=== PATIENT | female | born 1975 | race Caucasian/White ===

== ENCOUNTER 2019-01-03 09:37 | Emergency (ER) | payer MEDICAID, SELFPAY ==
[2019-01-03 09:42] VITALS: BP 120/69; PULSE 96; RESP 20; TEMP 36.8; O2SAT 97
[2019-01-03 09:45] VITALS: RESP 20
[2019-01-03] MEDS: Ondansetron O.D.T. 4 MG TABEF PO (10:07)
[2019-01-03] MEDS: Meclizine 25 MG TAB PO (10:07)
--- NOTE | 2019-01-03 11:25 | W.ED.GENAD ---
Discharge Plan Disposition Patient Disposition: HOME Condition: Improving Discharge Details Chief Complaint: Dizzy/Sync Clinical Impression: Benign paroxysmal positional vertigo Primary Care Provider: Karri Ceballos ED Provider: Berny Santiago Home Meds and New Rx's Prescriptions: New ondansetron 4 mg tablet,disintegrating 4 mg PO Q6H PRN (Reason: nausea and vomiting) Qty: 20 RF: 0 meclizine 25 mg tablet 25 mg PO TID PRN (Reason: motion sickness) Qty: 30 RF: 0 Discharge Instructions Instructions: Benign Paroxysmal Positional Vertigo (ED) Additional Instructions: Return immediately to the emergency department for any new or worsening symptoms, change in your symptoms but is abnormal, or any further concern. Otherwise follow-up with your primary care provider if not improving over the next 5 days or as needed for reassessment. Stand Alone Forms: Work Release Referrals: Karri Ceballos [Primary Care Provider] - (As needed for reassessment) Discharge Data Discharge Date/Time-TO BE ENTERED AT DEPARTURE: 01/03/19 11:54 Medical Decision Making 1 week of vertigo symptoms, patient states fullness bilateral ears that started out left but now feels more fullness in the right. Similar episodes in the past. Just prior to this episode patient does state some nasal congestion and mild cold symptoms. Due to room availability patient was given meclizine and Zofran prior to full physical exam but history was obtained from patient and she is stable with no acute distress physical exam shows negative hints exam, normal cardiac and respiratory exam, Michael-Hallpike with lateralization to the left and Jeff maneuver performed immediately afterwards. Patient had improvement of symptoms after this was performed. Patient is further instructed that she may perform these maneuvers at home but was also prescribed meclizine and Zofran. Return precautions were discussed. Otherwise patient to follow-up with primary care provider as needed. After discussion of diagnosis and plan of care patient is no further needs, questions, or concerns and states clear understanding to return to the emergency department for any worsening symptoms. HPI General Mode of arrival: ambulatory. Date/Time Provider Initiated Documentation: 01/03/19 09:44. Limitations to Documentation: no limitations. Information obtained by: patient and RN notes reviewed. History of Present Illness 43 year old F presents to the emergency department with the chief complaint of Dizziness, described as similar to prior episodes, Patient started experiencing this week(s) (1) and it has been intermittent. No relieving factors improve symptom(s), Movement worsens symptoms . Patient did receive the following treatments prior to arrival, none Related Data Home Medications Medication Instructions Recorded Confirmed meclizine 25 mg PO TID PRN #30 tab 01/03/19 ondansetron 4 mg PO Q6H PRN #20 tab 01/03/19 Previous Rx's Medication Instructions Recorded meclizine 25 mg PO TID PRN #30 tab 01/03/19 ondansetron 4 mg PO Q6H PRN #20 tab 01/03/19 Allergies Allergy/AdvReac Type Severity Reaction Status Date / Time adhesive tape Allergy Skin Rash Unverified 01/03/19 09:44 General Stated Complaint: Dizzy/Sync CARL: 3 Review of Systems Constitutional Denies fever(s), Denies frequent falls and Denies weakness ENT Reports as per HPI, Reports vertigo, Reports dizziness, Reports otalgia, Reports nasal congestion, Denies nasal discharge and Denies sore throat Cardiovascular Denies chest pain, Denies diaphoresis, Denies syncope, Denies palpitations and Denies dyspnea Respiratory Denies dyspnea Gastrointestinal Denies nausea and Denies vomiting Neurologic Reports vertigo, Reports dizziness, Denies syncope, Denies frequent falls, Denies sensory deficit and Denies weakness Endocrine Denies palpitations PFSH Medical History Achalasia of esophagus Gastroesophageal reflux disease history of reentrant SVT Surgical History section Esophageal Myotomy Fundoplication Ligation of fallopian tube Pacemaker Family History Aunt Personal history of malignant neoplasm Social History Smoking/Tobacco Use Status: Current every day Drug use: Occasionally Substance use type: marijuana Do you feel safe at home: Yes Do you feel safe in your relationship?: Yes Exam Const General: cooperative, healthy appearing, no acute distress and well groomed Orientation: alert, awake and oriented x3 HENMT Head: normal to inspection Ears: hearing grossly normal bilaterally and TM's normal bilaterally Mouth: oral mucosae normal and moist mucous membranes Throat: posterior oropharynx normal Eyes Visual Almaraz: normal visual almaraz by confrontation Alignment and Position: alignment normal Periorbital: periorbital findings normal Eyelids: eyelids normal Sclera: sclerae normal Cornea: corneas normal Pupils: PERRL EOM: EOM intact bilaterally Neck Neck: normal visual inspection, full ROM, no lymphadenopathy and no meningeal signs Resp Effort & Inspection: normal respiratory effort and able to speak in complete sentences Auscultation: clear to auscultation bilaterally Cardio Rate: regular rate Rhythm: regular rhythm Heart Sounds: S1 normal and S2 normal Neuro General: alert, awake, oriented x3, gait normal, tone normal, moves all extremities, CN's II-XI intact bilaterally, not confused, [place] Hallpike (Nystagmus to the left) and other (HINTS exam no central source) Cognition: normal cognition Speech: speech normal Motor: muscle tone normal throughout, strength 5/5 throughout and no movement abnormalities noted Sensory Exam: no sensory deficits noted Coordination: [id number] test normal, Romberg test normal and rapid alternating movement UE normal Course Vital Signs Temperature 36.8 C 01/03/19 09:42 Pulse 96 H 01/03/19 09:42 Respiratory Rate 20 01/03/19 09:42 Blood Pressure 120/69 01/03/19 09:42 Pulse Oximetry 97 01/03/19 09:42 Temperature 36.8 C 01/03/19 09:42 Temperature Source Temporal Artery Scan 01/03/19 09:42 Pulse 96 H 01/03/19 09:42 Respiratory Rate 20 01/03/19 09:45 Respiratory Effort Non-Labored 01/03/19 09:45 Respiratory Depth Normal 01/03/19 09:45 Respiratory Pattern Normal 01/03/19 09:45 Blood Pressure 120/69 01/03/19 09:42 Pulse Oximetry 97 01/03/19 09:42 Oxygen Delivery Method Room Air 01/03/19 09:42 Oxygen Flow Rate 0 01/03/19 09:42 Pain Level 6 01/03/19 09:42
--- NOTE | 2019-01-03 11:28 | ED.GENADUL_ITS ---
Discharge Plan Disposition Patient Disposition: HOME Condition: Improving Discharge Details Chief Complaint: Dizzy/Sync Clinical Impression: Benign paroxysmal positional vertigo Primary Care Provider: Karri Ceballos ED Provider: Berny Santiago Home Meds and New Rx's Prescriptions: New ondansetron 4 mg tablet,disintegrating 4 mg PO Q6H PRN (Reason: nausea and vomiting) Qty: 20 RF: 0 meclizine 25 mg tablet 25 mg PO TID PRN (Reason: motion sickness) Qty: 30 RF: 0 Discharge Instructions Instructions: Benign Paroxysmal Positional Vertigo (ED) Additional Instructions: Return immediately to the emergency department for any new or worsening symptoms, change in your symptoms but is abnormal, or any further concern. Otherwise follow-up with your primary care provider if not improving over the next 5 days or as needed for reassessment. Stand Alone Forms: Work Release Referrals: Karri Ceballos [Primary Care Provider] - (As needed for reassessment) Discharge Data Discharge Date/Time-TO BE ENTERED AT DEPARTURE: 01/03/19 11:54 Medical Decision Making 1 week of vertigo symptoms, patient states fullness bilateral ears that started out left but now feels more fullness in the right. Similar episodes in the past. Just prior to this episode patient does state some nasal congestion and mild cold symptoms. Due to room availability patient was given meclizine and Zofran prior to full physical exam but history was obtained from patient and she is stable with no acute distress physical exam shows negative hints exam, normal cardiac and respiratory exam, Michael-Hallpike with lateralization to the left and Jeff maneuver performed immediately afterwards. Patient had improvement of symptoms after this was performed. Patient is further instructed that she may perform these maneuvers at home but was also prescribed meclizine and Zofran. Return precautions were discussed. Otherwise patient to follow-up with primary care provider as needed. After discussion of diagnosis and plan of care patient is no further needs, questions, or concerns and states clear understanding to return to the emergency department for any worsening symptoms. HPI General Mode of arrival: ambulatory . Date/Time Provider Initiated Documentation: 01/03/19 09:44 . Limitations to Documentation: no limitations . Information obtained by: patient and RN notes reviewed . History of Present Illness 43 year old F presents to the emergency department with the chief complaint of Dizziness, described as similar to prior episodes, Patient started experiencing this week(s) (1) and it has been intermittent. No relieving factors improve symptom(s), Movement worsens symptoms . Patient did receive the following treatments prior to arrival, none Related Data Home Medications Medication Instructions Recorded Confirmed meclizine 25 mg PO TID PRN #30 tab 01/03/19 ondansetron 4 mg PO Q6H PRN #20 tab 01/03/19 Previous Rx's Medication Instructions Recorded meclizine 25 mg PO TID PRN #30 tab 01/03/19 ondansetron 4 mg PO Q6H PRN #20 tab 01/03/19 Allergies Allergy/AdvReac Type Severity Reaction Status Date / Time adhesive tape Allergy Skin Rash Unverified 01/03/19 09:44 General Stated Complaint: Dizzy/Sync CARL: 3 Review of Systems Constitutional Denies fever(s), Denies frequent falls and Denies weakness ENT Reports as per HPI, Reports vertigo, Reports dizziness, Reports otalgia, Reports nasal congestion, Denies nasal discharge and Denies sore throat Cardiovascular Denies chest pain, Denies diaphoresis, Denies syncope, Denies palpitations and Denies dyspnea Respiratory Denies dyspnea Gastrointestinal Denies nausea and Denies vomiting Neurologic Reports vertigo, Reports dizziness, Denies syncope, Denies frequent falls, Denies sensory deficit and Denies weakness Endocrine Denies palpitations PFSH Medical History Achalasia of esophagus Gastroesophageal reflux disease history of reentrant SVT Surgical History section Esophageal Myotomy Fundoplication Ligation of fallopian tube Pacemaker Family History Aunt Personal history of malignant neoplasm Social History Smoking/Tobacco Use Status: Current every day Drug use: Occasionally Substance use type: marijuana Do you feel safe at home: Yes Do you feel safe in your relationship?: Yes Exam Const General: cooperative, healthy appearing, no acute distress and well groomed Orientation: alert, awake and oriented x3 HENMT Head: normal to inspection Ears: hearing grossly normal bilaterally and TM's normal bilaterally Mouth: oral mucosae normal and moist mucous membranes Throat: posterior oropharynx normal Eyes Visual Almaraz: normal visual almaraz by confrontation Alignment and Position: alignment normal Periorbital: periorbital findings normal Eyelids: eyelids normal Sclera: sclerae normal Cornea: corneas normal Pupils: PERRL EOM: EOM intact bilaterally Neck Neck: normal visual inspection, full ROM, no lymphadenopathy and no meningeal signs Resp Effort & Inspection: normal respiratory effort and able to speak in complete sentences Auscultation: clear to auscultation bilaterally Cardio Rate: regular rate Rhythm: regular rhythm Heart Sounds: S1 normal and S2 normal Neuro General: alert, awake, oriented x3, gait normal, tone normal, moves all extremities, CN's II-XI intact bilaterally, not confused, [place] Hallpike (Nystagmus to the left) and other (HINTS exam no central source) Cognition: normal cognition Speech: speech normal Motor: muscle tone normal throughout, strength 5/5 throughout and no movement abnormalities noted Sensory Exam: no sensory deficits noted Coordination: [id number] test normal, Romberg test normal and rapid alternating movement UE normal Course Vital Signs Temperature 36.8 C 01/03/19 09:42 Pulse 96 H 01/03/19 09:42 Respiratory Rate 20 01/03/19 09:42 Blood Pressure 120/69 01/03/19 09:42 Pulse Oximetry 97 01/03/19 09:42 Temperature 36.8 C 01/03/19 09:42 Temperature Source Temporal Artery Scan 01/03/19 09:42 Pulse 96 H 01/03/19 09:42 Respiratory Rate 20 01/03/19 09:45 Respiratory Effort Non-Labored 01/03/19 09:45 Respiratory Depth Normal 01/03/19 09:45 Respiratory Pattern Normal 01/03/19 09:45 Blood Pressure 120/69 01/03/19 09:42 Pulse Oximetry 97 01/03/19 09:42 Oxygen Delivery Method Room Air 01/03/19 09:42 Oxygen Flow Rate 0 01/03/19 09:42 Pain Level 6 01/03/19 09:42
[2019-01-03 16:38] VITALS: BP 120/69; PULSE 96; RESP 20; TEMP 36.8; O2SAT 97
== END 2019-01-03 11:54 | disposition home or self-care (01) ==
PROVIDERS: Emergency Provider Nurse Practitioner Family; PCP Family Medicine
DX: H81.13 Benign paroxysmal vertigo, bilateral (principal)
CPT/HCPCS: 99283

== ENCOUNTER 2019-01-17 14:20 | Inpatient (IN) | payer MEDICAID, SELFPAY ==
[2019-01-17] VITALS (60 sets, daily range): BP systolic 100–129; BP diastolic 59–77; PULSE 62–99; RESP 13–31; TEMP 36.5–37.3; O2SAT 91–100
--- NOTE | 2019-01-17 14:29 | DI.CT_ITS ---
SYMPTOMS/DIAGNOSIS: SEVERE ABDOMINAL PAIN RADIATING TO CHEST CHEST, ABDOMINAL AND PELVIC CT: CT examination of the chest, abdomen and pelvis was performed with a bolus infusion of 100 cc of Omnipaque 350. There is a transvenous cardiac pacemaker in position. No cardiomegaly. Thoracic aorta and major branches appear normal. No evidence of pulmonary embolic disease. No pleural effusion or pleural-based mass. Incidental well-circumscribed 5-6 mm mean diameter left lower lobe intrapulmonary nodule, recommended follow-up chest CT in six months. Otherwise, the lungs are clear. Tracheobronchial tree appears intact. No mediastinal, hilar, axillary or supraclavicular adenopathy. The liver is unremarkable in appearance except for presumed small left hepatic lobe cyst. Spleen, pancreas and bile ducts are unremarkable. Gallbladder appears to have been surgically removed. Lower pole left renal cortical calcifications noted. No evidence of urinary tract obstruction. Left lower pole renal scarring noted. Abdominal aorta is of normal diameter and major branch vessels appear normal. No abdominal or pelvic adenopathy. Appendix is normal. No evidence of diverticulitis or bowel obstruction. OB GYN PHYSICIAN ASSISTANT structures appear intact. There is a question of dilatation of the distal esophagus versus hiatal hernia. Question also raised of gastric antral wall thickening, possible gastritis. Please correlate clinically regarding any epigastric symptoms and, if clinically indicated, additional evaluation with an endoscopy should be considered. CONCLUSION: 1. Question esophageal dilatation versus hiatal hernia. Question also raised of antral gastritis. If the patient has GI symptoms referable to the epigastric region, additional evaluation with endoscopy may be considered. 2. Incidental left lower lobe 5-6 mm mean diameter intrapulmonary nodule; follow-up chest CT recommended in six months. 3. Left renal cortical lower pole scarring and calcification; no evidence of acute urinary tract process.
[2019-01-17] MEDS: Normal Saline 1,000 ML 1000 ML IV ×2 (14:50→17:05)
[2019-01-17] MEDS: Ondansetron 4 MG/2 ML VIAL IVP (14:51)
[2019-01-17] MEDS: MORPHine 10 MG/ML VIAL 4 MG IVP (14:53)
[2019-01-17 15:03] LABS: Bilirubin Negative (Negative); Blood Trace-intact (Negative); Clarity Clear (Clear); Glucose Negative (Negative); Ketones Trace mg/dL (Negative); Leukocyte Esterase Trace (Negative); Nitrite Negative (Negative); Specific Gravity >= 1.030 (1.005-1.025); Urobilinogen 0.2 EU/dL (Up TO 0.2)
[2019-01-17 15:07] LABS: Abs Immature Grans 0.02 k/cumm (0.0-0.09); Absolute Basophil Count 0.04 k/cumm (0.0-0.2); Absolute Eosinophil Count 0.15 k/cumm (0.0-0.7); Absolute Monocyte Count 0.47 k/cumm (0.11-0.7); Absolute Neutrophil Count 5.62 k/cumm (1.2-6.7); Basophils % 0.5; Eosinophils % 1.8; HCT 39.8 % (36.0-46.0); HGB 13.3 g/dL (12.0-15.5); Immature Grans % 0.2; Mean Corp. HGB Concentration 33.4 g/dL (32.0-36.0); Mean Corpuscular Hemoglobin 30.9 pg (27.0-33.0); Mean Corpuscular Volume 92.3 fL (80-95); Mean Platelet Volume 10.1 fL (8.0-11.0); Monocytes % 5.6; Neutrophils % 66.9; Platelet Count 250 x1000/uL (130-400); RBC 4.31 m/cumm (4.00-5.20); RBC Distribution Width 12.4 % (11.7-14.6)
[2019-01-17 15:18] LABS: Bacteria Many HPF (Negative); C & S Indicated? Yes; Casts Negative LPF (Negative); Crystals Negative HPF (Negative); Epithelial Cells Moderate HPF (Negative); Mucus Negative (Negative); WBC >50 HPF (0-5)
[2019-01-17] MEDS: Omnipaque 350 MG/ML 100 ML BTL IJ (15:20)
--- NOTE | 2019-01-17 15:25 | W.ED.GENAD ---
Discharge Plan Disposition Patient Disposition: [facility] INPATIENT Condition: Stable Discharge Details Chief Complaint: Chest Pain Clinical Impression: Esophagitis, Gastritis, Urinary tract infection, Vomiting, Retching Primary Care Provider: Karri Ceballos ED Provider: Anand Thomas Home Meds and New Rx's Prescriptions: No Action ondansetron 4 mg tablet,disintegrating 4 mg PO Q6H PRN (Reason: nausea and vomiting) Qty: 20 RF: 0 meclizine 25 mg tablet 25 mg PO TID PRN (Reason: motion sickness) Qty: 30 RF: 0 Medical Decision Making This is a 43-year-old female with a past medical history of fundoplication, myomectomy, GERD, tubal ligation, 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 The patient states that 45 minutes ago she developed severe burning chest pain, that radiated to the epigastric region. She had associated nausea and vomiting and is been unable to keep anything down. She denies any history of cardiac ischemic disease. She states that aside for taking Tums today she is taking nothing else for reflux. Exam demonstrates notable reproducible tenderness in the epigastric region, the patient is curled up in the position appears to be in notable pain with continued retching and dry heaves. Differential includes acute abdominal pathology, atypical cardiac etiology, reflux, pancreatitis. There is no blood in the patient's vomitus, Renee-Keene tear seems less likely. Symptoms appear inconsistent with Boerhaave's at this time. We will get a CT scan, give GI cocktail, Zofran, IV fluids, and reevaluate. 4:45 PM Patient's laboratory work-up is returned, no significant white count, platelets stable. Electrolytes normal. Renal function stable. Troponin less than 0.05, lipase normal, urinalysis shows trace leuk esterase, but notable WBCs. Moderate bacteria. Concern for significant UTI versus Srinivas. Reassessment the patient denies any urinary symptoms however urinalysis is notably concerning. The Zofran has not been helpful in remediating the patient's nausea and retching or abdominal pain. GI cocktail gave no significant improvement. CT scan has returned and per radiology shows no evidence of rupture, Boerhaave's tear, or severe intra-abdominal pathology, however there is concern for notable hiatal hernia in conjunction with definite stomach and esophageal thickening concerning for significant esophagitis and gastritis. Recommendation from radiology for EGD and further evaluation. We did start the patient on Protonix bolus and infusion, repeat GI cocktail, and Reglan for nausea. She is still unable to tolerate p.o. I did contact the surgeon and discussed the case with Dr. Westbrook, she agrees with the need for EGD, thinks that he can probably wait until tomorrow. She recommends admission to the hospitalist for the UTI, with consult for surgery for EGD. Additionally of note there is evidence of a small pulmonary nodule which is incidental but does require CT follow-up in the next 6 months. 5:19pm Case has been disciussed with Dr Walter.I have extensively reviewed the treatment plan with the patient. I have addressed all patient concerns at this time. I have also discussed the plan with the admitting physician and they agree with the current assessment and plan and have agreed to assume responsibility for the patient. All parties demonstrate verbal understanding and agreement with our assessment and plan at this time. EKG 14: 34 Rate 79, NJ 182, QT 478, QRS 190, sinus rhythm with right bundle branch block secondary to pacing. Negative for SCARBOSSA criterion Exam(s) a CT:CT chest/abd/pel w SYMPTOMS/DIAGNOSIS: SEVERE ABDOMINAL PAIN RADIATING TO CHEST CHEST, ABDOMINAL AND PELVIC CT: CT examination of the chest, abdomen and pelvis was performed with a bolus infusion of 100 cc of Omnipaque 350. There is a transvenous cardiac pacemaker in position. No cardiomegaly. Thoracic aorta and major branches appear normal. No evidence of pulmonary embolic disease. No pleural effusion or pleural-based mass. Incidental well-circumscribed 5-6 mm mean diameter left lower lobe intrapulmonary nodule, recommended follow-up chest CT in six months. Otherwise, the lungs are clear. Tracheobronchial tree appears intact. No mediastinal, hilar, axillary or supraclavicular adenopathy. The liver is unremarkable in appearance except for presumed small left hepatic lobe cyst. Spleen, pancreas and bile ducts are unremarkable. Gallbladder appears to have been surgically removed. Lower pole left renal cortical calcifications noted. No evidence of urinary tract obstruction. Left lower pole renal scarring noted. Abdominal aorta is of normal diameter and major branch vessels appear normal. No abdominal or pelvic adenopathy. Appendix is normal. No evidence of diverticulitis or bowel obstruction. [employer] structures appear intact. There is a question of dilatation of the distal esophagus versus hiatal hernia. Question also raised of gastric antral wall thickening, possible gastritis. Please correlate clinically regarding any epigastric symptoms and, if clinically indicated, additional evaluation with an endoscopy should be considered. CONCLUSION: 1. Question esophageal dilatation versus hiatal hernia. Question also raised of antral gastritis. If the patient has GI symptoms referable to the epigastric region, additional evaluation with endoscopy may be considered. 2. Incidental left lower lobe 5-6 mm mean diameter intrapulmonary nodule; follow-up chest CT recommended in six months. 3. Left renal cortical lower pole scarring and calcification; no evidence of acute urinary tract process. HPI General Date/Time Provider Initiated Documentation: 01/17/19 14:24. HPI Narrative: This is a 43-year-old female with a past medical history of reentrant SVT with subsequent pacemaker, fundoplication, esophageal myotomy, and tubal ligation. As well as GERD. She presents today for evaluation of severe burning pain in her chest and epigastric region. She states that roughly 45 minutes prior to arrival she developed this, she does have some mild associated shortness of breath. The pain is burning and severe, and associated with dry heaves, nausea and multiple episodes of vomiting at home. Patient also admits to generalized abdominal pain in conjunction with the epigastric pain. She denies any numbness, tingling, weakness, arm neck or shoulder pain. She denies any tearing or ripping sensation in her chest. She denies any other complaints at this time. She did take some Tums at home prior to arrival, but does not normally take antacid medication. Patient denies any IV or illicit drug use, pertinent family history. Related Data Home Medications Medication Instructions Recorded Confirmed meclizine 25 mg PO TID PRN #30 tab 01/03/19 ondansetron 4 mg PO Q6H PRN #20 tab 01/03/19 Previous Rx's Medication Instructions Recorded meclizine 25 mg PO TID PRN #30 tab 01/03/19 ondansetron 4 mg PO Q6H PRN #20 tab 01/03/19 Allergies Allergy/AdvReac Type Severity Reaction Status Date / Time adhesive tape Allergy Skin Rash Unverified 01/03/19 09:44 General Stated Complaint: Chest Pain CARL: 2 Review of Systems Review of Systems All systems reviewed & are unremarkable except as noted in HPI and below PFSH Social History Smoking/Tobacco Use Status: Current every day Drug use: Occasionally Substance use type: marijuana Do you feel safe at home: Yes Do you feel safe in your relationship?: Yes Exam Narrative Exam Narrative: 1.Const: Well-nourished, Well-developed, appearing stated age 2.Eyes: PERRL, no conjunctival injection, and symmetrical lids. 3.ENT: Atraumatic external nose and ears. Moist MM. Neck: Symmetric, trachea midline, No thyromegaly. 4.CVS: +S1/S2, No murmurs or gallops. Peripheral pulses 2+ and equal in all extremities. Brisk capillary refill in all extremities. Radial pulses +2 bilaterally. 5.RESP: Unlabored respiratory effort. Clear to auscultation bilaterally. No wheezes rales or rhonchi 6.GI: Soft, diffusely tender, notable epigastric tenderness., No hepatosplenomegaly. Voluntary guarding. 7.MSK: Normocephalic/Atraumatic, Extremities w/o deformity or ttp No cyanosis or clubbing, Normal movement of all extremities 8.Skin: Warm, Dry. No rashes or lesions. 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 Sensation grossly intact, no focal neurologic deficits. 10.Psych: (AAO) x3. Appropriate mood and affect Course Vital Signs Temperature 36.9 C 01/17/19 14:37 Pulse 70 01/17/19 14:37 Respiratory Rate 18 01/17/19 14:37 Blood Pressure 112/71 01/17/19 14:37 Pulse Oximetry 98 01/17/19 14:37 Temperature 36.9 C 01/17/19 14:37 Temperature Source Skin 01/17/19 14:37 Pulse 70 01/17/19 14:37 Respiratory Rate 18 01/17/19 14:37 Blood Pressure 112/71 01/17/19 14:37 Blood Pressure Position Supine 01/17/19 14:37 Pulse Oximetry 98 01/17/19 14:37 Oxygen Delivery Method Room Air 01/17/19 14:37 Oxygen Flow Rate 0 01/17/19 14:37 Pain Level 8 01/17/19 14:53 Comment 01/17/19 14:37 Lab/Test Results Lab/Test Results: 01/17/19 14:56 Urine - Reflex from Ua Urine Culture - Pending Laboratory Tests Range/Units 01/17/19 01/17/19 14:56 15:00 WBC (4.4-10.8) k/cumm 8.40 RBC (4.00-5.20) m/cumm 4.31 Hgb (12.0-15.5) g/dL 13.3 Hct (36.0-46.0) % 39.8 MCV (80-95) fL 92.3 MCH (27.0-33.0) pg 30.9 MCHC (32.0-36.0) g/dL 33.4 RDW (11.7-14.6) % 12.4 Plt Count (130-400) x1000/uL 250 MPV (8.0-11.0) fL 10.1 Immature Gran % 0.2 Neutrophils % 66.9 Lymphocytes % 25.0 Monocytes % 5.6 Eosinophils % 1.8 Basophils % 0.5 Absolute Neutrophils (1.2-6.7) k/cumm 5.62 Absolute Lymphocytes (1.2-3.4) k/cumm 2.10 Absolute Monocytes (0.11-0.7) k/cumm 0.47 Absolute Eosinophils (0.0-0.7) k/cumm 0.15 Absolute Basophils (0.0-0.2) k/cumm 0.04 Urine Color (Yellow) Yellow Urine Clarity (Clear) Clear Urine pH (5-8) 6.0 Ur Specific [place] (1.005-1.025) >= 1.030 H Urine Protein (Negative) mg/dL 30 H Urine Ketones (Negative) mg/dL Trace H Urine Blood (Negative) Trace-intact H Urine Nitrite (Negative) Negative Urine Bilirubin (Negative) Negative Urine Urobilinogen (Up TO 0.2) EU/dL 0.2 Ur Leukocyte Esterase (Negative) Trace H Urine RBC (0-2) 3-5 H Urine WBC (0-5) HPF >50 Ur Epithelial Cells (Negative) HPF Moderate Urine Crystals (Negative) HPF Negative Urine Bacteria (Negative) HPF Many Urine Casts (Negative) LPF Negative Urine Mucus (Negative) Negative Ur Culture Indicated? Yes Urine Glucose (Negative) mg/dL Negative
[2019-01-17 15:28] LABS: PTT Activated 22.5 sec (21.0-31.4)
[2019-01-17 15:34] LABS: ALT 23 U/L (12-78); AST 18 U/L (15-37); Albumin 4.1 g/dL (3.4-5.0); Alkaline Phosphatase 56 U/L (46-116); Anion Gap 12.8 mmol/L (3-11); BUN 16 mg/dL (7-18); Bilirubin, Total 0.4 mg/dL (0.2-1.0); CO2 25.2 mmol/L (21.0-32.0); CREATININE 0.91 mg/dL (0.55-1.02); Calcium 9.6 mg/dL (8.5-10.1); Chloride 104 mmol/L (98-107); Glucose 125 mg/dL (70-100); Lipase 77 U/L (73-393); Potassium 3.9 mmol/L (3.5-5.1); Sodium 142 mmol/L (136-145); Total Protein 7.8 g/dL (6.4-8.2)
[2019-01-17 15:46] LABS: Troponin I < 0.05 ng/mL (0.00-0.06)
[2019-01-17] MEDS: FAMOTIDINE 20 MG/50 ML BAG 100 MG IVPB (16:34)
[2019-01-17] MEDS: Metoclopramide 10 MG/2 ML VIAL IVP (16:53)
[2019-01-17] MEDS: Pantoprazole 40 MG VIAL 80 MG IVP (16:57)
[2019-01-17] MEDS: cefTRIAXone 1 GM/50 ML BAG IVPB (17:06)
--- NOTE | 2019-01-17 17:30 | W.PM.HP.N ---
Date of service: 01/17/19 Time of Service: 17:30 Assessment and Plan (1) Emesis, persistent: Start date: 01/17/19 Current visit: Yes Status: Acute This is a 43-year-old lady with presentation of intractable nausea and vomiting and a history of chronic nausea usually controlled with THC. She also has a history of loose stools intermittently after her cholecystectomy. She presented with epigastric burning and chest pain but CT scan did reveal esophagitis and gastritis for which the patient is on treatment for this presently with iv PPI and oral Carafate. Surgical consultation has been made for probable EGD evaluation in the morning. She does have a history of previous fundoplication and esophageal myotomy and has had chronic GERD. We will continue to modify her symptomatic care attempting to decrease her emesis and retching. (2) Esophagitis with gastritis: Current visit: Yes Status: Acute Continue IV PPI and add Carafate with H2 antagonist given IV in the ED. Surgery can comment on further care and modification of treatment after EGD. (3) Atypical chest pain: Current visit: Yes Status: Acute This is most likely associated with her esophageal symptoms and her troponins have trended negative. Follow-up on last troponin and continue cardiac monitoring. 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 Qualifiers: Urinary tract infection type: site unspecified Hematuria presence: without hematuria Qualified Code(s): N39.0 - Urinary tract infection, site not specified History of Present Illness Chief Complaint: Chest pain with intractable emesis Narrative: This a 43-year-old lady with onset who had an onset of severe abdominal epigastric burning and lower chest pain presented to the ED because of persistent emesis with retching starting the morning of admission. She does have a history of fundoplication with subsequent esophageal myotomy and a history of GERD and chronic nausea which she self medicates with THC. 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 She reported to the ED she continued with intractable nausea and vomiting with retching not responding to IV antiemetics, IV Reglan and a GI cocktail. Surgery was consulted in the ED and will see the patient for an EGD over the weekend. She was admitted for IV hydration and bowel rest with continued treatment of esophagitis and gastritis seen on CT. She did receive IV Protonix high-dose and then infusion Protonix with continued IV PPIs ordered. Her other medical problems to be stable with a history of reentrant SVT and an AICD mostly pacing by quality assurance monitor body. Because of her presentation of chest pain she will have troponins trended which have been negative. In the ED she was also found to have a possible UTI and was started on iv Rocephin which will be continued. Review of Systems Review of Systems 13 point review of systems otherwise unrevealing or stable patient weight being maintained despite her chronic nausea and intermittent loose stools after her cholecystectomy. [facility] Medical History Achalasia of esophagus Gastroesophageal reflux disease history of reentrant SVT Surgical History section Esophageal Myotomy Fundoplication Ligation of fallopian tube Pacemaker Family History Aunt Personal history of malignant neoplasm Social History Smoking/Tobacco Use Status: Current-Occasional Drug use: Occasionally Substance use type: marijuana Do you feel safe at home: Yes Do you feel safe in your relationship?: Yes Meds Home Medications Medication Instructions Recorded Confirmed Type meclizine 25 mg PO TID PRN #30 tab 01/03/19 01/17/19 Rx ondansetron 4 mg PO Q6H PRN #20 tab 01/03/19 01/17/19 Rx Allergies Allergy/AdvReac Type Severity Reaction Status Date / Time adhesive tape Allergy Skin Rash Unverified 01/03/19 09:44 Exam Narrative Exam Narrative: General: Patient is lying in bed with her head elevated at a 45 degree angle and appears uncomfortable lying in position with her abdominal discomfort and nausea. She is alert and oriented x3. She is in moderate distress from her abdominal symptoms. HEENT: Normocephalic, oropharynx moist mucosa and normal dentition, eyes with pupils equal reactive light symmetrically and extraocular movement intact, sclera anicteric. Neck: Supple without JVD. Back: Without CVA tenderness. Lungs: Fair aeration and clear to auscultation percussion. Heart: Regular rate and rhythm no murmurs gallops appreciated. Pacemaker palpated subcutaneously over chest. Breasts: Exam deferred. Abdomen: Contour scaphoid, soft to palpation, tender over epigastrium with slight guarding but no rebound, no palpable hepatosplenomegaly or masses. Bowel sounds are present but decreased in all quadrants. Genitalia/rectal: Exam deferred. Extremities: Without clubbing cyanosis or edema. Skin: Warm and dry with no rashes. Neuro: Cranial nerves II through XII grossly intact, motor intact with normal strength, DTRs symmetrical with no Babinski's. Results Imaging Imaging Studies: Exam(s) a CT:CT chest/abd/pel w SYMPTOMS/DIAGNOSIS: SEVERE ABDOMINAL PAIN RADIATING TO CHEST CHEST, ABDOMINAL AND PELVIC CT: CT examination of the chest, abdomen and pelvis was performed with a bolus infusion of 100 cc of Omnipaque 350. There is a transvenous cardiac pacemaker in position. No cardiomegaly. Thoracic aorta and major branches appear normal. No evidence of pulmonary embolic disease. No pleural effusion or pleural-based mass. Incidental well-circumscribed 5-6 mm mean diameter left lower lobe intrapulmonary nodule, recommended follow-up chest CT in six months. Otherwise, the lungs are clear. Tracheobronchial tree appears intact. No mediastinal, hilar, axillary or supraclavicular adenopathy. The liver is unremarkable in appearance except for presumed small left hepatic lobe cyst. Spleen, pancreas and bile ducts are unremarkable. Gallbladder appears to have been surgically removed. Lower pole left renal cortical calcifications noted. No evidence of urinary tract obstruction. Left lower pole renal scarring noted. Abdominal aorta is of normal diameter and major branch vessels appear normal. No abdominal or pelvic adenopathy. Appendix is normal. No evidence of diverticulitis or bowel obstruction. ROAD MENDER structures appear intact. There is a question of dilatation of the distal esophagus versus hiatal hernia. Question also raised of gastric antral wall thickening, possible gastritis. Please correlate clinically regarding any epigastric symptoms and, if clinically indicated, additional evaluation with an endoscopy should be considered. CONCLUSION: 1. Question esophageal dilatation versus hiatal hernia. Question also raised of antral gastritis. If the patient has GI symptoms referable to the epigastric region, additional evaluation with endoscopy may be considered. 2. Incidental left lower lobe 5-6 mm mean diameter intrapulmonary nodule; follow-up chest CT recommended in six months. 3. Left renal cortical lower pole scarring and calcification; no evidence of acute urinary tract process. [id number]: Total DLP = 0.00 mGy-cm Ordered By: Anand Thomas DO CC: Dictated By: Arnie Goyal M.D. 01/17/19 1535 Labs : 01/17/19 15:00 01/17/19 15:00 Laboratory Results - last 24 hr 01/17/19 01/17/19 01/17/19 14:56 15:00 15:00 WBC 8.40 RBC 4.31 Hgb 13.3 Hct 39.8 MCV 92.3 MCH 30.9 MCHC 33.4 RDW 12.4 Plt Count 250 MPV 10.1 Immature Gran % 0.2 Neutrophils % 66.9 Lymphocytes % 25.0 Monocytes % 5.6 Eosinophils % 1.8 Basophils % 0.5 Absolute Neutrophils 5.62 Absolute Lymphocytes 2.10 Absolute Monocytes 0.47 Absolute Eosinophils 0.15 Absolute Basophils 0.04 PT INR APTT Sodium 142 Potassium 3.9 Chloride 104 Carbon Dioxide 25.2 Anion Gap 12.8 H BUN 16 Creatinine 0.91 Estimated GFR/1.73 m2 >= 60.00 Glucose 125 H Calcium 9.6 Total Bilirubin 0.4 AST 18 ALT 23 Alkaline Phosphatase 56 Troponin I < 0.05 Total Protein 7.8 Albumin 4.1 Lipase 77 Urine Color Yellow Urine Clarity Clear Urine pH 6.0 Ur Specific [place] >= 1.030 H Urine Protein 30 H Urine Ketones Trace H Urine Blood Trace-intact H Urine Nitrite Negative Urine Bilirubin Negative Urine Urobilinogen 0.2 Ur Leukocyte Esterase Trace H Urine RBC 3-5 H Urine WBC >50 Ur Epithelial Cells Moderate Urine Crystals Negative Urine Bacteria Many Urine Casts Negative Urine Mucus Negative Ur Culture Indicated? Yes Urine Glucose Negative 01/17/19 15:00 WBC RBC Hgb Hct MCV MCH MCHC RDW Plt Count MPV Immature Gran % Neutrophils % Lymphocytes % Monocytes % Eosinophils % Basophils % Absolute Neutrophils Absolute Lymphocytes Absolute Monocytes Absolute Eosinophils Absolute Basophils PT 10.0 INR 1.0 APTT 22.5 Sodium Potassium Chloride Carbon Dioxide Anion Gap BUN Creatinine Estimated GFR/1.73 m2 Glucose Calcium Total Bilirubin AST ALT Alkaline Phosphatase Troponin I Total Protein Albumin Lipase Urine Color Urine Clarity Urine pH Ur Specific [place] Urine Protein Urine Ketones Urine Blood Urine Nitrite Urine Bilirubin Urine Urobilinogen Ur Leukocyte Esterase Urine RBC Urine WBC Ur Epithelial Cells Urine Crystals Urine Bacteria Urine Casts Urine Mucus Ur Culture Indicated? Urine Glucose Last Vital Signs Temp 36.9 C 01/17/19 14:37 Pulse 70 01/17/19 14:37 Resp 18 01/17/19 17:21 BP 112/71 01/17/19 14:37 Pulse Ox 100 01/17/19 16:20
--- NOTE | 2019-01-17 17:35 | HPE_ITS ---
Date of service: 01/17/19 Time of Service: 17:30 Assessment and Plan (1) Emesis, persistent: Start date: 01/17/19 Current visit: Yes Status: Acute This is a 43-year-old lady with presentation of intractable nausea and vomiting and a history of chronic nausea usually controlled with THC. She also has a history of loose stools intermittently after her cholecystectomy. She presented with epigastric burning and chest pain but CT scan did reveal esophagitis and gastritis for which the patient is on treatment for this presently with iv PPI and oral Carafate. Surgical consultation has been made for probable EGD evaluation in the morning. She does have a history of previous fundoplication and esophageal myotomy and has had chronic GERD. We will continue to modify her symptomatic care attempting to decrease her emesis and retching. (2) Esophagitis with gastritis: Current visit: Yes Status: Acute Continue IV PPI and add Carafate with H2 antagonist given IV in the ED. Surgery can comment on further care and modification of treatment after EGD. (3) Atypical chest pain: Current visit: Yes Status: Acute This is most likely associated with her esophageal symptoms and her troponins have trended negative. Follow-up on last troponin and continue cardiac monitoring. (4) UTI (urinary tract infection): Start date: 01/17/19 Current visit: Yes Status: Acute Patient was not having symptoms of UTI but this was found during her evaluation in the ED and will be treated with Rocephin as a possible media/instructional designer of her symptoms. Qualifiers: Urinary tract infection type: site unspecified Hematuria presence: without hematuria Qualified Code(s): N39.0 - Urinary tract infection, site not specified History of Present Illness Chief Complaint: Chest pain with intractable emesis Narrative: This a 43-year- old lady with onset who had an onset of severe abdominal epigastric burning and lower chest pain presented to the ED because of persistent emesis with retching starting the morning of admission. She does have a history of fundoplication with subsequent esophageal myotomy and a history of GERD and chronic nausea which she self medicates with THC. 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 She reported to the ED she continued with intractable nausea and vomiting with retching not responding to IV antiemetics, IV Reglan and a GI cocktail. Surgery was consulted in the ED and will see the patient for an EGD over the weekend. She was admitted for IV hydration and bowel rest with continued treatment of esophagitis and gastritis seen on CT. She did receive IV Protonix high-dose and then infusion Protonix with continued IV PPIs ordered. Her other medical problems to be stable with a history of reentrant SVT and an AICD mostly pacing by compliance monitor. Because of her presentation of chest pain she will have troponins trended which have been negative. In the ED she was also found to have a possible UTI and was started on iv Rocephin which will be continued. Review of Systems Review of Systems 13 point review of systems otherwise unrevealing or stable patient weight being maintained despite her chronic nausea and intermittent loose stools after her cholecystectomy. [facility] Medical History Achalasia of esophagus Gastroesophageal reflux disease history of reentrant SVT Surgical History section Esophageal Myotomy Fundoplication Ligation of fallopian tube Pacemaker Family History Aunt Personal history of malignant neoplasm Social History Smoking/Tobacco Use Status: Current-Occasional Drug use: Occasionally Substance use type: marijuana Do you feel safe at home: Yes Do you feel safe in your relationship?: Yes Meds Home Medications Medication Instructions Recorded Confirmed Type meclizine 25 mg PO TID PRN #30 tab 01/03/19 01/17/19 Rx ondansetron 4 mg PO Q6H PRN #20 tab 01/03/19 01/17/19 Rx Allergies Allergy/AdvReac Type Severity Reaction Status Date / Time adhesive tape Allergy Skin Rash Unverified 01/03/19 09:44 Exam Narrative Exam Narrative: General: Patient is lying in bed with her head elevated at a 45 degree angle and appears uncomfortable lying in position with her abdominal discomfort and nausea. She is alert and oriented x3. She is in moderate distress from her abdominal symptoms. HEENT: Normocephalic, oropharynx moist mucosa and normal dentition, eyes with pupils equal reactive light symmetrically and extraocular movement intact, sclera anicteric. Neck: Supple without JVD. Back: Without CVA tenderness. Lungs: Fair aeration and clear to auscultation percussion. Heart: Regular rate and rhythm no murmurs gallops appreciated. Pacemaker palpated subcutaneously over chest. Breasts: Exam deferred. Abdomen: Contour scaphoid, soft to palpation, tender over epigastrium with slig ht guarding but no rebound, no palpable hepatosplenomegaly or masses. Bowel sounds are present but decreased in all quadrants. Genitalia/rectal: Exam deferred. Extremities: Without clubbing cyanosis or edema. Skin: Warm and dry with no rashes. Neuro: Cranial nerves II through XII grossly intact, motor intact with normal strength, DTRs symmetrical with no Babinski's. Results Imaging Imaging Studies: Exam(s) a CT:CT chest/abd/pel w SYMPTOMS/DIAGNOSIS: SEVERE ABDOMINAL PAIN RADIATING TO CHEST CHEST, ABDOMINAL AND PELVIC CT: CT examination of the chest, abdomen and pelvis was performed with a bolus infusion of 100 cc of Omnipaque 350. There is a transvenous cardiac pacemaker in position. No cardiomegaly. Thoracic aorta and major branches appear normal. No evidence of pulmonary embolic disease. No pleural effusion or pleural-based mass. Incidental well-circumscribed 5-6 mm mean diameter left lower lobe intrapulmonary nodule, recommended follow-up chest CT in six months. Otherwise, the lungs are clear. Tracheobronchial tree appears intact. No mediastinal, hilar, axillary or supraclavicular adenopathy. The liver is unremarkable in appearance except for presumed small left hepatic lobe cyst. Spleen, pancreas and bile ducts are unremarkable. Gallbladder appears to have been surgically removed. Lower pole left renal cortical calcifications noted. No evidence of urinary tract obstruction. Left lower pole renal scarring noted. Abdominal aorta is of normal diameter and major branch vessels appear normal. No abdominal or pelvic adenopathy. Appendix is normal. No evidence of diverticulitis or bowel obstruction. TECHNOLOGY SUPPORT ANALYST structures appear intact. There is a question of dilatation of the distal esophagus versus hiatal hernia. Question also raised of gastric antral wall thickening, possible gastritis. Please correlate clinically regarding any epigastric symptoms and, if clinically indicated, additional evaluation with an endoscopy should be considered. CONCLUSION: 1. Question esophageal dilatation versus hiatal hernia. Question also raised of antral gastritis. If the patient has GI symptoms referable to the epigastric region, additional evaluation with endoscopy may be considered. 2. Incidental left lower lobe 5-6 mm mean diameter intrapulmonary nodule; follow-up chest CT recommended in six months. 3. Left renal cortical lower pole scarring and calcification; no evidence of acute urinary tract process. [id number]: Total DLP = 0.00 mGy-cm Ordered By: Anand Thomas DO CC: Dictated By: Arnie Goyal M.D. 01/17/19 1535 Labs : 01/17/19 15:00 01/17/19 15:00 Laboratory Results - last 24 hr 01/17/19 01/17/19 01/17/19 14:56 15:00 15:00 WBC 8.40 RBC 4.31 Hgb 13.3 Hct 39.8 MCV 92.3 MCH 30.9 MCHC 33.4 RDW 12.4 Plt Count 250 MPV 10.1 Immature Gran % 0.2 Neutrophils % 66.9 Lymphocytes % 25.0 Monocytes % 5.6 Eosinophils % 1.8 Basophils % 0.5 Absolute Neutrophils 5.62 Absolute Lymphocytes 2.10 Absolute Monocytes 0.47 Absolute Eosinophils 0.15 Absolute Basophils 0.04 PT INR APTT Sodium 142 Potassium 3.9 Chloride 104 Carbon Dioxide 25.2 Anion Gap 12.8 H BUN 16 Creatinine 0.91 Estimated GFR/1.73 m2 >= 60.00 Glucose 125 H Calcium 9.6 Total Bilirubin 0.4 AST 18 ALT 23 Alkaline Phosphatase 56 Troponin I < 0.05 Total Protein 7.8 Albumin 4.1 Lipase 77 Urine Color Yellow Urine Clarity Clear Urine pH 6.0 Ur Specific Chambers >= 1.030 H Urine Protein 30 H Urine Ketones Trace H Urine Blood Trace-intact H Urine Nitrite Negative Urine Bilirubin Negative Urine Urobilinogen 0.2 Ur Leukocyte Esterase Trace H Urine RBC 3-5 H Urine WBC >50 Ur Epithelial Cells Moderate Urine Crystals Negative Urine Bacteria Many Urine Casts Negative Urine Mucus Negative Ur Culture Indicated? Yes Urine Glucose Negative 01/17/19 15:00 WBC RBC Hgb Hct MCV MCH MCHC RDW Plt Count MPV Immature Gran % Neutrophils % Lymphocytes % Monocytes % Eosinophils % Basophils % Absolute Neutrophils Absolute Lymphocytes Absolute Monocytes Absolute Eosinophils Absolute Basophils PT 10.0 INR 1.0 APTT 22.5 Sodium Potassium Chloride Carbon Dioxide Anion Gap BUN Creatinine Estimated GFR/1.73 m2 Glucose Calcium Total Bilirubin AST ALT Alkaline Phosphatase Troponin I Total Protein Albumin Lipase Urine Color Urine Clarity Urine pH Ur Specific Chambers Urine Protein Urine Ketones Urine Blood Urine Nitrite Urine Bilirubin Urine Urobilinogen Ur Leukocyte Esterase Urine RBC Urine WBC Ur Epithelial Cells Urine Crystals Urine Bacteria Urine Casts Urine Mucus Ur Culture Indicated? Urine Glucose Last Vital Signs Temp 36.9 C 01/17/19 14:37 Pulse 70 01/17/19 14:37 Resp 18 01/17/19 17:21 BP 112/71 01/17/19 14:37 Pulse Ox 100 01/17/19 16:20
[2019-01-17] MEDS: Normal Saline 1,000 ML 125 ML IV (17:59)
[2019-01-17] MEDS: PANTOPRAZOLE 80 MG in Normal Saline 100 ML 10 MG IV (18:00)
[2019-01-17 21:15] LABS: Magnesium 1.5 mg/dL (1.8-2.4); TSH (W/Ref FT4) 1.37 uIU/mL (0.358-3.74)
[2019-01-17 21:27] LABS: Troponin I < 0.05 ng/mL (0.00-0.06)
[2019-01-17] MEDS: Sucralfate 1 GM TAB PO (21:52)
[2019-01-18] VITALS (39 sets, daily range): BP systolic 99–116; BP diastolic 58–70; PULSE 59–90; RESP 11–27; TEMP 37.2–37.7; O2SAT 90–99
[2019-01-18] MEDS: MAGNESIUM SULFATE 2 GM/50 ML BAG IVPB (00:12)
[2019-01-18 00:29] LABS: Troponin I < 0.05 ng/mL (0.00-0.06)
[2019-01-18] MEDS: Sucralfate 1 GM TAB PO ×4 (03:13→20:02)
--- NOTE | 2019-01-18 05:11 | NUR.NOTE ---
The patient was going to have IV phenergan administered and the patient's R antecubital IV site was assessed by JEROD Hernandez prior to administration with the understanding that extravasation of this medication can be very harmful to the patient.Education was provided to the patient on this concern. The IV site was found to be intact with NS 100ml IV maintenance running and no signs of redness (except at insertion site), swelling, or pain. The phenergan 25mg was diluted in 50ml of NS and run in over 15 min at 200ml/hr (approximately 7014-1481). The IV site was assessed again post phenergan infusion(approximately 0325) with still no signs of infiltrate. Oliver Hernandez RN went into the room at approximately 0450 and found that the IV site was now infiltrated evidenced by a swollen, fluid filled area around the IV site. The site was not painful to the patient and no tissue discoloration or breakdown/blisters were present except the redness at the insertion site. NS at 200ml/hr had been running since the completion of the phenergan infusion. JEROD Huffman came into the room and agreed with the assessment of an infiltration and immediately educated the patient on the concern of tissue necrosis or damage that this medication can cause. The patient states I understand, she [RN] told me before she gave me the medication, that is why she was checking it so closely. Oliver Huffman RN (I) went and called the on-call [facility] pharmacy and spoke with Mansoor. I concurrently checked the [facility] policy on extravasation where I found the med not listed. Mansoor did not have any reference showing an antidote and that just warm compresses and monitoring should be done. I called Dr. Oden by 5:02 and explained the situation. He also verified that he was unaware of any antidote and that the site should be monitored closely. I educated the patient on the concern for tissue damage and necrosis again and told her of the phone calls to the pharmacist and the that were made. She states I understand, I'm not worried about it, I'm pretty sure it's just NS, the nurse looked at my arm after [the phenergan infusion] and I glanced at it and did not see any swelling and there is no pain. The patient agreed to report any discomfort, change in sensation, swelling, discoloration, or pain immediately. Nursing Note:
[2019-01-18] MEDS: Acetaminophen 500 MG TAB 1000 MG PO ×3 (05:20→20:37)
[2019-01-18 06:53] LABS: HCT 32.6 % (36.0-46.0); HGB 10.7 g/dL (12.0-15.5); Mean Corp. HGB Concentration 32.8 g/dL (32.0-36.0); Mean Corpuscular Hemoglobin 30.4 pg (27.0-33.0); Mean Corpuscular Volume 92.6 fL (80-95); Mean Platelet Volume 10.3 fL (8.0-11.0); Platelet Count 190 x1000/uL (130-400); RBC 3.52 m/cumm (4.00-5.20); RBC Distribution Width 12.5 % (11.7-14.6); White Blood Cell Count 7.41 k/cumm (4.4-10.8)
[2019-01-18 07:13] LABS: ALT 49 U/L (12-78); AST 39 U/L (15-37); Albumin 3.3 g/dL (3.4-5.0); Alkaline Phosphatase 52 U/L (46-116); BUN 12 mg/dL (7-18); Bilirubin, Total 0.6 mg/dL (0.2-1.0); CREATININE 0.82 mg/dL (0.55-1.02); Calcium 8.1 mg/dL (8.5-10.1); Chloride 108 mmol/L (98-107); Glucose 110 mg/dL (70-100); Potassium 3.4 mmol/L (3.5-5.1); Sodium 141 mmol/L (136-145); Total Protein 6.2 g/dL (6.4-8.2)
--- NOTE | 2019-01-18 08:21 | W.PM.PROGNOT ---
Date of Service Date of service: 01/18/19 Time of Service: 08:22 Assessment and Plan (1) Emesis, persistent: Current visit: Yes Status: Acute Acute on chronic. Likely due to esophagitis/gastritis. I added pepcid to IV protonix. Continue carafate. Trial clears. Will need outpatient GI follow up. (2) Esophagitis with gastritis: Current visit: Yes Status: Acute as above (3) Atypical chest pain: Current visit: Yes Status: Acute Likely due to esophagitis Resolved. Continue tele for QT prolongation (4) UTI (urinary tract infection): Current visit: Yes Status: Ruled-out Repeat UA is negative. D/c abx. Qualifiers: Hematuria presence: without hematuria Urinary tract infection type: site unspecified Qualified Code(s): N39.0 - Urinary tract infection, site not specified (5) S/P placement of cardiac pacemaker: Current visit: Yes Status: Acute With what looks like failure to sense. Will fax strips to [facility] for review. Will need outpatient follow up. (6) Anemia: Current visit: Yes Status: Acute Acute, normocytic, hemoccult negative. H/H stable so far today. Likely dilutional. No further workup, but will recheck in am (7) DVT prophylaxis: Current visit: Yes Status: Acute TEDs + SCD's Hold on chemical DVT ppx in setting of gastritis/esophagitis - higher risk for GI bleeding (8) Discharge planning issues: Current visit: Yes Status: Acute Full code Expect discharge home tomorrow Subjective Interval history since last seen: Atrial paced. Nursing is questioning Atrial pacer spikes in inappropriate places overnight (not sensing?). Had nausea overnight, given phenergan. Still nauseated, but better today. No dry heaves. Heme negative BM yesterday. Denies dizziness, c/o an episode of midsternal chest pain earlier, no palpitations, denies abdominal pain unless I press on the abdomen (then, it hurts in LUQ). Seen by general surgery - not felt to require inpatient EGD. Exam Narrative Exam Narrative: General: very pleaseant female, tired, asleep, easily arousable, A&Ox3, NAD HEENT: EOMI, MMM Heart: RRR, occasional extra beat Lungs: CTAB GI: abdomen is soft, slightly tender in LUQ, nondistended Extremities: no e/c/c BLE's, L foot with a mole, about 4 mm in diameter (there for 2 years, per patient) Objective Objective Clinical Data: Abnormal lab results 01/17/19 01/17/19 01/17/19 Range/Units 14:56 15:00 20:02 RBC (4.00-5.20) m/cumm Hgb (12.0-15.5) g/dL Hct (36.0-46.0) % Potassium (3.5-5.1) mmol/L Chloride (98-107) mmol/L Anion Gap 12.8 H (3-11) mmol/L Glucose 125 H (70-100) mg/dL Calcium (8.5-10.1) mg/dL Magnesium 1.5 L (1.8-2.4) mg/dL AST (15-37) U/L Total Protein (6.4-8.2) g/dL Albumin (3.4-5.0) g/dL Ur Specific Fe [employer] >= 1.030 H (1.005-1.025) Urine Protein 30 H (Negative) mg/dL Urine Ketones Trace H (Negative) mg/dL Urine Blood Trace-intact H (Negative) Ur Leukocyte Esterase Trace H (Negative) Urine RBC 3-5 H (0-2) 01/18/19 01/18/19 Range/Units 06:32 06:32 RBC 3.52 L (4.00-5.20) m/cumm Hgb 10.7 L D (12.0-15.5) g/dL Hct 32.6 L (36.0-46.0) % Potassium 3.4 L (3.5-5.1) mmol/L Chloride 108 H (98-107) mmol/L Anion Gap (3-11) mmol/L Glucose 110 H (70-100) mg/dL Calcium 8.1 L (8.5-10.1) mg/dL Magnesium (1.8-2.4) mg/dL AST 39 H (15-37) U/L Total Protein 6.2 L (6.4-8.2) g/dL Albumin 3.3 L (3.4-5.0) g/dL Ur Specific Fe [employer] (1.005-1.025) Urine Protein (Negative) mg/dL Urine Ketones (Negative) mg/dL Urine Blood (Negative) Ur Leukocyte Esterase (Negative) Urine RBC (0-2) Vital Signs Temperature 37.7 C H 01/18/19 06:29 Temperature Source Temporal Artery Scan 01/18/19 06:29 Pulse 72 01/18/19 00:30 Pulse 76 01/18/19 05:50 Respiratory Rate 26 H 01/18/19 05:50 Respiratory Effort 01/17/19 18:45 Respiratory Depth Normal 01/17/19 18:45 Respiratory Pattern Normal 01/17/19 18:45 Blood Pressure 116/70 01/18/19 03:04 Blood Pressure Mean 81 01/18/19 03:04 Blood Pressure Position Supine 01/17/19 18:45 Pulse Oximetry 94 L 01/18/19 05:50 Oxygen Delivery Method Room Air 01/17/19 18:45 Oxygen Flow Rate 0 01/17/19 18:45 Pain Level 0 01/17/19 18:45 Comment 01/17/19 14:37 Intake & Output 01/17/19 01/17/19 01/18/19 11:59 23:59 11:59 Intake Total 2398.667 / 2398.667 357.333 / 357.333 Output Total 450 / 450 Balance 2398.667 / 2398.667 -92.667 / -92.667 Weight 61.5 kg 60.9 kg Intake: IV 2358.667 / 2358.667 157.333 / 157.333 Oral 40 / 40 200 / 200 Output: Urine 450 / 450 Other: Urine Color Straw Urine Appearance Clear Urine Odor None Comment No menstral products in use,last period just ended Emesis Description Retching None Clear/Water Voiding Methods Bedside Commode Laboratory Results WBC 7.41 k/cumm (4.4-10.8) 01/18/19 06:32 RBC 3.52 m/cumm (4.00-5.20) L 01/18/19 06:32 Hgb 10.7 g/dL (12.0-15.5) L D 01/18/19 06:32 Hct 32.6 % (36.0-46.0) L 01/18/19 06:32 MCV 92.6 fL (80-95) 01/18/19 06:32 MCH 30.4 pg (27.0-33.0) 01/18/19 06:32 MCHC 32.8 g/dL (32.0-36.0) 01/18/19 06:32 RDW 12.5 % (11.7-14.6) 01/18/19 06:32 Plt Count 190 x1000/uL (130-400) 01/18/19 06:32 MPV 10.3 fL (8.0-11.0) 01/18/19 06:32 Immature Gran % 0.2 01/17/19 15:00 Neutrophils % 66.9 01/17/19 15:00 Lymphocytes % 25.0 01/17/19 15:00 Monocytes % 5.6 01/17/19 15:00 Eosinophils % 1.8 01/17/19 15:00 Basophils % 0.5 01/17/19 15:00 Absolute Neutrophils 5.62 k/cumm (1.2-6.7) 01/17/19 15:00 Absolute Lymphocytes 2.10 k/cumm (1.2-3.4) 01/17/19 15:00 Absolute Monocytes 0.47 k/cumm (0.11-0.7) 01/17/19 15:00 Absolute Eosinophils 0.15 k/cumm (0.0-0.7) 01/17/19 15:00 Absolute Basophils 0.04 k/cumm (0.0-0.2) 01/17/19 15:00 PT 10.0 sec (9.3-11.0) 01/17/19 15:00 INR 1.0 (0.9-1.1) 01/17/19 15:00 APTT 22.5 sec (21.0-31.4) 01/17/19 15:00 Sodium 141 mmol/L (136-145) 01/18/19 06:32 Potassium 3.4 mmol/L (3.5-5.1) L 01/18/19 06:32 Chloride 108 mmol/L (98-107) H 01/18/19 06:32 Carbon Dioxide 22.0 mmol/L (21.0-32.0) 01/18/19 06:32 Anion Gap 11.0 mmol/L (3-11) 01/18/19 06:32 BUN 12 mg/dL (7-18) 01/18/19 06:32 Creatinine 0.82 mg/dL (0.55-1.02) 01/18/19 06:32 Estimated GFR/1.73 m2 >= 60.00 (mL/min/1.73m2) 01/18/19 06:32 Glucose 110 mg/dL (70-100) H 01/18/19 06:32 Calcium 8.1 mg/dL (8.5-10.1) L 01/18/19 06:32 Magnesium 1.5 mg/dL (1.8-2.4) L 01/17/19 20:02 Total Bilirubin 0.6 mg/dL (0.2-1.0) 01/18/19 06:32 AST 39 U/L (15-37) H 01/18/19 06:32 ALT 49 U/L (12-78) 01/18/19 06:32 Alkaline Phosphatase 52 U/L (46-116) 01/18/19 06:32 Troponin I < 0.05 ng/mL (0.00-0.06) 01/17/19 20:02 Total Protein 6.2 g/dL (6.4-8.2) L 01/18/19 06:32 Albumin 3.3 g/dL (3.4-5.0) L 01/18/19 06:32 Lipase 77 U/L (73-393) 01/17/19 15:00 TSH 1.37 uIU/mL (0.358-3.74) 01/17/19 20:02 Urine Color Yellow (Yellow) 01/17/19 14:56 Urine Clarity Clear (Clear) 01/17/19 14:56 Urine pH 6.0 (5-8) 01/17/19 14:56 Ur Specific Fe [employer] >= 1.030 (1.005-1.025) H 01/17/19 14:56 Urine Protein 30 mg/dL (Negative) H 01/17/19 14:56 Urine Ketones Trace mg/dL (Negative) H 01/17/19 14:56 Urine Blood Trace-intact (Negative) H 01/17/19 14:56 Urine Nitrite Negative (Negative) 01/17/19 14:56 Urine Bilirubin Negative (Negative) 01/17/19 14:56 Urine Urobilinogen 0.2 EU/dL (Up TO 0.2) 01/17/19 14:56 Ur Leukocyte Esterase Trace (Negative) H 01/17/19 14:56 Urine RBC 3-5 (0-2) H 01/17/19 14:56 Urine WBC >50 HPF (0-5) 01/17/19 14:56 Ur Epithelial Cells Moderate HPF (Negative) 01/17/19 14:56 Urine Crystals Negative HPF (Negative) 01/17/19 14:56 Urine Bacteria Many HPF (Negative) 01/17/19 14:56 Urine Casts Negative LPF (Negative) 01/17/19 14:56 Urine Mucus Negative (Negative) 01/17/19 14:56 Ur Culture Indicated? Yes 01/17/19 14:56 Urine Glucose Negative mg/dL (Negative) 01/17/19 14:56
[2019-01-18 08:24] LABS: Magnesium 2.3 mg/dL (1.8-2.4)
[2019-01-18] MEDS: Normal Saline Flush 10 ML SYR IVP ×4 (09:20→20:37)
[2019-01-18] MEDS: Prochlorperazine 10 MG/2 ML VIAL IVP (09:46)
--- NOTE | 2019-01-18 10:08 | W.SURGCON ---
Date of service: 01/18/19 Time of Service: 10:08 Assessment and Plan (1) Esophagitis with gastritis: Current visit: Yes Status: Acute The patient's symptoms of dysphagia and reflux as well as the findings on CT scan represent a chronic problem. I do not think urgent EGD is indicated and have advised her to follow-up with her paint prepper for continuity of care. I did advise her to resume her Prilosec until further evaluation. Carafate can also be added if beneficial. Once her nausea resolves she can resume her typical diet. History of Present Illness Narrative: This patient presented to the emergency department yesterday afternoon with complaints of chest pain, nausea and vomiting. She was evaluated for a cardiac etiology with negative testing thus far. Her history is significant for a pacemaker for heart block. She had a CT scan of her chest that showed possible esophagitis and gastritis. The patient does have a long-standing history of reflux and dysphagia. It sounds like she was treated for achalasia several years ago with a myotomy and partial fundoplication. She has needed intermittent balloon dilation with the last one being done 2 years ago. She currently notes dysphagia with most meals and will have to drink water to get the good to do down or only consume a soft/liquid diet. She has seen her paint prepper at [facility] within the last few months and was actually scheduled for an EGD with possible dilation. They decided to trial Prilosec for 2 weeks which did result in improvement so she canceled the procedure. She has not been taking her Prilosec for about a month and is instead using Tums. When the patient was evaluated in the emergency department she was found to have a urinary tract infection and was admitted for symptom control as well as antibiotic treatment. [facility] Medical History Achalasia of esophagus Gastroesophageal reflux disease history of reentrant SVT Surgical History section Esophageal Myotomy Fundoplication Ligation of fallopian tube Pacemaker Family History Aunt Personal history of malignant neoplasm Social History Smoking/Tobacco Use Status: Current-Occasional Drug use: Occasionally Substance use type: marijuana Do you feel safe at home: Yes Do you feel safe in your relationship?: Yes Results Last Vital Signs Temp 99.7 F H 01/18/19 08:00 Pulse 68 01/18/19 07:54 Resp 21 01/18/19 07:54 BP 112/58 L 01/18/19 07:54 Pulse Ox 98 01/18/19 07:54 Labs : 01/18/19 06:32 01/18/19 06:32 Laboratory Results - last 24 hr 01/17/19 01/17/19 01/17/19 00:00 14:56 15:00 WBC RBC Hgb Hct MCV MCH MCHC RDW Plt Count MPV Immature Gran % Neutrophils % Lymphocytes % Monocytes % Eosinophils % Basophils % Absolute Neutrophils Absolute Lymphocytes Absolute Monocytes Absolute Eosinophils Absolute Basophils PT INR APTT Sodium 142 Potassium 3.9 Chloride 104 Carbon Dioxide 25.2 Anion Gap 12.8 H BUN 16 Creatinine 0.91 Estimated GFR/1.73 m2 >= 60.00 Glucose 125 H Calcium 9.6 Magnesium Total Bilirubin 0.4 AST 18 ALT 23 Alkaline Phosphatase 56 Troponin I < 0.05 < 0.05 Total Protein 7.8 Albumin 4.1 Lipase 77 TSH Urine Color Yellow Urine Clarity Clear Urine pH 6.0 Ur Specific [place] >= 1.030 H Urine Protein 30 H Urine Ketones Trace H Urine Blood Trace-intact H Urine Nitrite Negative Urine Bilirubin Negative Urine Urobilinogen 0.2 Ur Leukocyte Esterase Trace H Urine RBC 3-5 H Urine WBC >50 Ur Epithelial Cells Moderate Urine Crystals Negative Urine Bacteria Many Urine Casts Negative Urine Mucus Negative Ur Culture Indicated? Yes Urine Glucose Negative 01/17/19 01/17/19 01/17/19 15:00 15:00 20:02 WBC 8.40 RBC 4.31 Hgb 13.3 Hct 39.8 MCV 92.3 MCH 30.9 MCHC 33.4 RDW 12.4 Plt Count 250 MPV 10.1 Immature Gran % 0.2 Neutrophils % 66.9 Lymphocytes % 25.0 Monocytes % 5.6 Eosinophils % 1.8 Basophils % 0.5 Absolute Neutrophils 5.62 Absolute Lymphocytes 2.10 Absolute Monocytes 0.47 Absolute Eosinophils 0.15 Absolute Basophils 0.04 PT 10.0 INR 1.0 APTT 22.5 Sodium Potassium Chloride Carbon Dioxide Anion Gap BUN Creatinine Estimated GFR/1.73 m2 Glucose Calcium Magnesium 1.5 L Total Bilirubin AST ALT Alkaline Phosphatase Troponin I < 0.05 Total Protein Albumin Lipase TSH 1.37 Urine Color Urine Clarity Urine pH Ur Specific [place] Urine Protein Urine Ketones Urine Blood Urine Nitrite Urine Bilirubin Urine Urobilinogen Ur Leukocyte Esterase Urine RBC Urine WBC Ur Epithelial Cells Urine Crystals Urine Bacteria Urine Casts Urine Mucus Ur Culture Indicated? Urine Glucose 01/18/19 01/18/19 06:32 06:32 WBC 7.41 RBC 3.52 L Hgb 10.7 L D Hct 32.6 L MCV 92.6 MCH 30.4 MCHC 32.8 RDW 12.5 Plt Count 190 MPV 10.3 Immature Gran % Neutrophils % Lymphocytes % Monocytes % Eosinophils % Basophils % Absolute Neutrophils Absolute Lymphocytes Absolute Monocytes Absolute Eosinophils Absolute Basophils PT INR APTT Sodium 141 Potassium 3.4 L Chloride 108 H Carbon Dioxide 22.0 Anion Gap 11.0 BUN 12 Creatinine 0.82 Estimated GFR/1.73 m2 >= 60.00 Glucose 110 H Calcium 8.1 L Magnesium 2.3 Total Bilirubin 0.6 AST 39 H ALT 49 Alkaline Phosphatase 52 Troponin I Total Protein 6.2 L Albumin 3.3 L Lipase TSH Urine Color Urine Clarity Urine pH Ur Specific [place] Urine Protein Urine Ketones Urine Blood Urine Nitrite Urine Bilirubin Urine Urobilinogen Ur Leukocyte Esterase Urine RBC Urine WBC Ur Epithelial Cells Urine Crystals Urine Bacteria Urine Casts Urine Mucus Ur Culture Indicated? Urine Glucose
--- NOTE | 2019-01-18 10:15 | SCONE_ITS ---
Date of service: 01/18/19 Time of Service: 10:08 Assessment and Plan (1) Esophagitis with gastritis: Current visit: Yes Status: Acute The patient's symptoms of dysphagia and reflux as well as the findings on CT scan represent a chronic problem. I do not think urgent EGD is indicated and have advised her to follow-up with her montessori preschool teacher for continuity of care. I did advise her to resume her Prilosec until further evaluation. Carafate can also be added if beneficial. Once her nausea resolves she can resume her typical diet. History of Present Illness Narrative: This patient presented to the emergency department yesterday afternoon with complaints of chest pain, nausea and vomiting. She was evaluated for a cardiac etiology with negative testing thus far. Her history is significant for a pacemaker for heart block. She had a CT scan of her chest that showed possible esophagitis and gastritis. The patient does have a long- standing history of reflux and dysphagia. It sounds like she was treated for achalasia several years ago with a myotomy and partial fundoplication. She has needed intermittent balloon dilation with the last one being done 2 years ago. She currently notes dysphagia with most meals and will have to drink water to get the good to do down or only consume a soft/liquid diet. She has seen her montessori preschool teacher at [facility] within the last few months and was actually scheduled for an EGD with possible dilation. They decided to trial Prilosec for 2 weeks which did result in improvement so she canceled the procedure. She has not been taking her Prilosec for about a month and is instead using Tums. When the patient was evaluated in the emergency department she was found to have a urinary tract infection and was admitted for symptom control as well as antibiotic treatment. [facility] Medical History Achalasia of esophagus Gastroesophageal reflux disease history of reentrant SVT Surgical History section Esophageal Myotomy Fundoplication Ligation of fallopian tube Pacemaker Family History Aunt Personal history of malignant neoplasm Social History Smoking/Tobacco Use Status: Current-Occasional Drug use: Occasionally Substance use type: marijuana Do you feel safe at home: Yes Do you feel safe in your relationship?: Yes Results Last Vital Signs Temp 99.7 F H 01/18/19 08:00 Pulse 68 01/18/19 07:54 Resp 21 01/18/19 07:54 BP 112/58 L 01/18/19 07:54 Pulse Ox 98 01/18/19 07:54 Labs : 01/18/19 06:32 01/18/19 06:32 Laboratory Results - last 24 hr 01/17/19 01/17/19 01/17/19 00:00 14:56 15:00 WBC RBC Hgb Hct MCV MCH MCHC RDW Plt Count MPV Immature Gran % Neutrophils % Lymphocytes % Monocytes % Eosinophils % Basophils % Absolute Neutrophils Absolute Lymphocytes Absolute Monocytes Absolute Eosinophils Absolute Basophils PT INR APTT Sodium 142 Potassium 3.9 Chloride 104 Carbon Dioxide 25.2 Anion Gap 12.8 H BUN 16 Creatinine 0.91 Estimated GFR/1.73 m2 >= 60.00 Glucose 125 H Calcium 9.6 Magnesium Total Bilirubin 0.4 AST 18 ALT 23 Alkaline Phosphatase 56 Troponin I < 0.05 < 0.05 Total Protein 7.8 Albumin 4.1 Lipase 77 TSH Urine Color Yellow Urine Clarity Clear Urine pH 6.0 Ur Specific [place] >= 1.030 H Urine Protein 30 H Urine Ketones Trace H Urine Blood Trace-intact H Urine Nitrite Negative Urine Bilirubin Negative Urine Urobilinogen 0.2 Ur Leukocyte Esterase Trace H Urine RBC 3-5 H Urine WBC >50 Ur Epithelial Cells Moderate Urine Crystals Negative Urine Bacteria Many Urine Casts Negative Urine Mucus Negative Ur Culture Indicated? Yes Urine Glucose Negative 01/17/19 01/17/19 01/17/19 15:00 15:00 20:02 WBC 8.40 RBC 4.31 Hgb 13.3 Hct 39.8 MCV 92.3 MCH 30.9 MCHC 33.4 RDW 12.4 Plt Count 250 MPV 10.1 Immature Gran % 0.2 Neutrophils % 66.9 Lymphocytes % 25.0 Monocytes % 5.6 Eosinophils % 1.8 Basophils % 0.5 Absolute Neutrophils 5.62 Absolute Lymphocytes 2.10 Absolute Monocytes 0.47 Absolute Eosinophils 0.15 Absolute Basophils 0.04 PT 10.0 INR 1.0 APTT 22.5 Sodium Potassium Chloride Carbon Dioxide Anion Gap BUN Creatinine Estimated GFR/1.73 m2 Glucose Calcium Magnesium 1.5 L Total Bilirubin AST ALT Alkaline Phosphatase Troponin I < 0.05 Total Protein Albumin Lipase TSH 1.37 Urine Color Urine Clarity Urine pH Ur Specific [place] Urine Protein Urine Ketones Urine Blood Urine Nitrite Urine Bilirubin Urine Urobilinogen Ur Leukocyte Esterase Urine RBC Urine WBC Ur Epithelial Cells Urine Crystals Urine Bacteria Urine Casts Urine Mucus Ur Culture Indicated? Urine Glucose 01/18/19 01/18/19 06:32 06:32 WBC 7.41 RBC 3.52 L Hgb 10.7 L D Hct 32.6 L MCV 92.6 MCH 30.4 MCHC 32.8 RDW 12.5 Plt Count 190 MPV 10.3 Immature Gran % Neutrophils % Lymphocytes % Monocytes % Eosinophils % Basophils % Absolute Neutrophils Absolute Lymphocytes Absolute Monocytes Absolute Eosinophils Absolute Basophils PT INR APTT Sodium 141 Potassium 3.4 L Chloride 108 H Carbon Dioxide 22.0 Anion Gap 11.0 BUN 12 Creatinine 0.82 Estimated GFR/1.73 m2 >= 60.00 Glucose 110 H Calcium 8.1 L Magnesium 2.3 Total Bilirubin 0.6 AST 39 H ALT 49 Alkaline Phosphatase 52 Troponin I Total Protein 6.2 L Albumin 3.3 L Lipase TSH Urine Color Urine Clarity Urine pH Ur Specific [place] Urine Protein Urine Ketones Urine Blood Urine Nitrite Urine Bilirubin Urine Urobilinogen Ur Leukocyte Esterase Urine RBC Urine WBC Ur Epithelial Cells Urine Crystals Urine Bacteria Urine Casts Urine Mucus Ur Culture Indicated? Urine Glucose
[2019-01-18] MEDS: Normal Saline 1,000 ML 125 ML IV ×2 (10:32→18:26)
--- NOTE | 2019-01-18 12:52 | PHARADMIT ---
Addendum entered by Daniel Ely III 01/20/19 15:33: Pharmacy Note Subjective Patient ate 25% of breakfast and became nauseated. Surgical consult unsure if EGD would be beneifical and recommended discussing case with patients surgeon at [facility]. Objective VS-OK K+3.1 (replaced) Mag-1.9 small BM yesterday Assessment Using Zofran , On Carafate, Pepcid and Nexium. Plan Awaiting result of [facility] consult. Original Note: Admission Pharmacy Clinical Review intractable emesis, esophagitis, atypical chest pain Code Status Full Code Current Weight 60.9 kg Renally Cleared and Narrow Therapeutic Index Meds Crcl ~84.5 mL/min current meds okay QTc Value / Action Taken QTc 548 MD aware, promethazine discontinued BP Control, Fever bp 112/58 Tmax 37.7 Electrolytes reviewed K+ 3.4 Cl 108 DVT Prophylaxis none surg consult today about EGD Opiate Usage / Scheduled Bowel Regimen Ordered no/prn Plt/SCr for Heparin / Enoxaparin plt 190 SCr 0.82 INR for Warfarin n/a H/H stable, WBC/Bands h/h 10.7/32.6 (drop from yesterday) wbc 7.41 Antibiotic appropriateness ceftriaxone for UTI Cultures and Sensitivities urine culture grew gram positive and negative mariam (probable contaminant) Surgical ABX d/c within 24 hr n/a DM control / Insulin Dosing BG 110 none Heart Failure (Check EF%) (KOSTAS's, B-Block, Diuretics) none IV to PO Switch n/a Home Meds Reviewed yes Home Meds Not Ordered ondansetron (QTc prolonged/has other antiemetics ordered) Comments
[2019-01-18 13:57] LABS: HCT 32.5 % (36.0-46.0); HGB 10.8 g/dL (12.0-15.5)
[2019-01-18] MEDS: FAMOTIDINE 20 MG/50 ML BAG 200 MG IVPB (14:54)
--- NOTE | 2019-01-18 15:48 | PDOC.CMIN ---
Care Management Initial Assess REASON FOR HOSPITALIZATION:: Intractable Emesis, Esophagitis, Atypical Chest Pain PAST MEDICAL HISTORY/PAST SURGICAL HISTORY:: Medical: Achalasia of esophagus; Gastroesophageal reflux disease; history of reentrant SVT. Surgical: section; Esophageal Myotomy; Fundoplication; Ligation of fallopian tube; Pacemaker PREVIOUS FUNCTIONAL STATUS/SOCIAL/FAMILY SUPPORTS:: Independent at baseline. Chef Teacher, Shola Pleitez, is her main support. CURRENT FUNCTIONAL STATUS:: Lying in bed and experiencing nausea with bouts of vomiting. Not able to engage in conversation at this time. ADVANCE DIRECTIVES:: None on file and does not wish to address at this time. Has patient been provided with information about the portal?: No Did the patient sign up for the portal?: No CODE STATUS:: Full Code INSURANCE COVERAGE / FINANCIAL ISSUES:: Medicaid CURRENT HOME/COMMUNITY SERVICES/EQUIPMENT:: None at this time PRIMARY CARE PHYSICIAN:: Karri Ceballos MD POTENTIAL DISCHARGE NEEDS:: Discharge instructions and followup appointment with PCP PATIENT/FAMILY EDUCATION NEEDS:: Limitations and any new medications that may beordered. ANTICIPATED BARRIERS TO DISCHARGE:: None identified TRANSPORTATION:: Chef Teacher will transport by car. PLAN:: Marcella will returnhome and no services will be needed at this time.
[2019-01-18] MEDS: LORazepam 2 MG/ML VIAL 0.5 MG IVP (20:38)
[2019-01-19] VITALS (28 sets, daily range): BP systolic 104–133; BP diastolic 55–81; PULSE 52–83; RESP 11–31; TEMP 36.7–37.8; O2SAT 9–99
[2019-01-19] MEDS: Sucralfate 1 GM TAB PO ×3 (02:29→21:18)
[2019-01-19] MEDS: FAMOTIDINE 20 MG/50 ML BAG 200 MG IVPB ×2 (02:30→14:22)
[2019-01-19] MEDS: Normal Saline 1,000 ML 125 ML IV (02:30)
[2019-01-19 07:38] LABS: Abs Immature Grans 0.01 k/cumm (0.0-0.09); Absolute Basophil Count 0.03 k/cumm (0.0-0.2); Absolute Eosinophil Count 0.07 k/cumm (0.0-0.7); Absolute Lymphocyte Count 1.94 k/cumm (1.2-3.4); Absolute Neutrophil Count 2.56 k/cumm (1.2-6.7); Basophils % 0.6; Eosinophils % 1.4; HCT 32.7 % (36.0-46.0); HGB 10.8 g/dL (12.0-15.5); Immature Grans % 0.2; Mean Corpuscular Hemoglobin 30.7 pg (27.0-33.0); Mean Corpuscular Volume 92.9 fL (80-95); Mean Platelet Volume 10.6 fL (8.0-11.0); Monocytes % 9.8; Platelet Count 179 x1000/uL (130-400); RBC 3.52 m/cumm (4.00-5.20); RBC Distribution Width 12.2 % (11.7-14.6); White Blood Cell Count 5.11 k/cumm (4.4-10.8)
[2019-01-19 07:46] LABS: Anion Gap 9.9 mmol/L (3-11); BUN 10 mg/dL (7-18); CO2 22.1 mmol/L (21.0-32.0); CREATININE 0.76 mg/dL (0.55-1.02); Calcium 7.7 mg/dL (8.5-10.1); Chloride 109 mmol/L (98-107); Glucose 74 mg/dL (70-100); Magnesium 1.7 mg/dL (1.8-2.4); Sodium 141 mmol/L (136-145)
--- NOTE | 2019-01-19 08:26 | PGE_ITS ---
Date of Service Date of service: 01/19/19 Time of Service: 08:25 Assessment and Plan (1) Emesis, persistent: Current visit: Yes Status: Acute Acute on chronic. Likely due to esophagitis/gastritis. Gastroenteritis is not excluded Continue pepcid, IV protonix, carafate, antiemetics. Downgrade diet to clears. Recheck lipase. Will need outpatient GI follow up. No surgical intervention at this time. Monitor QTc while on antiemetics. (2) Esophagitis with gastritis: Current visit: Yes Status: Acute as above (3) Atypical chest pain: Current visit: Yes Status: Acute Likely due to esophagitis Resolved. Continue tele for QT prolongation Tele strips reviewed - benign, per [facility] cardiology. (4) UTI (urinary tract infection): Current visit: Yes Status: Ruled-out Repeat UA is negative. Off abx. Qualifiers: Urinary tract infection type: site unspecified Hematuria presence: without hematuria Qualified Code(s): N39.0 - Urinary tract infection, site not specified (5) S/P placement of cardiac pacemaker: Current visit: Yes Status: Acute Discussed with [facility] - their interpretation of the strips is that the pacer is working without issues. F/u as outpatient. (6) Anemia: Current visit: Yes Status: Acute Acute, normocytic, hemoccult negative. H/H stable. Likely dilutional. No further workup, but will recheck in am (7) Hypomagnesemia: Current visit: Yes Status: Acute replete (8) Hypokalemia: Current visit: Yes Status: Acute replete (9) Discharge planning issues: Current visit: Yes Status: Acute Full code Continues to require hospitalization (10) DVT prophylaxis: Current visit: Yes Status: Acute TEDs + SCD's Hold on chemical DVT ppx in setting of gastritis/esophagitis - higher risk for GI bleeding Subjective Interval history since last seen: No events overnight. Tolerated clears, but unfortunately did not tolerate regular solids, and nausea/vomiting resumed. Nursing did see the patient with her fingers in her mouth trying to induce vomiting as well. No dizziness, chest pain, shortness of breath. The patient reports RUQ pain. She is s/p cholecystectomy. She just had a BM - diarrhea, brown. General surgery does not feel that there is any surgical intervention that would help the patient at this time. The patient should remain on PPI. No events on front desk monitor. QTc on this am's EKG is 437 msec. Tele strips reviewed by [facility] cardiology (Dr Kay) - it is felt her pacer is working fine and is sensing. Exam Narrative Exam Narrative: General: very pleaseant female, in bed, does not appear to be feeling well HEENT: EOMI, MMM Heart: RRR, no m/r/g Lungs: CTAB GI: abdomen is soft, tender in RUQ, nondistended, + BS Extremities: no e/c/c BLE's, L foot with a mole, about 4 mm in diameter (there for 2 years, per patient) Objective Objective Clinical Data: Abnormal lab results 01/18/19 01/19/19 01/19/19 Range/Units 13:41 06:15 06:35 RBC 3.52 L (4.00-5.20) m/cumm Hgb 10.8 L 10.8 L (12.0-15.5) g/dL Hct 32.5 L 32.7 L (36.0-46.0) % Potassium 3.0 L (3.5-5.1) mmol/L Chloride 109 H (98-107) mmol/L Calcium 7.7 L (8.5-10.1) mg/dL Magnesium 1.7 L (1.8-2.4) mg/dL Vital Signs Temperature 36.8 C 01/19/19 03:58 Temperature Source Temporal Artery Scan 01/19/19 03:58 Pulse 72 01/18/19 23:45 Pulse Rhythm Regular 01/18/19 23:36 Pulse 61 01/18/19 20:36 Respiratory Rate 16 01/18/19 20:36 Respiratory Effort Non-Labored 01/18/19 23:36 Respiratory Depth Normal 01/18/19 23:36 Respiratory Pattern Normal 01/18/19 23:36 Blood Pressure 105/64 01/18/19 20:36 Blood Pressure Mean 73 01/18/19 20:36 Blood Pressure Position Supine 01/17/19 18:45 Pulse Oximetry 99 01/18/19 14:13 Oxygen Delivery Method Room Air 01/18/19 14:26 Oxygen Flow Rate 0 01/18/19 14:26 Pain Level 2 01/18/19 14:26 Comment 01/17/19 14:37 Intake & Output 01/18/19 01/18/19 01/19/19 11:59 23:59 11:59 Intake Total 1142.333 / 2642.333 1500 / 2642.333 1236 / 1236 Output Total 450 / 1200 750 / 1200 800 / 800 Balance 692.333 / 1442.333 750 / 1442.333 436 / 436 Weight 60.9 kg 60.4 kg Intake: IV 942.333 / 3904.414 7488 / 2282.919 9984 / 1000 Oral 200 / 650 450 / 650 236 / 236 Output: Urine 450 / 1200 750 / 1200 800 / 800 Other: Urine Color Straw Dark [place] Yellow Urine Appearance Clear Clear Clear Urine Odor None Strong None Emesis Description None Voiding Methods Bedside Commode Bedside Commode Bedside Commode Laboratory Results WBC 5.11 k/cumm (4.4-10.8) D 01/19/19 06:35 RBC 3.52 m/cumm (4.00-5.20) L 01/19/19 06:35 Hgb 10.8 g/dL (12.0-15.5) L 01/19/19 06:35 Hct 32.7 % (36.0-46.0) L 01/19/19 06:35 MCV 92.9 fL (80-95) 01/19/19 06:35 MCH 30.7 pg (27.0-33.0) 01/19/19 06:35 MCHC 33.0 g/dL (32.0-36.0) 01/19/19 06:35 RDW 12.2 % (11.7-14.6) 01/19/19 06:35 Plt Count 179 x1000/uL (130-400) 01/19/19 06:35 MPV 10.6 fL (8.0-11.0) 01/19/19 06:35 Immature Gran % 0.2 01/19/19 06:35 Neutrophils % 50.0 01/19/19 06:35 Lymphocytes % 38.0 01/19/19 06:35 Monocytes % 9.8 01/19/19 06:35 Eosinophils % 1.4 01/19/19 06:35 Basophils % 0.6 01/19/19 06:35 Absolute Neutrophils 2.56 k/cumm (1.2-6.7) 01/19/19 06:35 Absolute Lymphocytes 1.94 k/cumm (1.2-3.4) 01/19/19 06:35 Absolute Monocytes 0.50 k/cumm (0.11-0.7) 01/19/19 06:35 Absolute Eosinophils 0.07 k/cumm (0.0-0.7) 01/19/19 06:35 Absolute Basophils 0.03 k/cumm (0.0-0.2) 01/19/19 06:35 PT 10.0 sec (9.3-11.0) 01/17/19 15:00 INR 1.0 (0.9-1.1) 01/17/19 15:00 APTT 22.5 sec (21.0-31.4) 01/17/19 15:00 Sodium 141 mmol/L (136-145) 01/19/19 06:15 Potassium 3.0 mmol/L (3.5-5.1) L 01/19/19 06:15 Chloride 109 mmol/L (98-107) H 01/19/19 06:15 Carbon Dioxide 22.1 mmol/L (21.0-32.0) 01/19/19 06:15 Anion Gap 9.9 mmol/L (3-11) 01/19/19 06:15 BUN 10 mg/dL (7-18) 01/19/19 06:15 Creatinine 0.76 mg/dL (0.55-1.02) 01/19/19 06:15 Estimated GFR/1.73 m2 >= 60.00 (mL/min/1.73m2) 01/19/19 06:15 Glucose 74 mg/dL (70-100) 01/19/19 06:15 Calcium 7.7 mg/dL (8.5-10.1) L 01/19/19 06:15 Magnesium 1.7 mg/dL (1.8-2.4) L 01/19/19 06:15 Total Bilirubin 0.6 mg/dL (0.2-1.0) 01/18/19 06:32 AST 39 U/L (15-37) H 01/18/19 06:32 ALT 49 U/L (12-78) 01/18/19 06:32 Alkaline Phosphatase 52 U/L (46-116) 01/18/19 06:32 Troponin I < 0.05 ng/mL (0.00-0.06) 01/17/19 20:02 Total Protein 6.2 g/dL (6.4-8.2) L 01/18/19 06:32 Albumin 3.3 g/dL (3.4-5.0) L 01/18/19 06:32 Lipase 77 U/L (73-393) 01/17/19 15:00 TSH 1.37 uIU/mL (0.358-3.74) 01/17/19 20:02 Urine Color Yellow (Yellow) 01/17/19 14:56 Urine Clarity Clear (Clear) 01/17/19 14:56 Urine pH 6.0 (5-8) 01/17/19 14:56 Ur Specific [place] >= 1.030 (1.005-1.025) H 01/17/19 14:56 Urine Protein 30 mg/dL (Negative) H 01/17/19 14:56 Urine Ketones Trace mg/dL (Negative) H 01/17/19 14:56 Urine Blood Trace-intact (Negative) H 01/17/19 14:56 Urine Nitrite Negative (Negative) 01/17/19 14:56 Urine Bilirubin Negative (Negative) 01/17/19 14:56 Urine Urobilinogen 0.2 EU/dL (Up TO 0.2) 01/17/19 14:56 Ur Leukocyte Esterase Trace (Negative) H 01/17/19 14:56 Urine RBC 3-5 (0-2) H 01/17/19 14:56 Urine WBC >50 HPF (0-5) 01/17/19 14:56 Ur Epithelial Cells Moderate HPF (Negative) 01/17/19 14:56 Urine Crystals Negative HPF (Negative) 01/17/19 14:56 Urine Bacteria Many HPF (Negative) 01/17/19 14:56 Urine Casts Negative LPF (Negative) 01/17/19 14:56 Urine Mucus Negative (Negative) 01/17/19 14:56 Ur Culture Indicated? Yes 01/17/19 14:56 Urine Glucose Negative mg/dL (Negative) 01/17/19 14:56
[2019-01-19] MEDS: POTASSIUM CHLORIDE 20 MEQ/100 ML BAG 50 MEQ IVPB (08:48)
[2019-01-19] MEDS: Prochlorperazine 10 MG/2 ML VIAL IM (08:55)
[2019-01-19] MEDS: LORazepam 2 MG/ML VIAL 0.5 MG IVP (10:07)
--- NOTE | 2019-01-19 10:29 | NUR.NOTE ---
On entering the room this database report writer witnessed patient with her fingers down her throat. She immediately removed fingers from her mouth and stated, I just can't get it up. I'm trying but it just won't come up. Boyfriend at bedside. Nursing Note:
[2019-01-19] MEDS: POTASSIUM CHLORIDE/0.9% NACL 1,000 ML 150 MEQ IV (10:48)
[2019-01-19] MEDS: Ondansetron 4 MG/2 ML VIAL IVP (10:56)
[2019-01-19] MEDS: MAGNESIUM SULFATE 2 GM/50 ML BAG IVPB (11:00)
[2019-01-19] MEDS: Mylanta Suspension 30 ML CUP PO (12:13)
--- NOTE | 2019-01-19 12:55 | NUR.NOTE ---
C/O abdominal pain / with persistant nausea 01/29. Maalox given. Sleeping at present.Nursing Note:
[2019-01-19 14:24] LABS: Lipase 96 U/L (73-393)
[2019-01-19] MEDS: Normal Saline 1,000 ML 100 ML IV (18:10)
--- NOTE | 2019-01-19 18:33 | PDOC.CMPRO ---
Care Management Progress Note S/O: Lying in bed and complaining of nausea and stomach pain. Waste Management Engineer, Shola Dee, is by her side. Stated she did not feel like talking today. A: 43 y.o. female admitted for intractable emesis, esophagitis, atypical chest pain P: Marcella will return home when medically cleared for discharge. No services needed.
--- NOTE | 2019-01-19 18:37 | CMPROGNOTE_ITS ---
Care Management Progress Note S/O: Lying in bed and complaining of nausea and stomach pain. Bone Drier, Shola Dee, is by her side. Stated she did not feel like talking today. A: 43 y.o. female admitted for intractable emesis, esophagitis, atypical chest pain P: Marcella will return home when medically cleared for discharge. No services needed.
[2019-01-20] VITALS (25 sets, daily range): BP systolic 90–143; BP diastolic 50–88; PULSE 60–77; RESP 15–31; TEMP 36.8–37.8; O2SAT 97–100
[2019-01-20] MEDS: LORazepam 2 MG/ML VIAL 0.5 MG IVP ×3 (00:16→20:06)
[2019-01-20] MEDS: Sucralfate 1 GM TAB PO ×3 (02:40→14:42)
[2019-01-20] MEDS: FAMOTIDINE 20 MG/50 ML BAG 50 MG IVPB ×2 (02:41→14:42)
[2019-01-20] MEDS: Normal Saline 1,000 ML 100 ML IV (03:48)
--- NOTE | 2019-01-20 08:22 | PGE_ITS ---
Date of Service Date of service: 01/20/19 Time of Service: 08:20 Assessment and Plan (1) Emesis, persistent: Current visit: Yes Status: Acute Now thought to be due to achalasia with gastritis and esophagitis being secondary. The patient is s/p fundoplication/Heller myotomy in 2003. She is planned for an E[place] with decompression of esophagus and balloon dil[place] [facility] [place] Continue IV PPI/pepcid. Hold carafate. (2) Achalasia: Current visit: Yes Status: Acute As above (3) Esophagitis with gastritis: Current visit: Yes Status: Acute as above (4) Atypical chest pain: Current visit: Yes Status: Acute Likely due to esophagitis Resolved. D/c tele. (5) UTI (urinary tract infection): Current visit: Yes Status: Ruled-out Repeat UA is negative. Off abx. Qualifiers: Urinary tract infection type: site unspecified Hematuria presence: without hematuria Qualified Code(s): N39.0 - Urinary tract infection, site not specified (6) S/P placement of cardiac pacemaker: Current visit: Yes Status: Acute Discussed with [facility] [place] interpretation of the strips is that the pacer is working without issues. F/u as outpatient. (7) Anemia: Current visit: Yes Status: Acute Acute, normocytic, hemoccult negative. H/H stable. Likely dilutional. No further workup (8) Hypomagnesemia: Current visit: Yes Status: Resolved monitor (9) Hypokalemia: Current visit: Yes Status: Acute replete (10) Discharge planning issues: Current visit: Yes Status: Acute Full code Continues to require hospitalization For [id number] [place] [facility] [place] (11) DVT prophylaxis: Current visit: Yes Status: Acute TEDs + SCD's Hold on chemical DVT ppx in setting of gastritis/esophagitis - higher risk for GI bleeding Subjective Interval history since last seen: Nauseated, but no vomiting documented overnight. She is vomiting today. Some of this was self-induced because that's the only thing that makes her feel better, but a lot of her vomiting is not. Yesterday, she states she vomited multiple times, and most of the time it was not self-induced. Reports epigastric pain. Reports dizziness when she tries to get up. Denies chest pain, shortness of breath. She was seen by Dr Thacker today - it is now felt that the patient's symptoms may be related to achalasia. 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 She is followed by Dr Ferguson at [facility] [place] for this currently, and he was already considering doing and EGD with achalasia balloon dilatation on her in November. I spoke with [facility] (Dr Tolliver), who reviewed the case with Dr Ferguson. The patient is now planned to undergo a [id number] EGD with dilatation at [facility] [place]. She is being made NPO after midnight in anticipation of the procedure. Exam Narrative Exam Narrative: General: very pleaseant female, in bed, does look u ncomfortable today/visibly nauseated HEENT: EOMI, MMM Heart: RRR, no m/r/g Lungs: CTAB GI: abdomen is soft, tender in epigastrium, nondistended Extremities: no e/c/c BLE's, L foot with a mole, about 4 mm in diameter (there for 2 years, per patient) Objective Objective Clinical Data: Vital Signs Temperature 37 C 01/20/19 06:05 Temperature Source Temporal Artery Scan 01/20/19 06:05 Pulse 69 01/20/19 06:05 Pulse Rhythm Regular 01/20/19 00:12 Pulse 61 01/18/19 20:36 Respiratory Rate 21 01/20/19 06:05 Respiratory Effort Non-Labored 01/20/19 00:12 Respiratory Depth Normal 01/20/19 00:12 Respiratory Pattern Normal 01/20/19 00:12 Blood Pressure 127/64 01/20/19 06:05 Blood Pressure Mean 73 01/18/19 20:36 Blood Pressure Position Supine 01/17/19 18:45 Pulse Oximetry 99 01/20/19 06:05 Oxygen Delivery Method Room Air 01/20/19 06:05 Oxygen Flow Rate 0 01/20/19 06:05 Pain Level 4 01/19/19 18:10 Comment 01/17/19 14:37 Intake & Output 01/19/19 01/19/19 01/20/19 11:59 23:59 11:59 Intake Total 2486 / 2586.5 100.5 / 2586.5 1380.000 / 1380.000 Output Total 1900 / 3400 1500 / 3400 Balance 586 / -813.5 -1399.5 / -813.5 1380.000 / 1380.000 Weight 60.4 kg 61.5 kg Intake: IV 2150 / 2250.5 100.5 / 2250.5 1380.000 / 1380.000 Oral 336 / 336 Output: Urine 1900 / 3400 1500 / 3400 Emesis 0 / 0 Other: Urine Color Yellow Yellow Urine Appearance Clear Clear Clear Urine Odor None Comment Mixed with liquid stool. Mixed with liquid stool. Stool Size Small Small Stool Characteristics Liquid Liquid Emesis Description Retching None Voiding Methods Bedside Commode Bedside Commode Laboratory Results WBC 5.11 k/cumm (4.4-10.8) D 01/19/19 06:35 RBC 3.52 m/cumm (4.00-5.20) L 01/19/19 06:35 Hgb 10.8 g/dL (12.0-15.5) L 01/19/19 06:35 Hct 32.7 % (36.0-46.0) L 01/19/19 06:35 MCV 92.9 fL (80-95) 01/19/19 06:35 MCH 30.7 pg (27.0-33.0) 01/19/19 06:35 MCHC 33.0 g/dL (32.0-36.0) 01/19/19 06:35 RDW 12.2 % (11.7-14.6) 01/19/19 06:35 Plt Count 179 x1000/uL (130-400) 01/19/19 06:35 MPV 10.6 fL (8.0-11.0) 01/19/19 06:35 Immature Gran % 0.2 01/19/19 06:35 Neutrophils % 50.0 01/19/19 06:35 Lymphocytes % 38.0 01/19/19 06:35 Monocytes % 9.8 01/19/19 06:35 Eosinophils % 1.4 01/19/19 06:35 Basophils % 0.6 01/19/19 06:35 Absolute Neutrophils 2.56 k/cumm (1.2-6.7) 01/19/19 06:35 Absolute Lymphocytes 1.94 k/cumm (1.2-3.4) 01/19/19 06:35 Absolute Monocytes 0.50 k/cumm (0.11-0.7) 01/19/19 06:35 Absolute Eosinophils 0.07 k/cumm (0.0-0.7) 01/19/19 06:35 Absolute Basophils 0.03 k/cumm (0.0-0.2) 01/19/19 06:35 PT 10.0 sec (9.3-11.0) 01/17/19 15:00 INR 1.0 (0.9-1.1) 01/17/19 15:00 APTT 22.5 sec (21.0-31.4) 01/17/19 15:00 Sodium 141 mmol/L (136-145) 01/19/19 06:15 Potassium 3.0 mmol/L (3.5-5.1) L 01/19/19 06:15 Chloride 109 mmol/L (98-107) H 01/19/19 06:15 Carbon Dioxide 22.1 mmol/L (21.0-32.0) 01/19/19 06:15 Anion Gap 9.9 mmol/L (3-11) 01/19/19 06:15 BUN 10 mg/dL (7-18) 01/19/19 06:15 Creatinine 0.76 mg/dL (0.55-1.02) 01/19/19 06:15 Estimated GFR/1.73 m2 >= 60.00 (mL/min/1.73m2) 01/19/19 06:15 Glucose 74 mg/dL (70-100) 01/19/19 06:15 Calcium 7.7 mg/dL (8.5-10.1) L 01/19/19 06:15 Magnesium 1.7 mg/dL (1.8-2.4) L 01/19/19 06:15 Total Bilirubin 0.6 mg/dL (0.2-1.0) 01/18/19 06:32 AST 39 U/L (15-37) H 01/18/19 06:32 ALT 49 U/L (12-78) 01/18/19 06:32 Alkaline Phosphatase 52 U/L (46-116) 01/18/19 06:32 Troponin I < 0.05 ng/mL (0.00-0.06) 01/17/19 20:02 Total Protein 6.2 g/dL (6.4-8.2) L 01/18/19 06:32 Albumin 3.3 g/dL (3.4-5.0) L 01/18/19 06:32 Lipase 96 U/L (73-393) 01/19/19 06:15 TSH 1.37 uIU/mL (0.358-3.74) 01/17/19 20:02 Urine Color Yellow (Yellow) 01/17/19 14:56 Urine Clarity Clear (Clear) 01/17/19 14:56 Urine pH 6.0 (5-8) 01/17/19 14:56 Ur Specific [place] >= 1.030 (1.005-1.025) H 01/17/19 14:56 Urine Protein 30 mg/dL (Negative) H 01/17/19 14:56 Urine Ketones Trace mg/dL (Negative) H 01/17/19 14:56 Urine Blood Trace-intact (Negative) H 01/17/19 14:56 Urine Nitrite Negative (Negative) 01/17/19 14:56 Urine Bilirubin Negative (Negative) 01/17/19 14:56 Urine Urobilinogen 0.2 EU/dL (Up TO 0.2) 01/17/19 14:56 Ur Leukocyte Esterase Trace (Negative) H 01/17/19 14:56 Urine RBC 3-5 (0-2) H 01/17/19 14:56 Urine WBC >50 HPF (0-5) 01/17/19 14:56 Ur Epithelial Cells Moderate HPF (Negative) 01/17/19 14:56 Urine Crystals Negative HPF (Negative) 01/17/19 14:56 Urine Bacteria Many HPF (Negative) 01/17/19 14:56 Urine Casts Negative LPF (Negative) 01/17/19 14:56 Urine Mucus Negative (Negative) 01/17/19 14:56 Ur Culture Indicated? Yes 01/17/19 14:56 Urine Glucose Negative mg/dL (Negative) 01/17/19 14:56
[2019-01-20 08:26] LABS: Abs Immature Grans 0.02 k/cumm (0.0-0.09); Absolute Basophil Count 0.03 k/cumm (0.0-0.2); Absolute Eosinophil Count 0.02 k/cumm (0.0-0.7); Absolute Lymphocyte Count 1.93 k/cumm (1.2-3.4); Absolute Monocyte Count 0.79 k/cumm (0.11-0.7); Absolute Neutrophil Count 4.62 k/cumm (1.2-6.7); Basophils % 0.4; Eosinophils % 0.3; HCT 35.6 % (36.0-46.0); HGB 12.2 g/dL (12.0-15.5); Immature Grans % 0.3; Mean Corp. HGB Concentration 34.3 g/dL (32.0-36.0); Mean Corpuscular Hemoglobin 30.7 pg (27.0-33.0); Mean Corpuscular Volume 89.4 fL (80-95); Mean Platelet Volume 9.9 fL (8.0-11.0); Monocytes % 10.7; Neutrophils % 62.3; Platelet Count 210 x1000/uL (130-400); RBC 3.98 m/cumm (4.00-5.20); RBC Distribution Width 11.7 % (11.7-14.6); White Blood Cell Count 7.41 k/cumm (4.4-10.8)
[2019-01-20] MEDS: Normal Saline Flush 10 ML SYR IVP ×3 (08:56→20:06)
[2019-01-20] MEDS: Ondansetron 4 MG/2 ML VIAL IVP ×2 (09:14→19:04)
[2019-01-20 09:15] LABS: ALT 36 U/L (12-78); AST 24 U/L (15-37); Albumin 3.2 g/dL (3.4-5.0); Alkaline Phosphatase 49 U/L (46-116); Anion Gap 11.5 mmol/L (3-11); BUN 5 mg/dL (7-18); Bilirubin, Direct 0.13 mg/dL (0.00-0.20); Bilirubin, Total 0.7 mg/dL (0.2-1.0); CO2 23.5 mmol/L (21.0-32.0); CREATININE 0.65 mg/dL (0.55-1.02); Calcium 7.9 mg/dL (8.5-10.1); Chloride 105 mmol/L (98-107); Glucose 82 mg/dL (70-100); Magnesium 1.9 mg/dL (1.8-2.4); Potassium 3.1 mmol/L (3.5-5.1); Sodium 140 mmol/L (136-145); Total Protein 6.2 g/dL (6.4-8.2)
[2019-01-20] MEDS: POTASSIUM CHLORIDE 20 MEQ/100 ML BAG 50 MEQ IVPB ×2 (10:23→12:25)
[2019-01-20] MEDS: POTASSIUM CHLORIDE/D5-0.9%NACL 1,000 ML 100 MEQ IV ×2 (10:24→22:19)
--- NOTE | 2019-01-20 14:47 | PGE_ITS ---
Date of Service Date of service: 01/20/19 Time of Service: 14:46 Assessment and Plan (1) Nausea and vomiting: Current visit: Yes Status: Acute A\\ 43 year old with PMHx significant for Achalasia s/p heller myotomy and toupe funduplication in 2003 and history of chronic nausea who has been having Nausea and vomiting for 3 days. She is on appropriate treatment for gastritis and esophagitis. She denies any dysphagia symptoms at this time. Her abdomen is soft and non-tender. With hx of diarrhea, N/V I wonder about gastroenteritis. But patient feels like she is getting worse not better when it comes to the N/V. Her diarrhea seems to have resolved yesterday. Her abdomen is benign on exam. I am not sure what I could gain from an EGD at this time. Discussed with Dr. Mercer. We are trying to discuss the case with Dr. Ferguson who knows the patient as well as GI at [facility] [place]. P\\ Will await and see what GI or Dr. Ferguson say about the patients symptoms. I did speak to the patient and let her know that we are trying to get a hold of Dr. Ferguson and GI. Qualifiers: Vomiting type: bilious vomiting Qualified Code(s): R11.14 - Bilious vomiting Subjective Interval history since last seen: Mrs Yee was seen by Dr. Lezama on 01/18/19 for esophagitis and increased GERD. She has chronic nausea for which she takes Zofran. She was seen by Dr. Ferguson at [facility] recently who started her back on Prilosec. Patient started to have diarrhea, nausea and vomiting and came to the ER complaining of chest pain. Patient was admitted for nausea and vomiting and for work up of her chest pain. Dr. Lezama (general surgery) was consulted and at that time the patient was feeling better and was tolerating a clear liquid diet. Today patient is again having increased nausea and vomiting and is unable to tolerate clear liquids. She denies abdominal pain. She has not had any diarrhea today. Of note nursing has seen patient make herself vomit by putting her fingers down her throat. When I asked her she told me that it helps her nausea when she does that. She also states that she has had episodes of emesis without provocation. She uses Marijuana on a daily basis as well. CT scan done at admission without contrast showed a dilated esophagus and ? of gastritis in the antrum. She was started on IV PPI BID and carafate as well as IV Pepcid by the hospitalist group. I was asked to see the patient again because of her inability to tolerate even clears. Exam Const General: cooperative, comfortable and no acute distress Orientation: alert and oriented x3 HENMT Head: normocephalic and atraumatic Eyes Pupils: PERRL Resp Effort & Inspection: normal respiratory effort Auscultation: clear to auscultation bilaterally Cardio Rate: regular rate Rhythm: regular rhythm Heart Sounds: no gallops, no murmurs and no rubs GI Inspection: normal to inspection Palpation: soft, no hepatosplenomegaly and nontender Auscultation: normal bowel sounds General: deferred Objective Objective Clinical Data: Abnormal lab results 01/20/19 01/20/19 Range/Units 08:10 08:10 RBC 3.98 L (4.00-5.20) m/cumm Hct 35.6 L (36.0-46.0) % Absolute Monocytes 0.79 H (0.11-0.7) k/cumm Potassium 3.1 L (3.5-5.1) mmol/L Anion Gap 11.5 H (3-11) mmol/L BUN 5 L (7-18) mg/dL Calcium 7.9 L (8.5-10.1) mg/dL Total Protein 6.2 L (6.4-8.2) g/dL Albumin 3.2 L (3.4-5.0) g/dL Vital Signs Temperature 99.7 F H 01/20/19 12:30 Temperature Source Temporal Artery Scan 01/20/19 12:30 Pulse 67 01/20/19 12:30 Pulse Rhythm Irregular 01/20/19 08:40 Pulse 70 01/20/19 14:00 Respiratory Rate 18 01/20/19 14:00 Respiratory Effort 01/20/19 08:40 Respiratory Depth Normal 01/20/19 08:40 Respiratory Pattern Normal 01/20/19 08:40 Blood Pressure 119/71 01/20/19 12:30 Blood Pressure Mean 82 01/20/19 12:23 Blood Pressure Position Supine 01/17/19 18:45 Pulse Oximetry 97 01/20/19 12:30 Oxygen Delivery Method Room Air 01/20/19 12:30 Oxygen Flow Rate 0 01/20/19 12:30 Pain Level 0 01/20/19 12:30 Comment 01/17/19 14:37 Intake & Output 01/19/19 01/20/19 01/20/19 23:59 11:59 23:59 Intake Total 100.5 / 2586.5 1723.833 / 1823.833 100 / 1823.833 Output Total 1500 / 3400 1000 / 1400 400 / 1400 Balance -1399.5 / -813.5 723.833 / 423.833 -300 / 423.833 Weight 135 lb 9.349 oz Intake: IV 100.5 / 2250.5 1723.833 / 1823.833 100 / 1823.833 Output: Urine 1500 / 3400 1000 / 1400 400 / 1400 Emesis 0 / 0 Other: Urine Color Yellow Pale Pale Urine Appearance Clear Clear Clear Urine Odor Normal Normal Comment Mixed with liquid stool. Stool Size Small Stool Characteristics Liquid Emesis Description None Voiding Methods Bedside Commode Bedside Commode Laboratory Results WBC 7.41 k/cumm (4.4-10.8) D 01/20/19 08:10 RBC 3.98 m/cumm (4.00-5.20) L 01/20/19 08:10 Hgb 12.2 g/dL (12.0-15.5) 01/20/19 08:10 Hct 35.6 % (36.0-46.0) L 01/20/19 08:10 MCV 89.4 fL (80-95) 01/20/19 08:10 MCH 30.7 pg (27.0-33.0) 01/20/19 08:10 MCHC 34.3 g/dL (32.0-36.0) 01/20/19 08:10 RDW 11.7 % (11.7-14.6) 01/20/19 08:10 Plt Count 210 x1000/uL (130-400) 01/20/19 08:10 MPV 9.9 fL (8.0-11.0) 01/20/19 08:10 Immature Gran % 0.3 01/20/19 08:10 Neutrophils % 62.3 01/20/19 08:10 Lymphocytes % 26.0 01/20/19 08:10 Monocytes % 10.7 01/20/19 08:10 Eosinophils % 0.3 01/20/19 08:10 Basophils % 0.4 01/20/19 08:10 Absolute Neutrophils 4.62 k/cumm (1.2-6.7) 01/20/19 08:10 Absolute Lymphocytes 1.93 k/cumm (1.2-3.4) 01/20/19 08:10 Absolute Monocytes 0.79 k/cumm (0.11-0.7) H 01/20/19 08:10 Absolute Eosinophils 0.02 k/cumm (0.0-0.7) 01/20/19 08:10 Absolute Basophils 0.03 k/cumm (0.0-0.2) 01/20/19 08:10 PT 10.0 sec (9.3-11.0) 01/17/19 15:00 INR 1.0 (0.9-1.1) 01/17/19 15:00 APTT 22.5 sec (21.0-31.4) 01/17/19 15:00 Sodium 140 mmol/L (136-145) 01/20/19 08:10 Potassium 3.1 mmol/L (3.5-5.1) L 01/20/19 08:10 Chloride 105 mmol/L (98-107) 01/20/19 08:10 Carbon Dioxide 23.5 mmol/L (21.0-32.0) 01/20/19 08:10 Anion Gap 11.5 mmol/L (3-11) H 01/20/19 08:10 BUN 5 mg/dL (7-18) L 01/20/19 08:10 Creatinine 0.65 mg/dL (0.55-1.02) 01/20/19 08:10 Estimated GFR/1.73 m2 >= 60.00 (mL/min/1.73m2) 01/20/19 08:10 Glucose 82 mg/dL (70-100) 01/20/19 08:10 Calcium 7.9 mg/dL (8.5-10.1) L 01/20/19 08:10 Magnesium 1.9 mg/dL (1.8-2.4) 01/20/19 08:10 Total Bilirubin 0.7 mg/dL (0.2-1.0) 01/20/19 08:10 Conjugated Bilirubin 0.13 mg/dL (0.00-0.20) 01/20/19 08:10 AST 24 U/L (15-37) 01/20/19 08:10 ALT 36 U/L (12-78) 01/20/19 08:10 Alkaline Phosphatase 49 U/L (46-116) 01/20/19 08:10 Troponin I < 0.05 ng/mL (0.00-0.06) 01/17/19 20:02 Total Protein 6.2 g/dL (6.4-8.2) L 01/20/19 08:10 Albumin 3.2 g/dL (3.4-5.0) L 01/20/19 08:10 Lipase 96 U/L (73-393) 01/19/19 06:15 TSH 1.37 uIU/mL (0.358-3.74) 01/17/19 20:02 Urine Color Yellow (Yellow) 01/17/19 14:56 Urine Clarity Clear (Clear) 01/17/19 14:56 Urine pH 6.0 (5-8) 01/17/19 14:56 Ur Specific [place] >= 1.030 (1.005-1.025) H 01/17/19 14:56 Urine Protein 30 mg/dL (Negative) H 01/17/19 14:56 Urine Ketones Trace mg/dL (Negative) H 01/17/19 14:56 Urine Blood Trace-intact (Negative) H 01/17/19 14:56 Urine Nitrite Negative (Negative) 01/17/19 14:56 Urine Bilirubin Negative (Negative) 01/17/19 14:56 Urine Urobilinogen 0.2 EU/dL (Up TO 0.2) 01/17/19 14:56 Ur Leukocyte Esterase Trace (Negative) H 01/17/19 14:56 Urine RBC 3-5 (0-2) H 01/17/19 14:56 Urine WBC >50 HPF (0-5) 01/17/19 14:56 Ur Epithelial Cells Moderate HPF (Negative) 01/17/19 14:56 Urine Crystals Negative HPF (Negative) 01/17/19 14:56 Urine Bacteria Many HPF (Negative) 01/17/19 14:56 Urine Casts Negative LPF (Negative) 01/17/19 14:56 Urine Mucus Negative (Negative) 01/17/19 14:56 Ur Culture Indicated? Yes 01/17/19 14:56 Urine Glucose Negative mg/dL (Negative) 01/17/19 14:56
--- NOTE | 2019-01-20 15:54 | PDOC.CMPRO ---
- If Service Date Differs Date of service: 01/20/19 Time of Service: 15:55 Care Management Progress Note S/O: Marcella remains in the ICU as a medical surgical patient. She continues to complain of nausea and receiving IV antiemetic. No change in level of care today per provider. Marcella was reviewed at interdisciplinary rounds as well as chart review by this CM. Surgery was re-consulted and the plan is to follow up with [facility]. Anticipate no services at time of discharge and CM will continue to provide support discharge planning and disposition. A: Marcella 43 year old female admitted with intractable emesis, esophagitis, atypical chest pain P: Marcella will be discharged when provider when provider deems medically ready. She will follow up with GI at [facility] as an outpatient and primary care. Transportation to be provided by family at time of discharge.
--- NOTE | 2019-01-20 16:10 | CMPROGNOTE_ITS ---
- If Service Date Differs Date of service: 01/20/19 Time of Service: 15:55 Care Management Progress Note S/O: Marcella remains in the ICU as a medical surgical patient. She continues to complain of nausea and receiving IV antiemetic. No change in level of care today per provider. Marcella was reviewed at interdisciplinary rounds as well as chart review by this CM. Surgery was re-consulted and the plan is to follow up with [facility]. Anticipate no services at time of discharge and CM will continue to provide support discharge planning and disposition. A: Marcella 43 year old female admitted with intractable emesis, esophagitis, atypical chest pain P: Marcella will be discharged when provider when provider deems medically ready. She will follow up with GI at [facility] as an outpatient and primary care. Transportation to be provided by family at time of discharge.
--- NOTE | 2019-01-20 18:57 | NUR.NOTE ---
pt transferred from ICU to [facility]. Pt is alert and oriented times 3, VSS, lungs clear,, nausea at this time. Pt oriented to room and call light. Nursing Note:
[2019-01-20] MEDS: Acetaminophen 325 MG TAB 650 MG PO (20:05)
[2019-01-21] MEDS: Ondansetron 4 MG/2 ML VIAL IVP ×2 (01:54→22:54)
[2019-01-21] MEDS: FAMOTIDINE 20 MG/50 ML BAG 200 MG IVPB ×2 (01:55→17:33)
[2019-01-21] MEDS: Normal Saline Flush 10 ML SYR IVP ×4 (03:28→19:43)
[2019-01-21] MEDS: LORazepam 2 MG/ML VIAL 0.5 MG IVP ×2 (03:29→17:32)
[2019-01-21 04:05] VITALS: BP 118/76; PULSE 64; RESP 16; TEMP 36.5; O2SAT 100
[2019-01-21] MEDS: POTASSIUM CHLORIDE/D5-0.9%NACL 1,000 ML 100 MEQ IV (06:58)
[2019-01-21 07:04] LABS: Abs Immature Grans 0.01 k/cumm (0.0-0.09); Absolute Basophil Count 0.02 k/cumm (0.0-0.2); Absolute Eosinophil Count 0.03 k/cumm (0.0-0.7); Absolute Lymphocyte Count 2.23 k/cumm (1.2-3.4); Absolute Monocyte Count 0.86 k/cumm (0.11-0.7); Absolute Neutrophil Count 3.63 k/cumm (1.2-6.7); Basophils % 0.3; Eosinophils % 0.4; HCT 34.3 % (36.0-46.0); Immature Grans % 0.1; Lymphocytes % 32.9; Mean Corpuscular Hemoglobin 31.1 pg (27.0-33.0); Mean Corpuscular Volume 88.9 fL (80-95); Mean Platelet Volume 10.2 fL (8.0-11.0); Monocytes % 12.7; Neutrophils % 53.6; Platelet Count 219 x1000/uL (130-400); RBC 3.86 m/cumm (4.00-5.20); RBC Distribution Width 11.4 % (11.7-14.6); White Blood Cell Count 6.78 k/cumm (4.4-10.8)
[2019-01-21 07:14] LABS: BUN 4 mg/dL (7-18); CREATININE 0.65 mg/dL (0.55-1.02); Calcium 8.1 mg/dL (8.5-10.1); Chloride 106 mmol/L (98-107); Glucose 103 mg/dL (70-100); Magnesium 1.8 mg/dL (1.8-2.4); Potassium 3.7 mmol/L (3.5-5.1); Sodium 141 mmol/L (136-145)
[2019-01-21 07:33] VITALS: BP 122/77; PULSE 79; RESP 18; TEMP 36.7; O2SAT 99
--- NOTE | 2019-01-21 10:04 | PDOC.CMPRO ---
- If Service Date Differs Date of service: 01/21/19 Time of Service: 10:04 Care Management Progress Note S/O: Marcella was transported to [facility] today for an esophageal dilatation with biopsy. She will return later in the day. A: Marcella 43 year old female admitted with intractable emesis, esophagitis, atypical chest pain P: Marcella will be discharged when provider deems medically ready. She will follow up with GI at [facility] as an outpatient and primary care. Transportation to be provided by family at time of discharge.
--- NOTE | 2019-01-21 11:17 | NUR.NOTE ---
Nursing Note: Report given to Clarita Cameron at [facility] at this time.
[2019-01-21 11:31] VITALS: BP 105/70; PULSE 66; RESP 18; TEMP 36.4; O2SAT 97
[2019-01-21] MEDS: Normal Saline 1,000 ML 100 ML IV (12:10)
--- NOTE | 2019-01-21 14:23 | CHAPLAIN ---
I had a short visit with Marcella this morning while she was waiting to be transferred to [facility] to tests.
[2019-01-21 17:42] VITALS: BP 133/80; PULSE 67; RESP 16; TEMP 37.1; O2SAT 98
[2019-01-21] MEDS: Acetaminophen 325 MG TAB 650 MG PO (18:16)
--- NOTE | 2019-01-21 18:24 | W.PM.PROGNOT ---
Date of Service Date of service: 01/21/19 Time of Service: 18:24 Assessment and Plan (1) Emesis, persistent: Current visit: Yes Status: Acute Thought to be due to achalasia with known lack of peristalsis with gastritis and esophagitis being secondary. Neither esophagitis nor gastritis were seen on EGD today - after 4 days of IV pepcid and IV protonix. S/p fundoplication/Heller myotomy in 2003. Reintroduce clear liquids - hoping to advance to full liquids tomorrow, then discharge home on full liquids and outpatient follow up. (2) Achalasia: Current visit: Yes Status: Acute As above (3) Esophagitis with gastritis: Current visit: Yes Status: Acute as above (4) Atypical chest pain: Current visit: Yes Status: Acute Likely due to esophagitis Resolved. (5) UTI (urinary tract infection): Current visit: Yes Status: Ruled-out Repeat UA is negative. Off abx. Qualifiers: Urinary tract infection type: site unspecified Hematuria presence: without hematuria Qualified Code(s): N39.0 - Urinary tract infection, site not specified (6) S/P placement of cardiac pacemaker: Current visit: Yes Status: Acute Discussed with [facility] - their interpretation of the strips is that the pacer is working without issues. F/u as outpatient. (7) Anemia: Current visit: Yes Status: Chronic Acute, normocytic, hemoccult negative. H/H stable. Likely dilutional. No further workup (8) Hypomagnesemia: Current visit: Yes Status: Resolved monitor (9) Hypokalemia: Current visit: Yes Status: Acute replete (10) Discharge planning issues: Current visit: Yes Status: Acute Full code Hopefully discharge home tomorrow (11) DVT prophylaxis: Current visit: Yes Status: Acute TEDs + SCD's Introduce sq heparin Subjective Interval history since last seen: Patient seen after EGD at [facility] today. EGD was essentially normal; fundoplication was dilated with a balloon. The patient complains of both feeling hungry and nausated. She has irritation in her throat. Denies dizziness, chest pain, shortness of breath. She is interested in trying ice chips and a popsickle tonight. She is interested in going home tomorrow if she tolerates full liquids. Exam Narrative Exam Narrative: General: very pleaseant female, sitting up in bed, looks more animated than I have seen her so far, though again gets visibly nauseated. HEENT: EOMI, MMM Heart: RRR, no m/r/g Lungs: CTAB GI: abdomen is soft, tender in epigastrium, nondistended Extremities: no e/c/c BLE's, L foot with a mole, about 4 mm in diameter (there for 2 years, per patient) Objective Objective Clinical Data: Abnormal lab results 01/21/19 01/21/19 Range/Units 06:30 06:30 RBC 3.86 L (4.00-5.20) m/cumm Hct 34.3 L (36.0-46.0) % RDW 11.4 L (11.7-14.6) % Absolute Monocytes 0.86 H (0.11-0.7) k/cumm BUN 4 L (7-18) mg/dL Glucose 103 H (70-100) mg/dL Calcium 8.1 L (8.5-10.1) mg/dL Vital Signs Temperature 37.1 C 01/21/19 17:42 Temperature Source Tympanic 01/21/19 17:42 Pulse 67 01/21/19 17:42 Pulse Rhythm Regular 01/21/19 07:30 Pulse 70 01/20/19 14:00 Respiratory Rate 16 01/21/19 17:42 Respiratory Effort Non-Labored 01/21/19 07:30 Respiratory Depth Normal 01/21/19 07:30 Respiratory Pattern Normal 01/21/19 07:30 Blood Pressure 133/80 01/21/19 17:42 Blood Pressure Mean 82 01/20/19 12:23 Blood Pressure Position Supine 01/17/19 18:45 Pulse Oximetry 98 01/21/19 17:42 Oxygen Delivery Method Room Air 01/21/19 17:42 Oxygen Flow Rate 0 01/21/19 17:42 Pain Level 7 01/21/19 18:16 Comment 01/21/19 17:42 Intake & Output 01/20/19 01/21/19 01/21/19 23:59 11:59 23:59 Intake Total 1400.500 / 3184.333 935 / 1455 520 / 1455 Output Total 750 / 1750 1800 / 2750 950 / 2750 Balance 650.500 / 1434.333 -865 / -1295 -430 / -1295 Weight 58.4 kg Intake: IV 1300.500 / 3024.333 935 / 1455 520 / 1455 Oral 100 / 160 Output: Urine 750 / 1750 1800 / 2750 950 / 2750 Other: Urine Color Pale Yellow Yellow Urine Appearance Clear Clear Clear Urine Odor Normal Comment two voids Emesis Description None Voiding Methods Toilet Toilet Laboratory Results WBC 6.78 k/cumm (4.4-10.8) 01/21/19 06:30 RBC 3.86 m/cumm (4.00-5.20) L 01/21/19 06:30 Hgb 12.0 g/dL (12.0-15.5) 01/21/19 06:30 Hct 34.3 % (36.0-46.0) L 01/21/19 06:30 MCV 88.9 fL (80-95) 01/21/19 06:30 MCH 31.1 pg (27.0-33.0) 01/21/19 06:30 MCHC 35.0 g/dL (32.0-36.0) 01/21/19 06:30 RDW 11.4 % (11.7-14.6) L 01/21/19 06:30 Plt Count 219 x1000/uL (130-400) 01/21/19 06:30 MPV 10.2 fL (8.0-11.0) 01/21/19 06:30 Immature Gran % 0.1 01/21/19 06:30 Neutrophils % 53.6 01/21/19 06:30 Lymphocytes % 32.9 01/21/19 06:30 Monocytes % 12.7 01/21/19 06:30 Eosinophils % 0.4 01/21/19 06:30 Basophils % 0.3 01/21/19 06:30 Absolute Neutrophils 3.63 k/cumm (1.2-6.7) 01/21/19 06:30 Absolute Lymphocytes 2.23 k/cumm (1.2-3.4) 01/21/19 06:30 Absolute Monocytes 0.86 k/cumm (0.11-0.7) H 01/21/19 06:30 Absolute Eosinophils 0.03 k/cumm (0.0-0.7) 01/21/19 06:30 Absolute Basophils 0.02 k/cumm (0.0-0.2) 01/21/19 06:30 PT 10.0 sec (9.3-11.0) 01/17/19 15:00 INR 1.0 (0.9-1.1) 01/17/19 15:00 APTT 22.5 sec (21.0-31.4) 01/17/19 15:00 Sodium 141 mmol/L (136-145) 01/21/19 06:30 Potassium 3.7 mmol/L (3.5-5.1) 01/21/19 06:30 Chloride 106 mmol/L (98-107) 01/21/19 06:30 Carbon Dioxide 26.0 mmol/L (21.0-32.0) 01/21/19 06:30 Anion Gap 9.0 mmol/L (3-11) 01/21/19 06:30 BUN 4 mg/dL (7-18) L 01/21/19 06:30 Creatinine 0.65 mg/dL (0.55-1.02) 01/21/19 06:30 Estimated GFR/1.73 m2 >= 60.00 (mL/min/1.73m2) 01/21/19 06:30 Glucose 103 mg/dL (70-100) H 01/21/19 06:30 Calcium 8.1 mg/dL (8.5-10.1) L 01/21/19 06:30 Magnesium 1.8 mg/dL (1.8-2.4) 01/21/19 06:30 Total Bilirubin 0.7 mg/dL (0.2-1.0) 01/20/19 08:10 Conjugated Bilirubin 0.13 mg/dL (0.00-0.20) 01/20/19 08:10 AST 24 U/L (15-37) 01/20/19 08:10 ALT 36 U/L (12-78) 01/20/19 08:10 Alkaline Phosphatase 49 U/L (46-116) 01/20/19 08:10 Troponin I < 0.05 ng/mL (0.00-0.06) 01/17/19 20:02 Total Protein 6.2 g/dL (6.4-8.2) L 01/20/19 08:10 Albumin 3.2 g/dL (3.4-5.0) L 01/20/19 08:10 Lipase 96 U/L (73-393) 01/19/19 06:15 TSH 1.37 uIU/mL (0.358-3.74) 01/17/19 20:02 Urine Color Yellow (Yellow) 01/17/19 14:56 Urine Clarity Clear (Clear) 01/17/19 14:56 Urine pH 6.0 (5-8) 01/17/19 14:56 Ur Specific [place] >= 1.030 (1.005-1.025) H 01/17/19 14:56 Urine Protein 30 mg/dL (Negative) H 01/17/19 14:56 Urine Ketones Trace mg/dL (Negative) H 01/17/19 14:56 Urine Blood Trace-intact (Negative) H 01/17/19 14:56 Urine Nitrite Negative (Negative) 01/17/19 14:56 Urine Bilirubin Negative (Negative) 01/17/19 14:56 Urine Urobilinogen 0.2 EU/dL (Up TO 0.2) 01/17/19 14:56 Ur Leukocyte Esterase Trace (Negative) H 01/17/19 14:56 Urine RBC 3-5 (0-2) H 01/17/19 14:56 Urine WBC >50 HPF (0-5) 01/17/19 14:56 Ur Epithelial Cells Moderate HPF (Negative) 01/17/19 14:56 Urine Crystals Negative HPF (Negative) 01/17/19 14:56 Urine Bacteria Many HPF (Negative) 01/17/19 14:56 Urine Casts Negative LPF (Negative) 01/17/19 14:56 Urine Mucus Negative (Negative) 01/17/19 14:56 Ur Culture Indicated? Yes 01/17/19 14:56 Urine Glucose Negative mg/dL (Negative) 01/17/19 14:56
[2019-01-21 20:22] VITALS: BP 109/72; PULSE 70; RESP 18; TEMP 36.9; O2SAT 98
[2019-01-21] MEDS: Heparin 5,000 UNITS/ML VIAL 5000 UNITS SC (21:53)
[2019-01-21 23:13] VITALS: BP 106/65; PULSE 107; RESP 18; TEMP 36.4; O2SAT 98
[2019-01-22] MEDS: Acetaminophen 325 MG TAB 650 MG PO (01:17)
[2019-01-22] MEDS: LORazepam 2 MG/ML VIAL 0.5 MG IVP (01:18)
[2019-01-22] MEDS: Normal Saline 1,000 ML 100 ML IV (03:34)
[2019-01-22 05:25] VITALS: BP 104/71; PULSE 89; RESP 18; TEMP 36.7; O2SAT 98
[2019-01-22] MEDS: Heparin 5,000 UNITS/ML VIAL 5000 UNITS SC ×2 (05:49→13:54)
[2019-01-22] MEDS: FAMOTIDINE 20 MG/50 ML BAG 200 MG IVPB (05:49)
[2019-01-22 07:14] LABS: Abs Immature Grans 0.02 k/cumm (0.0-0.09); Absolute Basophil Count 0.02 k/cumm (0.0-0.2); Absolute Lymphocyte Count 1.88 k/cumm (1.2-3.4); Absolute Monocyte Count 0.68 k/cumm (0.11-0.7); Absolute Neutrophil Count 4.76 k/cumm (1.2-6.7); Basophils % 0.3; HCT 37.9 % (36.0-46.0); Immature Grans % 0.3; Lymphocytes % 25.5; Mean Corp. HGB Concentration 34.3 g/dL (32.0-36.0); Mean Corpuscular Hemoglobin 30.7 pg (27.0-33.0); Mean Corpuscular Volume 89.4 fL (80-95); Mean Platelet Volume 10.4 fL (8.0-11.0); Monocytes % 9.2; Neutrophils % 64.7; Platelet Count 262 x1000/uL (130-400); RBC 4.24 m/cumm (4.00-5.20); RBC Distribution Width 11.9 % (11.7-14.6); White Blood Cell Count 7.36 k/cumm (4.4-10.8)
[2019-01-22 07:22] VITALS: BP 103/69; PULSE 73; RESP 18; TEMP 36.3; O2SAT 98
[2019-01-22 07:29] LABS: Anion Gap 10.4 mmol/L (3-11); BUN 6 mg/dL (7-18); CO2 25.6 mmol/L (21.0-32.0); CREATININE 0.64 mg/dL (0.55-1.02); Calcium 8.9 mg/dL (8.5-10.1); Chloride 103 mmol/L (98-107); Glucose 84 mg/dL (70-100); Magnesium 1.8 mg/dL (1.8-2.4); Potassium 3.4 mmol/L (3.5-5.1); Sodium 139 mmol/L (136-145)
[2019-01-22] MEDS: Normal Saline Flush 10 ML SYR IVP ×2 (08:47→12:09)
[2019-01-22] MEDS: POTASSIUM CHLORIDE 20 MEQ/100 ML BAG 50 MEQ IVPB (11:28)
[2019-01-22 11:33] VITALS: BP 98/59; PULSE 74; RESP 17; TEMP 36.2; O2SAT 99
--- NOTE | 2019-01-22 12:46 | PDOC.CMDIS ---
- If Service Date Differs Date of service: 01/22/19 Time of Service: 12:46 LACE Index Scoring Tool - Questions: Length of Stay (in days): 4 - 6 Acuity (Admit via E.D.?): Yes E.D. Visits: 4 - Answers: Total Score: 11 Risk of Readmission: High Risk Care Management Discharge Reason for Hospitalization: Intractable Emesis, Esophagitis, Atypical Chest Pain Discharge Plan: Marcella is being discharged home today she is tolerating a liquid diet. She was discharged on protonix and promethazine she was also continue on her zofran. She will follow up with provider at [facility] for GI. No other services needed at time of discharge. Patient/Family Education Needs: Discharge education, limitations and follow up plan of care.
[2019-01-22 15:20] VITALS: BP 122/74; PULSE 92; RESP 16; TEMP 36.4; O2SAT 98
--- NOTE | 2019-01-22 15:44 | W.PM.DS.N ---
Date of service: 01/22/19 Time of Service: 15:44 DS: Diagnosis Discharge Diagnosis (1) Emesis, persistent: Status: Acute (2) Achalasia: Status: Acute (3) Esophagitis with gastritis: Status: Acute (4) Atypical chest pain: Status: Acute (5) UTI (urinary tract infection): Status: Ruled-out (6) S/P placement of cardiac pacemaker: Status: Acute (7) Anemia: Status: Chronic (8) Hypomagnesemia: Status: Resolved (9) Hypokalemia: Status: Acute Discharge Plan Disposition Patient Disposition: HOME Condition: Stable Discharge Details Reason For Visit: INTRACTABLE EMESIS,ESOPHAGITIS, ATYPICAL CHEST Admit Date/Time: 01/17/19 17:16 Admit Provider: Patel Oden Attending Provider: Patel Oden Primary Care Provider: Karri Ceballos [facility] Hospital Course: Ms Yee is a 43 year old female with h/o achalasia s/p Iftikhar fundoplication/Heller myotomy in 2003, chronic dysphagia for solids, as well as complete heart block post SVT ablation s/p pacer, who was admitted to [facility] on 01/17/19 with acute on chronic nausea and intractable vomiting, with inabilty to tolerate even thin liquids. Her initial imaging revealed possible esophagitis and gastritis. She was was initiated on PPI, H2 brant IV, carafate, as well as multiple antiemetics, without any improvement or ability to advance diet. Arrangements were made for EGD/dilation of the fundoplication at [facility] on 01/22/19 which the patient tolerated with significant improvement of symptoms. She is now able to tolerate full liquids without any nausea. There was no evidence of either esophagitis or gastritis on the EGD. Biopsies were taken; pathology is not available at this time. She is able to be discharged home today with full liquids/pureed diet and follow up with GI at [facility] for further care. I have spoken with the patient about the fact that, as she does not have peristalsis, she has to be very cognizant of things that can get stuck in her esophagus - chunks of meat, bread, etc. The patient verbalized understanding and stated she will try to stick to pureed diet. Her pacer appears to be functioning well, and I had strips reviewed by [facility] cardiology. She is to follow up with cardiology at the time of previously scheduled appointment. 45 minutes were spent on care of patient as well as completion of discharge summary on day of discharge. Home Meds and New Rx's Prescriptions: New pantoprazole [Protonix] 40 mg tablet,delayed release (DR/EC) 40 mg PO DAILY Qty: 30 RF: 0 promethazine 25 mg tablet 25 mg PO Q6H PRN (Reason: nausea/vomiting) Qty: 20 RF: 0 Continued ondansetron 4 mg tablet,disintegrating 4 mg PO Q6H PRN (Reason: nausea and vomiting) Qty: 20 RF: 0 Discontinued meclizine 25 mg tablet 25 mg PO TID PRN (Reason: motion sickness) Qty: 30 RF: 0 Discharge Instructions Additional Instructions: Return to the hospital with any fever, bleeding, chest pain, shortness of breath, if you cannot control your nausea/vomiting at home. Avoid chunky foods and breads. Aim for full liquids, purees, ground meats, slippery foods. Follow up with your PCP as previously scheduled. Follow up with [facility] cardiology and gastroenterology. Follow up with dermatology for your mole! Stand Alone Forms: Nursing Discharge Form Referrals: DERMATOLOGY,[facility] [OTHER] - (mole L foot) Karri Ceballos [Primary Care Provider] - 01/27/19 2:20 pm Activity:: Activity as Tolerated Equipment/Supplies:: No Equipment Needed Diet:: purred/ground Discharge Orders Discharge Orders: Discharge Order (Routine); Ordered 01/22/19 Ordered By: Suzi Mercer Exam Narrative Exam Narrative: General: very pleaseant female, sitting up in bed, looks better, laughing HEENT: EOMI, MMM Heart: RRR, no m/r/g Lungs: CTAB GI: abdomen is soft, nontender, nondistended Extremities: no e/c/c BLE's DS: Data Vitals/I&O Vitals and I&O: Vital Signs Temperature 36.4 C L 01/22/19 15:20 Temperature Source Tympanic 01/22/19 15:20 Pulse 92 H 01/22/19 15:20 Pulse Rhythm Regular 01/22/19 07:45 Pulse 70 01/20/19 14:00 Respiratory Rate 16 01/22/19 15:20 Respiratory Effort Non-Labored 01/22/19 07:45 Respiratory Depth Normal 01/22/19 07:45 Respiratory Pattern Normal 01/22/19 07:45 Blood Pressure 122/74 01/22/19 15:20 Blood Pressure Mean 82 01/20/19 12:23 Blood Pressure Position Supine 01/17/19 18:45 Pulse Oximetry 98 01/22/19 15:20 Oxygen Delivery Method Room Air 01/22/19 15:20 Oxygen Flow Rate 0 01/22/19 15:20 Pain Level 1 01/22/19 15:20 Comment 01/21/19 17:42 Intake & Output 01/21/19 01/22/19 01/22/19 23:59 11:59 23:59 Intake Total 1570 / 2505 300 / 780 480 / 780 Output Total 1350 / 3150 1500 / 1500 Balance 220 / -645 -1200 / -720 480 / -720 Weight 57.7 kg Intake: IV 1570 / 2505 60 / 60 Oral 240 / 720 480 / 720 Output: Urine 1350 / 3150 1200 / 1200 Stool 300 / 300 Other: Urine Color Yellow Yellow Urine Appearance Clear Clear Urine Odor Normal None Stool Occult Blood Negative Stool Size Large Stool Characteristics Soft Liquid Brown Voiding Methods Toilet Toilet Completed studies during hospitalization [Text1]: CT chest/abdomen/pelvis: 1. Question esophageal dilatation versus hiatal hernia. Question also raised of antral gastritis. If the patient has GI symptoms referable to the epigastric region, additional evaluation with endoscopy may be considered. 2. Incidental left lower lobe 5-6 mm mean diameter intrapulmonary nodule; follow-up chest CT recommended in six months. 3. Left renal cortical lower pole scarring and calcification; no evidence of acute urinary tract process. Labs on day of discharge: Labs from last 24 hours 01/22/19 01/22/19 06:35 06:35 WBC 7.36 RBC 4.24 Hgb 13.0 Hct 37.9 MCV 89.4 MCH 30.7 MCHC 34.3 RDW 11.9 Plt Count 262 MPV 10.4 Immature Gran % 0.3 Neutrophils % 64.7 Lymphocytes % 25.5 Monocytes % 9.2 Eosinophils % 0.0 Basophils % 0.3 Absolute Neutrophils 4.76 Absolute Lymphocytes 1.88 Absolute Monocytes 0.68 Absolute Eosinophils 0.00 Absolute Basophils 0.02 Sodium 139 Potassium 3.4 L Chloride 103 Carbon Dioxide 25.6 Anion Gap 10.4 BUN 6 L Creatinine 0.64 Estimated GFR/1.73 m2 >= 60.00 Glucose 84 Calcium 8.9 Magnesium 1.8 PFSH Medical History Achalasia of esophagus Gastroesophageal reflux disease history of reentrant SVT Surgical History section Esophageal Myotomy Fundoplication Ligation of fallopian tube Pacemaker Family History Aunt Personal history of malignant neoplasm Social History Smoking/Tobacco Use Status: Current-Occasional Drug use: Occasionally Substance use type: marijuana Do you feel safe at home: Yes Do you feel safe in your relationship?: Yes
--- NOTE | 2019-01-22 15:50 | DSE_ITS ---
Date of service: 01/22/19 Time of Service: 15:44 DS: Diagnosis Discharge Diagnosis (1) Emesis, persistent: Status: Acute (2) Achalasia: Status: Acute (3) Esophagitis with gastritis: Status: Acute (4) Atypical chest pain: Status: Acute (5) UTI (urinary tract infection): Status: Ruled-out (6) S/P placement of cardiac pacemaker: Status: Acute (7) Anemia: Status: Chronic (8) Hypomagnesemia: Status: Resolved (9) Hypokalemia: Status: Acute Discharge Plan Disposition Patient Disposition: HOME Condition: Stable Discharge Details Reason For Visit: INTRACTABLE EMESIS,ESOPHAGITIS, ATYPICAL CHEST Admit Date/Time: 01/17/19 17:16 Admit Provider: Patel Oden Attending Provider: Patel Oden Primary Care Provider: Karri Ceballos [facility] Hospital Course: Ms Yee is a 43 year old female with h/o achalasia s/p Iftikhar fundoplication/Heller myotomy in 2003, chronic dysphagia for solids, as well as complete heart block post SVT ablation s/p pacer, who was admitted to [facility] on 01/17/19 with acute on chronic nausea and intractable vomiting, with inabilty to tolerate even thin liquids. Her initial imaging revealed possible esophagitis and gastritis. She was was initiated on PPI, H2 brant IV, carafate, as well as multiple antiemetics, without any improvement or ability to advance diet. Arrangements were made for EGD/dilation of the fundoplication at [facility] on 01/22/19 which the patient tolerated with significant improvement of symptoms. She is now able to tolerate full liquids without any nausea. There was no evidence of either esophagitis or gastritis on the EGD. Biopsies were taken; pathology is not available at this time. She is able to be discharged home today with full liquids/pureed diet and follow up with GI at [facility] for further care. I have spoken with the patient about the fact that, as she does not have peristalsis, she has to be very cognizant of things that can get stuck in her esophagus - chunks of meat, bread, etc. The patient verbalized understanding and stated she will try to stick to pureed diet. Her pacer appears to be functioning well, and I had strips reviewed by [facility] cardiology. She is to follow up with cardiology at the time of previously sched uled appointment. 45 minutes were spent on care of patient as well as completion of discharge summary on day of discharge. Home Meds and New Rx's Prescriptions: New pantoprazole [Protonix] 40 mg tablet,delayed release (DR/EC) 40 mg PO DAILY Qty: 30 RF: 0 promethazine 25 mg tablet 25 mg PO Q6H PRN (Reason: nausea/vomiting) Qty: 20 RF: 0 Continued ondansetron 4 mg tablet,disintegrating 4 mg PO Q6H PRN (Reason: nausea and vomiting) Qty: 20 RF: 0 Discontinued meclizine 25 mg tablet 25 mg PO TID PRN (Reason: motion sickness) Qty: 30 RF: 0 Discharge Instructions Additional Instructions: Return to the hospital with any fever, bleeding, chest pain, shortness of breath, if you cannot control your nausea/vomiting at home. Avoid chunky foods and breads. Aim for full liquids, purees, ground meats, slippery foods. Follow up with your PCP as previously scheduled. Follow up with [facility] cardiology and gastroenterology. Follow up with dermatology for your mole! Stand Alone Forms: Nursing Discharge Form Referrals: DERMATOLOGY,[facility] [OTHER] - (mole L foot) Karri Ceballos [Primary Care Provider] - 01/27/19 2:20 pm Activity:: Activity as Tolerated Equipment/Supplies:: No Equipment Needed Diet:: purred/ground Discharge Orders Discharge Orders: Discharge Order (Routine); Ordered 01/22/19 Ordered By: Suzi Mercer Exam Narrative Exam Narrative: General: very pleaseant female, sitting up in bed, looks better, laughing HEENT: EOMI, MMM Heart: RRR, no m/r/g Lungs: CTAB GI: abdomen is soft, nontender, nondistended Extremities: no e/c/c BLE's DS: Data Vitals/I&O Vitals and I&O: Vital Signs Temperature 36.4 C L 01/22/19 15:20 Temperature Source Tympanic 01/22/19 15:20 Pulse 92 H 01/22/19 15:20 Pulse Rhythm Regular 01/22/19 07:45 Pulse 70 01/20/19 14:00 Respiratory Rate 16 01/22/19 15:20 Respiratory Effort Non-Labored 01/22/19 07:45 Respiratory Depth Normal 01/22/19 07:45 Respiratory Pattern Normal 01/22/19 07:45 Blood Pressure 122/74 01/22/19 15:20 Blood Pressure Mean 82 01/20/19 12:23 Blood Pressure Position Supine 01/17/19 18:45 Pulse Oximetry 98 01/22/19 15:20 Oxygen Delivery Method Room Air 01/22/19 15:20 Oxygen Flow Rate 0 01/22/19 15:20 Pain Level 1 01/22/19 15:20 Comment 01/21/19 17:42 Intake & Output 01/21/19 01/22/19 01/22/19 23:59 11:59 23:59 Intake Total 1570 / 2505 300 / 780 480 / 780 Output Total 1350 / 3150 1500 / 1500 Balance 220 / -645 -1200 / -720 480 / -720 Weight 57.7 kg Intake: IV 1570 / 2505 60 / 60 Oral 240 / 720 480 / 720 Output: Urine 1350 / 3150 1200 / 1200 Stool 300 / 300 Other: Urine Color Yellow Yellow Urine Appearance Clear Clear Urine Odor Normal None Stool Occult Blood Negative Stool Size Large Stool Characteristics Soft Liquid Brown Voiding Methods Toilet Toilet Completed studies during hospitalization [Text1]: CT chest/abdomen/pelvis: 1. Question esophageal dilatation versus hiatal hernia. Question also raised of antral gastritis. If the patient has GI symptoms referable to the epigastric region, additional evaluation with endoscopy may be considered. 2. Incidental left lower lobe 5-6 mm mean diameter intrapulmonary nodule; follow-up chest CT recommended in six months. 3. Left renal cortical lower pole scarring and calcification; no evidence of acute urinary tract process. Labs on day of discharge: Labs from last 24 hours 01/22/19 01/22/19 06:35 06:35 WBC 7.36 RBC 4.24 Hgb 13.0 Hct 37.9 MCV 89.4 MCH 30.7 MCHC 34.3 RDW 11.9 Plt Count 262 MPV 10.4 Immature Gran % 0.3 Neutrophils % 64.7 Lymphocytes % 25.5 Monocytes % 9.2 Eosinophils % 0.0 Basophils % 0.3 Absolute Neutrophils 4.76 Absolute Lymphocytes 1.88 Absolute Monocytes 0.68 Absolute Eosinophils 0.00 Absolute Basophils 0.02 Sodium 139 Potassium 3.4 L Chloride 103 Carbon Dioxide 25.6 Anion Gap 10.4 BUN 6 L Creatinine 0.64 Estimated GFR/1.73 m2 >= 60.00 Glucose 84 Calcium 8.9 Magnesium 1.8 PFSH Medical History Achalasia of esophagus Gastroesophageal reflux disease history of reentrant SVT Surgical History section Esophageal Myotomy Fundoplication Ligation of fallopian tube Pacemaker Family History Aunt Personal history of malignant neoplasm Social History Smoking/Tobacco Use Status: Current-Occasional Drug use: Occasionally Substance use type: marijuana Do you feel safe at home: Yes Do you feel safe in your relationship?: Yes
[2019-01-22] MEDS: POTASSIUM CHLORIDE 20 MEQ/100 ML BAG 25 MEQ IVPB ×2 (16:14→16:15)
== END 2019-01-22 18:57 | disposition home or self-care (01) | DRG 392 ==
LOC: ER 18:07 → ICU 18:45 → MS 01-22 15:50 → ICU 01-23 09:31 → MS 01-23 09:31
PROVIDERS: Admitting Provider Family Medicine; Emergency Provider Student in an Organized Health Care Education/Training Program; PCP Family Medicine; Visit Provider Internal Medicine
DX: R11.10 Vomiting, unspecified (principal); K22.0 Achalasia of cardia; K20.9 Esophagitis, unspecified; K29.70 Gastritis, unspecified, without bleeding; R07.89 Other chest pain; Z95.0 Presence of cardiac pacemaker; D64.9 Anemia, unspecified; E83.42 Hypomagnesemia; E87.6 Hypokalemia; Z98.890 Other specified postprocedural states; F12.90 Cannabis use, unspecified, uncomplicated
CPT/HCPCS: 36415; 43239; 74177; 80048; 80053; 80076; 83690; 85027; 93005; 96361; 96365; 96367; 96375; 99223; 99232; 99233; 99239; 99285; 71260; 81003; 81015; 83735; 84443; 84484; 85014; 85018; 85025; 85610; 85730; 87086; 93010; J0696; J0780; J1644; J2060; J2270; J2405; J2765; J3480; J3490

== ENCOUNTER 2019-07-18 16:29 | Outpatient (REF) | payer MEDICAID, SELFPAY ==
--- NOTE | 2019-07-18 15:00 | PAPFT_PTH ---
PATIENT: Marcella Yee LOC: [facility] U#:[id number] AGE/SX: 43/F ROOM: RE07/18/[address]: Karri Ceballos : 1975 BED: DIS: 07/18/2019 SPEC #: [id number] RECD: 07/21/19 13:05 STATUS: CAROLINE REQ #: [id number] JONNA: 07/18/19 15:[address]: Karri Ceballos DEPT: [facility] Cytology RECD BY: Maggy Mcconnell Tissues: 1 - CX/ENDOCX FOR PAP SMEARS Procedures: PAP THIN PREP/UVM Screening HPV DNA PROBE Comments: [id number]
== END 2019-07-18 16:49 ==
LOC: NCHCN 16:29
PROVIDERS: PCP Family Medicine; Visit Provider Family Medicine
DX: Z12.4 Encounter for screening for malignant neoplasm of cervix (principal)
CPT/HCPCS: 88142; 87624

== ENCOUNTER 2019-09-03 22:17 | Emergency (ER) | payer MEDICAID, SELFPAY ==
[2019-09-03 22:27] VITALS: BP 135/80; PULSE 104; RESP 16; TEMP 37.1; O2SAT 100
--- NOTE | 2019-09-03 22:33 | ED.GENADUL_ITS ---
Discharge Plan Disposition Patient Disposition: HOME Condition: Stable Discharge Details Chief Complaint: Abd Prob Clinical Impression: Emesis, persistent Primary Care Provider: Karri Ceballos ED Provider: Ej Rinaldi Home Meds and New Rx's Prescriptions: New prochlorperazine maleate [Compazine] 10 mg tablet 10 mg PO Q6H PRN (Reason: nausea and vomiting) Qty: 30 RF: 0 Continued pantoprazole [Protonix] 40 mg tablet,delayed release (DR/EC) 40 mg PO DAILY Qty: 30 RF: 0 Discontinued promethazine 25 mg tablet 25 mg PO Q6H PRN (Reason: nausea/vomiting) Qty: 20 RF: 0 promethazine 25 mg Suppository 25 mg [place] PRN PRNRF: 0 ondansetron 4 mg tablet,disintegrating 4 mg PO Q6H PRN (Reason: nausea and vomiting) Qty: 20 RF: 0 Discharge Instructions Additional Instructions: follow up with your gastroentertologist within 1-2 weeks if you have persistent vomit, severe worsening pain or feel more ill return to the emergency department for reevaluation Stand Alone Forms: Work Release Medical Decision Making 44 year old female with h/o achalasia s/p Iftikhar fundoplication/Heller myotomy in 2003, chronic dysphagia for solids, as well as complete heart block post SVT ablation s/p pacer, who comes in with abdominal pain and n/v intermittently since Sunday. Denies fevers or recent travel and feels similar to episode when she was here last December/January. She has no chest pain or pressure. She has a soft abdomen with no distention but does have tenderness to deep palpation throughout the abdomen. Given symptoms will obtain labs and ct to eval for pancreatitis and sbo among other pathologies labs and imaging unremarkable and she feels better after fluids and pain has significantly improved. Offered admission but pt declined as she feels better and prefers to f/u with GI as outpatient. Return precautions given Differential Diagnosis Differential Diagnosis: achalasia, sbo, gastritis Medical Records Medical records reviewed: Yes I reviewed the patient's medical records. Imaging Data Radiologic Study: Attestation: I personally reviewed and interpreted this imaging study as follows: Imaging: CT Scan Radiologist's impression: IMPRESSION: 1. Fatty liver change and hepatomegaly. Small right hepatic cyst. 2. Nonobstructive left lower pole renal calculus measuring 5 mm. 3. Degenerative lumbar spine disease. 4. Gonadal varices. 5. Cardiac pacemaker. Lab Data Lab results reviewed: Yes I reviewed the patient's lab results. HPI General Mode of arrival: ambulatory . Date/Time Provider Initiated Documentation: 09/03/19 22:17 . Limitations to Documentation: no limitations . Information obtained by: patient . History of Present Illness 44 year old F presents to the emergency department with the chief complaint of nasuea and vomit, described as moderate, and is localized to the abdomen. and it has been constant. No relieving factors improve symptom(s), No exacerbating factors reported . Related Data Home Medications Medication Instructions Recorded Confirmed pantoprazole [Protonix] 40 mg PO DAILY #30 tab 01/22/19 09/03/19 prochlorperazine maleate 10 mg PO Q6H PRN #30 tab 09/03/19 [Compazine] Previous Rx's Medication Instructions Recorded pantoprazole [Protonix] 40 mg PO DAILY #30 tab 01/22/19 prochlorperazine maleate 10 mg PO Q6H PRN #30 tab 09/03/19 [Compazine] Allergies Allergy/AdvReac Type Severity Reaction Status Date / Time adhesive tape Allergy Skin Rash Unverified 09/03/19 22:33 General Stated Complaint: Abd Prob CARL: 3 PFSH Social History Smoking/Tobacco Use Status: Current-Occasional Tobacco Type: cigarettes Drug use: Occasionally Substance use type: marijuana Do you feel safe at home: Yes Do you feel safe in your relationship?: Yes Exam Const General: no acute distress Orientation: alert HENWI Head: normal to inspection Ears: external ears normal General nose exam: external nose normal Mouth: moist mucous membranes Eyes General: appearance normal, both eyes and all related structures Neck Neck: normal visual inspection Resp Effort & Inspection: normal respiratory effort and able to speak in complete sentences Cardio Rate: regular rate GI Palpation: soft Skin General skin exam: no rashes or lesions noted Neuro General: alert and oriented x3 Extrem General: normal to inspection Psych Mental Status: mental status grossly normal Course Vital Signs Vital signs: Vital Signs Temperature 37.1 C 09/03/19 22:27 Pulse 104 H 09/03/19 22:27 Respiratory Rate 16 09/03/19 22:27 Blood Pressure 135/80 09/03/19 22:27 Pulse Oximetry 100 09/03/19 22:27 Temperature 37.1 C 09/03/19 22:27 Temperature Source Temporal Artery Scan 09/03/19 22:27 Pulse 104 H 09/03/19 22:27 Respiratory Rate 16 09/03/19 22:27 Respiratory Effort 09/03/19 22:32 Blood Pressure 135/80 09/03/19 22:27 Pulse Oximetry 100 09/03/19 22:27 Oxygen Delivery Method Room Air 09/03/19 22:27 Oxygen Flow Rate 0 09/03/19 22:27 Pain Level 7 09/03/19 22:27
[2019-09-03] MEDS: Normal Saline 1,000 ML 1000 ML IV ×2 (22:43→23:50)
[2019-09-03] MEDS: Prochlorperazine 10 MG/2 ML VIAL IVP (22:45)
[2019-09-03] MEDS: Ketorolac 15 MG/ML VIAL IVP (22:47)
[2019-09-03] MEDS: Omnipaque 350 MG/ML 100 ML BTL IJ (22:59)
[2019-09-03] MEDS: Normal Saline - Diluent 50 ML VIAL IV (22:59)
[2019-09-03] MEDS: Normal Saline Flush 10 ML SYR IVP (23:00)
--- NOTE | 2019-09-03 23:03 | DI.CT_ITS ---
EXAM: CT ABDOMEN PELVIS W CLINICAL HISTORY: abdominal pain, nausea and vomiting. TECHNIQUE: Imaging Protocol: Axial computed tomography images with coronal and sagittal reformatted images were created and reviewed CONTRAST MATERIAL: Intravenous: Omnipaque 350 Contrast volume:100 ML Oral: No COMPARISON: CT CHEST/ABD/PEL W from 01/17/2019 FINDINGS: ABDOMEN: Lung Bases: Normal where visualized. Liver: Mild hepatomegaly. No measurable mass. Stable hepatic cyst. Gallbladder and biliary tract: No radiodense calculus or dilation. Pancreas: Normal density, no abnormal calcifications or inflammatory process. Spleen: Normal. Kidneys: Normal size, contour and axis. Non-obstructing 5 millimeter stone in the lower pole of the l eft kidney. No masses seen. Adrenal glands: No masses seen. Abdominal Aorta: Abdominal portion non-dilated. PELVIS: Bladder: Symmetric distention, no gross wall thickening. Bowel: No obstruction or bowel wall thickening. No evidence of acute appendicitis. Peritoneal cavity: No ascites, collection or mesenteric inflammatory response. Bones: Grade 1 pseudo spondylolisthesis of L5 on S1. Mild degenerative changes. Reproductive organs: Enlarged gonadal vessels which may reflect pelvic congestion syndrome. The kelle ent appears to have a tampon in place. Lymph nodes: Unremarkable. Impression: 1. No acute abdominal or pelvic process. 2. Prominent gonadal vessels. 3. Left nephrolithiasis. 4. Mild hepatomegaly. DATA REPOSITORY: All CT scans at this facility are submitted to the National Radiology Data Registry (NRDR) Dose Index Registry (DIR) with the [employer] (A[employer]). RADIATION OPTIMIZATION: All CT scans at this facility use at least one of these dose optimization te chniques: automated exposure control; mA and/or kV adjustment per patient size (includes targeted exa ms where dose is matched to clinical indication); or iterative reconstruction.
[2019-09-03 23:10] LABS: Abs Immature Grans 0.04 k/cumm (0.0-0.09); Absolute Basophil Count 0.03 k/cumm (0.0-0.2); Absolute Eosinophil Count 0.03 k/cumm (0.0-0.7); Absolute Monocyte Count 1.09 k/cumm (0.11-0.7); Basophils % 0.3; Eosinophils % 0.3; HCT 42.9 % (36.0-46.0); Immature Grans % 0.4 %; Lymphocytes % 32.4; Mean Corpuscular Hemoglobin 30.6 pg (27.0-33.0); Mean Corpuscular Volume 87.6 fL (80-95); Mean Platelet Volume 10.3 fL (8.0-11.0); Monocytes % 9.7; Neutrophils % 56.9; Platelet Count 330 x1000/uL (130-400); RBC Distribution Width 12.9 % (11.7-14.6); White Blood Cell Count 11.28 k/cumm (4.4-10.8)
[2019-09-03 23:11] LABS: Absolute Lymphocyte Count 3.65 k/cumm (1.2-3.4); Absolute Neutrophil Count 6.42 k/cumm (1.2-6.7); Bilirubin, Direct 0.25 mg/dL (0.00-0.20); Bilirubin, Total 1.2 mg/dL (0.2-1.0); Lipase 83 U/L (73-393); Magnesium 1.8 mg/dL (1.8-2.4)
[2019-09-03 23:14] LABS: HCG Qual (Serum) Negative
--- NOTE | 2019-09-03 23:25 | DI.VRAD_ITS ---
PROCEDURE INFORMATION: Exam: CT Abdomen And Pelvis With Contrast Exam date and time: 09/03/2019 10:57 PM Age: 44 years old Clinical indication: Nausea and vomiting; Prior surgery; Surgery date: 6+ months; Surgery type: Gallbladder, cesarian TECHNIQUE: Imaging protocol: Computed tomography of the abdomen and pelvis with intravenous contrast. Radiation optimization: All CT scans at this facility use at least one of these dose optimization techniques: automated exposure control; mA and/or kV adjustment per patient size (includes targeted exams where dose is matched to clinical indication); or iterative reconstruction. Contrast material: [id number]; Contrast volume: 80 ml; Contrast route: IV LAC 18G; COMPARISON: CT CHEST/ABD/PEL W 01/17/2019 3:13 PM FINDINGS: Liver: Fatty liver change. Anteromedial right lobe 10 mm benign cyst. Patent portal and hepatic veins. Moderate nonspecific a Paddock enlargement. Gallbladder and bile ducts: Normal. No calcified stones. No ductal dilation. Pancreas: Normal. No ductal dilation. Spleen: Normal. No splenomegaly. Adrenals: Normal. No mass. Kidneys and ureters: Nonobstructive left lower pole 5 mm renal calculus. Stomach and bowel: No evidence of bowel obstruction or lu edema. Appendix: No evidence of appendicitis. Intraperitoneal space: Unremarkable. No free air. No significant fluid collection. Vasculature: Abdominal aorta and iliac vessels are unremarkable. Mesenteric vessels are unremarkable. Lymph nodes: Unremarkable. No enlarged lymph nodes. Bladder: Unremarkable as visualized. Reproductive: Low-attenuation foreign object within the vagina consistent with a tampon. Bilateral moderately severe gonadal vein varices. Degenerative lumbar spine changes. Grade 1 degenerative anterolisthesis L5 on S1. Bones/joints: See Reproductive Finding. Soft tissues: See Liver Finding. IMPRESSION: 1. Fatty liver change and hepatomegaly. Small right hepatic cyst. 2. Nonobstructive left lower pole renal calculus measuring 5 mm. 3. Degenerative lumbar spine disease. 4. Gonadal varices. 5. Cardiac pacemaker. Dictated and Authenticated by: Asif Pleitez MD. Ordering:VANGIE Pagan MD
[2019-09-03 23:46] LABS: Bilirubin Small (Negative); Blood Trace-lysed (Negative); Clarity Clear (Clear); Glucose Negative (Negative); Ketones Negative (Negative); Leukocyte Esterase Negative (Negative); Nitrite Negative (Negative); Urobilinogen 0.2 EU/dL (Up TO 0.2); pH 6.5 (5-8)
[2019-09-03 23:47] VITALS: BP 100/58; PULSE 96; RESP 16; TEMP 36.7; O2SAT 100
[2019-09-03 23:55] LABS: Epithelial Cells Few HPF (Negative); RBC 0-2 HPF (0-2); WBC 0-2 HPF (0-5)
[2019-09-03 23:56] LABS: C & S Indicated? No; Crystals Few Calcium Oxalate HPF (Negative)
[2019-09-04 00:11] VITALS: BP 100/58; PULSE 96; RESP 16; O2SAT 100
--- NOTE | 2019-09-08 10:45 | NUR.NOTE ---
Nursing Note: I accessed this pt chart under Kaycee Martin previously. Patient called stating she did not have her work note. I printed and faxed the work note to [facility]. Marilu Tripathi.
== END 2019-09-04 00:10 | disposition home or self-care (01) ==
PROVIDERS: Emergency Provider Emergency Medicine; PCP Family Medicine
DX: K22.0 Achalasia of cardia (principal); R11.2 Nausea with vomiting, unspecified; R13.19 Other dysphagia
CPT/HCPCS: 36415; 83690; 96361; 96374; 96375; 99285; 74177; 81003; 81015; 82247; 82248; 83735; 84703; 85025; 99284; J0780; J1885; J3490

== ENCOUNTER 2019-10-08 10:01 | Inpatient (IN) | payer MEDICAID, SELFPAY ==
[2019-10-08] VITALS (26 sets, daily range): BP systolic 95–136; BP diastolic 53–85; PULSE 70–110; RESP 11–22; TEMP 36.6–37.2; O2SAT 99–100
[2019-10-08 10:29] LABS: Abs Immature Grans 0.04 k/cumm (0.0-0.09); Absolute Basophil Count 0.02 k/cumm (0.0-0.2); Absolute Eosinophil Count 0.01 k/cumm (0.0-0.7); Absolute Monocyte Count 1.22 k/cumm (0.11-0.7); Absolute Neutrophil Count 7.75 k/cumm (1.2-6.7); Basophils % 0.2; Eosinophils % 0.1; HCT 42.6 % (36.0-46.0); HGB 14.8 g/dL (12.0-15.5); Immature Grans % 0.3 %; Lymphocytes % 21.3; Mean Corp. HGB Concentration 34.7 g/dL (32.0-36.0); Mean Corpuscular Hemoglobin 30.8 pg (27.0-33.0); Mean Corpuscular Volume 88.6 fL (80-95); Mean Platelet Volume 9.9 fL (8.0-11.0); Monocytes % 10.6; Neutrophils % 67.5; Platelet Count 335 x1000/uL (130-400); RBC 4.81 m/cumm (4.00-5.20); RBC Distribution Width 13.2 % (11.7-14.6); White Blood Cell Count 11.48 k/cumm (4.4-10.8)
[2019-10-08 10:30] LABS: Absolute Lymphocyte Count 2.45 k/cumm (1.2-3.4)
[2019-10-08] MEDS: Normal Saline 1,000 ML 1000 ML IV (10:36)
[2019-10-08 10:37] LABS: Bilirubin Negative (Negative); Blood Trace-intact (Negative); Clarity Clear (Clear); Glucose Negative (Negative); Ketones Negative (Negative); Leukocyte Esterase Negative (Negative); Nitrite Negative (Negative); Specific Gravity >= 1.030 (1.005-1.025); Urobilinogen 0.2 EU/dL (Up TO 0.2); pH 6.5 (5-8)
[2019-10-08] MEDS: Ondansetron 4 MG/2 ML VIAL IVP (10:37)
[2019-10-08] MEDS: Normal Saline Flush 10 ML SYR IVP ×2 (10:37→14:20)
[2019-10-08 10:48] LABS: ALT 32 U/L (14-59); AST 16 U/L (15-37); Albumin 4.3 g/dL (3.4-5.0); Alkaline Phosphatase 67 U/L (46-116); Anion Gap 14.2 mmol/L (3-11); BUN 12 mg/dL (7-18); Bilirubin, Total 0.8 mg/dL (0.2-1.0); CO2 25.8 mmol/L (21.0-32.0); CREATININE 1.03 mg/dL (0.55-1.02); Chloride 95 mmol/L (98-107); Estimated GFR 58.76 (mL/min/1.73m2); Glucose 116 mg/dL (74-106); Lipase 98 U/L (73-393); Sodium 135 mmol/L (136-145); Total Protein 8.2 g/dL (6.4-8.2)
[2019-10-08 10:49] LABS: Potassium 2.6 mmol/L (3.5-5.1)
[2019-10-08 10:52] LABS: Bacteria Negative HPF (Negative); C & S Indicated? Yes; Casts Negative LPF (Negative); Crystals Negative HPF (Negative); Epithelial Cells Few HPF (Negative); Mucus Trace (Negative); RBC 0-2 HPF (0-2)
[2019-10-08] MEDS: Potassium Chloride 20 MEQ TABCR 40 MEQ PO (11:08)
[2019-10-08] MEDS: POTASSIUM CHLORIDE 10 MEQ/100 ML BAG 100 MEQ IVPB ×2 (11:09→13:16)
--- NOTE | 2019-10-08 11:41 | W.ED.GENAD ---
Discharge Plan Disposition Patient Disposition: [facility] INPATIENT Condition: Serious Discharge Details Chief Complaint: Nausea/Vomit/Diar Clinical Impression: Achalasia, Hypokalemia, Nausea and vomiting Admit Date/Time: 10/08/19 13:03 Admit Provider: Suzi Mercer Attending Provider: Suzi Mercer Primary Care Provider: Karri Ceballos ED Provider: Doron Blanton Discharge Data Discharge Date/Time-TO BE ENTERED AT DEPARTURE: 10/08/19 13:51 Medical Decision Making 44-year-old female with an extensive GI past medical history presents for nausea, vomiting abdominal pain, diarrhea for the past 5 days. She is dry heaving but appears nontoxic, abdominal examination is certainly nonsurgical at the moment. Will obtain IV access, give IV fluids, Zofran, routine laboratory values and reassess. Initial laboratory values reveal white count of 11.48 sodium 135, potassium 2.6, chloride 96, anion gap 14.2, creatinine 1.03, glucose 116, magnesium 1.6. EKG ordered, patient given 10 IV potassium, I will trial 40 p.o. potassium as well. Will also receive 1 g magnesium. Patient immediately vomited 40 p.o. potassium. Reports increased pain. Given 2 mg IV morphine and will write for another 10 IV potassium. Will also give 25 IV Phenergan. Patient observed in the ER for nearly 3 hours. She reports her pain is now a 6 or 7 out of 10 and although her nausea is improved when compared to initial presentation she is still unable to tolerate any p.o. intake. Given her hypokalemia, persistent pain and vomiting, I do not believe that she can be safely discharged home. I will discuss the case with our hospitalist team for admission. Discussed the case with Dr. Mercer, she is agreeable to admission but would like a chest x-ray obtained in order to further evaluate her achalasia. Medical Records Medical records reviewed: Yes I reviewed the patient's medical records. Lab Data Lab results reviewed: Yes I reviewed the patient's lab results. Lab results narrative: 10/08/19 10:30 Urine - Reflex from Ua Urine Culture - Pending Laboratory Tests Range/Units 10/08/19 10/08/19 10/08/19 10:20 10:20 10:20 WBC (4.4-10.8) k/cumm 11.48 H RBC (4.00-5.20) m/cumm 4.81 Hgb (12.0-15.5) g/dL 14.8 Hct (36.0-46.0) % 42.6 MCV (80-95) fL 88.6 MCH (27.0-33.0) pg 30.8 MCHC (32.0-36.0) g/dL 34.7 RDW (11.7-14.6) % 13.2 Plt Count (130-400) x1000/uL 335 MPV (8.0-11.0) fL 9.9 Immature Gran % % 0.3 Neutrophils % 67.5 Lymphocytes % 21.3 Monocytes % 10.6 Eosinophils % 0.1 Basophils % 0.2 Absolute Neutrophils (1.2-6.7) k/cumm 7.75 H Absolute Lymphocytes (1.2-3.4) k/cumm 2.45 Absolute Monocytes (0.11-0.7) k/cumm 1.22 H Absolute Eosinophils (0.0-0.7) k/cumm 0.01 Absolute Basophils (0.0-0.2) k/cumm 0.02 Sodium (136-145) mmol/L 135 L Potassium (3.5-5.1) mmol/L 2.6 L* Chloride (98-107) mmol/L 95 L Carbon Dioxide (21.0-32.0) mmol/L 25.8 Anion Gap (3-11) mmol/L 14.2 H BUN (7-18) mg/dL 12 Creatinine (0.55-1.02) mg/dL 1.03 H Estimated GFR/1.73 m2 (mL/min/1.73m2) 58.76 Glucose (74-106) mg/dL 116 H Calcium (8.5-10.1) mg/dL 10.0 Magnesium (1.8-2.4) mg/dL 1.6 L Total Bilirubin (0.2-1.0) mg/dL 0.8 AST (15-37) U/L 16 ALT (14-59) U/L 32 Alkaline Phosphatase (46-116) U/L 67 Total Protein (6.4-8.2) g/dL 8.2 Albumin (3.4-5.0) g/dL 4.3 Lipase (73-393) U/L 98 Urine Color (Yellow) Urine Clarity (Clear) Urine pH (5-8) Ur Specific Fithian (1.005-1.025) Urine Protein (Negative) mg/dL Urine Ketones (Negative) mg/dL Urine Blood (Negative) Urine Nitrite (Negative) Urine Bilirubin (Negative) Urine Urobilinogen (Up TO 0.2) EU/dL Ur Leukocyte Esterase (Negative) Urine RBC (0-2) HPF Urine WBC (0-5) HPF Ur Epithelial Cells (Negative) HPF Urine Crystals (Negative) HPF Urine Bacteria (Negative) HPF Urine Casts (Negative) LPF Urine Mucus (Negative) Ur Culture Indicated? Urine Glucose (Negative) mg/dL Range/Units 10/08/19 10:30 WBC (4.4-10.8) k/cumm RBC (4.00-5.20) m/cumm Hgb (12.0-15.5) g/dL Hct (36.0-46.0) % MCV (80-95) fL MCH (27.0-33.0) pg MCHC (32.0-36.0) g/dL RDW (11.7-14.6) % Plt Count (130-400) x1000/uL MPV (8.0-11.0) fL Immature Gran % % Neutrophils % Lymphocytes % Monocytes % Eosinophils % Basophils % Absolute Neutrophils (1.2-6.7) k/cumm Absolute Lymphocytes (1.2-3.4) k/cumm Absolute Monocytes (0.11-0.7) k/cumm Absolute Eosinophils (0.0-0.7) k/cumm Absolute Basophils (0.0-0.2) k/cumm Sodium (136-145) mmol/L Potassium (3.5-5.1) mmol/L Chloride (98-107) mmol/L Carbon Dioxide (21.0-32.0) mmol/L Anion Gap (3-11) mmol/L BUN (7-18) mg/dL Creatinine (0.55-1.02) mg/dL Estimated GFR/1.73 m2 (mL/min/1.73m2) Glucose (74-106) mg/dL Calcium (8.5-10.1) mg/dL Magnesium (1.8-2.4) mg/dL Total Bilirubin (0.2-1.0) mg/dL AST (15-37) U/L ALT (14-59) U/L Alkaline Phosphatase (46-116) U/L Total Protein (6.4-8.2) g/dL Albumin (3.4-5.0) g/dL Lipase (73-393) U/L Urine Color (Yellow) Yellow Urine Clarity (Clear) Clear Urine pH (5-8) 6.5 Ur Specific Fithian (1.005-1.025) >= 1.030 H Urine Protein (Negative) mg/dL 30 H Urine Ketones (Negative) mg/dL Negative Urine Blood (Negative) Trace-intact H Urine Nitrite (Negative) Negative Urine Bilirubin (Negative) Negative Urine Urobilinogen (Up TO 0.2) EU/dL 0.2 Ur Leukocyte Esterase (Negative) Negative Urine RBC (0-2) HPF 0-2 Urine WBC (0-5) HPF 3-5 Ur Epithelial Cells (Negative) HPF Few Urine Crystals (Negative) HPF Negative Urine Bacteria (Negative) HPF Negative Urine Casts (Negative) LPF Negative Urine Mucus (Negative) Trace Ur Culture Indicated? Yes Urine Glucose (Negative) mg/dL Negative ECG Data Attestation: I personally reviewed and interpreted this ECG (s) as follows: Interpretation: EKG performed at 1102. Reviewed and interpreted by Dr. Thomas. Electronic ventricular pacemaker. Rate of 92. Obviously given this is the pacemaker EKG, limited data although no signs of obvious hypokalemia. HPI General Mode of arrival: ambulatory. Date/Time Provider Initiated Documentation: 10/08/19 10:03. Limitations to Documentation: no limitations. Information obtained by: patient. HPI Narrative: This is a 44-year-old female with a history of achalasia, status post Iftikhar fundoplication-Heller myotomy in 2003. She has chronic dysphagia for solid foods, complete heart block status post SVT ablation, now has a pacemaker. She is presenting to the ER today with nausea, vomiting, diarrhea, abdominal pain that began on Sunday. She denies bad food exposure, recent sick contacts, or travel. Reports that she does not like sublingual Zofran and that in the past the suppositories have worked. She has an allergy to Compazine. She reports that her pain is moderate, most concentrated in the epigastric region but does have what she describes as cramping occasionally in her lower abdomen as well. There is no pain that radiates to her back. She denies any dysuria or hematuria. Denies recent illness or sick contact. She reports she has had GI issues chronically for the last 17 years however since January she has had more severe and frequent episodes at least 1 every month or so. She is being followed by GI at [facility] however there is been no clear etiology of her ongoing symptoms. She is concerned of dehydration, requesting IV fluids and antiemetics. Related Data Home Medications Medication Instructions Recorded Confirmed pantoprazole [Protonix] 40 mg PO DAILY #30 tab 01/22/19 10/08/19 Previous Rx's Medication Instructions Recorded pantoprazole [Protonix] 40 mg PO DAILY #30 tab 01/22/19 Allergies Allergy/AdvReac Type Severity Reaction Status Date / Time adhesive tape Allergy Skin Rash Unverified 10/08/19 10:11 prochlorperazine Allergy Unverified 10/08/19 10:12 [From Compazine] General Stated Complaint: Nausea/Vomit/Diar CARL: 3 Review of Systems Constitutional Constitutional: Denies fatigue, Denies fever(s) and Denies headache(s) ENT Ears, Nose, Mouth, and Throat: Denies headache(s) and Denies sore throat Cardiovascular Cardiovascular: Denies chest pain Respiratory Respiratory: Denies cough Gastrointestinal Gastrointestinal: Reports abdominal pain, Denies constipation, Reports diarrhea, Reports loose stools and Reports vomiting Genitourinary Genitourinary: Denies dysuria Musculoskeletal Musculoskeletal: Denies back pain Integumentary/Breasts Skin/Breast: Denies rash Neurologic Neurologic: Denies headache(s) Endocrine Endocrine: Denies fatigue [facility] Medical History Achalasia of esophagus Gastroesophageal reflux disease history of reentrant SVT Surgical History section x2 Esophageal Myotomy Fundoplication Ligation of fallopian tube Pacemaker Biventricular pacemaker Family History Aunt Personal history of malignant neoplasm Breast cancer Social History Smoking/Tobacco Use Status: Current-Occasional Tobacco Type: cigarettes Alcohol Intake: current Alcohol Intake frequency: a few times a month Drug use: Occasionally Substance use type: marijuana Do you feel safe at home: Yes Do you feel safe in your relationship?: Yes Exam Const General: cooperative, healthy appearing and other (Dry heaving) Orientation: alert and awake HENKY Head: normal to inspection, normocephalic and atraumatic Mouth: moist mucous membranes abnormal (Slightly dry) Throat: posterior oropharynx normal Eyes Conjunctivae: conjunctivae normal Neck Neck: normal visual inspection, full ROM, no lymphadenopathy, trachea midline and supple Resp Effort & Inspection: normal respiratory effort and able to speak in complete sentences Auscultation: clear to auscultation bilaterally Cardio Rate: regular rate Rhythm: regular rhythm GI Inspection: normal to inspection Palpation: soft, not firm, no guarding, not rigid and tender (Diffuse with moderate palpation.) with no rebound tenderness Auscultation: normal bowel sounds Back/Spine/Pelvis Back: No back tenderness Skin General skin exam: no rashes or lesions noted Neuro General: patient alert, patient awake, moves all extremities and no focal motor deficits Motor: muscle tone normal throughout Sensory Exam: no sensory deficits noted Extrem General: normal to inspection, full ROM and capillary refill normal Psych Appearance: grossly normal Mental Status: mental status grossly normal Course Vital Signs Vital signs: Vital Signs Pulse 110 H 10/08/19 10:05 Blood Pressure 124/82 10/08/19 10:05 Pulse Oximetry 99 10/08/19 10:05 Temperature Source Temporal Artery Scan 10/08/19 10:05 Pulse 96 H 10/08/19 11:30 Pulse 97 H 10/08/19 11:30 Respiratory Rate 14 10/08/19 11:30 Respiratory Effort Non-Labored 10/08/19 10:08 Blood Pressure 124/82 10/08/19 10:05 Blood Pressure Position Sitting 10/08/19 10:05 Pulse Oximetry 99 10/08/19 10:05 Oxygen Delivery Method Room Air 10/08/19 11:30 Oxygen Flow Rate 0 10/08/19 11:30 Pain Level 9 10/08/19 11:27 Lab/Test Results Lab/Test Results: 10/08/19 10:30 Urine - Reflex from Ua Urine Culture - Pending Laboratory Tests Range/Units 10/08/19 10/08/19 10/08/19 10:20 10:20 10:30 WBC (4.4-10.8) k/cumm 11.48 H RBC (4.00-5.20) m/cumm 4.81 Hgb (12.0-15.5) g/dL 14.8 Hct (36.0-46.0) % 42.6 MCV (80-95) fL 88.6 MCH (27.0-33.0) pg 30.8 MCHC (32.0-36.0) g/dL 34.7 RDW (11.7-14.6) % 13.2 Plt Count (130-400) x1000/uL 335 MPV (8.0-11.0) fL 9.9 Immature Gran % % 0.3 Neutrophils % 67.5 Lymphocytes % 21.3 Monocytes % 10.6 Eosinophils % 0.1 Basophils % 0.2 Absolute Neutrophils (1.2-6.7) k/cumm 7.75 H Absolute Lymphocytes (1.2-3.4) k/cumm 2.45 Absolute Monocytes (0.11-0.7) k/cumm 1.22 H Absolute Eosinophils (0.0-0.7) k/cumm 0.01 Absolute Basophils (0.0-0.2) k/cumm 0.02 Sodium (136-145) mmol/L 135 L Potassium (3.5-5.1) mmol/L 2.6 L* Chloride (98-107) mmol/L 95 L Carbon Dioxide (21.0-32.0) mmol/L 25.8 Anion Gap (3-11) mmol/L 14.2 H BUN (7-18) mg/dL 12 Creatinine (0.55-1.02) mg/dL 1.03 H Estimated GFR/1.73 m2 (mL/min/1.73m2) 58.76 Glucose (74-106) mg/dL 116 H Calcium (8.5-10.1) mg/dL 10.0 Total Bilirubin (0.2-1.0) mg/dL 0.8 AST (15-37) U/L 16 ALT (14-59) U/L 32 Alkaline Phosphatase (46-116) U/L 67 Total Protein (6.4-8.2) g/dL 8.2 Albumin (3.4-5.0) g/dL 4.3 Lipase (73-393) U/L 98 Urine Color (Yellow) Yellow Urine Clarity (Clear) Clear Urine pH (5-8) 6.5 Ur Specific Fithian (1.005-1.025) >= 1.030 H Urine Protein (Negative) mg/dL 30 H Urine Ketones (Negative) mg/dL Negative Urine Blood (Negative) Trace-intact H Urine Nitrite (Negative) Negative Urine Bilirubin (Negative) Negative Urine Urobilinogen (Up TO 0.2) EU/dL 0.2 Ur Leukocyte Esterase (Negative) Negative Urine RBC (0-2) HPF 0-2 Urine WBC (0-5) HPF 3-5 Ur Epithelial Cells (Negative) HPF Few Urine Crystals (Negative) HPF Negative Urine Bacteria (Negative) HPF Negative Urine Casts (Negative) LPF Negative Urine Mucus (Negative) Trace Ur Culture Indicated? Yes Urine Glucose (Negative) mg/dL Negative
[2019-10-08 11:51] LABS: Magnesium 1.6 mg/dL (1.8-2.4)
[2019-10-08] MEDS: MAGNESIUM SULFATE 1 GM/100 ML BAG IVPB ×2 (12:32→14:21)
--- NOTE | 2019-10-08 13:36 | DI.RAD_ITS ---
EXAM: XR CHEST 2V PA LATERAL CLINICAL HISTORY: Achalasia TECHNIQUE: COMPARISON: BARIUM SWALLOW W PA LAT CXR from 08/16/2015 FINDINGS: Heart is not enlarged. There is a transvenous cardiac pacemaker. Lungs are predominantly clear, but there is question of a faint area of nodularity projected in the left mid lung. Possibility of an intrapulmonary nodule is raised. Chest CT suggested for correlation.. No pleural effusion seen. IMPRESSION: No evidence of acute process. Question left pulmonary nodule, chest CT suggested for further evalua tion.
[2019-10-08] MEDS: Heparin 5,000 UNITS/ML VIAL 5000 UNITS SC ×2 (14:20→21:15)
[2019-10-08] MEDS: Pantoprazole 40 MG VIAL IVP (14:20)
--- NOTE | 2019-10-08 15:22 | W.PM.HP.N ---
Date of service: 10/08/19 Time of Service: 15:23 Assessment and Plan Assessment and plan (1) Nausea and vomiting: Status: Acute Assessment and plan: Thought to be due to achalasia with known lack of peristalsis, previous esophageal dilation, due to repeat EGD with dilation this week but appointment cancelled d/t covid-19 pandemic. EGD in january 2019 at [facility] with no evidence of esophagitis or gastritis. Reports she was dilated then, States she had a surveillance EGD by her PCP following with no intervention needed S/p fundoplication/Heller myotomy in 2003. continue IV fluids, electrolyte replacement, antiemetics. Will place general surgery consult patient is agreeable to EGD here if recommended Qualifiers: Vomiting type: bilious vomiting Qualified Code(s): R11.14 - Bilious vomiting (2) Hypokalemia: Status: Acute Assessment and plan: d/t GI losses, replete and follow (3) Hypomagnesemia: Status: Resolved Assessment and plan: d/t GI losses, replete and follow. (4) Achalasia: Status: Acute Assessment and plan: general surgery consult. (5) Discharge planning issues: Status: Acute Assessment and plan: discharge to home with no services. History of Present Illness History of Present Illness Chief Complaint: nausea and vomiting Narrative: This is a 44-year-old female with an extensive GI past medical history who presents to the ED with nausea, vomiting abdominal pain, diarrhea for the past 5 days. work up shows white count 11.48, potassium 2.6, mag 1.6, rest of labs unremarkable. she was given potassium and magnesium replacement in the ED, along with IV fluids and antiemetics and her symptoms did not improve despite these measures. She was referred to hospitalist services for intractable nausea/vomiting. Review of Systems Constitutional Constitutional: Denies fever(s) and Reports poor appetite Cardiovascular Cardiovascular: Denies chest pain and Denies dyspnea Respiratory Respiratory: Denies chest congestion, Denies cough and Denies dyspnea Gastrointestinal Gastrointestinal: Reports abdominal pain, Denies constipation, Reports nausea, Reports vomiting and Denies hematemesis Musculoskeletal Musculoskeletal: Reports system reviewed and no additional complaints, except as documented Integumentary/Breasts Skin/Breast: Denies new lesions and Denies rash Neurologic Neurologic: Reports system reviewed and no additional complaints, except as documented Endocrine Endocrine: Reports system reviewed and no additional complaints, except as documented Hematologic/Lymphatic Hematologic/Lymphatic: Reports system reviewed and no additional complaints, except as documented PFSH Medical History Achalasia of esophagus Gastroesophageal reflux disease history of reentrant SVT Surgical History section x2 Esophageal Myotomy Fundoplication Ligation of fallopian tube Pacemaker Biventricular pacemaker Family History Aunt Personal history of malignant neoplasm Breast cancer Social History Smoking/Tobacco Use Status: Current-Occasional Tobacco Type: cigarettes Alcohol Intake: current Alcohol Intake frequency: a few times a month Drug use: Occasionally Substance use type: marijuana Do you feel safe at home: Yes Do you feel safe in your relationship?: Yes Meds Home Medications and Allergies Home Medications Medication Instructions Recorded Confirmed Type pantoprazole [Protonix] 40 mg PO DAILY #30 tab 01/22/19 10/08/19 Rx Allergies Allergy/AdvReac Type Severity Reaction Status Date / Time adhesive tape Allergy Skin Rash Unverified 10/08/19 10:11 prochlorperazine Allergy Unverified 10/08/19 10:12 [From Compazine] Exam Narrative Exam Narrative: General skin is pink warm dry well-perfused she is in no acute distress head is atraumatic oral mucosa is moist neck is supple cardiovascular regular rate and rhythm her respirations are even and unlabored breath sounds are clear bilaterally abdomen is soft she is slightly tender over the epigastrium she has positive bowel sounds her extremities are without edema moves all extremities x4 skin with no rashes or lesions Results Labs Result diagrams: 10/08/19 10:20 10/08/19 10:20 Labs: Laboratory Results - last 24 hr 10/08/19 10/08/19 10/08/19 10:20 10:20 10:20 WBC 11.48 H RBC 4.81 Hgb 14.8 Hct 42.6 MCV 88.6 MCH 30.8 MCHC 34.7 RDW 13.2 Plt Count 335 MPV 9.9 Immature Gran % 0.3 Neutrophils % 67.5 Lymphocytes % 21.3 Monocytes % 10.6 Eosinophils % 0.1 Basophils % 0.2 Absolute Neutrophils 7.75 H Absolute Lymphocytes 2.45 Absolute Monocytes 1.22 H Absolute Eosinophils 0.01 Absolute Basophils 0.02 Sodium 135 L Potassium 2.6 L* Chloride 95 L Carbon Dioxide 25.8 Anion Gap 14.2 H BUN 12 Creatinine 1.03 H Estimated GFR/1.73 m2 58.76 Glucose 116 H Calcium 10.0 Magnesium 1.6 L Total Bilirubin 0.8 AST 16 ALT 32 Alkaline Phosphatase 67 Total Protein 8.2 Albumin 4.3 Lipase 98 Urine Color Urine Clarity Urine pH Ur Specific [place] Urine Protein Urine Ketones Urine Blood Urine Nitrite Urine Bilirubin Urine Urobilinogen Ur Leukocyte Esterase Urine RBC Urine WBC Ur Epithelial Cells Urine Crystals Urine Bacteria Urine Casts Urine Mucus Ur Culture Indicated? Urine Glucose 10/08/19 10:30 WBC RBC Hgb Hct MCV MCH MCHC RDW Plt Count MPV Immature Gran % Neutrophils % Lymphocytes % Monocytes % Eosinophils % Basophils % Absolute Neutrophils Absolute Lymphocytes Absolute Monocytes Absolute Eosinophils Absolute Basophils Sodium Potassium Chloride Carbon Dioxide Anion Gap BUN Creatinine Estimated GFR/1.73 m2 Glucose Calcium Magnesium Total Bilirubin AST ALT Alkaline Phosphatase Total Protein Albumin Lipase Urine Color Yellow Urine Clarity Clear Urine pH 6.5 Ur Specific [place] >= 1.030 H Urine Protein 30 H Urine Ketones Negative Urine Blood Trace-intact H Urine Nitrite Negative Urine Bilirubin Negative Urine Urobilinogen 0.2 Ur Leukocyte Esterase Negative Urine RBC 0-2 Urine WBC 3-5 Ur Epithelial Cells Few Urine Crystals Negative Urine Bacteria Negative Urine Casts Negative Urine Mucus Trace Ur Culture Indicated? Yes Urine Glucose Negative Last Vital Signs Pulse 83 10/08/19 14:06 Resp 20 10/08/19 14:06 BP 100/53 L 10/08/19 14:06 Pulse Ox 99 10/08/19 14:06
[2019-10-08] MEDS: POTASSIUM CHLORIDE 20 MEQ/100 ML BAG 50 MEQ IVPB ×2 (15:48→18:51)
[2019-10-08] MEDS: POTASSIUM CHLORIDE/0.9% NACL 1,000 ML 100 MEQ IV (15:48)
--- NOTE | 2019-10-08 17:12 | PGE_ITS ---
Date of Service Date of service: 10/08/19 Time of Service: 17:15 Assessment and Plan Assessment and plan (1) Achalasia: Status: Acute Assessment and plan: EGD adn dilation in am Will be done as GETA to follow- timing will probably be 2pm or later. cont PPI full liquids only until than. NPO after midnight risks: bleeding/infection/perforation = emergency surgery. This is a temporizing measure adn not a cure. complications of anesthesia- will need to be general. She always has retained food in her esoph on previous dilations. Agree w/ takedown of her Jesus for long-term relief. Pt will need to be on full liquids or pureed diet She also needs to stop smoking/ETOH/caffeine and NSAID's. (2) S/P placement of cardiac pacemaker: Status: Acute (3) GERD without esophagitis: Status: Acute Assessment and plan: protonic bid (4) Smoker unmotivated to quit: Status: Acute (5) Pacemaker: Status: Acute Subjective Subjective Interval history since last seen: thought to be due to achalasia with known lack of peristalsis, previous esophageal dilation, due to repeat EGD with dilation this week but appointment cancelled d/t covid-19 pandemic. EGD in january 2019 at [facility] with no evidence of esophagitis or gastritis. Reports she was dilated then, States she had a surveillance EGD by her PCP following with no intervention needed S/p Toupe fundoplication/Heller myotomy in 2003. I did review her [facility] records. -Her note from T surgery notes she has # degree heartblock adn biventricular pacer. -She s/p heller myotomy adn fundoplicaton in 2003. She has had refractory dysphagia since 2011. -Her last EGD and dilation was 04/2019. 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 Her s/s respond to dilation, but only last about x1 wk. -She teakes Protonix 40mg po BID -She has had a lap lap martha and uses questran for diarrhea -Manometry done in 04/2019. 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 THat she starts pocketing food in the esoph, which leads to inflammation adn makes the conidition worse. She has cyclical food impaction. She has week cintractility which is leading to lower esoph dilation and pocketing. _smoker/ETOH, and mostly eats mashed potatoes and gravy. She has problems w/ both gerd adn dysphagia. She needs to avoid thick meats, bread, rice. The d/w doing esophagectomy, But T sx wasn't 100% convinced that that was the right thing to do. Thy recomended going on a pureed diet and taking down her Jesus prior to doing esophagectomy. -achlasia,dysphagia,GERD w/ esophagitis. -her last BE was 08/11. it ws signif for: Narrowed esophageal junction, dilated distal esophagus adn delayed gastric emptying. -Her last EGD was done 05/10 It was signif for a large amount of retained food. No resistance at LES. Exam Const General: cooperative, healthy appearing, comfortable, no acute distress, well developed and well groomed Nutritional Appearance: average body habitus and well nourished Orientation: alert, awake and oriented x3 HENMT Head: normal to inspection, normocephalic and atraumatic Ears: hearing grossly normal bilaterally and external ears normal General nose exam: external nose normal Face and sinus: normal facial exam and sinuses nontender Mouth: oral mucosae normal, lip normal, tongue normal and moist mucous membranes Teeth and gingiva: dentition normal Eyes General: appearance normal, both eyes and all related structures Conjunctivae: conjunctivae normal Sclera: sclerae normal Pupils: PERRL Neck Neck: normal visual inspection and full ROM Chest Chest: normal inspection of the chest Resp Effort & Inspection: normal respiratory effort, able to speak in complete sentences, no cough, no nasal flaring, not tachypneic and no use of accessory muscles Auscultation: clear to auscultation bilaterally, no rales, no rhonchi and no wheezes Cardio Jugular venous pressure: no JVD Rate: regular rate Rhythm: regular rhythm GI Inspection: normal to inspection, no edema and non-distended Palpation: soft, no masses, nontender and No ascites Auscultation: normal bowel sounds Other: no distention Skin General skin exam: no rashes or lesions noted Trauma: no lacerations or abrasions Neuro General: patient alert, patient oriented x3, oriented, gait normal, moves all extremities, no focal motor deficits and CN's II-XI intact bilaterally Cognition: normal cognition Speech: speech normal Gait: normal gait Motor: muscle tone normal throughout Extrem General: normal to inspection, full ROM and no clubbing, cyanosis or edema Psych Appearance: grossly normal and well kempt Mental Status: mental status grossly normal Speech and Movement: speech and movement normal Affect: normal affect Objective Objective Clinical Data: Abnormal lab results 10/08/19 10/08/19 10/08/19 Range/Units 10:20 10:20 10:20 WBC 11.48 H (4.4-10.8) k/cumm Absolute Neutrophils 7.75 H (1.2-6.7) k/cumm Absolute Monocytes 1.22 H (0.11-0.7) k/cumm Sodium 135 L (136-145) mmol/L Potassium 2.6 L* (3.5-5.1) mmol/L Chloride 95 L (98-107) mmol/L Anion Gap 14.2 H (3-11) mmol/L Creatinine 1.03 H (0.55-1.02) mg/dL Glucose 116 H (74-106) mg/dL Magnesium 1.6 L (1.8-2.4) mg/dL Ur Specific [place] (1.005-1.025) Urine Protein (Negative) mg/dL Urine Blood (Negative) 10/08/19 Range/Units 10:30 WBC (4.4-10.8) k/cumm Absolute Neutrophils (1.2-6.7) k/cumm Absolute Monocytes (0.11-0.7) k/cumm Sodium (136-145) mmol/L Potassium (3.5-5.1) mmol/L Chloride (98-107) mmol/L Anion Gap (3-11) mmol/L Creatinine (0.55-1.02) mg/dL Glucose (74-106) mg/dL Magnesium (1.8-2.4) mg/dL Ur Specific [place] >= 1.030 H (1.005-1.025) Urine Protein 30 H (Negative) mg/dL Urine Blood Trace-intact H (Negative) Vital Signs Temperature 36.6 C 10/08/19 15:42 Temperature Source Tympanic 10/08/19 15:42 Pulse 79 10/08/19 15:42 Pulse Rhythm Regular 10/08/19 14:46 Pulse 103 H 10/08/19 14:00 Respiratory Rate 17 10/08/19 15:42 Respiratory Effort Non-Labored 10/08/19 14:46 Respiratory Depth Normal 10/08/19 14:46 Respiratory Pattern Normal 10/08/19 14:46 Blood Pressure 112/73 10/08/19 15:42 Blood Pressure Mean 64 10/08/19 13:00 Blood Pressure Position Sitting 10/08/19 10:05 Pulse Oximetry 100 10/08/19 15:42 Oxygen Delivery Method Room Air 10/08/19 15:42 Oxygen Flow Rate 0 10/08/19 15:42 Pain Level 3 10/08/19 15:42 Comment 10/08/19 14:46 Intake & Output 10/07/19 10/08/19 10/08/19 23:59 11:59 23:59 Intake Total 61 / 1161 1100 / 1161 Balance 61 / 1161 1100 / 1161 Weight 56.699 kg 56.699 kg Intake: IV 61 / 1161 1100 / 1161 Other: Urine Appearance Clear Stool Size Moderate Stool Characteristics Brown Black Emesis Description Undigested Food Bile Laboratory Results WBC 11.48 k/cumm (4.4-10.8) H 10/08/19 10:20 RBC 4.81 m/cumm (4.00-5.20) 10/08/19 10:20 Hgb 14.8 g/dL (12.0-15.5) 10/08/19 10:20 Hct 42.6 % (36.0-46.0) 10/08/19 10:20 MCV 88.6 fL (80-95) 10/08/19 10:20 MCH 30.8 pg (27.0-33.0) 10/08/19 10:20 MCHC 34.7 g/dL (32.0-36.0) 10/08/19 10:20 RDW 13.2 % (11.7-14.6) 10/08/19 10:20 Plt Count 335 x1000/uL (130-400) 10/08/19 10:20 MPV 9.9 fL (8.0-11.0) 10/08/19 10:20 Immature Gran % 0.3 % 10/08/19 10:20 Neutrophils % 67.5 10/08/19 10:20 Lymphocytes % 21.3 10/08/19 10:20 Monocytes % 10.6 10/08/19 10:20 Eosinophils % 0.1 10/08/19 10:20 Basophils % 0.2 10/08/19 10:20 Absolute Neutrophils 7.75 k/cumm (1.2-6.7) H 10/08/19 10:20 Absolute Lymphocytes 2.45 k/cumm (1.2-3.4) 10/08/19 10:20 Absolute Monocytes 1.22 k/cumm (0.11-0.7) H 10/08/19 10:20 Absolute Eosinophils 0.01 k/cumm (0.0-0.7) 10/08/19 10: Absolute Basophils 0.02 k/cumm (0.0-0.2) 10/08/19 10:20 Sodium 135 mmol/L (136-145) L 10/08/19 10:20 Potassium 2.6 mmol/L (3.5-5.1) L* 10/08/19 10:20 Chloride 95 mmol/L (98-107) L 10/08/19 10:20 Carbon Dioxide 25.8 mmol/L (21.0-32.0) 10/08/19 10:20 Anion Gap 14.2 mmol/L (3-11) H 10/08/19 10:20 BUN 12 mg/dL (7-18) 10/08/19 10:20 Creatinine 1.03 mg/dL (0.55-1.02) H 10/08/19 10:20 Estimated GFR/1.73 m2 58.76 (mL/min/1.73m2) 10/08/19 10:20 Glucose 116 mg/dL (74-106) H 10/08/19 10:20 Calcium 10.0 mg/dL (8.5-10.1) 10/08/19 10:20 Magnesium 1.6 mg/dL (1.8-2.4) L 10/08/19 10:20 Total Bilirubin 0.8 mg/dL (0.2-1.0) 10/08/19 10:20 AST 16 U/L (15-37) 10/08/19 10:20 ALT 32 U/L (14-59) 10/08/19 10:20 Alkaline Phosphatase 67 U/L (46-116) 10/08/19 10:20 Total Protein 8.2 g/dL (6.4-8.2) 10/08/19 10:20 Albumin 4.3 g/dL (3.4-5.0) 10/08/19 10:20 Lipase 98 U/L (73-393) 10/08/19 10:20 Urine Color Yellow (Yellow) 10/08/19 10:30 Urine Clarity Clear (Clear) 10/08/19 10:30 Urine pH 6.5 (5-8) 10/08/19 10:30 Ur Specific [place] >= 1.030 (1.005-1.025) H 10/08/19 10:30 Urine Protein 30 mg/dL (Negative) H 10/08/19 10:30 Urine Ketones Negative mg/dL (Negative) 10/08/19 10:30 Urine Blood Trace-intact (Negative) H 10/08/19 10:30 Urine Nitrite Negative (Negative) 10/08/19 10:30 Urine Bilirubin Negative (Negative) 10/08/19 10:30 Urine Urobilinogen 0.2 EU/dL (Up TO 0.2) 10/08/19 10:30 Ur Leukocyte Esterase Negative (Negative) 10/08/19 10:30 Urine RBC 0-2 HPF (0-2) 10/08/19 10:30 Urine WBC 3-5 HPF (0-5) 10/08/19 10:30 Ur Epithelial Cells Few HPF (Negative) 10/08/19 10:30 Urine Crystals Negative HPF (Negative) 10/08/19 10:30 Urine Bacteria Negative HPF (Negative) 10/08/19 10:30 Urine Casts Negative LPF (Negative) 10/08/19 10:30 Urine Mucus Trace (Negative) 10/08/19 10:30 Ur Culture Indicated? Yes 10/08/19 10:30 Urine Glucose Negative mg/dL (Negative) 10/08/19 10:30
[2019-10-08] MEDS: Trimethobenzamide 200 MG/2 ML VIAL IM (21:14)
[2019-10-09] VITALS (12 sets, daily range): BP systolic 94–138; BP diastolic 57–101; PULSE 66–89; RESP 11–24; TEMP 36.1–37.1; O2SAT 98–100
[2019-10-09] MEDS: Ondansetron 4 MG/2 ML VIAL IVP (03:36)
[2019-10-09] MEDS: Normal Saline Flush 10 ML SYR IVP ×3 (03:36→14:09)
[2019-10-09] MEDS: Heparin 5,000 UNITS/ML VIAL 5000 UNITS SC (05:48)
[2019-10-09] MEDS: Trimethobenzamide 200 MG/2 ML VIAL IM (05:48)
[2019-10-09] MEDS: Acetaminophen 650 MG SUPP PR (05:49)
[2019-10-09] MEDS: POTASSIUM CHLORIDE/0.9% NACL 1,000 ML 100 MEQ IV (05:54)
[2019-10-09 06:43] LABS: Abs Immature Grans 0.02 k/cumm (0.0-0.09); Absolute Basophil Count 0.03 k/cumm (0.0-0.2); Absolute Lymphocyte Count 2.77 k/cumm (1.2-3.4); Absolute Neutrophil Count 3.32 k/cumm (1.2-6.7); Basophils % 0.4; Eosinophils % 1.5; HCT 37.7 % (36.0-46.0); HGB 12.5 g/dL (12.0-15.5); Immature Grans % 0.3 %; Lymphocytes % 40.5; Mean Corp. HGB Concentration 33.2 g/dL (32.0-36.0); Mean Corpuscular Hemoglobin 30.5 pg (27.0-33.0); Mean Platelet Volume 9.9 fL (8.0-11.0); Monocytes % 8.8; Neutrophils % 48.5; Platelet Count 258 x1000/uL (130-400); RBC Distribution Width 13.5 % (11.7-14.6); White Blood Cell Count 6.84 k/cumm (4.4-10.8)
[2019-10-09 06:56] LABS: BUN 8 mg/dL (7-18); CREATININE 0.78 mg/dL (0.55-1.02); Calcium 7.9 mg/dL (8.5-10.1); Chloride 107 mmol/L (98-107); Glucose 83 mg/dL (74-106); Magnesium 1.9 mg/dL (1.8-2.4); Potassium 4.3 mmol/L (3.5-5.1); Sodium 139 mmol/L (136-145)
--- NOTE | 2019-10-09 09:47 | W.PM.PROGNOT ---
Date of Service Date of service: 10/09/19 Time of Service: 09:47 Assessment and Plan Assessment and plan (1) Nausea and vomiting: Start date: 10/09/19 Start time: 09:51 Status: Acute Assessment and plan: Evaluated to Dr. Howe, plan for EGD today with possible dilitation, this afternoon Qualifiers: Vomiting type: bilious vomiting Qualified Code(s): R11.14 - Bilious vomiting (2) Achalasia: Start date: 10/09/19 Start time: 09:52 Status: Acute Assessment and plan: general surgery consult. see above (3) Hypokalemia: Start date: 10/09/19 Start time: 09:51 Status: Resolved Assessment and plan: Resolved, d/c fluids with K, monitor. (4) Hypomagnesemia: Start date: 10/09/19 Start time: 09:52 Status: Resolved Assessment and plan: Resolved. Repleted and monitor. (5) Discharge planning issues: Start date: 10/09/19 Start time: 09:52 Status: Acute Assessment and plan: discharge to home with no services. Above case discussed with Dr. Mercer who is in agreement. Subjective Subjective Patient reports: no new complaints Interval history since last seen: Denies NV, procedure for this afternoon Exam Narrative Exam Narrative: General skin is pink warm dry well-perfused she is in no acute distress head is atraumatic oral mucosa is moist neck is supple cardiovascular regular rate and rhythm her respirations are even and unlabored breath sounds are clear bilaterally abdomen is soft she is slightly tender over the epigastrium she has positive hypoactive bowel sounds her extremities are without edema moves all extremities x4 skin with no rashes or lesions Objective Objective Clinical Data: Abnormal lab results 10/08/19 10/08/19 10/08/19 Range/Units 10:20 10:20 10:20 WBC 11.48 H (4.4-10.8) k/cumm Absolute Neutrophils 7.75 H (1.2-6.7) k/cumm Absolute Monocytes 1.22 H (0.11-0.7) k/cumm Sodium 135 L (136-145) mmol/L Potassium 2.6 L* (3.5-5.1) mmol/L Chloride 95 L (98-107) mmol/L Anion Gap 14.2 H (3-11) mmol/L Creatinine 1.03 H (0.55-1.02) mg/dL Glucose 116 H (74-106) mg/dL Calcium (8.5-10.1) mg/dL Magnesium 1.6 L (1.8-2.4) mg/dL Ur Specific [place] (1.005-1.025) Urine Protein (Negative) mg/dL Urine Blood (Negative) 10/08/19 10/09/19 Range/Units 10:30 06:25 WBC (4.4-10.8) k/cumm Absolute Neutrophils (1.2-6.7) k/cumm Absolute Monocytes (0.11-0.7) k/cumm Sodium (136-145) mmol/L Potassium (3.5-5.1) mmol/L Chloride (98-107) mmol/L Anion Gap (3-11) mmol/L Creatinine (0.55-1.02) mg/dL Glucose (74-106) mg/dL Calcium 7.9 L (8.5-10.1) mg/dL Magnesium (1.8-2.4) mg/dL Ur Specific [place] >= 1.030 H (1.005-1.025) Urine Protein 30 H (Negative) mg/dL Urine Blood Trace-intact H (Negative) Vital Signs Temperature 36.7 C 10/09/19 07:33 Temperature Source Tympanic 10/09/19 07:33 Pulse 75 10/09/19 08:00 Pulse Rhythm Regular 10/09/19 08:00 Pulse 103 H 10/08/19 14:00 Respiratory Rate 16 10/09/19 08:00 Respiratory Effort Non-Labored 10/09/19 08:00 Respiratory Depth Normal 10/09/19 08:00 Respiratory Pattern Normal 10/09/19 08:00 Blood Pressure 101/70 10/09/19 07:33 Blood Pressure Mean 64 10/08/19 13:00 Blood Pressure Position Sitting 10/08/19 10:05 Pulse Oximetry 100 10/09/19 07:33 Oxygen Delivery Method Room Air 10/09/19 08:00 Oxygen Flow Rate 0 10/09/19 08:00 Pain Level 3 10/09/19 08:00 Comment 10/08/19 14:46 Intake & Output 03/18/20 03/18/20 03/19/20 11:59 23:59 11:59 Intake Total 2111 1010 / 1010 Output Total 300 / 300 400 / 400 Balance 1811 610 / 610 Weight 56.699 kg 56.699 kg 59.3 kg Intake: IV 1511 1010 / 1010 Oral 600 / 600 Output: Urine 300 / 300 400 / 400 Other: Urine Color Light [place] Yellow Urine Appearance Clear Clear Urine Odor Normal Stool Size Moderate Stool Characteristics Brown Black Emesis Description Undigested Food Bile Voiding Methods Toilet Toilet Laboratory Results WBC 6.84 k/cumm (4.4-10.8) D 10/09/19 06:25 RBC 4.10 m/cumm (4.00-5.20) 10/09/19 06:25 Hgb 12.5 g/dL (12.0-15.5) D 10/09/19 06:25 Hct 37.7 % (36.0-46.0) 10/09/19 06:25 MCV 92.0 fL (80-95) D 10/09/19 06:25 MCH 30.5 pg (27.0-33.0) 10/09/19 06:25 MCHC 33.2 g/dL (32.0-36.0) 10/09/19 06:25 RDW 13.5 % (11.7-14.6) 10/09/19 06:25 Plt Count 258 x1000/uL (130-400) 10/09/19 06:25 MPV 9.9 fL (8.0-11.0) 10/09/19 06:25 Immature Gran % 0.3 % 10/09/19 06:25 Neutrophils % 48.5 10/09/19 06:25 Lymphocytes % 40.5 10/09/19 06:25 Monocytes % 8.8 10/09/19 06:25 Eosinophils % 1.5 10/09/19 06:25 Basophils % 0.4 10/09/19 06:25 Absolute Neutrophils 3.32 k/cumm (1.2-6.7) 10/09/19 06:25 Absolute Lymphocytes 2.77 k/cumm (1.2-3.4) 10/09/19 06:25 Absolute Monocytes 0.60 k/cumm (0.11-0.7) 10/09/19 06:25 Absolute Eosinophils 0.10 k/cumm (0.0-0.7) 10/09/19 06:25 Absolute Basophils 0.03 k/cumm (0.0-0.2) 10/09/19 06:25 Sodium 139 mmol/L (136-145) 10/09/19 06:25 Potassium 4.3 mmol/L (3.5-5.1) D 10/09/19 06:25 Chloride 107 mmol/L (98-107) 10/09/19 06:25 Carbon Dioxide 28.0 mmol/L (21.0-32.0) 10/09/19 06:25 Anion Gap 4.0 mmol/L (3-11) 10/09/19 06:25 BUN 8 mg/dL (7-18) 10/09/19 06:25 Creatinine 0.78 mg/dL (0.55-1.02) 10/09/19 06:25 Estimated GFR/1.73 m2 >= 60.00 (mL/min/1.73m2) 10/09/19 06:25 Glucose 83 mg/dL (74-106) 10/09/19 06:25 Calcium 7.9 mg/dL (8.5-10.1) L 10/09/19 06:25 Magnesium 1.9 mg/dL (1.8-2.4) 10/09/19 06:25 Total Bilirubin 0.8 mg/dL (0.2-1.0) 10/08/19 10:20 AST 16 U/L (15-37) 10/08/19 10:20 ALT 32 U/L (14-59) 10/08/19 10:20 Alkaline Phosphatase 67 U/L (46-116) 10/08/19 10:20 Total Protein 8.2 g/dL (6.4-8.2) 10/08/19 10:20 Albumin 4.3 g/dL (3.4-5.0) 10/08/19 10:20 Lipase 98 U/L (73-393) 10/08/19 10:20 Urine Color Yellow (Yellow) 10/08/19 10:30 Urine Clarity Clear (Clear) 10/08/19 10:30 Urine pH 6.5 (5-8) 10/08/19 10:30 Ur Specific [place] >= 1.030 (1.005-1.025) H 10/08/19 10:30 Urine Protein 30 mg/dL (Negative) H 10/08/19 10:30 Urine Ketones Negative mg/dL (Negative) 10/08/19 10:30 Urine Blood Trace-intact (Negative) H 10/08/19 10:30 Urine Nitrite Negative (Negative) 10/08/19 10:30 Urine Bilirubin Negative (Negative) 10/08/19 10:30 Urine Urobilinogen 0.2 EU/dL (Up TO 0.2) 10/08/19 10:30 Ur Leukocyte Esterase Negative (Negative) 10/08/19 10:30 Urine RBC 0-2 HPF (0-2) 10/08/19 10:30 Urine WBC 3-5 HPF (0-5) 10/08/19 10:30 Ur Epithelial Cells Few HPF (Negative) 10/08/19 10:30 Urine Crystals Negative HPF (Negative) 10/08/19 10:30 Urine Bacteria Negative HPF (Negative) 10/08/19 10:30 Urine Casts Negative LPF (Negative) 10/08/19 10:30 Urine Mucus Trace (Negative) 10/08/19 10:30 Ur Culture Indicated? Yes 10/08/19 10:30 Urine Glucose Negative mg/dL (Negative) 10/08/19 10:30
[2019-10-09] MEDS: Normal Saline 1,000 ML 60 ML IV ×2 (10:05→17:07)
--- NOTE | 2019-10-09 10:19 | INITIAL_ITS ---
- If Service Date Differs Date of service: 10/09/19 Time of Service: 10:19 Care Management Initial Assess REASON FOR HOSPITALIZATION:: Nausea and vomiting PAST MEDICAL HISTORY/PAST SURGICAL HISTORY:: Medical History . Achalasia of esophagus. Gastroesophageal reflux disease. history of reentrant SVT. Surgical History . section. x2. Esophageal Myotomy. Fundoplication. Ligation of fallopian tube. Pacemaker. Biventricular pacemaker PREVIOUS FUNCTIONAL STATUS/SOCIAL/FAMILY SUPPORTS:: Marcella lives in [facility] with her male automotive mechanical engineer Shola Pleitez. Marcella works at [employer] and is independent with care and activities. CURRENT FUNCTIONAL STATUS:: CM unable to meet with Marcella as she was out of the room much of the day for testing and procedures. Cm to follow up tomorrow. ADVANCE DIRECTIVES:: None on file Has patient been provided with information about the portal?: No Did the patient sign up for the portal?: No CODE STATUS:: Full Code INSURANCE COVERAGE / FINANCIAL ISSUES:: Medicaid PRIMARY CARE PHYSICIAN:: Karri Ceballos POTENTIAL DISCHARGE NEEDS:: followup with PCP, Gastroenterology and discharge plan of care PATIENT/FAMILY EDUCATION NEEDS:: Discharge plan, limitations, follow up plan, Ask Me Three TRANSPORTATION:: via private vehicle with family PLAN:: Marcella will likely return home with no new services. She will folloow up with her PCP and discharge plan of care. CM to continue to support patient, family an discharge planning needs.
[2019-10-09] MEDS: Pantoprazole 40 MG VIAL IVP (14:09)
[2019-10-09] MEDS: Lactated Ringers 1,000 ML 30 ML IV (14:45)
--- NOTE | 2019-10-09 15:02 | ESO_PTH ---
PATIENT: Marcella Yee LOC: [id number] AGE/SX: 44/F ROOM: RE10/08/[address]: Suzi Mercer : 1975 BED: A DIS: 10/10/2019 SPEC #: [id number] RECD: 10/09/19 17:36 STATUS: CAROLINE REQ #: [id number] JONNA: 10/09/19 15:[address]: Suzi Mercer DEPT: Surgical Specimen RECD BY: Maggy Mcconnell ENTERED: 10/09/19 17:36 SP TYPE: Eso DAGO DR: Karri Ceballos Laura M Tissues: 1 - ESOPHAGUS BIOPSY Procedures: GROSS AND MICRO LEVEL 4 Comments: [id number]
--- NOTE | 2019-10-09 15:38 | PHACLINREV_ITS ---
Pharmacy Clinical Review - Admission Clinical Review (Last Reviewed 10/08/19 @ 12:21 by DAVID Stevens) Pacemaker (Acute) Smoker unmotivated to quit (Acute) GERD without esophagitis (Acute) Achalasia (Acute) Nausea and vomiting (Acute) Discharge planning issues (Acute) S/P placement of cardiac pacemaker (Acute) adhesive tape Allergy (Unverified 10/08/19 10:11) Skin Rash prochlorperazine [From Compazine] Allergy (Unverified 10/08/19 10:12) Weight 59.3 kg INTRACTABLE NAUSEA/VOMITING,ACHALASIA - Renal Dosing Renal Dosing: BUN 8 mg/dL (7-18) 10/09/19 06:25 Creatinine 0.78 mg/dL (0.55-1.02) 10/09/19 06:25 Medications needing adjustments: Reviewed (CrCl~85ml/min-no med adjustments) - Anticoagulation Anticoagulation: Hgb 12.5 g/dL (12.0-15.5) D 10/09/19 06:25 Hct 37.7 % (36.0-46.0) 10/09/19 06:25 Plt Count 258 x1000/uL (130-400) 10/09/19 06:25 Creatinine 0.78 mg/dL (0.55-1.02) 10/09/19 06:25 DVT Prohphylaxis: Reviewed Medications: Heparin (on hold for today's EGD w/possible dilitation) - Opiate Usage Evaluate Pain Scale/Pains Meds: N/A - Relevant Labs Sodium 139 mmol/L (136-145) 10/09/19 06:25 Potassium 4.3 mmol/L (3.5-5.1) D 10/09/19 06:25 Chloride 107 mmol/L (98-107) 10/09/19 06:25 Magnesium 1.9 mg/dL (1.8-2.4) 10/09/19 06:25 Electrolytes, C-Reactive P, ESR: Reviewed (Electrolytes replaced since admission) - Antimicrobial Stewardship Antibiotic appropriateness: N/A Surgical Abx d/c within 24 hr: N/A Culture review/Resistance: Reviewed (Esophageal tissue obtained during EGD is pending, also urine pending) - DM Control DM Control: Glucose 83 mg/dL (74-106) 10/09/19 06:25 Insulin Dosing: N/A - Heart Failure/[place] EF%, KOSTAS's, B-Blockers, Diuretics: N/A - BP Control BP Control: Blood Pressure 104/66 Blood Pressure 101/70 If elevated: N/A - QTc Review If Elevated: Reviewed (QTC 500 (patient has a biventricular pacemaker)-no QT prolonging meds at home, currently on Zofran) - IV to PO Switch IV Medications: Reviewed (IV Protonix, IV Zofran, IV Promethazine) - Home Meds Home Med List reviewed: Reviewed (milton) - Current meds Current Medication Order Review: Reviewed - Comments Comments/Follow Ups: Watch for restart of Heparin for DVT prophylaxis, was schedued to have procedure done at [facility] [place] but it was cancelled. No Emesis x24h
--- NOTE | 2019-10-09 15:52 | CHAPLAIN ---
Marcella was sitting up in her chair when I visited. She said she has had multiple surgeries and so is very familiar with being in the hospital. She lives in [place] with her four kids and a fiance, who may visit after work today. Marcella talked about her kids, a 22 year old daughter, 16 year old twin daughters and a six year old boy. She her children are what motivate her to get through her medical issues. Along with surgeries, Marcella has has a pace maker implanted.
[2019-10-09] MEDS: Acetaminophen 325 MG TAB PO ×2 (17:07→21:34)
[2019-10-09] MEDS: Albuterol 2.5 MG/3 ML INH SOLN VIAL UPD ×2 (19:30→21:34)
[2019-10-10 00:10] VITALS: BP 105/67; PULSE 80; RESP 18; TEMP 37.2; O2SAT 100
[2019-10-10 04:34] VITALS: BP 116/63; PULSE 71; RESP 16; TEMP 36.8; O2SAT 99
[2019-10-10] MEDS: Normal Saline 1,000 ML 60 ML IV (07:31)
[2019-10-10 07:32] VITALS: BP 116/81; PULSE 96; RESP 18; TEMP 36.8; O2SAT 99
[2019-10-10 08:30] LABS: HCT 36.5 % (36.0-46.0); HGB 12.1 g/dL (12.0-15.5); Mean Corp. HGB Concentration 33.2 g/dL (32.0-36.0); Mean Corpuscular Hemoglobin 30.3 pg (27.0-33.0); Mean Corpuscular Volume 91.5 fL (80-95); Mean Platelet Volume 9.6 fL (8.0-11.0); Platelet Count 261 x1000/uL (130-400); RBC 3.99 m/cumm (4.00-5.20); RBC Distribution Width 13.2 % (11.7-14.6); White Blood Cell Count 6.84 k/cumm (4.4-10.8)
[2019-10-10 08:39] LABS: Anion Gap 7.6 mmol/L (3-11); BUN 7 mg/dL (7-18); CO2 28.4 mmol/L (21.0-32.0); CREATININE 0.75 mg/dL (0.55-1.02); Calcium 8.8 mg/dL (8.5-10.1); Chloride 101 mmol/L (98-107); Glucose 90 mg/dL (74-106); Magnesium 1.9 mg/dL (1.8-2.4); Potassium 3.8 mmol/L (3.5-5.1); Sodium 137 mmol/L (136-145)
--- NOTE | 2019-10-10 08:53 | PDOC.CMPRO ---
Care Management Progress Note S/O: Marcella continues to be closely monitored at this time, her diet will be advanced and if tolerated she may discharge as soon as tomorrow, per MD. CM continues to follow. A: 44 year old female admitted to [facility] 10/08/19 for Intractable nausea/vomiting, achalasia P: Marcella will return home with no new services. She will follow up with her PCP and discharge plan of care. CM to continue to support patient, family an discharge planning needs.
[2019-10-10] MEDS: Normal Saline Flush 10 ML SYR IVP ×2 (09:41→12:05)
--- NOTE | 2019-10-10 10:57 | PGE_ITS ---
Date of Service Date of service: 10/10/19 Time of Service: 10:57 Assessment and Plan Assessment and plan (1) Nausea and vomiting: Start date: 10/10/19 Start time: 10:59 Status: Acute Assessment and plan: EGD yesterday with dialation. Tolerating clears. Advance to puree at dinner per surgery recommendations. Continue antiemetics, does c/o some nausea. No vomiting. No dysphagia. Possible dc home tomorrow. Increase PPI to BID for GERD Qualifiers: Vomiting type: bilious vomiting Qualified Code(s): R11.14 - Bilious vomiting (2) Achalasia: Start date: 10/10/19 Start time: 11:01 Status: Resolved Assessment and plan: . see above (3) Hypokalemia: Start date: 10/10/19 Start time: 11:01 Status: Resolved Assessment and plan: Resolved, d/c fluids with K, monitor. (4) Discharge planning issues: Start date: 10/10/19 Start time: 11:02 Status: Acute Assessment and plan: discharge to home with no services. Possible discharge tomorrow. Above case discussed with Dr. Mercer who is in agreement. Subjective Subjective Patient reports: nausea Interval history since last seen: Feeling better, tolerating clears. Does c/o nausea intermittently. Will advance diet this afternoon. Exam Narrative Exam Narrative: General skin is pink warm dry well-perfused she is in no acute distress head is atraumatic oral mucosa is moist neck is supple cardiovascular regular rate and rhythm her respirations are even and unlabored breath sounds are clear bilaterally abdomen is soft nontender over the epigastrium she has positive hypoactive bowel sounds her extremities are without edema moves all extremities x4 skin with no rashes or lesions Objective Objective Clinical Data: Abnormal lab results 10/10/19 Range/Units 08:26 RBC 3.99 L (4.00-5.20) m/cumm Vital Signs Temperature 36.8 C 10/10/19 07:32 Temperature Source Temporal Artery Scan 10/10/19 07:32 Pulse 96 H 10/10/19 07:32 Pulse Rhythm Regular 10/10/19 07:25 Pulse 103 H 10/08/19 14:00 Respiratory Rate 18 10/10/19 07:32 Respiratory Effort Non-Labored 10/10/19 07:25 Respiratory Depth Normal 10/10/19 07:25 Respiratory Pattern Normal 10/10/19 07:25 Blood Pressure 116/81 10/10/19 07:32 Blood Pressure Mean 64 10/08/19 13:00 Blood Pressure Position Sitting 10/08/19 10:05 Pulse Oximetry 99 10/10/19 07:32 Oxygen Delivery Method Room Air 10/10/19 07:32 Oxygen Flow Rate 0 10/10/19 07:32 Pain Level 0 10/10/19 07:32 Comment 10/08/19 14:46 Intake & Output 10/09/19 10/09/19 10/10/19 11:59 23:59 11:59 Intake Total 1330.667 / 2899.667 1569 / 2899.667 1786 / 1786 Output Total 700 / 1450 750 / 1450 Balance 630.667 / 1449.667 819 / 3618.272 8915 / 1786 Weight 59.3 kg 59.3 kg 57.7 kg Intake: IV 1330.667 / 2219.667 889 / 2219.667 1006 / 1006 Oral 680 / 680 780 / 780 Output: Urine 700 / 1450 750 / 1450 Other: Urine Color Yellow Pale Yellow Urine Appearance Clear Clear Clear Urine Odor None Normal Comment per patient per patient Stool Size Small Stool Characteristics Liquid Emesis Description None Voiding Methods Toilet Toilet Laboratory Results WBC 6.84 k/cumm (4.4-10.8) 10/10/19 08:26 RBC 3.99 m/cumm (4.00-5.20) L 10/10/19 08:26 Hgb 12.1 g/dL (12.0-15.5) 10/10/19 08:26 Hct 36.5 % (36.0-46.0) 10/10/19 08:26 MCV 91.5 fL (80-95) 10/10/19 08:26 MCH 30.3 pg (27.0-33.0) 10/10/19 08:26 MCHC 33.2 g/dL (32.0-36.0) 10/10/19 08:26 RDW 13.2 % (11.7-14.6) 10/10/19 08:26 Plt Count 261 x1000/uL (130-400) 10/10/19 08:26 MPV 9.6 fL (8.0-11.0) 10/10/19 08:26 Immature Gran % 0.3 % 10/09/19 06:25 Neutrophils % 48.5 10/09/19 06:25 Lymphocytes % 40.5 10/09/19 06:25 Monocytes % 8.8 10/09/19 06:25 Eosinophils % 1.5 10/09/19 06:25 Basophils % 0.4 10/09/19 06:25 Absolute Neutrophils 3.32 k/cumm (1.2-6.7) 10/09/19 06:25 Absolute Lymphocytes 2.77 k/cumm (1.2-3.4) 10/09/19 06:25 Absolute Monocytes 0.60 k/cumm (0.11-0.7) 10/09/19 06:25 Absolute Eosinophils 0.10 k/cumm (0.0-0.7) 10/09/19 06:25 Absolute Basophils 0.03 k/cumm (0.0-0.2) 10/09/19 06:25 Sodium 137 mmol/L (136-145) 10/10/19 08:26 Potassium 3.8 mmol/L (3.5-5.1) 10/10/19 08:26 Chloride 101 mmol/L (98-107) 10/10/19 08:26 Carbon Dioxide 28.4 mmol/L (21.0-32.0) 10/10/19 08:26 Anion Gap 7.6 mmol/L (3-11) 10/10/19 08:26 BUN 7 mg/dL (7-18) 10/10/19 08:26 Creatinine 0.75 mg/dL (0.55-1.02) 10/10/19 08:26 Estimated GFR/1.73 m2 >= 60.00 (mL/min/1.73m2) 10/10/19 08:26 Glucose 90 mg/dL (74-106) 10/10/19 08:26 Calcium 8.8 mg/dL (8.5-10.1) 10/10/19 08:26 Magnesium 1.9 mg/dL (1.8-2.4) 10/10/19 08:26 Total Bilirubin 0.8 mg/dL (0.2-1.0) 10/08/19 10:20 AST 16 U/L (15-37) 10/08/19 10:20 ALT 32 U/L (14-59) 10/08/19 10:20 Alkaline Phosphatase 67 U/L (46-116) 10/08/19 10:20 Total Protein 8.2 g/dL (6.4-8.2) 10/08/19 10:20 Albumin 4.3 g/dL (3.4-5.0) 10/08/19 10:20 Lipase 98 U/L (73-393) 10/08/19 10:20 Urine Color Yellow (Yellow) 10/08/19 10:30 Urine Clarity Clear (Clear) 10/08/19 10:30 Urine pH 6.5 (5-8) 10/08/19 10:30 Ur Specific [place] >= 1.030 (1.005-1.025) H 10/08/19 10:30 Urine Protein 30 mg/dL (Negative) H 10/08/19 10:30 Urine Ketones Negative mg/dL (Negative) 10/08/19 10:30 Urine Blood Trace-intact (Negative) H 10/08/19 10:30 Urine Nitrite Negative (Negative) 10/08/19 10:30 Urine Bilirubin Negative (Negative) 10/08/19 10:30 Urine Urobilinogen 0.2 EU/dL (Up TO 0.2) 10/08/19 10:30 Ur Leukocyte Esterase Negative (Negative) 10/08/19 10:30 Urine RBC 0-2 HPF (0-2) 10/08/19 10:30 Urine WBC 3-5 HPF (0-5) 10/08/19 10:30 Ur Epithelial Cells Few HPF (Negative) 10/08/19 10:30 Urine Crystals Negative HPF (Negative) 10/08/19 10:30 Urine Bacteria Negative HPF (Negative) 10/08/19 10:30 Urine Casts Negative LPF (Negative) 10/08/19 10:30 Urine Mucus Trace (Negative) 10/08/19 10:30 Ur Culture Indicated? Yes 10/08/19 10:30 Urine Glucose Negative mg/dL (Negative) 10/08/19 10:30
[2019-10-10] MEDS: Pantoprazole 40 MG VIAL IVP (12:05)
--- NOTE | 2019-10-10 14:18 | W.NUTCONSULT ---
Date of service: 10/10/19 Time of Service: 14:19 Nutritional Consult ASSESSMENT: 44 year old female admitted with n/v/d x 5 days with achalasia. s/p dilation. Reports 20 lbs weight loss in last month due to ongoing n/v from scare tissue at end of esophagus. Able to tolerate clear liquids and to be discharged today on puree diet. reviewed nutrient and fluid needs and provided contact information if needs outpatient nutrition counseling. Expect adequate po now that dilation completed, [place] [facility] [place] MONITORING AND EVALUATION: weight, po intake, labs Time Spent in Nutritional Counseling and Treatment: 15 min spent face to face
--- NOTE | 2019-10-10 15:14 | DSE_ITS ---
Date of service: 10/10/19 Time of Service: 15:14 DS: Diagnosis Discharge Diagnosis (1) Achalasia: Start date: 10/10/19 Start time: 15:15 Status: Resolved Asessment and Plan: Patient has history of heller myotomy and fundoplicaton in 2003. She has had refractory dysphagia since 2011. smoker/ETOH, and mostly eats mashed potatoes and gravy. She has problems w/ both gerd adn dysphagia. She needs to avoid thick meats, bread, rice. she was seen for n/v, she was suppose to have dilation with [facility] [place] however due to COVID it was suspended EGD done yesterday with dilation. Patient started on clear diet. Advanced to full this afternoon. Tolerating diet without nausea and vomiting, will follow up with [facility] [place]. Advance to soft diet as tolerated. Will give promethazine suppositories. Boost. May return to work on Sunday without restrictions (2) Nausea and vomiting: Start date: 10/10/19 Start time: 15:35 Status: Resolved Asessment and Plan: Has resolved with eating since dilation, (3) Hypokalemia: Start date: 10/10/19 Start time: 15:38 Status: Resolved Asessment and Plan: Repleted and resolved. Discharge Plan Disposition Patient Disposition: HOME Condition: Good Discharge Details Chief Complaint: Nausea/Vomit/Diar Clinical Impression: Achalasia, Hypokalemia, Nausea and vomiting Reason For Visit: INTRACTABLE NAUSEA/VOMITING,ACHALASIA Admit Date/Time: 10/08/19 13:03 Admit Provider: Suzi Mercer Attending Provider: Suzi Mercer Primary Care Provider: Karri Ceballos ED Provider: Doron Blanton Hospital Course Hospital Course: 44 y.o female with PMH of achalasia with lack of peristalsis, previous esophageal dilation, s/p fundoplication/Heller myotomy in 2003. Presented to [facility] ED after 5 days of nausea, vomiting, abdominal pain and diarrhea. She was found to have elevated WBC, potassium 2.6, mag 1.6. She was admitted to [facility] m/s for further management. During hospitalization electrolytes were repleted, she was given IVF, antiemetics and evaluated by surgery. She had an EGD with dilation yesterday by Dr Ely. Started on clears for dinner and diet advanced to full this afternoon. She denies n/v/d, she denies abdominal pain. She is tolerating a full liquid diet and feels well enough to go home. Dr. Ely recommends full diet advance to soft as tolerated. She can also have boost drinks. Follow up with [facility] [place] when able to. She will be given promethazine suppositories as needed. Increase PPI to BID. She is being discharged home. She denies CP/SOB. Home Meds and New Rx's Prescriptions: New promethazine 25 mg suppository 25 mg MA Q6H PRNQty: 10 RF: 0 pantoprazole [Protonix] 40 mg tablet,delayed release (DR/EC) 40 mg PO BID Qty: 20 RF: 0 Discontinued pantoprazole [Protonix] 40 mg tablet,delayed release (DR/EC) 40 mg PO DAILY Qty: 30 RF: 0 Discharge Instructions Instructions: Gastroesophageal Reflux Disease (DC), Acute Nausea and Vomiting (DC) Additional Instructions: Follow up with [facility] [place] Increase protonix to twice a day, morning and night Take boost as a supplement if you are unable to eat Continue soft diet when able to tolerate. Activity:: Activity as Tolerated Equipment/Supplies:: No Equipment Needed Diet:: Soft normal diet Discharge Orders Discharge Orders: Discharge Order (Routine); Ordered 10/10/19 Ordered By: Charito Arriaga DS: Summary Status at Discharge Functional status at discharge: independent ambulation Overall status at discharge: patient is back to baseline Mental Status: mental status grossly normal Speech and Movement: speech and movement normal Mood: congruent mood Affect: normal affect Exam Narrative Exam Narrative: General skin is pink warm dry well-perfused she is in no acute distress head is atraumatic oral mucosa is moist neck is supple cardiovascular regular rate and rhythm her respirations are even and unlabored breath sounds are clear bilaterally abdomen is soft nontender over the epigastrium she has positive hypoactive bowel sounds her extremities are without edema moves all extremities x4 skin with no rashes or lesions Psych Mental Status: mental status grossly normal Speech and Movement: speech and movement normal Mood: congruent mood Affect: normal affect DS: Data Vitals/I&O Vitals and I&O: Vital Signs Temperature 36.8 C 10/10/19 07:32 Temperature Source Temporal Artery Scan 10/10/19 07:32 Pulse 96 H 10/10/19 07:32 Pulse Rhythm Regular 10/10/19 07:25 Pulse 103 H 10/08/19 14:00 Respiratory Rate 18 10/10/19 07:32 Respiratory Effort Non-Labored 10/10/19 07:25 Respiratory Depth Normal 10/10/19 07:25 Respiratory Pattern Normal 10/10/19 07:25 Blood Pressure 116/81 10/10/19 07:32 Blood Pressure Mean 64 10/08/19 13:00 Blood Pressure Position Sitting 10/08/19 10:05 Pulse Oximetry 99 10/10/19 07:32 Oxygen Delivery Method Room Air 10/10/19 07:32 Oxygen Flow Rate 0 10/10/19 07:32 Pain Level 0 10/10/19 07:32 Comment 10/08/19 14:46 Intake & Output 10/09/19 10/10/19 10/10/19 23:59 11:59 23:59 Intake Total 1569 / 2899.667 1786 / 2366 580 / 2366 Output Total 750 / 1450 Balance 819 / 2731.367 9949 / 2366 580 / 2366 Weight 59.3 kg 57.7 kg Intake: IV 889 / 2219.667 1006 / 1006 Oral 680 / 680 780 / 1360 580 / 1360 Output: Urine 750 / 1450 Other: Urine Color Pale Yellow Yellow Yellow Urine Appearance Clear Clear Clear Urine Odor Normal None Comment per patient voids independently in toilet Stool Size Small Stool Characteristics Liquid Emesis Description None Voiding Methods Toilet Toilet Toilet Data Completed and Pending Labs on day of discharge: Labs from last 24 hours 10/10/19 10/10/19 08:26 08:26 WBC 6.84 RBC 3.99 L Hgb 12.1 Hct 36.5 MCV 91.5 MCH 30.3 MCHC 33.2 RDW 13.2 Plt Count 261 MPV 9.6 Sodium 137 Potassium 3.8 Chloride 101 Carbon Dioxide 28.4 Anion Gap 7.6 BUN 7 Creatinine 0.75 Estimated GFR/1.73 m2 >= 60.00 Glucose 90 Calcium 8.8 Magnesium 1.9 Preliminary micro results at discharge 10/09/19 15:05 Surgical Culture - Preliminary Tissue - Internal Gram Positive Mercedes,Mixed PFSH Medical History Achalasia of esophagus Gastroesophageal reflux disease GERD without esophagitis (Acute) history of reentrant SVT Pacemaker (Acute) Smoker unmotivated to quit (Acute) Surgical History section x2 Esophageal Myotomy Fundoplication Ligation of fallopian tube Pacemaker Biventricular pacemaker Family History Aunt Personal history of malignant neoplasm Breast cancer Social History Smoking/Tobacco Use Status: Current-Occasional Tobacco Type: cigarettes Alcohol Intake: current Alcohol Intake frequency: a few times a month Drug use: Occasionally Substance use type: marijuana Do you feel safe at home: Yes Do you feel safe in your relationship?: Yes
--- NOTE | 2019-10-10 15:35 | W.PM.PROGNOT ---
Date of Service Date of service: 10/10/19 Time of Service: 15:35 Assessment and Plan Assessment and plan (1) Fundoplication : Status: None Assessment and plan: pt is s/p Toupe fundaplication for severe reflux. She still has problems w/ reflux. She is protonix 40mg BID. She has scarring and her wrap is too tight. She undergoes serial dilations about every 6m. I did dilate her yest and liquids are going through without a problem today and no S/A from the dilation. She is going to have an instrument dilation by thoracic in the OR once the Covid epidemic is resolved. We d/w lifestyle modifications and diet in the interum- she should stay on full liquids/pureed diet. She is going to prob require every 3-4 months dilation. Most likely she is going to either have the wrap reversed or the lower GE junction resected w/ gastric re approximation. cont same meds supportive car for know. call our office if requires re-dilation in the interum. If she tolerates full liquids, she can be d/c'ed home this afternoon. (2) history of reentrant SVT: Status: None (3) Smoker unmotivated to quit: Status: Acute (4) GERD without esophagitis: Status: Acute (5) Nausea and vomiting: Status: Resolved Qualifiers: Vomiting type: bilious vomiting Qualified Code(s): R11.14 - Bilious vomiting (6) Anemia: Status: Chronic (7) Complication of surgery: Status: Acute Subjective Subjective Interval history since last seen: Pt is doing well. no headaches. No CP or SOB. no productive cough. no dysuria. no leg pain or swelling. no chest pain. no fevers. no N/V. no blood in stools at this time. She has been tolerating liquids and no N/V or vomiting. She feels good. Exam Const General: cooperative, healthy appearing, comfortable, no acute distress, well developed and well groomed Nutritional Appearance: average body habitus and well nourished Orientation: alert, awake and oriented x3 HENMT Head: normal to inspection, normocephalic and atraumatic Ears: hearing grossly normal bilaterally and external ears normal General nose exam: external nose normal Face and sinus: normal facial exam and sinuses nontender Mouth: oral mucosae normal, lip normal, tongue normal and moist mucous membranes Teeth and gingiva: dentition normal Eyes General: appearance normal, both eyes and all related structures Conjunctivae: conjunctivae normal Sclera: sclerae normal Pupils: PERRL Neck Neck: normal visual inspection and full ROM Chest Chest: normal inspection of the chest Resp Effort & Inspection: normal respiratory effort, able to speak in complete sentences, no cough, no nasal flaring, not tachypneic and no use of accessory muscles Auscultation: clear to auscultation bilaterally, no rales, no rhonchi and no wheezes Cardio Jugular venous pressure: no JVD Rate: regular rate Rhythm: regular rhythm GI Inspection: normal to inspection Palpation: soft Auscultation: normal bowel sounds Other: no distention. No pain. no pain or difficulty swallowing. Skin General skin exam: no rashes or lesions noted Trauma: no lacerations or abrasions Neuro General: patient alert, patient oriented x3, oriented, gait normal, moves all extremities, no focal motor deficits and CN's II-XI intact bilaterally Cognition: normal cognition Speech: speech normal Gait: normal gait Motor: muscle tone normal throughout Extrem General: normal to inspection, full ROM and no clubbing, cyanosis or edema Psych Appearance: grossly normal and well kempt Mental Status: mental status grossly normal Speech and Movement: speech and movement normal Affect: normal affect Objective Objective Clinical Data: Abnormal lab results 10/10/19 Range/Units 08:26 RBC 3.99 L (4.00-5.20) m/cumm Vital Signs Temperature 36.8 C 10/10/19 07:32 Temperature Source Temporal Artery Scan 10/10/19 07:32 Pulse 96 H 10/10/19 07:32 Pulse Rhythm Regular 10/10/19 13:00 Pulse 103 H 10/08/19 14:00 Respiratory Rate 18 10/10/19 07:32 Respiratory Effort Non-Labored 10/10/19 13:00 Respiratory Depth Normal 10/10/19 13:00 Respiratory Pattern Normal 10/10/19 13:00 Blood Pressure 116/81 10/10/19 07:32 Blood Pressure Mean 64 10/08/19 13:00 Blood Pressure Position Sitting 10/08/19 10:05 Pulse Oximetry 99 10/10/19 07:32 Oxygen Delivery Method Room Air 10/10/19 07:32 Oxygen Flow Rate 0 10/10/19 07:32 Pain Level 0 10/10/19 07:32 Comment 10/08/19 14:46 Intake & Output 10/09/19 10/10/19 10/10/19 23:59 11:59 23:59 Intake Total 1569 / 2899.667 1786 / 2366 580 / 2366 Output Total 750 / 1450 Balance 819 / 6580.833 5040 / 2366 580 / 2366 Weight 59.3 kg 57.7 kg Intake: IV 889 / 2219.667 1006 / 1006 Oral 680 / 680 780 / 1360 580 / 1360 Output: Urine 750 / 1450 Other: Urine Color Pale Yellow Yellow Yellow Urine Appearance Clear Clear Clear Urine Odor Normal None Comment per patient voids independently in toilet Stool Size Small Stool Characteristics Liquid Emesis Description None Voiding Methods Toilet Toilet Toilet Laboratory Results WBC 6.84 k/cumm (4.4-10.8) 10/10/19 08:26 RBC 3.99 m/cumm (4.00-5.20) L 10/10/19 08:26 Hgb 12.1 g/dL (12.0-15.5) 10/10/19 08:26 Hct 36.5 % (36.0-46.0) 10/10/19 08:26 MCV 91.5 fL (80-95) 10/10/19 08:26 MCH 30.3 pg (27.0-33.0) 10/10/19 08:26 MCHC 33.2 g/dL (32.0-36.0) 10/10/19 08:26 RDW 13.2 % (11.7-14.6) 10/10/19 08:26 Plt Count 261 x1000/uL (130-400) 10/10/19 08:26 MPV 9.6 fL (8.0-11.0) 10/10/19 08:26 Immature Gran % 0.3 % 10/09/19 06:25 Neutrophils % 48.5 10/09/19 06:25 Lymphocytes % 40.5 10/09/19 06:25 Monocytes % 8.8 10/09/19 06:25 Eosinophils % 1.5 10/09/19 06:25 Basophils % 0.4 10/09/19 06:25 Absolute Neutrophils 3.32 k/cumm (1.2-6.7) 10/09/19 06:25 Absolute Lymphocytes 2.77 k/cumm (1.2-3.4) 10/09/19 06:25 Absolute Monocytes 0.60 k/cumm (0.11-0.7) 10/09/19 06:25 Absolute Eosinophils 0.10 k/cumm (0.0-0.7) 10/09/19 06:25 Absolute Basophils 0.03 k/cumm (0.0-0.2) 10/09/19 06:25 Sodium 137 mmol/L (136-145) 10/10/19 08:26 Potassium 3.8 mmol/L (3.5-5.1) 10/10/19 08:26 Chloride 101 mmol/L (98-107) 10/10/19 08:26 Carbon Dioxide 28.4 mmol/L (21.0-32.0) 10/10/19 08:26 Anion Gap 7.6 mmol/L (3-11) 10/10/19 08:26 BUN 7 mg/dL (7-18) 10/10/19 08:26 Creatinine 0.75 mg/dL (0.55-1.02) 10/10/19 08:26 Estimated GFR/1.73 m2 >= 60.00 (mL/min/1.73m2) 10/10/19 08:26 Glucose 90 mg/dL (74-106) 10/10/19 08:26 Calcium 8.8 mg/dL (8.5-10.1) 10/10/19 08:26 Magnesium 1.9 mg/dL (1.8-2.4) 10/10/19 08:26 Total Bilirubin 0.8 mg/dL (0.2-1.0) 10/08/19 10:20 AST 16 U/L (15-37) 10/08/19 10:20 ALT 32 U/L (14-59) 10/08/19 10:20 Alkaline Phosphatase 67 U/L (46-116) 10/08/19 10:20 Total Protein 8.2 g/dL (6.4-8.2) 10/08/19 10:20 Albumin 4.3 g/dL (3.4-5.0) 10/08/19 10:20 Lipase 98 U/L (73-393) 10/08/19 10:20 Urine Color Yellow (Yellow) 10/08/19 10:30 Urine Clarity Clear (Clear) 10/08/19 10:30 Urine pH 6.5 (5-8) 10/08/19 10:30 Ur Specific [place] >= 1.030 (1.005-1.025) H 10/08/19 10:30 Urine Protein 30 mg/dL (Negative) H 10/08/19 10:30 Urine Ketones Negative mg/dL (Negative) 10/08/19 10:30 Urine Blood Trace-intact (Negative) H 10/08/19 10:30 Urine Nitrite Negative (Negative) 10/08/19 10:30 Urine Bilirubin Negative (Negative) 10/08/19 10:30 Urine Urobilinogen 0.2 EU/dL (Up TO 0.2) 10/08/19 10:30 Ur Leukocyte Esterase Negative (Negative) 10/08/19 10:30 Urine RBC 0-2 HPF (0-2) 10/08/19 10:30 Urine WBC 3-5 HPF (0-5) 10/08/19 10:30 Ur Epithelial Cells Few HPF (Negative) 10/08/19 10:30 Urine Crystals Negative HPF (Negative) 10/08/19 10:30 Urine Bacteria Negative HPF (Negative) 10/08/19 10:30 Urine Casts Negative LPF (Negative) 10/08/19 10:30 Urine Mucus Trace (Negative) 10/08/19 10:30 Ur Culture Indicated? Yes 10/08/19 10:30 Urine Glucose Negative mg/dL (Negative) 10/08/19 10:30
[2019-10-10 15:37] VITALS: BP 121/75; PULSE 107; RESP 22; TEMP 37.1; O2SAT 98
--- NOTE | 2019-10-13 15:04 | W.PM.ENDDOP ---
Date of service: 10/10/19 Time of Service: 15:04 Endoscopy Report DATE OF PROCEDURE: 10/10/19 PRE-OP DIAGNOSIS: esophageal stricture POST-OP DIAGNOSIS: same (eophsgitis/esophageal candidiasis ) PROCEDURE: EGD and bx and dilation. 22F balloon. SURGEON: Angela Howe ANESTHESIA: GETA ESTIMATED BLOOD LOSS: 1 PATHOLOGY: other COMPLICATIONS: None DISPOSITION: PACU PROCEDURE DESCRIPTION: After informed consent was obtained the patient was take to the procedure room and placed in a supine position. Monitors were applied and a time out was done. The patients name, date of , procedure type, allergies to medications and metal in their body. EGTA was administered per the department of anesthesia. The gastroscope was advanced through the oropharynx which was grossly normal into the esophagus. The proximal and mid-esophagus were . In the distal esophagus there was extremely dilated w/ redness and edema. There is a small amount of old materila. this is suction and removed. THere is a whitish coating, but judt in the distal esophagus-consitent w/ yeast. A bx is taken. the tissue is quite friable. The rest of the ucosa is pink and health. Anatomic changes are noted to be consistent with the previous wrap. This is extremely tight and is barely able to get to maneuver the hospital into the stomach, but I am able to do this.. The scope was advanced into the stomach and through the pylorus into the 3rd portion of the duodenum. The duodenum was noted to be nl. Biopsies were done of antrum. The scope was retracted back into the stomach and biopsies were done to rule out H. pylori. There were no ulcers. The scope was retroflexed. The cardia and fundus were noted to be normal. The scope was then brought back into the distal esophagus. A guidewire is inserted through the wrap/GE junction into the stomach. The balloon was then fed through the region we did 1 dilation with the at 20 Portuguese for 2 minutes. There is no signs of mucosal tearing or bleeding. We did a second dilation with the balloon up to 22 Portuguese. For 2 minutes. The balloon was deflated again there is no signs of mucosal tearing or bleeding. The balloon & guidewire removed. There is improvement noted after the dilation. But the GE junction is still quite tight. And again there is chronic changes associated with significant dilation of the distal esophagus and loss tone to the esophagus in this area. She definitely needs to have the wrap taken down. Again there are no signs of bleeding or mucosal tearing from the dilation. The does have yeast in the lower 1/4 or the esophagus. this is likely due to chronically retained food. the rest of the esophagus is pink and healthy. The pt is asymptomatic and am not going to treat at this time. The scope was then withdrawn. Patient had no complications adn taken to recovery room y in stable condition.
== END 2019-10-10 16:25 | disposition home or self-care (01) | DRG 392 ==
LOC: ER 13:18 → MS 13:47
PROVIDERS: Nurse Practitioner Family; Surgery; Admitting Provider Internal Medicine; Emergency Provider Physician Assistant; PCP Family Medicine; Visit Provider Internal Medicine
PROC: 0DJ68ZZ Inspection of Stomach, Via Natural or Artificial Opening Endoscopic (ICD-10-PCS; CPT 43235; principal; 2019-10-09 08:45)
DX: K22.0 Achalasia of cardia (principal); R11.2 Nausea with vomiting, unspecified; Z98.890 Other specified postprocedural states; K21.0 Gastro-esophageal reflux disease with esophagitis; R13.19 Other dysphagia; E87.6 Hypokalemia; E83.42 Hypomagnesemia; F17.210 Nicotine dependence, cigarettes, uncomplicated; F10.10 Alcohol abuse, uncomplicated; Z95.0 Presence of cardiac pacemaker; D64.9 Anemia, unspecified
CPT/HCPCS: 43239; 36415; 80048; 80053; 83690; 85027; 87077; 88305; 93005; 96361; 96365; 96366; 96375; 99219; 99232; 99233; 99239; 99285; 71046; 81003; 81015; 83735; 85025; 87070; 87086; 87205; 93010; J1100; J1644; J2001; J2405; J2704; J3010; J3475; J3480; J7613

== ENCOUNTER 2019-12-25 12:21 | Outpatient (REF) | payer MEDICAID, SELFPAY ==
[2019-12-25 15:16] LABS: Anion Gap 6.7 mmol/L (3-11); BUN 7 mg/dL (7-18); CO2 27.3 mmol/L (21.0-32.0); CREATININE 0.76 mg/dL (0.55-1.02); Calcium 9.4 mg/dL (8.5-10.1); Chloride 105 mmol/L (98-107); Glucose 78 mg/dL (74-106); Potassium 4.7 mmol/L (3.5-5.1); Sodium 139 mmol/L (136-145)
== END 2019-12-25 12:41 ==
LOC: NCHCN 12:21
PROVIDERS: PCP Family Medicine; Visit Provider Family Medicine
DX: E87.6 Hypokalemia (principal)
CPT/HCPCS: 80048

== ENCOUNTER 2020-08-03 08:22 | Inpatient (IN) | payer MEDICAID, SELFPAY ==
[2020-08-03 08:26] VITALS: BP 132/83; PULSE 117; RESP 16; TEMP 36.4; O2SAT 100
--- NOTE | 2020-08-03 08:27 | ED.GENADUL_ITS ---
Discharge Plan Disposition Patient Disposition: [facility] DAY SURGERY UNIT Condition: Stable Discharge Details Chief Complaint: Nausea/Vomit/Diar Clinical Impression: Achalasia Primary Care Provider: Karri Ceballos ED Provider: Doron Blanton Home Meds and New Rx's Prescriptions: No Action omeprazole 20 mg Capsule,Delayed Release(Dr/Ec) 20 mg PO DAILY RF: 0 sertraline 50 mg tablet 50 mg PO DAILY RF: 0 ondansetron HCl 4 mg tablet 4 mg PO .Q4-6 HRS PRNRF: 0 potassium chloride [Klor-Con M10] 10 mEq tablet,ER particles/crystals 10 meq PO DAILY RF: 0 cranberry 400 mg Capsule 1 mg PO DAILY RF: 0 promethazine 25 mg suppository 25 mg SC Q6H PRNQty: 10 RF: 0 Medical Decision Making 44-year-old female with a past medical history of achalasia, pacemaker status post SVT, presents to the ER for 5-day history of nausea, vomiting abdominal pain. Unable to take her medications for the past 5 days, only able to swallow warm liquids. She reports that her anxiety is worsening and she has some chest pressure. Clinically I believe this to be secondary to her known achalasia however given her subjective complaints will obtain a screening EKG and troponin. We will also obtain x-ray of abdomen to evaluate bowel patterns. Will obtain IV access, CBC, CMP, lipase, urinalysis, give IV fluids and Zofran. We will also give 1 mg IV Ativan given she has not had her anxiolytics over the past 5 days. Laboratory values have resulted and revealed no obvious emergent process. Urinalysis with 10-20 white cells, trace leukoesterase, positive nitrate. Patient denies any dysuria, hematuria, or suprapubic discomfort. Culture pending. X-ray of the chest and abdomen unremarkable Patient will likely require dilatation in the very near future, she is only able to tolerate warm liquids, unable to take any of her medications. I will reach out to our surgical team to discuss a plan moving forward for the patient. I was able to talk with Dr. Howe who has personally cared for the patient in the past. Plan is to take the patient to day surgery today for dilatation. Care will be transitioned from me and the ER into the care of Dr. Howe and the surgery team. Medical Records Medical records reviewed: Yes I reviewed the patient's medical records. Lab Data Lab results reviewed: Yes I reviewed the patient's lab results. Lab results narrative: 08/03/20 08:40 Urine - Reflex from Ua Urine Culture - Pending Laboratory Tests Range/Units 08/03/20 08/03/20 08/03/20 08:40 08:50 08:50 WBC (4.4-10.8) 10^3/uL 8.90 RBC (3.93-5.22) 10^6/uL 4.54 Hgb (11.2-15.7) g/dL 14.3 Hct (36.0-46.0) % 42.1 MCV (80-95) fL 92.7 MCH (27.0-33.0) pg 31.5 MCHC (32.0-36.0) % 34.0 RDW (11.7-14.6) % 12.4 Plt Count (130-400) 10^3/uL 283 MPV (8.0-11.0) fL 9.4 Immature Gran % 0.3 Neutrophils % 64.7 Lymphocytes % 26.4 Monocytes % 7.9 Eosinophils % 0.3 Basophils % 0.4 Nucleated RBC % % 0 Absolute Neutrophils (1.2-6.7) 10^3/uL 5.75 Absolute Lymphocytes (1.2-3.4) 10^3/uL 2.35 Absolute Monocytes (0.1-0.8) 10^3/uL 0.70 Absolute Eosinophils (0.0-0.7) 10^3/uL 0.03 Absolute Basophils (0.0-0.2) 10^3/uL 0.04 Sodium (136-145) mmol/L 134 L Potassium (3.5-5.1) mmol/L 3.7 Chloride (98-107) mmol/L 95 L Carbon Dioxide (21.0-32.0) mmol/L 29.7 Anion Gap (3-11) mmol/L 9.3 BUN (7-18) mg/dL 11 Creatinine (0.55-1.02) mg/dL 0.79 Estimated GFR/1.73 m2 (mL/min/1.73m2) >= 60.00 Glucose (74-106) mg/dL 100 Calcium (8.5-10.1) mg/dL 9.5 Magnesium (1.8-2.4) mg/dL 2.0 Total Bilirubin (0.2-1.0) mg/dL 0.7 AST (15-37) U/L 17 ALT (14-59) U/L 37 Alkaline Phosphatase (46-116) U/L 66 Troponin I (<0.06) ng/mL Total Protein (6.4-8.2) g/dL 8.1 Albumin (3.4-5.0) g/dL 4.1 Lipase (73-393) U/L 61 Urine Color (Yellow) Yellow Urine Clarity (Clear) Clear Urine pH (5-8) 5.5 Ur Specific [place] (1.005-1.025) >= 1.030 H Urine Protein (Negative) mg/dL Trace H Urine Ketones (Negative) mg/dL Negative Urine Blood (Negative) Trace-intact H Urine Nitrite (Negative) Positive H Urine Bilirubin (Negative) Negative Urine Urobilinogen (Up TO 0.2) EU/dL 0.2 Ur Leukocyte Esterase (Negative) Trace H Urine RBC (0-2) HPF 0-2 Urine WBC (0-5) HPF 10-20 H Ur Epithelial Cells (Negative) HPF Few Urine Crystals (Negative) HPF Few amorphous Urine Bacteria (Negative) HPF Moderate Urine Casts (Negative) LPF Negative Urine Mucus (Negative) Trace Ur Culture Indicated? Yes Urine Glucose (Negative) mg/dL Negative Range/Units 08/03/20 08:50 WBC (4.4-10.8) 10^3/uL RBC (3.93-5.22) 10^6/uL Hgb (11.2-15.7) g/dL Hct (36.0-46.0) % MCV (80-95) fL MCH (27.0-33.0) pg MCHC (32.0-36.0) % RDW (11.7-14.6) % Plt Count (130-400) 10^3/uL MPV (8.0-11.0) fL Immature Gran % Neutrophils % Lymphocytes % Monocytes % Eosinophils % Basophils % Nucleated RBC % % Absolute Neutrophils (1.2-6.7) 10^3/uL Absolute Lymphocytes (1.2-3.4) 10^3/uL Absolute Monocytes (0.1-0.8) 10^3/uL Absolute Eosinophils (0.0-0.7) 10^3/uL Absolute Basophils (0.0-0.2) 10^3/uL Sodium (136-145) mmol/L Potassium (3.5-5.1) mmol/L Chloride (98-107) mmol/L Carbon Dioxide (21.0-32.0) mmol/L Anion Gap (3-11) mmol/L BUN (7-18) mg/dL Creatinine (0.55-1.02) mg/dL Estimated GFR/1.73 m2 (mL/min/1.73m2) Glucose (74-106) mg/dL Calcium (8.5-10.1) mg/dL Magnesium (1.8-2.4) mg/dL Total Bilirubin (0.2-1.0) mg/dL AST (15-37) U/L ALT (14-59) U/L Alkaline Phosphatase (46-116) U/L Troponin I (<0.06) ng/mL < 0.05 Total Protein (6.4-8.2) g/dL Albumin (3.4-5.0) g/dL Lipase (73-393) U/L Urine Color (Yellow) Urine Clarity (Clear) Urine pH (5-8) Ur Specific [place] (1.005-1.025) Urine Protein (Negative) mg/dL Urine Ketones (Negative) mg/dL Urine Blood (Negative) Urine Nitrite (Negative) Urine Bilirubin (Negative) Urine Urobilinogen (Up TO 0.2) EU/dL Ur Leukocyte Esterase (Negative) Urine RBC (0-2) HPF Urine WBC (0-5) HPF Ur Epithelial Cells (Negative) HPF Urine Crystals (Negative) HPF Urine Bacteria (Negative) HPF Urine Casts (Negative) LPF Urine Mucus (Negative) Ur Culture Indicated? Urine Glucose (Negative) mg/dL ECG Data Attestation: I personally reviewed and interpreted this ECG (s) as follows: Interpretation: Please see official report by Dr. Baldwin. Atrial-sensed ventricular paced rhythm. Rate of 82. No STEMI. HPI General Mode of arrival: ambulatory . Date/Time Provider Initiated Documentation: 08/03/20 08:23 . Limitations to Documentation: no limitations . Information obtained by: patient . HPI Narrative: This is a 44-year-old female with a past medical history of achalasia, GERD, fundoplication, history of SVT, has a pacemaker. Patient had a rather similar presentation nearly 1 year ago for abdominal pain primarily in the epigastric region, moderate, crampy, nausea and vomiting. She states that she is unable to hold anything down and her symptoms have been present for approximately 5 days. During her last presentation she did require admission for electrolyte abnormalities and the inability to tolerate p.o. She has been evaluated by surgery and the plan was for serial dilatation. Patient denies recent illness or trauma. Denies bad food exposure or sick contacts. She denies any headache, fever, shortness of breath, back pain, dysuria, hematuria, vaginal bleeding or discharge, diarrhea or constipation. She reports that she is moving her bowels with a have decreased in nature, a small mouth movement of the past 24 hours. She also reports that she is unable to hold down any of her medications which in turn has made her anxiety increase. She feels a chest sensation-pressure, feels as though this is likely anxiety related. She states that when the pain was present at its worse in her abdomen it does cause her to become sweaty. Related Data Home Medications Medication Instructions Recorded Confirmed promethazine 25 mg SC Q6H PRN #10 each 10/10/19 08/03/20 cranberry 1 mg PO DAILY 08/03/20 08/03/20 omeprazole 20 mg PO DAILY 08/03/20 08/03/20 ondansetron HCl 4 mg PO .Q4-6 HRS PRN 08/03/20 08/03/20 potassium chloride [Klor-Con M10] 10 meq PO DAILY 08/03/20 08/03/20 sertraline 50 mg PO DAILY 08/03/20 08/03/20 Previous Rx's Medication Instructions Recorded promethazine 25 mg SC Q6H PRN #10 each 10/10/19 Allergies Allergy/AdvReac Type Severity Reaction Status Date / Time adhesive tape Allergy Skin Rash Unverified 08/03/20 08:31 prochlorperazine Allergy Unverified 08/03/20 08:31 [From Compazine] General CARL: 3 Review of Systems Constitutional Constitutional: Denies fatigue, Denies fever(s) and Denies headache(s) ENT Ears, Nose, Mouth, and Throat: Denies headache(s) Cardiovascular Cardiovascular: Reports chest pain (Pressure-tightness) and Denies dyspnea Respiratory Respiratory: Denies cough and Denies dyspnea Gastrointestinal Gastrointestinal: Reports abdominal pain, Denies constipation, Denies diarrhea, Reports nausea and Reports vomiting Genitourinary Genitourinary: Denies dysuria Musculoskeletal Musculoskeletal: Denies back pain Integumentary/Breasts Skin/Breast: Denies rash Neurologic Neurologic: Denies headache(s) Psychiatric Psychiatric: Reports anxiety Endocrine Endocrine: Denies fatigue PFSH Medical History Achalasia of esophagus Complication of surgery Gastroesophageal reflux disease GERD without esophagitis history of reentrant SVT Pacemaker Smoker unmotivated to quit Surgical History section x2 Esophageal Myotomy Fundoplication Ligation of fallopian tube Pacemaker Biventricular pacemaker Family History Aunt Personal history of malignant neoplasm Breast cancer Social History Smoking/Tobacco Use Status: Current-Occasional Tobacco Type: cigarettes Smoking risk assessment performed?: Yes Alcohol Intake: current Alcohol Intake frequency: a few times a month Drug use: Daily Substance use type: marijuana Do you feel safe at home: Yes Do you feel safe in your relationship?: Yes Exam Const General: cooperative, healthy appearing, comfortable and no acute distress Orientation: alert, awake and oriented x3 HENMT Head: normal to inspection, normocephalic and atraumatic Mouth: moist mucous membranes Eyes General: appearance normal, both eyes and all related structures Conjunctivae: conjunctivae normal Sclera: sclerae normal Neck Neck: normal visual inspection, full ROM, no meningeal signs, trachea midline and supple Resp Effort & Inspection: normal respiratory effort and able to speak in complete sentences Auscultation: clear to auscultation bilaterally Cardio Rate: regular rate Rhythm: regular rhythm GI Inspection: normal to inspection Palpation: soft, not firm, no guarding, no pulsatile masses and tender (Diffuse mild throughout, moderate diffuse upper) with no rebound tenderness Auscultation: normal bowel sounds Back/Spine/Pelvis Back: No back tenderness Skin General skin exam: no rashes or lesions noted Neuro General: patient alert, patient awake, moves all extremities and no focal motor deficits Cognition: normal cognition Speech: speech normal Gait: normal gait Sensory Exam: no sensory deficits noted Psych Appearance: grossly normal Mental Status: mental status grossly normal
[2020-08-03 08:46] LABS: Bilirubin Negative (Negative); Blood Trace-intact (Negative); Clarity Clear (Clear); Glucose Negative (Negative); Ketones Negative (Negative); Leukocyte Esterase Trace (Negative); Nitrite Positive (Negative); Specific Gravity >= 1.030 (1.005-1.025); Urobilinogen 0.2 EU/dL (Up TO 0.2); pH 5.5 (5-8)
[2020-08-03 08:54] LABS: Bacteria Moderate HPF (Negative); Crystals Few Amorphous HPF (Negative); Epithelial Cells Few HPF (Negative); RBC 0-2 HPF (0-2)
[2020-08-03 08:55] LABS: C & S Indicated? Yes; Casts Negative LPF (Negative); Mucus Trace (Negative)
[2020-08-03] MEDS: Normal Saline 1,000 ML 1000 ML IV (08:55)
[2020-08-03] MEDS: Normal Saline Flush 10 ML SYR IVP ×4 (08:55→15:58)
[2020-08-03] MEDS: Ondansetron 4 MG/2 ML VIAL IVP ×2 (08:55→11:05)
--- NOTE | 2020-08-03 09:00 | RT.EKG_ITS ---
APPROVED REPORT Exam: Resting ECG Patient Location: E HR:82 bpm ECG Measurements Heart Rate 82 AXIS MT 194 P 24 QRSd 133 QRS 268 QT 403 T 88 QTc 472 Conclusion Atrial-sensed ventricular-paced rhythm...ventricular pacing tracks p-waves no stemi
--- NOTE | 2020-08-03 09:00 | DI.RAD_ITS ---
EXAM: XR CHEST 1V IN DI DEPT CLINICAL HISTORY: pain TECHNIQUE: 2D digital imaging was performed. COMPARISON: CR XR ABD FLAT UPRIGHT PA CHEST from 08/03/2020 FINDINGS: A lateral view was performed. LUNGS: Clear. No pleural abnormality seen. HEART: Normal. Pacemaker. MEDIASTINUM: Normal. BONES: Pectus excavatum deformity. Mild degenerative changes in the thoracic spine. IMPRESSION: No acute pulmonary findings. DATA REPOSITORY: RADIATION DOSE DELIVERED:
--- NOTE | 2020-08-03 09:00 | DI.RAD_ITS ---
EXAM: 2D digital imaging was performed. CLINICAL HISTORY: pain, decrease bm. COMPARISON: CR XR CHEST 2V PA LATERAL from 10/08/2019 TECHNIQUE: Supine views of the abdomen performed. FINDINGS: Heart: Normal size. Pacemaker. Lungs: Well inflated and clear. BOWEL GAS PATTERN: Nondistended. No significant stool is visible. CALCIFICATIONS: Small calcification projects at the lower pole of the left kidney. This is seen on p revious CT. OSSEOUS STRUCTURES: Degenerative changes in the lower lumbar spine. OTHER FINDINGS: No free air. IMPRESSION: 1. Nonobstructive bowel gas pattern. No acute abnormality in the chest. 2. Small stone lower pole left kidney. DATA REPOSITORY: RADIATION DOSE DELIVERED:
[2020-08-03 09:01] LABS: Abs Immature Grans 0.03 10^3/uL (0.0-0.06); Absolute Basophil Count 0.04 10^3/uL (0.0-0.2); Absolute Eosinophil Count 0.03 10^3/uL (0.0-0.7); Absolute Lymphocyte Count 2.35 10^3/uL (1.2-3.4); Absolute Neutrophil Count 5.75 10^3/uL (1.2-6.7); Basophils % 0.4; Eosinophils % 0.3; HCT 42.1 % (36.0-46.0); HGB 14.3 g/dL (11.2-15.7); Immature Grans % 0.3; Lymphocytes % 26.4; MCH 31.5 pg (27.0-33.0); MCV 92.7 fL (80-95); MPV 9.4 fL (8.0-11.0); Monocytes % 7.9; Neutrophils % 64.7; Nucleated RBC 0 %; Platelet Count 283 10^3/uL (130-400); RBC 4.54 10^6/uL (3.93-5.22); RDW 12.4 % (11.7-14.6); RDW-SD 42.7 fL
[2020-08-03 09:14] LABS: ALT 37 U/L (14-59); AST 17 U/L (15-37); Albumin 4.1 g/dL (3.4-5.0); Alkaline Phosphatase 66 U/L (46-116); Anion Gap 9.3 mmol/L (3-11); BUN 11 mg/dL (7-18); Bilirubin, Total 0.7 mg/dL (0.2-1.0); CO2 29.7 mmol/L (21.0-32.0); CREATININE 0.79 mg/dL (0.55-1.02); Calcium 9.5 mg/dL (8.5-10.1); Chloride 95 mmol/L (98-107); Glucose 100 mg/dL (74-106); Lipase 61 U/L (73-393); Potassium 3.7 mmol/L (3.5-5.1); Sodium 134 mmol/L (136-145); Total Protein 8.1 g/dL (6.4-8.2)
[2020-08-03] MEDS: LORazepam 2 MG/ML VIAL 1 MG IVP ×3 (09:27→15:58)
[2020-08-03 09:33] LABS: Troponin I < 0.05 ng/mL (<0.06)
--- NOTE | 2020-08-03 10:40 | W.PREOPHP ---
Documented by User: DAVID Madera 08/03/20 10:51 Date of service: 08/03/20 Time of Service: 10:40 Assessment and Plan Assessment and plan (1) Nausea and vomiting: Start date: 10/10/19 Start time: 10:59 Status: Deleted Assessment and plan: Patient is NPO. Qualifiers: Vomiting type: bilious vomiting Qualified Code(s): R11.14 - Bilious vomiting (2) Achalasia: Start date: 10/10/19 Start time: 11:01 Status: Deleted Assessment and plan: Patient has undergone numerous EGDs with pneumatic and mechanical dilations. Over the past 5 days she has had progressively worsening dysphagia, nausea and vomiting. -Discussed Upper endoscopy procedure and the need to be NPO after midnight the night prior. Discussed possible complications of the procedure to include bleeding, pain, perforation, missed small lesion/polyp/ulcers, sore throat, aspiration and adverse reaction to the medications or sedation. Questions were answered to patient?s satisfaction. No guarantees were implied or given. P// EGD under sedation with possible dilation. History of Present Illness History of Present Illness Chief Complaint: Dysphagia, Nausea and Vomitiing Narrative: 44 y/o female with a history of SVT with pacemaker in place, GERD and Achalasia presented to the ER with a 5 day history of nausea and vomiting. She reports that she has only been able to consume hot liquids. Cold liquids make her feel as if her throat is tightening. She last ate food, grapes 2-3 days ago. Her history is significant for numerous dilations following a Toupe fundaplication. She was recently seen here at [facility] and underwent an EGD on 10/09/19, with minimal improvement in her symptoms. She was then see at [facility] [place] and under went EGD with dialation which was complicated by a deep slit following pneumatic balloon dilation. Barium swallow confirmed that there was not a perforation. Since this procedure, she reports her symptoms had signficantly improved. She reports smoking ~half pack of cigarettes a day and uses marijuana daily. She denies any use of illegal or recreational drugs. She denies any history of stroke, MT, seizures, bleeding or clotting disorders. She denies any history of adverse reactions to anesthesia. She describes sensation of atypical chest pain, which she contributes to her anxiety and her throat feeling tight. [facility] Medical History Achalasia of esophagus Complication of surgery Gastroesophageal reflux disease GERD without esophagitis history of reentrant SVT Pacemaker Smoker unmotivated to quit Surgical History section x3 Esophageal Myotomy Fundoplication Hx of esophagogastroduodenoscopy Ligation of fallopian tube Pacemaker Biventricular pacemaker Family History Aunt Personal history of malignant neoplasm Breast cancer Social History Smoking/Tobacco Use Status: Current-Occasional Tobacco Type: cigarettes Smoking risk assessment performed?: Yes Alcohol Intake: current Alcohol Intake frequency: a few times a month Drug use: Daily Substance use type: marijuana Details: 2 hits 08/02/20 reported by patient Do you feel safe at home: Yes Do you feel safe in your relationship?: Yes Meds Home Medications and Allergies Home Medications Medication Instructions Recorded Confirmed Type promethazine 25 mg SC Q6H PRN #10 each 10/10/19 08/03/20 Rx cranberry 1 mg PO DAILY 08/03/20 08/03/20 History omeprazole 20 mg PO DAILY 08/03/20 08/03/20 History ondansetron HCl 4 mg PO .Q4-6 HRS PRN 08/03/20 08/03/20 History potassium chloride [Klor-Con M10] 10 meq PO DAILY 08/03/20 08/03/20 History sertraline 50 mg PO DAILY 08/03/20 08/03/20 History Allergies Allergy/AdvReac Type Severity Reaction Status Date / Time adhesive tape Allergy Skin Rash Unverified 08/03/20 12:21 prochlorperazine Allergy Unverified 08/03/20 12:21 [From Compazine] Exam Const General: cooperative, healthy appearing and comfortable Orientation: alert and oriented x3 Resp Effort & Inspection: normal respiratory effort, no audible wheezes and no cough Auscultation: clear to auscultation bilaterally GI Inspection: normal to inspection Palpation: soft, no guarding and nontender Auscultation: normal bowel sounds Results Labs Result diagrams: 08/03/20 08:50 08/03/20 08:50 Labs: Laboratory Results - last 24 hr 08/03/20 08/03/20 08/03/20 08:40 08:50 08:50 WBC 8.90 RBC 4.54 Hgb 14.3 Hct 42.1 MCV 92.7 MCH 31.5 MCHC 34.0 RDW 12.4 Plt Count 283 MPV 9.4 Immature Gran % 0.3 Neutrophils % 64.7 Lymphocytes % 26.4 Monocytes % 7.9 Eosinophils % 0.3 Basophils % 0.4 Nucleated RBC % 0 Absolute Neutrophils 5.75 Absolute Lymphocytes 2.35 Absolute Monocytes 0.70 Absolute Eosinophils 0.03 Absolute Basophils 0.04 Sodium 134 L Potassium 3.7 Chloride 95 L Carbon Dioxide 29.7 Anion Gap 9.3 BUN 11 Creatinine 0.79 Estimated GFR/1.73 m2 >= 60.00 Glucose 100 Calcium 9.5 Magnesium 2.0 Total Bilirubin 0.7 AST 17 ALT 37 Alkaline Phosphatase 66 Troponin I Total Protein 8.1 Albumin 4.1 Lipase 61 Urine Color Yellow Urine Clarity Clear Urine pH 5.5 Ur Specific [place] >= 1.030 H Urine Protein Trace H Urine Ketones Negative Urine Blood Trace-intact H Urine Nitrite Positive H Urine Bilirubin Negative Urine Urobilinogen 0.2 Ur Leukocyte Esterase Trace H Urine RBC 0-2 Urine WBC 10-20 H Ur Epithelial Cells Few Urine Crystals Few amorphous Urine Bacteria Moderate Urine Casts Negative Urine Mucus Trace Ur Culture Indicated? Yes Urine Glucose Negative 08/03/20 08:50 WBC RBC Hgb Hct MCV MCH MCHC RDW Plt Count MPV Immature Gran % Neutrophils % Lymphocytes % Monocytes % Eosinophils % Basophils % Nucleated RBC % Absolute Neutrophils Absolute Lymphocytes Absolute Monocytes Absolute Eosinophils Absolute Basophils Sodium Potassium Chloride Carbon Dioxide Anion Gap BUN Creatinine Estimated GFR/1.73 m2 Glucose Calcium Magnesium Total Bilirubin AST ALT Alkaline Phosphatase Troponin I < 0.05 Total Protein Albumin Lipase Urine Color Urine Clarity Urine pH Ur Specific [place] Urine Protein Urine Ketones Urine Blood Urine Nitrite Urine Bilirubin Urine Urobilinogen Ur Leukocyte Esterase Urine RBC Urine WBC Ur Epithelial Cells Urine Crystals Urine Bacteria Urine Casts Urine Mucus Ur Culture Indicated? Urine Glucose Last Vital Signs Temp 36.4 C L 08/03/20 08:26 Pulse 117 H 08/03/20 08:26 Resp 16 08/03/20 08:26 BP 132/83 08/03/20 08:26 Pulse Ox 100 08/03/20 08:26 Documented by User: Angela Howe DO 08/03/20 13:17 Assessment and Plan Assessment and plan (1) Status post Iftikhar fundoplication: Status: Acute (2) Stricture esophagus: Status: Acute (3) GERD without esophagitis: Status: Acute (4) Fundoplication : Status: None (5) S/P placement of cardiac pacemaker: Status: Acute History of Present Illness Consults Consult date: 08/03/20 Narrative: Patient is a 44-year-old female who is well-known to me. She had a Iftikhar in the past. Unfortunately she has developed significant scarring at the GE junction. She had dilation done by myself in September 2020. Then she went to [facility] and had a 30 [place] dilation . It did result in some mucosal tearing requiring clip placement and 24 hours of observation and a barium esophagram. There was no overt perforation. She has done well with that dilation until this time. For the last 5 days she has been unable to tolerate solids. She gets pain and burning in the chest and she notes this is alleviated with hot beverages. She did state that they do feel at [facility] this is due to esophageal spasm rather than true reflux. Her esophagus is so tight there is no way possibly she could be having any further reflux. Problems. She is a smoker. But otherwise does not use alcohol, caffeine, or NSAIDs. She is on Prilosec. She is not on any blood pressure medications. Did not have any problems with anesthesia last time we did her procedure. Last time I dilated her we dilated her up to a 22 [place]. I will attempt a dilation again today if it is feasable/safe. Risks of course anesthesia, bleeding, infection, pneumonia, aspiration, and perforation which reportedly required transfer on laparotomy. This is a chronic condition for her and she is getting need subsequent dilations that can only be done down at [facility]. She needs to be in contact with the GI department and is going need to have regularly scheduled for dilation. Review of Systems All systems reviewed & are unremarkable except as noted in HPI and below PFSH Medical History Achalasia of esophagus Complication of surgery Gastroesophageal reflux disease GERD without esophagitis history of reentrant SVT Pacemaker Smoker unmotivated to quit Surgical History section x3 Esophageal Myotomy Fundoplication Hx of esophagogastroduodenoscopy Ligation of fallopian tube Pacemaker Biventricular pacemaker Family History Aunt Personal history of malignant neoplasm Breast cancer Social History Smoking/Tobacco Use Status: Current-Occasional Tobacco Type: cigarettes Smoking risk assessment performed?: Yes Alcohol Intake: current Alcohol Intake frequency: a few times a month Drug use: Daily Substance use type: marijuana Details: 2 hits 08/02/20 reported by patient Do you feel safe at home: Yes Do you feel safe in your relationship?: Yes Meds Home Medications and Allergies Home Medications Medication Instructions Recorded Confirmed Type promethazine 25 mg SC Q6H PRN #10 each 10/10/19 08/03/20 Rx cranberry 1 mg PO DAILY 08/03/20 08/03/20 History omeprazole 20 mg PO DAILY 08/03/20 08/03/20 History ondansetron HCl 4 mg PO .Q4-6 HRS PRN 08/03/20 08/03/20 History potassium chloride [Klor-Con M10] 10 meq PO DAILY 08/03/20 08/03/20 History sertraline 50 mg PO DAILY 08/03/20 08/03/20 History Allergies Allergy/AdvReac Type Severity Reaction Status Date / Time adhesive tape Allergy Skin Rash Unverified 08/03/20 12:21 prochlorperazine Allergy Unverified 08/03/20 12:21 [From Compazine] Exam HENMT Teeth and gingiva: fair dentition Other: She does look like she is acutely ill and having pain and discomfort. She looks like she has lost a lot of weight since last I saw her. Cardio Jugular venous pressure: no JVD Rate: regular rate Rhythm: regular rhythm Extrem General: normal to inspection, full ROM and no clubbing, cyanosis or edema Results Labs Result diagrams: 08/03/20 08:50 08/03/20 08:50
[2020-08-03 11:08] VITALS: BP 104/61; PULSE 100; RESP 99; TEMP 36.4
[2020-08-03] MEDS: Pantoprazole 40 MG VIAL IVP (11:19)
[2020-08-03 11:47] VITALS: BP 104/61; PULSE 100; RESP 99; TEMP 36.4; O2SAT 100
[2020-08-03] MEDS: Lactated Ringers 1,000 ML 100 ML IV (12:01)
[2020-08-03 12:04] VITALS: BP 132/86; PULSE 78; RESP 18; TEMP 37; O2SAT 95
[2020-08-03 12:46] VITALS: BP 132/86; PULSE 78; RESP 18; TEMP 37; O2SAT 95
--- NOTE | 2020-08-03 12:59 | NUR.NOTE ---
Nursing Note: 1141 Patient arrived direct from ER via wheelchair; report received from JEROD Leroy. Reported nausea and vomiting x 5 days; covid swab and urine collection completed. IV 18 guage RAC IID. Patient had received ativan, morphine, 1 L NS and zofran in ER. Patient awake, afebrile, maintaining O2 room air; VSS; pt able to stand and ambulate to bathroom to void prior to laying on DSU stretcher. RN in room to evaluate.
--- NOTE | 2020-08-03 14:30 | W.PM.ENDDOP ---
Date of service: 08/03/20 Time of Service: 14:30 Endoscopy Report DATE OF PROCEDURE: 08/03/20 PRE-OP DIAGNOSIS: cesophageal stricture following surgery POST-OP DIAGNOSIS: same PROCEDURE: aborted procedure SURGEON: Angela Howe ANESTHESIA: MAC ESTIMATED BLOOD LOSS: 0 PATHOLOGY: none sent COMPLICATIONS: Other (bronchial spasm ) DISPOSITION: same day PROCEDURE DESCRIPTION: Marcella Yee date of 1975. The patient is here today for esophageal Dilation. She had a Heller myotomy and Iftikhar fundoplication is 2003. She has developed a stricture of the esophagus. This is her third dilation. She has been n.p.o. for 6 hours. Informed consent is obtained explaining risks and benefits of procedure including but not limited to: Bleeding, infection, aspiration, and complications of anesthesia. She did have a minor perforation with her last dilation in November 2019-I did review her operative notes from [facility] Perforation is always a complication of attempted EGD and dilation. Patient is brought to the endoscopy suite. Constant monitoring of all vital signs is done per anesthesia protocol. Patient did receive propofol for induction. Bite-block was placed. As we attempted to pass the scope down into the oropharynx, patient did develop bronchial spasm. The spasm was pretty significant and resulted in desaturation into the 60s. The EGD scope was removed and supplemental oxygen was initiated. The spasm did break. Anesthesia does not feel that she aspirated. She did have a portable chest x-ray done after the procedure was negative. She did receive albuterol. Patient is a known half pack a day smoker her for many years. The procedure was aborted at this point. And patient was returned to recovery room in stable condition. Vital signs were stable at this point?please see the ER notes. Her lungs are clear to auscultation.
--- NOTE | 2020-08-03 14:33 | DI.RAD_ITS ---
EXAM: XR PORTABLE CHEST AP CLINICAL HISTORY: spasm during anethesia/poss aspiraton TECHNIQUE: 2D digital imaging was performed. COMPARISON: CR XR CHEST 1V IN DI DEPT from 08/03/2020 FINDINGS: LUNGS: Clear. No pleural abnormality seen. HEART: Normal size. Pacemaker. MEDIASTINUM: Normal. BONES: Unremarkable. IMPRESSION: No acute pulmonary findings. DATA REPOSITORY: RADIATION DOSE DELIVERED:
[2020-08-03 14:35] VITALS: BP 104/71; PULSE 75; RESP 24; TEMP 36.4; O2SAT 95
--- NOTE | 2020-08-03 15:44 | W.PM.DS.N ---
Date of service: 08/03/20 Time of Service: 15:44 DS: Diagnosis Discharge Diagnosis (1) Status post Iftikhar fundoplication: Status: Acute (2) Stricture esophagus: Status: Acute (3) GERD without esophagitis: Status: Acute (4) Fundoplication : Status: None (5) S/P placement of cardiac pacemaker: Status: Acute Discharge Plan Disposition Patient Disposition: [facility] Condition: Stable Discharge Details Reason For Visit: ESOPHAGEAL STRICTURE FROM PRIOR MARCELLO Admit Date/Time: 08/03/20 14:22 Admit Provider: Angela Howe Attending Provider: Angela Howe Primary Care [facility]: [facility] Course: Patient came to the ER at [facility] August 03, 2019 with complaints of persistent vomiting and unable to swallow. This has been ongoing for the past 5 days. She had a Iftikhar fundoplication and Heller myotomy in 2003 at [facility] Surgery was done for chronic reflux. Unfortunately this resulted in significant scarring; she has been unable to tolerate even clear liquids at this point. She has had esophageal dilation in September 2019 at [facility], w/ 20F balloon. And in November 2019 at [facility] GI did dilation in November with 30 [place]. This did result in a minor linear tears that required clipping. There was no gross perforation. Today we did attempt to do the dilation again. She received propofol for induction. This resulted in bronchial spasm and O2 desaturation. This did resolve with albuterol and respiratory support. Procedure was abandoned for patient safety. She did have a chest x-ray post procedure that was clear. I did talk to the GI department at [facility]. Patient will be transferred to the ED of the service of . Patient is currently n.p.o. She will be transferred by basic EMT transfer. At this point she is awake and alert. Her vital signs are stable please see RN notes. Her lungs are clear to auscultation. Her heart is regular rate and rhythm. She does have a pacemaker in place. Her abdomen is soft and she has no peritoneal signs and good bowel sounds. She is moving all extremities dependently. And no focal neurologic deficits. Home Meds and New Rx's Prescriptions: No Action omeprazole 20 mg Capsule,Delayed Release(Dr/Ec) 20 mg PO DAILY RF: 0 sertraline 50 mg tablet 50 mg PO DAILY RF: 0 ondansetron HCl 4 mg tablet 4 mg PO .Q4-6 HRS PRNRF: 0 potassium chloride [Klor-Con M10] 10 mEq tablet,ER particles/crystals 10 meq PO DAILY RF: 0 cranberry 400 mg Capsule 1 mg PO DAILY RF: 0 promethazine 25 mg suppository 25 mg IN Q6H PRNQty: 10 RF: 0 Discharge Instructions Activity:: transfer BLS Diet:: npo DS: Summary Status at Discharge Functional status at discharge: independent ambulation Overall status at discharge: patient is back to baseline Mental Status: mental status grossly normal Speech and Movement: speech and movement normal Mood: congruent mood Affect: normal affect Exam Psych Mental Status: mental status grossly normal Speech and Movement: speech and movement normal Mood: congruent mood Affect: normal affect DS: Data Vitals/I&O Vitals and I&O: Vital Signs Temperature 36.4 C L 08/03/20 14:35 Temperature Source Skin 08/03/20 11:08 Pulse 75 08/03/20 14:35 Pulse Rhythm Regular 08/03/20 12:46 Respiratory Rate 24 08/03/20 14:35 Respiratory Effort 08/03/20 12:46 Respiratory Depth Normal 08/03/20 12:46 Respiratory Pattern Normal 08/03/20 12:46 Blood Pressure 104/71 08/03/20 14:35 Blood Pressure Position Sitting 08/03/20 08:26 Pulse Oximetry 95 08/03/20 14:35 Oxygen Delivery Method Room Air 08/03/20 12:46 Oxygen Flow Rate 0 08/03/20 12:46 Pain Level 0 08/03/20 14:35 Comment 08/03/20 12:46 Intake & Output 08/02/20 08/03/20 08/03/20 23:59 11:59 23:59 Intake Total 1000 / 1400 400 / 1400 Balance 1000 / 1400 400 / 1400 Weight 58.967 kg 58.9 kg Intake: IV 1000 / 1400 400 / 1400 Other: Urine Appearance Clear Stool Size Moderate Stool Characteristics Soft Formed Emesis Description Bile None Data Completed and Pending Labs on day of discharge: Labs from last 24 hours 08/03/20 08/03/20 08/03/20 11:35 08:50 08:50 WBC 8.90 RBC 4.54 Hgb 14.3 Hct 42.1 MCV 92.7 MCH 31.5 MCHC 34.0 RDW 12.4 Plt Count 283 MPV 9.4 Immature Gran % 0.3 Neutrophils % 64.7 Lymphocytes % 26.4 Monocytes % 7.9 Eosinophils % 0.3 Basophils % 0.4 Nucleated RBC % 0 Absolute Neutrophils 5.75 Absolute Lymphocytes 2.35 Absolute Monocytes 0.70 Absolute Eosinophils 0.03 Absolute Basophils 0.04 Sodium Potassium Chloride Carbon Dioxide Anion Gap BUN Creatinine Estimated GFR/1.73 m2 Glucose Calcium Magnesium Total Bilirubin AST ALT Alkaline Phosphatase Troponin I < 0.05 Total Protein Albumin Lipase Urine Color Urine Clarity Urine pH Ur Specific [place] Urine Protein Urine Ketones Urine Blood Urine Nitrite Urine Bilirubin Urine Urobilinogen Ur Leukocyte Esterase Urine RBC Urine WBC Ur Epithelial Cells Urine Crystals Urine Bacteria Urine Casts Urine Mucus Ur Culture Indicated? Urine Glucose SARS-CoV-2 (PCR) Pending Nasopharyn COVID-19 PCR Pending Ref Test Perform Site Pending 08/03/20 08/03/20 08:50 08:40 WBC RBC Hgb Hct MCV MCH MCHC RDW Plt Count MPV Immature Gran % Neutrophils % Lymphocytes % Monocytes % Eosinophils % Basophils % Nucleated RBC % Absolute Neutrophils Absolute Lymphocytes Absolute Monocytes Absolute Eosinophils Absolute Basophils Sodium 134 L Potassium 3.7 Chloride 95 L Carbon Dioxide 29.7 Anion Gap 9.3 BUN 11 Creatinine 0.79 Estimated GFR/1.73 m2 >= 60.00 Glucose 100 Calcium 9.5 Magnesium 2.0 Total Bilirubin 0.7 AST 17 ALT 37 Alkaline Phosphatase 66 Troponin I Total Protein 8.1 Albumin 4.1 Lipase 61 Urine Color Yellow Urine Clarity Clear Urine pH 5.5 Ur Specific [place] >= 1.030 H Urine Protein Trace H Urine Ketones Negative Urine Blood Trace-intact H Urine Nitrite Positive H Urine Bilirubin Negative Urine Urobilinogen 0.2 Ur Leukocyte Esterase Trace H Urine RBC 0-2 Urine WBC 10-20 H Ur Epithelial Cells Few Urine Crystals Few amorphous Urine Bacteria Moderate Urine Casts Negative Urine Mucus Trace Ur Culture Indicated? Yes Urine Glucose Negative SARS-CoV-2 (PCR) Nasopharyn COVID-19 PCR Ref Test Perform Site 08/03/20 08:40 Urine - Reflex from Ua Urine Culture - Pending Preliminary micro results at discharge 08/03/20 08:40 Urine Culture - Pending Urine - Reflex from Ua [facility] Medical History Achalasia of esophagus Complication of surgery Gastroesophageal reflux disease GERD without esophagitis history of reentrant SVT Pacemaker Smoker unmotivated to quit Surgical History (Updated 08/03/20 @ 13:14 by Angela Howe DO) section x3 Esophageal Myotomy Fundoplication Hx of esophagogastroduodenoscopy Ligation of fallopian tube Pacemaker Biventricular pacemaker Family History Aunt Personal history of malignant neoplasm Breast cancer Social History Smoking/Tobacco Use Status: Current-Occasional Tobacco Type: cigarettes Smoking risk assessment performed?: Yes Alcohol Intake: current Alcohol Intake frequency: a few times a month Drug use: Daily Substance use type: marijuana Details: 2 hits 08/02/20 reported by patient Do you feel safe at home: Yes Do you feel safe in your relationship?: Yes
--- NOTE | 2020-08-03 15:54 | PGE_ITS ---
Date of Service Date of service: 08/03/20 Time of Service: 14:40 Assessment and Plan Assessment and plan (1) Stricture esophagus: Status: Acute (2) Status post Iftikhar fundoplication: Status: Acute (3) Emesis, persistent: Status: Acute (4) Atypical chest pain: Status: Acute (5) Smoker unmotivated to quit: Status: Acute (6) S/P placement of cardiac pacemaker: Status: Acute (7) Bronchial spasms: Status: Acute Assessment and plan: Immediately after induction with propofol patient developed a bronchial spasm and desaturated. We were able to bring her around from the spasm. Postop she did fine. Her sats are normal. She has no sore throat. She is now having no chest pain. Her postprocedural chest x-ray was normal. She has no sore throat she feels fine. We did abandon the procedure in light of the spasm. We do not have the appropriate size catheters to do her dilation. I was able to contact [facility] and they did accept her for transfer for dilation today currently the patient is medically stable for transfer and this is being arranged. H:paced. NSR L:CTA b/l. no chest crepitus. A: soft and none tender Objective Last Vital Signs Temp 36.4 C L 08/03/20 14:35 Pulse 75 08/03/20 14:35 Resp 24 08/03/20 14:35 BP 104/71 08/03/20 14:35 Pulse Ox 95 08/03/20 14:35 Laboratory Results - last 24 hr 08/03/20 08/03/20 08/03/20 08:40 08:50 08:50 WBC 8.90 RBC 4.54 Hgb 14.3 Hct 42.1 MCV 92.7 MCH 31.5 MCHC 34.0 RDW 12.4 Plt Count 283 MPV 9.4 Immature Gran % 0.3 Neutrophils % 64.7 Lymphocytes % 26.4 Monocytes % 7.9 Eosinophils % 0.3 Basophils % 0.4 Nucleated RBC % 0 Absolute Neutrophils 5.75 Absolute Lymphocytes 2.35 Absolute Monocytes 0.70 Absolute Eosinophils 0.03 Absolute Basophils 0.04 Sodium 134 L Potassium 3.7 Chloride 95 L Carbon Dioxide 29.7 Anion Gap 9.3 BUN 11 Creatinine 0.79 Estimated GFR/1.73 m2 >= 60.00 Glucose 100 Calcium 9.5 Magnesium 2.0 Total Bilirubin 0.7 AST 17 ALT 37 Alkaline Phosphatase 66 Troponin I Total Protein 8.1 Albumin 4.1 Lipase 61 Urine Color Yellow Urine Clarity Clear Urine pH 5.5 Ur Specific [place] >= 1.030 H Urine Protein Trace H Urine Ketones Negative Urine Blood Trace-intact H Urine Nitrite Positive H Urine Bilirubin Negative Urine Urobilinogen 0.2 Ur Leukocyte Esterase Trace H Urine RBC 0-2 Urine WBC 10-20 H Ur Epithelial Cells Few Urine Crystals Few amorphous Urine Bacteria Moderate Urine Casts Negative Urine Mucus Trace Ur Culture Indicated? Yes Urine Glucose Negative 08/03/20 08:50 WBC RBC Hgb Hct MCV MCH MCHC RDW Plt Count MPV Immature Gran % Neutrophils % Lymphocytes % Monocytes % Eosinophils % Basophils % Nucleated RBC % Absolute Neutrophils Absolute Lymphocytes Absolute Monocytes Absolute Eosinophils Absolute Basophils Sodium Potassium Chloride Carbon Dioxide Anion Gap BUN Creatinine Estimated GFR/1.73 m2 Glucose Calcium Magnesium Total Bilirubin AST ALT Alkaline Phosphatase Troponin I < 0.05 Total Protein Albumin Lipase Urine Color Urine Clarity Urine pH Ur Specific [place] Urine Protein Urine Ketones Urine Blood Urine Nitrite Urine Bilirubin Urine Urobilinogen Ur Leukocyte Esterase Urine RBC Urine WBC Ur Epithelial Cells Urine Crystals Urine Bacteria Urine Casts Urine Mucus Ur Culture Indicated? Urine Glucose
[2020-08-03] MEDS: Nicotine 7 MG/24 HR PATCH TD (15:57)
[2020-08-04 16:34] LABS: COVID-19 RT-PCR UVMMC Result Negative (Negative)
== END 2020-08-03 16:18 | disposition short-term general hospital (02) | DRG 395 ==
LOC: ER 11:06 → SUR 11:35 → MS 15:13
PROVIDERS: Admitting Provider Surgery; Emergency Provider Physician Assistant; PCP Family Medicine; Visit Provider Surgery
PROC: 0DJ68ZZ Inspection of Stomach, Via Natural or Artificial Opening Endoscopic (ICD-10-PCS; CPT 43235; principal; 2020-08-03 13:30)
DX: K91.89 Other postprocedural complications and disorders of digestive system (principal); K22.0 Achalasia of cardia; Z53.09 Procedure and treatment not carried out because of other contraindication; R09.02 Hypoxemia; Z95.1 Presence of aortocoronary bypass graft; F17.210 Nicotine dependence, cigarettes, uncomplicated; K21.9 Gastro-esophageal reflux disease without esophagitis; Y83.8 Other surgical procedures as the cause of abnormal reaction of the patient, or of later complication, without mention of misadventure at the time of the procedure
CPT/HCPCS: 43249; 36415; 80053; 83690; 87077; 93005; 96361; 96374; 96375; 96376; 99231; 99285; U0003; 71045; 74022; 81003; 81015; 83735; 84484; 85025; 87086; 87186; 93010; J2001; J2060; J2405

== ENCOUNTER 2020-08-09 02:52 | Emergency (ER) | payer MEDICAID, SELFPAY ==
[2020-08-09 02:58] VITALS: BP 148/86; PULSE 100; RESP 16; TEMP 36.5; O2SAT 99
--- NOTE | 2020-08-09 03:00 | RT.EKG_ITS ---
APPROVED REPORT Exam: Resting ECG Patient Location: E HR:81 bpm ECG Measurements Heart Rate 81 AXIS IN 202 P -4 QRSd 135 QRS -86 QT 426 T 80 QTc 495 Conclusion Atrial-sensed ventricular-paced rhythm...ventricular pacing tracks p-waves
--- NOTE | 2020-08-09 03:00 | DI.CT_ITS ---
EXAM: CT THORAX ABD/PEL CTA CLINICAL HISTORY: ? esophageal rupture vs mesenteric ischemia. TECHNIQUE: Imaging Protocol: Axial CT angiography was performed with multi-slice acquisition and m ulti-planar and/or 3D reconstructions. CONTRAST MATERIAL: Intravenous: Omnipaque 350 Contrast volume:60 mL Oral: Yes COMPARISON: CT CT ABDOMEN PELVIS W from 09/03/2019 FINDINGS: CHEST: Pulmonary Arteries: Not ideally opacified. No significant central pulmonary emboli are identified. Tracheobronchial tree: Patent where visualized. Mediastinum and Emily: No dominant adenopathy or fluid collection. Pulmonary parenchyma: No consolidation or dominant measurable mass. No architectural distortion. Pleura: No effusion or pneumothorax. Heart: The heart is not dilated. No coronary artery calcifications are seen. Aorta: Thoracic aorta non-dilated. No evidence of dissection. Bones: Mild degenerative changes. Tubes, Catheters, and Lines: Cardiac pacemaker is in place. Esophagus: There is mild dilatation of the esophagus with a question of mild thickening of the wall. No evidence of esophageal perforation/pneumomediastinum. ABDOMEN AND PELVIS: Abdomen: Celiac axis/mesenteric arteries: No evidence of occlusion or significant stenosis. Renal Arteries: No evidence of occlusion or significant stenosis. There is a single renal artery per fusing each kidney. Aorta: No evidence of occlusion or significant stenosis. No aneurysm or dissection. Pelvis: Iliac Arteries: No evidence of occlusion or significant stenosis. Common Femoral Arteries: No evidence of occlusion or significant stenosis. ABDOMEN: Liver: Normal density. There is a stable hepatic cyst in the left lobe. Portal, Superior Mesenteric, and Splenic Veins: Unremarkable. Gallbladder and Biliary Tract: The gallbladder appears to been removed. No biliary ductal dilatation . Pancreas: Normal density, no abnormal calcifications or inflammatory process. Spleen: Normal. Adrenals: No masses seen. Kidneys: Normal size, contour and axis. Left nephrolithiasis. No hydronephrosis. No masses seen. Bowel: No obstruction or bowel wall thickening. No evidence of appendicitis. Peritoneal Cavity: No ascites, collection or mesenteric inflammatory response. Lymph Nodes: Within normal limits. Bones: Degenerative changes. Stable grade 1 spondylo listhesis of L5 on S1. Soft Tissues: Unremarkable. PELVIS: Bladder: Symmetric distention, no gross wall thickening. Reproductive Organs: Unremarkable as visualized. Lymph Nodes: Within normal limits. Bones: Please see above. IMPRESSION: 1. Mild dilatation of the thoracic esophagus and question of mild thickening of the wall. This may r epresent a soft diet is. No evidence of pneumomediastinum. 2. No acute abdominal pelvic process. 3. No evidence of significant arterial stenosis or occlusion in the abdomen or pelvis. RADIATION DOSE DELIVERED: 1,017.71mGy.cm Total DLP DATA REPOSITORY: All CT scans at this facility are submitted to the National Radiology Data Registry (NRDR) Dose Index Registry (DIR) with the [employer] (ACR). RADIATION OPTIMIZATION: All CT scans at this facility use at least one of these dose optimization te chniques: automated exposure control; mA and/or kV adjustment per patient size (includes targeted exa ms where dose is matched to clinical indication); or iterative reconstruction.
--- NOTE | 2020-08-09 03:10 | ED.GENADUL_ITS ---
Discharge Plan Disposition Patient Disposition: HOME Condition: Stable Discharge Details Clinical Impression: Esophagitis with gastritis, Abdominal pain Primary Care Provider: Karri Ceballos ED Provider: Ej Rinaldi Home Meds and New Rx's Prescriptions: New lorazepam 1 mg tablet 1 mg PO TID PRNQty: 10 RF: 0 Continued sertraline 50 mg tablet 50 mg PO DAILY RF: 0 ondansetron HCl 4 mg tablet 4 mg PO .Q4-6 HRS PRNRF: 0 potassium chloride [Klor-Con M10] 10 mEq tablet,ER particles/crystals 10 meq PO DAILY RF: 0 cranberry 400 mg Capsule 1 mg PO DAILY RF: 0 promethazine 25 mg suppository 25 mg OR Q6H PRNQty: 10 RF: 0 pantoprazole 40 mg tablet,delayed release (DR/EC) PO RF: 0 Discharge Instructions Instructions: Gastritis (ED) Additional Instructions: Your blood work and cat scan did not show any concerning findings at this time other than your known esophagitis follow up as scheduled with your primary care provider if you have severe worsening pain, feel more ill or persistent uncontrolled vomit return to the emergency department Medical Decision Making 44 yo female with hx of svt s/p pacemaker, smoker, achalasia s/p prior dilations last being earlier this month after attempt was made here and she had desautrations was [place] [facility] [place] and this was successful and she was d/c's. She states the pain in her epigastric never really went away but increased the last several days as well as nausea, last had vomit on Sunday described as nonbloody and nonbilious. Still has nausea that has been present for weeks. She noted dark stools earlier as well. She denies fevers or dyspnea. Localizes the pain to the epigastric area and is tender here. I performed a rectal exam with nurse fire supervisor Erika Dobson at bedside and showed no external rectum abnormalities and normal rectal tone, no blood on glove and had brown guiac negative stool. Given recent procedure and symptoms feel imaging needs to be done to evaluate for possible perforationso will obtain ct and obtain labs to evaluate for pancreatitis and hepatitis. Her symptoms do not seem consitent with acs, heart score is 3, will obtain troponin and ecg pt's labs show no significant abnormalities and her ct shows no evidence of rupture, has esophagitis which is already known from prior studies. She has only mild abdominal epigastric tenderness with out guarding or rebound. She still has nausea but no vomit, she does note that she feels ativan helps her nausea a lot and would like this. She feels comfortable with d/c and has f/u with her pcp Sunday. I did advise to follow up as scheduld with her pcp and return precautions given Differential Diagnosis Differential Diagnosis: pancreatitis, achalasia, gerd, gastritis , Medical Records Medical records reviewed: Yes I reviewed the patient's medical records. Imaging Data Radiologic Study: Attestation: I personally reviewed and interpreted this imaging study as follows: Imaging: CT Scan Radiologist's impression: IMPRESSION: No hemodynamically significant stenosis Nonobstructing left renal calculus Minimal cul-de-sac fluid IMPRESSION: No evidence for esophageal rupture. Mild dilatation of the proximal thoracic esophagus. Question mild esophagitis Lab Data Lab results reviewed: Yes I reviewed the patient's lab results. ECG Data Attestation: I personally reviewed and interpreted this ECG (s) as follows: Prior ECG tracings: available for review Interpretation: paced rhythm, rate of 80, qtc 495 HPI General Mode of arrival: ambulatory . Date/Time Provider Initiated Documentation: 08/09/20 02:54 . Limitations to Documentation: no limitations . Information obtained by: patient . History of Present Illness 44 year old F presents to the emergency department with the chief complaint of epigastric pain, described as moderate, Patient started experiencing this day(s) (2) and it has been constant. No relieving factors improve symptom(s), No exacerbating factors reported . Patient notes nausea/vomiting. Related Data Home Medications Medication Instructions Recorded Confirmed promethazine 25 mg OR Q6H PRN #10 each 10/10/19 08/09/20 cranberry 1 mg PO DAILY 08/03/20 08/09/20 ondansetron HCl 4 mg PO .Q4-6 HRS PRN 08/03/20 08/09/20 potassium chloride [Klor-Con M10] 10 meq PO DAILY 08/03/20 08/09/20 sertraline 50 mg PO DAILY 08/03/20 08/09/20 lorazepam 1 mg PO TID PRN #10 tab 08/09/20 pantoprazole PO 08/09/20 08/09/20 Previous Rx's Medication Instructions Recorded promethazine 25 mg OR Q6H PRN #10 each 10/10/19 lorazepam 1 mg PO TID PRN #10 tab 08/09/20 Allergies Allergy/AdvReac Type Severity Reaction Status Date / Time adhesive tape Allergy Skin Rash Unverified 08/03/20 12:21 prochlorperazine Allergy Unverified 08/03/20 12:21 [From Compazine] General Stated Complaint: Abd Prob CARL: 3 Review of Systems All systems reviewed & are unremarkable except as noted in HPI and below Constitutional Constitutional: Denies chills and Denies fever(s) Cardiovascular Cardiovascular: Denies chest pain and Denies dyspnea Respiratory Respiratory: Denies cough and Denies dyspnea Genitourinary Genitourinary: Denies dysuria Musculoskeletal Musculoskeletal: Denies joint swelling Integumentary/Breasts Skin/Breast: Denies rash PFSH Medical History Achalasia of esophagus Complication of surgery Gastroesophageal reflux disease GERD without esophagitis history of reentrant SVT Pacemaker Smoker unmotivated to quit Surgical History (Updated 08/03/20 @ 13:14 by Angela Howe DO) section x3 Esophageal Myotomy Fundoplication Hx of esophagogastroduodenoscopy Ligation of fallopian tube Pacemaker Biventricular pacemaker Family History Aunt Personal history of malignant neoplasm Breast cancer Social History Smoking/Tobacco Use Status: Current-Occasional Tobacco Type: cigarettes Smoking risk assessment performed?: Yes Alcohol Intake: current Alcohol Intake frequency: a few times a month Drug use: Daily Substance use type: marijuana Details: 2 hits 08/02/20 reported by patient Do you feel safe at home: Yes Do you feel safe in your relationship?: Yes Exam Const General: no acute distress Orientation: alert HENMT Head: normal to inspection Ears: external ears normal General nose exam: external nose normal Mouth: moist mucous membranes Eyes General: appearance normal, both eyes and all related structures Neck Neck: normal visual inspection Resp Effort & Inspection: normal respiratory effort and able to speak in complete sentences Cardio Rate: regular rate GI Palpation: soft, no guarding and nontender Skin General skin exam: no rashes or lesions noted Neuro General: patient alert and patient oriented x3 Extrem General: normal to inspection Psych Mental Status: mental status grossly normal Course Vital Signs Vital signs: Vital Signs Temperature 36.5 C 08/09/20 02:58 Pulse 100 H 08/09/20 02:58 Respiratory Rate 16 08/09/20 02:58 Blood Pressure 148/86 H 08/09/20 02:58 Pulse Oximetry 99 08/09/20 02:58 Temperature 36.5 C 08/09/20 02:58 Temperature Source Skin 08/09/20 02:58 Pulse 100 H 08/09/20 02:58 Respiratory Rate 16 08/09/20 02:58 Blood Pressure 148/86 H 08/09/20 02:58 Blood Pressure Position Sitting 08/09/20 02:58 Pulse Oximetry 99 08/09/20 02:58 Oxygen Delivery Method Room Air 08/09/20 02:58 Oxygen Flow Rate 0 08/09/20 02:58 Pain Level 6 08/09/20 02:58
[2020-08-09 03:24] LABS: Lactate 1.3 mmol/L (0.6-1.4)
[2020-08-09] MEDS: Ketorolac 15 MG/ML VIAL IVP (03:24)
[2020-08-09] MEDS: Ondansetron 4 MG/2 ML VIAL IVP (03:24)
[2020-08-09] MEDS: Normal Saline 1,000 ML 1000 ML IV (03:25)
[2020-08-09 03:31] LABS: Abs Immature Grans 0.11 10^3/uL (0.0-0.06); Absolute Basophil Count 0.05 10^3/uL (0.0-0.2); Absolute Eosinophil Count 0.14 10^3/uL (0.0-0.7); Absolute Lymphocyte Count 3.04 10^3/uL (1.2-3.4); Absolute Monocyte Count 0.61 10^3/uL (0.1-0.8); Absolute Neutrophil Count 3.88 10^3/uL (1.2-6.7); Basophils % 0.6; Eosinophils % 1.8; HCT 39.4 % (36.0-46.0); HGB 13.5 g/dL (11.2-15.7); Immature Grans % 1.4; Lymphocytes % 38.8; MCH 31.7 pg (27.0-33.0); MCHC 34.3 % (32.0-36.0); MCV 92.5 fL (80-95); MPV 9.4 fL (8.0-11.0); Monocytes % 7.8; Neutrophils % 49.6; Nucleated RBC 0 %; Platelet Count 320 10^3/uL (130-400); RBC 4.26 10^6/uL (3.93-5.22); RDW 12.6 % (11.7-14.6); RDW-SD 42.5 fL; WBC 7.83 10^3/uL (4.4-10.8)
[2020-08-09 03:45] LABS: Prothrombin Time 9.8 sec (9.3-11.0)
[2020-08-09 03:49] LABS: Troponin I < 0.05 ng/mL (<0.06)
[2020-08-09 03:52] LABS: ALT 24 U/L (14-59); AST 12 U/L (15-37); Albumin 3.9 g/dL (3.4-5.0); Alkaline Phosphatase 60 U/L (46-116); Anion Gap 5.9 mmol/L (3-11); BUN 9 mg/dL (7-18); Bilirubin, Direct 0.07 mg/dL (0.00-0.20); Bilirubin, Total 0.4 mg/dL (0.2-1.0); CO2 31.1 mmol/L (21.0-32.0); CREATININE 0.78 mg/dL (0.55-1.02); Calcium 8.9 mg/dL (8.5-10.1); Chloride 97 mmol/L (98-107); Glucose 103 mg/dL (74-106); Lipase 90 U/L (73-393); Potassium 3.8 mmol/L (3.5-5.1); Sodium 134 mmol/L (136-145); Total Protein 7.5 g/dL (6.4-8.2)
[2020-08-09 03:56] LABS: Bilirubin Negative (Negative); Blood Negative (Negative); Clarity Sl Cloudy (Clear); Glucose Negative (Negative); Ketones Negative (Negative); Leukocyte Esterase Negative (Negative); Nitrite Negative (Negative); Urobilinogen 0.2 EU/dL (Up TO 0.2); pH 8.5 (5-8)
[2020-08-09] MEDS: Omnipaque 350 MG/ML 100 ML BTL IJ (04:00)
[2020-08-09] MEDS: Normal Saline - Diluent 50 ML VIAL IV (04:01)
[2020-08-09] MEDS: Normal Saline Flush 10 ML SYR IVP (04:01)
[2020-08-09 04:06] LABS: ETHANOL BLOOD < 3.0 mg/dL (<3)
--- NOTE | 2020-08-09 04:11 | DI.VRAD_ITS ---
PROCEDURE INFORMATION: Exam: CT Angiography Chest With Contrast Exam date and time: 08/09/2020 3:39 AM Age: 44 years old Clinical indication: Chest pain; Type not specified; Abdominal pain; Generalized; Prior surgery; Surgery date: 6+ months; Surgery type: Tubal ligation, esophageal myotomy, pace maker, gall bladder removal, esophopagastroduodenoscopy, fundoplication; Patient HX: 5 days ago dialation of esophagus, feeling pain and discomfort since but comes and goes , severe abd pain, ? esophageal rupture vs mesenteric ischemia TECHNIQUE: Imaging protocol: Computed tomographic angiography of the chest with intravenous contrast. 3D rendering (Not supervised by radiologist): MIP and/or 3D reconstructed images were created by the technologist. Radiation optimization: All CT scans at this facility use at least one of these dose optimization techniques: automated exposure control; mA and/or kV adjustment per patient size (includes targeted exams where dose is matched to clinical indication); or iterative reconstruction. Contrast material: OMNIPAQUE 350; Contrast volume: 60 ml; Contrast route: INTRAVENOUS (IV); COMPARISON: CT CHEST/ABD/PEL W 01/17/2019 3:13 PM FINDINGS: Pulmonary arteries: Normal. No pulmonary emboli. Aorta: No aortic aneurysm. No aortic dissection. Lungs: No consolidation. No masses. Pleural space: No pneumothorax. No pleural effusion. Heart: Cardiac pacemaker leads noted. No cardiomegaly. No pericardial effusion. Lymph nodes: No enlarged lymph nodes. Bones/joints: Unremarkable. No acute fracture. Soft tissues: Unremarkable. Question mild esophageal thickening. Mild dilatation of the proximal esophagus with air and semi-solid contents IMPRESSION: No evidence for esophageal rupture. Mild dilatation of the proximal thoracic esophagus. Question mild esophagitis PROCEDURE INFORMATION: Exam: CT Angiography Abdomen and Pelvis With Contrast Exam date and time: 08/09/2020 3:39 AM Age: 44 years old Clinical indication: Chest pain; Type not specified; Abdominal pain; Generalized; Prior surgery; Surgery date: 6+ months; Surgery type: Tubal ligation, esophageal myotomy, pace maker, gall bladder removal, esophopagastroduodenoscopy, fundoplication; Patient HX: 5 days ago dialation of esophagus, feeling pain and discomfort since but comes and goes , severe abd pain, ? esophageal rupture vs mesenteric ischemia TECHNIQUE: Imaging protocol: Computed tomographic angiography of the abdomen and pelvis with intravenous contrast material. 3D rendering (Not supervised by radiologist): MIP and/or 3D reconstructed images were created by the technologist. Radiation optimization: All CT scans at this facility use at least one of these dose optimization techniques: automated exposure control; mA and/or kV adjustment per patient size (includes targeted exams where dose is matched to clinical indication); or iterative reconstruction. Contrast material: OMNIPAQUE 350; Contrast volume: 60 ml; Contrast route: INTRAVENOUS (IV); COMPARISON: CT CHEST/ABD/PEL W 01/17/2019 3:13 PM FINDINGS: Aorta: No aortic aneurysm. No aortic dissection. Celiac trunk and mesenteric arteries: No occlusion or significant stenosis. Renal arteries: No occlusion or significant stenosis. Right iliac arteries: No occlusion or significant stenosis. Left iliac arteries: No occlusion or significant stenosis. Liver: No mass. Simple cyst Gallbladder and bile ducts: Unremarkable. No calcified stones. No ductal dilation. Pancreas: Unremarkable. No mass. No ductal dilation. Spleen: Unremarkable. No splenomegaly. Adrenals: Unremarkable. No mass. Kidneys and ureters: 5 mm left renal calculus. No solid mass. No hydronephrosis. Stomach and bowel: No obstruction. No mucosal thickening. Appendix: No evidence of appendicitis. Intraperitoneal space: Minimal cul-de-sac fluid. No free air. No significant fluid collection. Lymph nodes: No enlarged lymph nodes. Urinary bladder: Unremarkable. No mass. Reproductive: Mildly heterogeneous appearance to the uterus Bones/joints: No acute fracture. No dislocation. Chronic spondylolysis with mild spondylolisthesis at L5-S1 Soft tissues: Unremarkable. IMPRESSION: No hemodynamically significant stenosis Nonobstructing left renal calculus Minimal cul-de-sac fluid Dictated and Authenticated by: Irvin Landin MD. Ordering:VANGIE Pagan MD
[2020-08-09 04:25] VITALS: BP 139/78; PULSE 77; RESP 16; TEMP 36.6; O2SAT 100
[2020-08-09] MEDS: LORazepam 1 MG TAB PO (04:29)
== END 2020-08-09 04:35 | disposition home or self-care (01) ==
PROVIDERS: Emergency Provider Emergency Medicine; PCP Family Medicine
DX: K20.80 Other esophagitis without bleeding (principal); K29.00 Acute gastritis without bleeding; K22.0 Achalasia of cardia; F17.210 Nicotine dependence, cigarettes, uncomplicated
CPT/HCPCS: 36415; 71275; 74177; 80053; 83690; 93005; 96361; 96374; 96375; 99285; 80320; 81003; 82248; 83605; 83735; 84484; 85025; 85610; 85730; 93010; 99284; J1885; J2405; J3490

== ENCOUNTER 2020-08-10 09:48 | Outpatient (CLI) | payer MEDICAID, SELFPAY ==
--- NOTE | 2020-08-10 08:45 | DI.RAD_ITS ---
EXAM: XR SHOULDER RT COMPLETE 2+V CLINICAL HISTORY: Right shoulder pain. TECHNIQUE: 2D digital imaging was performed. COMPARISON: No exams were available for comparison FINDINGS: BONES: No acute fracture is present. No bony destructive lesion is seen. JOINTS: No dislocation present. SOFT TISSUE: Normal. IMPRESSION: Unremarkable radiographs of the right shoulder. DATA REPOSITORY: RADIATION DOSE DELIVERED:
== END 2020-08-10 10:08 ==
PROVIDERS: PCP Family Medicine; Referring Provider Family Medicine; Visit Provider Student in an Organized Health Care Education/Training Program
DX: M25.511 Pain in right shoulder (principal)
CPT/HCPCS: 73030

== ENCOUNTER 2020-08-22 18:27 | Inpatient (IN) | payer MEDICAID, SELFPAY ==
[2020-08-22 18:34] VITALS: BP 119/70; PULSE 93; RESP 20; TEMP 36.6; O2SAT 100
--- NOTE | 2020-08-22 19:03 | ED.GENADUL_ITS ---
Discharge Plan Disposition Patient Disposition: [facility] INPATIENT Condition: Stable Discharge Details Clinical Impression: Esophagitis with gastritis Primary Care Provider: Karri Ceballos ED Provider: Arnie Gleason Home Meds and New Rx's Prescriptions: No Action sertraline 50 mg tablet 50 mg PO DAILY RF: 0 ondansetron HCl 4 mg tablet 4 mg PO .Q4-6 HRS PRNRF: 0 potassium chloride [Klor-Con M10] 10 mEq tablet,ER particles/crystals 10 meq PO DAILY RF: 0 promethazine 25 mg suppository 25 mg MN Q6H PRNQty: 10 RF: 0 pantoprazole 40 mg tablet,delayed release (DR/EC) 40 mg PO DAILY RF: 0 lorazepam 1 mg tablet 1 mg PO TID PRNQty: 10 RF: 0 Medical Decision Making 44-year-old female presents from home. She has a history of esophagitis with achalasia, s/p Iftikhar fundoplication/Heller myotomy in 2003, chronic dysphagia and typically eats soft diet. Hx of dysmotility in the past. Most recently she was transferred from the inpatient setting to [facility] for repeat esophageal dilatation of that was performed successfully to 30 mm on August 04. She states she has a history of ileus and felt same reoccurring 2 days ago. Now with decreased p.o. intake due to reflux of ingested liquids and solids, only had a half a yogurt yesterday. She will note some decreased urine output. Differential diagnosis includes ileus, obstruction, dehydration, electrolyte abnormality. Patient IV access established, given fluid bolus, antiemetic, PPI, anxiolytic. Referred for laboratory testing and x-ray. Mild hypokalemia with a potassium of 3.2. Sodium 133. BUN 11, creatinine 0.7. Magnesium 1.7. Unremarkable LFTs and normal lipase. Electrolytes supplemented in the emergency department. Radiographs with no bowel obstruction or dilatation. See formal report. Patient with minimal improvement following fluids, medication, electrolyte supplement. She is unable to take p.o.'s time. She will benefit from overnight hydration. Given that she had recent esophageal dilatation do not feel urgent scope is indicated and she does not have evidence of bowel obstruction as above. Evidence of UTI, Willl treat with ceftriaxone. Discussed with Dr. Pettit and patient to be admitted. HPI General Mode of arrival: ambulatory . Date/Time Provider Initiated Documentation: 08/22/20 18:27 . Limitations to Documentation: no limitations . Information obtained by: patient . History of Present Illness 44 year old F presents to the emergency department with the chief complaint of Menorrhagia, described as moderate and similar to prior episodes, Quality is described as dull and constant, and is localized to the abdomen. Patient reports no radiation. Patient started experiencing this day(s) and it has been intermittent. No relieving factors improve symptom(s), Eating worsens symptoms . Patient notes loss of appetite and nausea/vomiting; denies fever/chills. Patient did receive the following treatments prior to arrival, none Related Data Home Medications Medication Instructions Recorded Confirmed promethazine 25 mg MN Q6H PRN #10 each 10/10/19 08/22/20 ondansetron HCl 4 mg PO .Q4-6 HRS PRN 08/03/20 08/22/20 potassium chloride [Klor-Con M10] 10 meq PO DAILY 08/03/20 08/22/20 sertraline 50 mg PO DAILY 08/03/20 08/22/20 lorazepam 1 mg PO TID PRN #10 tab 08/09/20 08/22/20 pantoprazole 40 mg PO DAILY 08/09/20 08/22/20 Previous Rx's Medication Instructions Recorded promethazine 25 mg MN Q6H PRN #10 each 10/10/19 lorazepam 1 mg PO TID PRN #10 tab 08/09/20 Allergies Allergy/AdvReac Type Severity Reaction Status Date / Time adhesive tape Allergy Skin Rash Unverified 08/22/20 18:42 prochlorperazine Allergy Unverified 08/22/20 18:42 [From Compazine] General Stated Complaint: Abd Prob CRAL: 3 Review of Systems Narrative: Poor p.o. intake over the past 2 days. Similar to episodes in the past. Underwent successful esophageal dilatation on August 04. No significant abdominal pain or bloating. Small amount of stool yesterday. 8 systems reviewed and otherwise negative PFSH Medical History Achalasia of esophagus Complication of surgery Gastroesophageal reflux disease GERD without esophagitis history of reentrant SVT Pacemaker Smoker unmotivated to quit Surgical History section x3 Esophageal Myotomy Fundoplication Hx of esophagogastroduodenoscopy Ligation of fallopian tube Pacemaker Biventricular pacemaker Family History Aunt Personal history of malignant neoplasm Breast cancer Social History Smoking/Tobacco Use Status: Current every day Tobacco Type: cigarettes Smoking risk assessment performed?: Yes Alcohol Intake: current Alcohol Intake frequency: holidays/special occasions only Drug use: Daily Substance use type: marijuana Current gender identity: female Do you feel safe at home: Yes Do you feel safe in your relationship?: Yes Exam Narrative Exam Narrative: GEN: awake, alert, oriented 3. Pleasant, well groomed, interactive. HEAD: Normocephalic, atraumatic ENT: Mucous membranes moist, oropharynx unremarkable, External ear exam unremarkable EYES: PERRL, EOMI NECK: Full ROM, no JIM, no menigismus CHEST/RESP: Nontender, clear to auscultation bilateral, no wheeze/rhonchi/rales CARDIOVASCULAR: RRR, no murmur, rub chana. 2+ Rad pulse bilateral ABDOMEN: Soft, minimal epigastric tenderness, no mass. +Bowel sounds EXT: Full ROM, no edema, no rash Neuro: Grossly normal neurologic exam, conversant, interactive. Psych: Speech fluent, thoughts congruent, affect normal Course Vital Signs Vital signs: Vital Signs Temperature 36.6 C 08/22/20 18:34 Pulse 93 H 08/22/20 18:34 Respiratory Rate 20 08/22/20 18:34 Blood Pressure 119/70 08/22/20 18:34 Pulse Oximetry 100 08/22/20 18:34 Temperature 36.6 C 08/22/20 18:34 Temperature Source Skin 08/22/20 18:34 Pulse 93 H 08/22/20 18:34 Respiratory Rate 20 08/22/20 18:34 Respiratory Effort Non-Labored 08/22/20 18:39 Blood Pressure 119/70 08/22/20 18:34 Blood Pressure Position Sitting 08/22/20 18:34 Pulse Oximetry 100 08/22/20 18:34 Oxygen Delivery Method Room Air 08/22/20 18:34 Oxygen Flow Rate 0 08/22/20 18:34 Pain Level 6 08/22/20 18:34
[2020-08-22] MEDS: Lactated Ringers 1,000 ML 1000 ML IV (19:09)
[2020-08-22] MEDS: Pantoprazole 40 MG VIAL IVP (19:10)
[2020-08-22] MEDS: Ondansetron 4 MG/2 ML VIAL IVP ×2 (19:12→23:02)
[2020-08-22] MEDS: LORazepam 2 MG/ML VIAL 0.5 MG IVP (19:13)
[2020-08-22 19:27] LABS: Abs Immature Grans 0.03 10^3/uL (0.0-0.06); Absolute Basophil Count 0.02 10^3/uL (0.0-0.2); Absolute Eosinophil Count 0.01 10^3/uL (0.0-0.7); Absolute Lymphocyte Count 1.77 10^3/uL (1.2-3.4); Absolute Monocyte Count 0.72 10^3/uL (0.1-0.8); Absolute Neutrophil Count 5.55 10^3/uL (1.2-6.7); Basophils % 0.2; Eosinophils % 0.1; HCT 36.8 % (36.0-46.0); HGB 12.7 g/dL (11.2-15.7); Immature Grans % 0.4; Lymphocytes % 21.9; MCH 31.7 pg (27.0-33.0); MCHC 34.5 % (32.0-36.0); MCV 91.8 fL (80-95); MPV 9.2 fL (8.0-11.0); Monocytes % 8.9; Neutrophils % 68.5; Nucleated RBC 0 %; Platelet Count 308 10^3/uL (130-400); RBC 4.01 10^6/uL (3.93-5.22); RDW 12.4 % (11.7-14.6); RDW-SD 41.4 fL
[2020-08-22 19:40] LABS: ALT 29 U/L (14-59); AST 14 U/L (15-37); Albumin 3.6 g/dL (3.4-5.0); Alkaline Phosphatase 52 U/L (46-116); Anion Gap 8.3 mmol/L (3-11); BUN 11 mg/dL (7-18); Bilirubin, Total 0.7 mg/dL (0.2-1.0); CO2 26.7 mmol/L (21.0-32.0); CREATININE 0.7 mg/dL (0.55-1.02); Calcium 9.2 mg/dL (8.5-10.1); Chloride 98 mmol/L (98-107); Glucose 101 mg/dL (74-106); Lipase 63 U/L (73-393); Magnesium 1.7 mg/dL (1.8-2.4); Potassium 3.2 mmol/L (3.5-5.1); Sodium 133 mmol/L (136-145); Total Protein 7.1 g/dL (6.4-8.2)
--- NOTE | 2020-08-22 19:40 | DI.RAD_ITS ---
EXAM: 2D digital imaging was performed. CLINICAL HISTORY: Nausea, recent esophag dilation. COMPARISON: CR XR PORTABLE CHEST AP from 08/03/2020 TECHNIQUE: Supine and upright abdomen and PA chest views were performed. FINDINGS: BOWEL GAS PATTERN: Nondistended. No free air. Hyperdense material is seen within bowel loops in the left abdomen and pelvis. This may represent ingested material. CALCIFICATIONS: No radiopaque calcifications. OSSEOUS STRUCTURES: Normal for age. OTHER FINDINGS: None. LUNGS Clear. No pleural abnormality seen. The lungs are hyperinflated. HEART: Normal. MEDIASTINUM: Normal. OTHER FINDINGS: The cardiac pacing leads are in good position. IMPRESSION: 1. Nonobstructive bowel gas pattern. 2. Hyperdense material seen within the bowel loops in the abdomen and pelvis. This may represent ing ested material such as Pepto-Bismol. 3. No free air. 4. Hyperinflation of the lungs bilaterally. This is non-specific, but may reflect COPD, reactive air way disease or an upper respiratory infection. DATA REPOSITORY: RADIATION DOSE DELIVERED:
--- NOTE | 2020-08-22 20:06 | DI.VRAD_ITS ---
PROCEDURE INFORMATION: Exam: XR Complete Acute Abdomen Series Exam date and time: 08/22/2020 7:03 PM Age: 44 years old Clinical indication: Abdominal pain; Tenderness; Upper; Patient HX: Nausea, recent esophagus dilatation TECHNIQUE: Imaging protocol: XR complete acute abdomen series, including 2 or more views of the abdomen and a single view chest. COMPARISON: CR XR PORTABLE CHEST AP 08/03/2020 2:21 PM FINDINGS: Lungs: Bilateral lungs with hyperinflation suggesting air trapping from COPD, reactive airway disease, or upper respiratory infection. No peripheral infiltrates. No consolidation. Pleural spaces: No gross pleural effusions. Heart/Mediastinum: No cardiac enlargement. No pneumomediastinum. Gastrointestinal tract: Abdominal bowel gas pattern is unremarkable. No obstructive features. No evidence of edema. Minor flocculated appearing hyperdense material within the bowel loops in the left abdomen and pelvis may represent ingested substance such as Pepto-Bismol. Intraperitoneal space: Normal. No free air. Bones/joints: Degenerative thoracic and lumbar spine disease. Soft tissues: Left chest cardiac pacemaker. IMPRESSION: 1. Hyperinflation of the lungs bilaterally which is nonspecific and could represent a process such as reactive airway disease, COPD, or an upper respiratory infection. 2. Left chest pacemaker. 3. No gross pleural effusions. 4. Degenerative thoracic and lumbar spine disease. 5. No bowel obstruction or dilatation. Scattered hyperdense material in the left abdomen and pelvis appears to be within bowel loops and may represent an ingested product such as Pepto-Bismol. 6. No pneumomediastinum evident. No free air within the upper abdomen. Dictated and Authenticated by: Asif Pleitez MD. Ordering:CINDI Gaitan MD
[2020-08-22 20:15] VITALS: BP 121/72; PULSE 71; RESP 16; O2SAT 100
--- NOTE | 2020-08-22 20:15 | RT.EKG_ITS ---
APPROVED REPORT Exam: Resting ECG Patient Location: E HR:74 bpm ECG Measurements Heart Rate 74 AXIS SC 205 P -57 QRSd 138 QRS 264 QT 468 T 113 QTc 521 Conclusion Atrial-sensed ventricular-paced rhythm...ventricular pacing tracks p-waves
[2020-08-22] MEDS: MAGNESIUM SULFATE 1 GM/100 ML BAG IVPB (20:27)
[2020-08-22] MEDS: POTASSIUM CHLORIDE/0.9% NACL 1,000 ML 150 MEQ IV (20:52)
--- NOTE | 2020-08-22 21:15 | HPE_ITS ---
Date of service: 08/22/20 Time of Service: 21:15 Assessment and Plan Assessment and plan (1) Emesis, persistent: Start date: 08/22/20 Status: Acute Assessment and plan: This is a 44-year-old lady who has had problems with dysmotility of her esophagus since she was a child with multiple procedures and recently a esophageal dilatation with difficulty swallowing after the procedure and melena which is not usual. She had not been able to keep food or liquids down and became hypokalemic and hypomagnesemic with slight dehydration prompting evaluation at the ED and treatment. She will be observed overnight with IV fluid replacement and symptoms control with reevaluation in the morning and possible discussion with [facility] about her symptoms. She does have a history of other hypermobility issues and is going to be evaluated for EDS. (2) Stricture esophagus: Status: Chronic Assessment and plan: Patient just recently had esophageal dilatation to 30 mm and this is not usual for her to have problems after the procedure with vomiting and not been able to keep food down. [facility] will need to be consulted in the morning for follow-up. Patient will receive IV hydration overnight. (3) UTI (urinary tract infection): Start date: 08/22/20 Status: Acute Assessment and plan: Patient was found to have a UTI and will be given Rocephin converting to oral therapy once pathogen is identified with sen sitivities. Qualifiers: Urinary tract infection type: site unspecified Hematuria presence: without hematuria Qualified Code(s): N39.0 - Urinary tract infection, site not specified History of Present Illness History of Present Illness Chief Complaint: Inability to swallow Narrative: This is a 44-year-old lady who has had a history of problems swallowing since she was a teenager and child who presented to the ED after esophageal dilatation for stricture August 21, 2020. 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 She did have a myotomy of paraesophageal sphincter when she was in her 20s and since then has had multiple procedures for her GI motility. These include Niesen fundoplication/Heller myotomy in 2003 and multiple esophageal dilatations. After this most recent dilatation the patient did have black tarry stools which were evaluated in the ED and found not to have blood. She has not had ability to swallow food with only minimal amount of food over the last couple of days. She presented to the ED with the symptoms and also was found to have a UTI. She states that she often has flashes of chills and then sweats but no fever which she is presently having. She was found to have a UTI was given a dose of Rocephin. She also was put on bowel rest with clear fluids as tolerated and will be observed overnight with [facility] to be called in the morning if she is not improving. Since this was a recent procedure they may want to reevaluate her. There is no evidence of esophageal perforation and she was dilated up to 30 mm without difficulty. She does have a history of also joint hypermobility and rolling her joints with sprains frequently as she was growing up. This has prompted the thought process for EDS evaluation in the near future. There is no specific treatment for this problem but management may be more focused. Patient denies hematemesis though she did have melena. She denies any diarrhea or dysuria. She has had decreased intake and decreased output. She denies fever. She was found to have hypomagnesemia and hypokalemia in the ED with these being replaced with IV fluids. Review of Systems Narrative: 13 point review of systems otherwise unrevealing or stable. PFSH Medical History Achalasia of esophagus Complication of surgery Gastroesophageal reflux disease GERD without esophagitis history of reentrant SVT Pacemaker Smoker unmotivated to quit Surgical History section x3 Esophageal Myotomy Fundoplication Hx of esophagogastroduodenoscopy Ligation of fallopian tube Pacemaker Biventricular pacemaker Family History Aunt Personal history of malignant neoplasm Breast cancer Social History (Updated 08/23/20 @ 02:29 by Patel Oden) Smoking/Tobacco Use Status: Current every day Tobacco Type: cigarettes Smoking risk assessment performed?: Yes Alcohol Intake: current Alcohol Intake frequency: holidays/special occasions only Drug use: Daily Substance use type: marijuana 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 Current gender identity: female Do you feel safe at home: Yes Do you feel safe in your relationship?: Yes Meds Home Medications and Allergies Home Medications Medication Instructions Recorded Confirmed Type promethazine 25 mg ID Q6H PRN #10 each 10/10/19 08/22/20 Rx ondansetron HCl 4 mg PO .Q4-6 HRS PRN 08/03/20 08/22/20 History potassium chloride [Klor-Con M10] 10 meq PO DAILY 08/03/20 08/22/20 History sertraline 50 mg PO DAILY 08/03/20 08/22/20 History lorazepam 1 mg PO TID PRN #10 tab 08/09/20 08/22/20 Rx pantoprazole 40 mg PO DAILY 08/09/20 08/22/20 History Allergies Allergy/AdvReac Type Severity Reaction Status Date / Time adhesive tape Allergy Skin Rash Unverified 08/22/20 18:42 prochlorperazine Allergy Unverified 08/22/20 18:42 [From Compazine] Exam Narrative Exam Narrative: General: Patient appears appropriate for age, in no acute distress but diaphoretic having just had chills with sweats. She is alert and oriented x 3. HEENT: Normocephalic, eyes with pupils equal and reactive to light symmetrically, extraocular movement intact the sclera anicteric. Oropharynx with dry mucosa and normal dentition. External ears and nose normal. Neck: Supple without JVD. Lungs: Clear to all sites and percussion. Breast: Exam deferred. Heart: Regular in rhythm with no murmurs gallops appreciated. Abdomen: Scaphoid contour, soft and nontender to palpation with no palpable hepatosplenomegaly. Genitalia/rectal: Exam deferred. Extremities: Without clubbing, cyanosis or pitting edema. Peripheral pulses intact. Skin: Moist and warm with no rashes noted. Normal color. Neuro: Cranial nerves II through XII grossly intact, no focal motor deficits. Psych: Normal affect and mood. No abnormal thought processes. Remote and recent memory intact. Results Imaging Imaging Studies: XR abd flat upright & PA chest EXAM: 2D digital imaging was performed. CLINICAL HISTORY: Nausea, recent esophag dilation. COMPARISON: CR XR PORTABLE CHEST AP from 08/03/2020 TECHNIQUE: Supine and upright abdomen and PA chest views were performed. FINDINGS: BOWEL GAS PATTERN: Nondistended. No free air. Hyperdense material is seen within bowel loops in the left abdomen and pelvis. This may represent ingested material. CALCIFICATIONS: No radiopaque calcifications. OSSEOUS STRUCTURES: Normal for age. OTHER FINDINGS: None. LUNGS Clear. No pleural abnormality seen. The lungs are hyperinflated. HEART: Normal. MEDIASTINUM: Normal. OTHER FINDINGS: The cardiac pacing leads are in good position. IMPRESSION: 1. Nonobstructive bowel gas pattern. 2. Hyperdense material seen within the bowel loops in the abdomen and pelvis. This may represent ingested material such as Pepto-Bismol. 3. No free air. 4. Hyperinflation of the lungs bilaterally. This is non-specific, but may reflect COPD, reactive airway disease or an upper respiratory infection. Dictated By: Pablito Howard M.D. 08/22/20 2049 Exam: XR Complete Acute Abdomen Series Exam date and time: 08/22/2020 7:03 PM Age: 44 years old Clinical indication: Abdominal pain; Tenderness; Upper; Patient HX: Nausea, recent esophagus dilatation TECHNIQUE: Imaging protocol: XR complete acute abdomen series, including 2 or more views of the abdomen and a single view chest. COMPARISON: CR XR PORTABLE CHEST AP 08/03/2020 2:21 PM FINDINGS: Lungs: Bilateral lungs with hyperinflation suggesting air trapping from COPD, reactive airway disease, or upper respiratory infection. No peripheral infiltrates. No consolidation. Pleural spaces: No gross pleural effusions. Heart/Mediastinum: No cardiac enlargement. No pneumomediastinum. Gastrointestinal tract: Abdominal bowel gas pattern is unremarkable. No obstructive features. No evidence of edema. Minor flocculated appearing hyperdense material within the bowel loops in the left abdomen and pelvis may represent ingested substance such as Pepto-Bismol. Intraperitoneal space: Normal. No free air. Bones/joints: Degenerative thoracic and lumbar spine disease. Soft tissues: Left chest cardiac pacemaker. IMPRESSION: 1. Hyperinflation of the lungs bilaterally which is nonspecific and could represent a process such as reactive airway disease, COPD, or an upper respiratory infection. 2. Left chest pacemaker. 3. No gross pleural effusions. 4. Degenerative thoracic and lumbar spine disease. 5. No bowel obstruction or dilatation. Scattered hyperdense material in the left abdomen and pelvis appears to be within bowel loops and may represent an ingested product such as Pepto-Bismol. 6. No pneumomediastinum evident. No free air within the upper abdomen. Dictated and Authenticated by: Asif Pleitez MD 08/22/20 1906 Labs Result diagrams: 08/22/20 19:00 08/22/20 19:00 Labs: Laboratory Results - last 24 hr 08/22/20 08/22/20 19:00 19:00 WBC 8.10 RBC 4.01 Hgb 12.7 Hct 36.8 MCV 91.8 MCH 31.7 MCHC 34.5 RDW 12.4 Plt Count 308 MPV 9.2 Immature Gran % 0.4 Neutrophils % 68.5 Lymphocytes % 21.9 Monocytes % 8.9 Eosinophils % 0.1 Basophils % 0.2 Nucleated RBC % 0 Absolute Neutrophils 5.55 Absolute Lymphocytes 1.77 Absolute Monocytes 0.72 Absolute Eosinophils 0.01 Absolute Basophils 0.02 Sodium 133 L Potassium 3.2 L Chloride 98 Carbon Dioxide 26.7 Anion Gap 8.3 BUN 11 Creatinine 0.7 Estimated GFR/1.73 m2 >= 60.00 Glucose 101 Calcium 9.2 Magnesium 1.7 L Total Bilirubin 0.7 AST 14 L ALT 29 Alkaline Phosphatase 52 Total Protein 7.1 Albumin 3.6 Lipase 63 Last Vital Signs Temp 36.6 C 08/22/20 18:34 Pulse 71 08/22/20 20:15 Resp 16 08/22/20 20:15 BP 121/72 08/22/20 20:15 Pulse Ox 100 08/22/20 20:15 COVID-19 Screening Have you, or household traveled for leisure in last 14 days?: No Had IN PERSON contact w/suspected or confirmed C-19 person: No
[2020-08-22 21:27] LABS: Bilirubin Negative (Negative); Blood Trace-intact (Negative); Clarity Clear (Clear); Glucose Negative (Negative); Ketones 40 mg/dL (Negative); Leukocyte Esterase Negative (Negative); Nitrite Positive (Negative); Specific Gravity >= 1.030 (1.005-1.025); Urobilinogen 0.2 EU/dL (Up TO 0.2)
[2020-08-22 21:39] LABS: Bacteria Many HPF (Negative); C & S Indicated? Yes; Casts Negative LPF (Negative); Crystals Negative HPF (Negative); Epithelial Cells Negative HPF (Negative); Mucus Negative (Negative); Other Cells Negative (Negative); RBC Negative HPF (0-2)
[2020-08-22] MEDS: cefTRIAXone 1 GM VIAL IV (22:03)
[2020-08-22] MEDS: Heparin 5,000 UNITS/ML VIAL 5000 UNITS SC (22:25)
[2020-08-22 22:28] VITALS: BP 120/85; PULSE 85; RESP 17; TEMP 37.1; O2SAT 100
[2020-08-22] MEDS: Normal Saline Flush 10 ML SYR (23:01)
[2020-08-22 23:35] VITALS: BP 113/75; PULSE 78; RESP 16; TEMP 37.3; O2SAT 98
[2020-08-22] MEDS: LORazepam 1 MG TAB PO (23:59)
[2020-08-23] MEDS: Normal Saline Flush 10 ML SYR IVP ×3 (00:41→08:34)
[2020-08-23] MEDS: POTASSIUM CHLORIDE/0.9% NACL 1,000 ML 150 MEQ IV ×3 (04:12→17:39)
[2020-08-23 04:15] VITALS: BP 116/72; PULSE 64; RESP 16; TEMP 36.9; O2SAT 95
[2020-08-23] MEDS: Ondansetron 4 MG/2 ML VIAL IVP ×2 (06:24→10:44)
[2020-08-23] MEDS: Heparin 5,000 UNITS/ML VIAL 5000 UNITS SC ×3 (06:25→22:24)
[2020-08-23 07:04] LABS: Abs Immature Grans 0.01 10^3/uL (0.0-0.06); Absolute Basophil Count 0.03 10^3/uL (0.0-0.2); Absolute Eosinophil Count 0.05 10^3/uL (0.0-0.7); Absolute Lymphocyte Count 2.33 10^3/uL (1.2-3.4); Absolute Monocyte Count 0.58 10^3/uL (0.1-0.8); Absolute Neutrophil Count 3.28 10^3/uL (1.2-6.7); Basophils % 0.5; Eosinophils % 0.8; HCT 32.1 % (36.0-46.0); Immature Grans % 0.2; Lymphocytes % 37.1; MCH 31.3 pg (27.0-33.0); MCHC 34.3 % (32.0-36.0); MCV 91.5 fL (80-95); MPV 9.5 fL (8.0-11.0); Monocytes % 9.2; Neutrophils % 52.2; Nucleated RBC 0 %; Platelet Count 264 10^3/uL (130-400); RBC 3.51 10^6/uL (3.93-5.22); RDW 12.7 % (11.7-14.6); RDW-SD 41.8 fL; WBC 6.28 10^3/uL (4.4-10.8)
[2020-08-23 07:18] LABS: ALT 24 U/L (14-59); AST 12 U/L (15-37); Albumin 3.2 g/dL (3.4-5.0); Alkaline Phosphatase 45 U/L (46-116); Anion Gap 7.4 mmol/L (3-11); BUN 8 mg/dL (7-18); Bilirubin, Total 0.6 mg/dL (0.2-1.0); CO2 26.6 mmol/L (21.0-32.0); CREATININE 0.7 mg/dL (0.55-1.02); Calcium 8.3 mg/dL (8.5-10.1); Chloride 103 mmol/L (98-107); Glucose 103 mg/dL (74-106); Magnesium 1.9 mg/dL (1.8-2.4); Potassium 3.4 mmol/L (3.5-5.1); Sodium 137 mmol/L (136-145); Total Protein 6.2 g/dL (6.4-8.2)
[2020-08-23] MEDS: Pantoprazole 40 MG VIAL IVP (08:33)
[2020-08-23] MEDS: Sertraline 50 MG TAB PO (08:34)
[2020-08-23] MEDS: LORazepam 1 MG TAB PO (08:47)
[2020-08-23 10:04] VITALS: BP 131/74; PULSE 74; RESP 18; TEMP 37.3; O2SAT 98
[2020-08-23 11:03] VITALS: BP 124/80; BP 132/80; PULSE 75; PULSE 93; RESP 19; TEMP 37.7; O2SAT 98
--- NOTE | 2020-08-23 11:04 | PGE_ITS ---
Date of Service Date of service: 08/23/20 Time of Service: 11:04 Assessment and Plan Assessment and plan (1) Emesis, persistent: Status: Acute Assessment and plan: This is a manifestation of her chronic esophageal stricture related to her Iftikhar procedure. She gets regular dilations, but unfortunately her most recent one was just over 2 weeks ago and her symptoms have recurred. This point we will continue to manage supportively with IV fluids and antiemetics. If she is not improving by tomorrow plan to contact her CT surgeon at [facility]. (2) Stricture esophagus: Status: Chronic Assessment and plan: Patient just recently had esophageal dilatation in July to 30 mm and this is not usual for her to have problems after the procedure. Treat as above, refer for surgical intervention if not improving. Continue high dose PPI. (3) UTI (urinary tract infection): Status: Acute Assessment and plan: Patient was found to have a UTI, UCx growing GNR. Continue ceftriaxone, converting to oral therapy once pathogen is identified with sensitivities. Qualifiers: Hematuria presence: without hematuria Urinary tract infection type: site unspecified Qualified Code(s): N39.0 - Urinary tract infection, site not specified (4) Hypokalemia: Status: Resolved Assessment and plan: replace IV today, follow (5) DVT prophylaxis: Status: Acute Assessment and plan: lovenox (6) Discharge planning issues: Status: Acute Assessment and plan: Home if improves, otherwise transfer to [facility] [place]. Subjective Subjective Patient reports: voiding w/o difficulty; denies diarrhea Interval history since last seen: no events overnight. Marcella still quite nauseous this morning despite ondansetron. States lorazepam IV was helpful in emergency room. States Phenergan has helped in the past as well. Has allergy to Compazine but tolerates Phenergan. She has the same epigastric pain. She does have some chest pain that comes and goes, but has not been consistent since she been here and no pain now. She denies cough or shortness of breath. Denies fevers or chills. Her current pain and nausea are very typical of her esophageal disease in the past.. Exam Narrative Exam Narrative: General: She is alert and oriented, appears uncomfortable but not in acute distress. HEENT: Activa clear, no icterus, moist mucous membranes. Lungs: Clear to patient bilaterally, normal effort Heart: Regular in rhythm with no murmurs gallops appreciated. Abdomen: Scaphoid contour, soft and mildly tender to palpation in mid abdomen to epigastrium. With no palpable masses or hepatosplenomegaly. Extremities: Without clubbing, cyanosis or pitting edema. Peripheral pulses intact. Skin: Moist and warm with no rashes noted. Normal color. Objective Last Vital Signs Temp 37.3 C 08/23/20 10:04 Pulse 74 08/23/20 10:04 Resp 18 08/23/20 10:04 BP 131/74 08/23/20 10:04 Pulse Ox 98 08/23/20 10:04 Laboratory Results - last 24 hr 08/22/20 08/22/20 08/22/20 19:00 19:00 21:18 WBC 8.10 RBC 4.01 Hgb 12.7 Hct 36.8 MCV 91.8 MCH 31.7 MCHC 34.5 RDW 12.4 Plt Count 308 MPV 9.2 Immature Gran % 0.4 Neutrophils % 68.5 Lymphocytes % 21.9 Monocytes % 8.9 Eosinophils % 0.1 Basophils % 0.2 Nucleated RBC % 0 Absolute Neutrophils 5.55 Absolute Lymphocytes 1.77 Absolute Monocytes 0.72 Absolute Eosinophils 0.01 Absolute Basophils 0.02 Sodium 133 L Potassium 3.2 L Chloride 98 Carbon Dioxide 26.7 Anion Gap 8.3 BUN 11 Creatinine 0.7 Estimated GFR/1.73 m2 >= 60.00 Glucose 101 Calcium 9.2 Magnesium 1.7 L Total Bilirubin 0.7 AST 14 L ALT 29 Alkaline Phosphatase 52 Total Protein 7.1 Albumin 3.6 Lipase 63 Urine Color Yellow Urine Clarity Clear Urine pH 6.0 Ur Specific [place] >= 1.030 H Urine Protein Negative Urine Ketones 40 H Urine Blood Trace-intact H Urine Nitrite Positive H Urine Bilirubin Negative Urine Urobilinogen 0.2 Ur Leukocyte Esterase Negative Urine RBC Negative Urine WBC 5-10 Ur Epithelial Cells Negative Urine Crystals Negative Urine Bacteria Many Urine Casts Negative Urine Mucus Negative Urine Other Negative Ur Culture Indicated? Yes Urine Glucose Negative 08/23/20 08/23/20 06:36 06:36 WBC 6.28 RBC 3.51 L Hgb 11.0 L Hct 32.1 L MCV 91.5 MCH 31.3 MCHC 34.3 RDW 12.7 Plt Count 264 MPV 9.5 Immature Gran % 0.2 Neutrophils % 52.2 Lymphocytes % 37.1 Monocytes % 9.2 Eosinophils % 0.8 Basophils % 0.5 Nucleated RBC % 0 Absolute Neutrophils 3.28 Absolute Lymphocytes 2.33 Absolute Monocytes 0.58 Absolute Eosinophils 0.05 Absolute Basophils 0.03 Sodium 137 Potassium 3.4 L Chloride 103 Carbon Dioxide 26.6 Anion Gap 7.4 BUN 8 Creatinine 0.7 Estimated GFR/1.73 m2 >= 60.00 Glucose 103 Calcium 8.3 L Magnesium 1.9 Total Bilirubin 0.6 AST 12 L ALT 24 Alkaline Phosphatase 45 L Total Protein 6.2 L Albumin 3.2 L Lipase Urine Color Urine Clarity Urine pH Ur Specific [place] Urine Protein Urine Ketones Urine Blood Urine Nitrite Urine Bilirubin Urine Urobilinogen Ur Leukocyte Esterase Urine RBC Urine WBC Ur Epithelial Cells Urine Crystals Urine Bacteria Urine Casts Urine Mucus Urine Other Ur Culture Indicated? Urine Glucose
--- NOTE | 2020-08-23 14:06 | PDOC.CMIN ---
- If Service Date Differs Date of service: 08/23/20 Time of Service: 14:06 Care Management Initial Assess REASON FOR HOSPITALIZATION:: Dysphagia, Hypokalemia PAST MEDICAL HISTORY/PAST SURGICAL HISTORY:: Medical History. Achalasia of esophagus. Complication of surgery. Gastroesophageal reflux disease. GERD without esophagitis. history of reentrant SVT. Pacemaker. Smoker unmotivated to quit. Surgical History. section. x3. Esophageal Myotomy. Fundoplication. Hx of esophagogastroduodenoscopy. Ligation of fallopian tube. Pacemaker. Biventricular pacemaker PREVIOUS FUNCTIONAL STATUS/SOCIAL/FAMILY SUPPORTS:: Marcella lives in [place] with her fiance and her twin sixteen year old girls. She has many friends who are also supportive. She is independent at baseline. CURRENT FUNCTIONAL STATUS:: Marcella was lying in bed when CM met with her. She stated that she didn't want to talk because she was feeling so bad. Her RN was in the room, and had just given her some medication. CM will continue to follow. ADVANCE DIRECTIVES:: None on file. CM will offer forms. Has patient been provided with info about the portal/API?: Yes Did the patient sign up for the portal?: No CODE STATUS:: Full Code INSURANCE COVERAGE / FINANCIAL ISSUES:: [employer] CURRENT HOME/COMMUNITY SERVICES/EQUIPMENT:: No current services or equipment. PRIMARY CARE PHYSICIAN:: Karri Ceballos POTENTIAL DISCHARGE NEEDS:: Evaluations for further needs, follow up appointments PATIENT/FAMILY EDUCATION NEEDS:: Review discharge instructions regarding activity levels and medications, discussion of self care needs including ask me three. ANTICIPATED BARRIERS TO DISCHARGE:: None identified at this time. TRANSPORTATION:: Via private vehicle PLAN:: Marcella continues to be monitored. If she is not improving later today, MD will contact her surgeon at [facility] [place]. She may transfer, if indicated. Transportation to be determined by disposition. Once ready for discharge, she will return home. She will follow up with her PCP and her discharge plan of care. CM will continue to follow.
[2020-08-23] MEDS: LORazepam 2 MG/ML VIAL 0.5 MG IVP ×2 (15:43→22:49)
[2020-08-23 16:03] VITALS: BP 123/79; PULSE 84; RESP 20; TEMP 37.7; O2SAT 100
--- NOTE | 2020-08-23 18:00 | NUR.NOTE ---
Nursing Note: Patient is tired, but expressed her nausea is under control at this moment. She refused to take any po for dinner as she felt it would exacerbate the nausea. Her bed is changed and she lays down to rest no other needs identified, and call etienne is in reach
[2020-08-23 19:44] VITALS: BP 126/74; PULSE 74; RESP 20; TEMP 36.9; O2SAT 97
[2020-08-23 22:07] LABS: COVID-19 RT-PCR UVMMC Result Negative (Negative)
[2020-08-23] MEDS: cefTRIAXone 1 GM/50 ML BAG IVPB (22:24)
[2020-08-23 23:27] VITALS: BP 115/74; PULSE 66; RESP 17; TEMP 37.1; O2SAT 99
[2020-08-24] MEDS: POTASSIUM CHLORIDE/0.9% NACL 1,000 ML 150 MEQ IV ×2 (00:08→06:08)
[2020-08-24 03:44] VITALS: BP 123/76; PULSE 63; RESP 17; TEMP 36.5; O2SAT 100
[2020-08-24] MEDS: Ondansetron 4 MG/2 ML VIAL IVP ×2 (04:04→11:41)
[2020-08-24] MEDS: Mylanta Suspension 30 ML CUP PO ×2 (04:06→11:41)
[2020-08-24] MEDS: LORazepam 2 MG/ML VIAL 0.5 MG IVP (05:25)
[2020-08-24] MEDS: Heparin 5,000 UNITS/ML VIAL 5000 UNITS SC ×3 (06:10→22:08)
[2020-08-24 07:33] VITALS: BP 126/82; PULSE 79; RESP 12; TEMP 36.7; O2SAT 96
[2020-08-24 07:45] LABS: Anion Gap 9.8 mmol/L (3-11); BUN 3 mg/dL (7-18); CO2 25.2 mmol/L (21.0-32.0); CREATININE 0.7 mg/dL (0.55-1.02); Calcium 8.9 mg/dL (8.5-10.1); Chloride 99 mmol/L (98-107); Glucose 93 mg/dL (74-106); Potassium 3.6 mmol/L (3.5-5.1); Sodium 134 mmol/L (136-145)
[2020-08-24] MEDS: Sertraline 50 MG TAB PO (09:14)
[2020-08-24] MEDS: Pantoprazole 40 MG VIAL IVP (09:14)
[2020-08-24] MEDS: Normal Saline 50 ML 200 ML ×2 (10:49→11:44)
[2020-08-24 11:18] VITALS: BP 117/72; PULSE 84; RESP 18; TEMP 36.9; O2SAT 96
[2020-08-24] MEDS: POTASSIUM CHLORIDE/D5-0.45NACL 1,000 ML 100 MEQ IV (13:53)
--- NOTE | 2020-08-24 15:45 | PDOC.CMPRO ---
- If Service Date Differs Date of service: 08/24/20 (N) Time of Service: 15:45 Care Management Progress Note S/O: Marcella was sitting up in a chair with her head in her hands when CM met with her. She admitted that she was not feeling well at all. She stated that she had been very nauseated during the night and now had a terrible burning feeling in her stomach. Information relayed to nurse for possible PRN. Marcella was polite but disinclined to converse at this time. A: Marcella is a 44 year old woman admitted on 08/22/20 with Dysphagia and hypokalemia P: Marcella continues to be monitored. If she is not improving MD may contact her surgeon at [facility], which may result in a transfer, if indicated. Transportation to be determined by disposition. Once ready for discharge, she will return home. She will follow up with her PCP and her discharge plan of care. CM will continue to follow.
[2020-08-24 15:47] VITALS: BP 124/79; PULSE 63; RESP 18; TEMP 37; O2SAT 97
--- NOTE | 2020-08-24 15:51 | W.PM.PROGNOT ---
Date of Service Date of service: 08/24/20 Time of Service: 13:10 Assessment and Plan Assessment and plan (1) Stricture esophagus: Status: Chronic Assessment and plan: S/P esophageal dilatation on 08/04/2020. Spoke with GI fellow Dr Mccain at [facility]. If adequate po intake of fluids isn't acheived then will discuss patients situation again. They would be hesitant to re-dilate since this was just recently performed. Cont PPI for c/o reflux that could be an exacerbating factor. IV hydration with encouragement to drink and then advance diet as tolerated. (2) UTI (urinary tract infection): Status: Acute Assessment and plan: Preliminary culture results show E. Coli, a gram negative vincent #2 yet to be identified and gram positive mariam growing. Cont Rocephin until final cx results dictate otherwise. Qualifiers: Urinary tract infection type: site unspecified Hematuria presence: without hematuria Qualified Code(s): N39.0 - Urinary tract infection, site not specified (3) Hypokalemia: Status: Resolved Assessment and plan: K now 3.4. Cont D51/2NS with K. Subjective Subjective Patient reports: voiding w/o difficulty, nausea, vomiting (dry heaves overnight; none today) and afebrile; denies shortness of breath Interval history since last seen: Continues to have difficulty swallowing; drinking liquids only. + reflux. Exam Const General: cooperative and uncomfortable Nutritional Appearance: thin Orientation: alert and oriented x3 Resp Effort & Inspection: normal respiratory effort Auscultation: clear to auscultation bilaterally Cardio Rate: regular rate Rhythm: regular rhythm Heart Sounds: S1 normal and S2 normal GI Inspection: normal to inspection Palpation: soft and tender in the epigastrum; with no rebound tenderness Extrem General: no pedal edema and no calf tenderness Objective Last Vital Signs Temp 37.0 C 08/24/20 15:47 Pulse 63 08/24/20 15:47 Resp 18 08/24/20 15:47 BP 124/79 08/24/20 15:47 Pulse Ox 97 08/24/20 15:47 Laboratory Results - last 24 hr 08/22/20 08/24/20 21:10 06:50 Sodium 134 L Potassium 3.6 Chloride 99 Carbon Dioxide 25.2 Anion Gap 9.8 BUN 3 L Creatinine 0.7 Estimated GFR/1.73 m2 >= 60.00 Glucose 93 Calcium 8.9 SARS-CoV-2 (PCR) Negative Nasopharyn COVID-19 PCR Not Applicable Ref Test Perform Site [facility]
--- NOTE | 2020-08-24 16:10 | PHA.REVIEW ---
Pharmacy Admission Review - Admission Clinical Review (Last Reviewed 08/22/20 @ 21:15 by Patel Oden) Emesis, persistent (Acute) UTI (urinary tract infection) (Acute) Esophagitis with gastritis (Acute) Discharge planning issues (Acute) DVT prophylaxis (Acute) adhesive tape Allergy (Unverified 08/22/20 18:42) Skin Rash prochlorperazine [From Compazine] Allergy (Unverified 08/22/20 18:42) Height 5 ft 6.14 in Weight 58.1 kg - Renal Dosing Renal Dosing: BUN 3 mg/dL (7-18) L 08/24/20 06:50 Creatinine 0.7 mg/dL (0.55-1.02) 08/24/20 06:50 Medications needing adjustments: Reviewed (Crcl ~84 mL/min current meds okay) - Anticoagulation Anticoagulation: Hgb 11.0 g/dL (11.2-15.7) L 08/23/20 06:36 Hct 32.1 % (36.0-46.0) L 08/23/20 06:36 Plt Count 264 10^3/uL (130-400) 08/23/20 06:36 Creatinine 0.7 mg/dL (0.55-1.02) 08/24/20 06:50 DVT Prohphylaxis: Reviewed Medications: Heparin Therapeutic Anticoagulation: N/A - Opiate Usage Evaluate Pain Scale/Pains Meds: N/A - Relevant Labs Sodium 134 mmol/L (136-145) L 08/24/20 06:50 Potassium 3.6 mmol/L (3.5-5.1) 08/24/20 06:50 Chloride 99 mmol/L (98-107) 08/24/20 06:50 Magnesium 1.9 mg/dL (1.8-2.4) 08/23/20 06:36 Electrolytes, C-Reactive P, ESR: Reviewed - DM Control DM Control: Glucose 93 mg/dL (74-106) 08/24/20 06:50 Insulin Dosing: N/A - Heart Failure/WV EF%, KOSTAS's, B-Blockers, Diuretics: N/A - BP Control BP Control: Blood Pressure 124/79 Blood Pressure 117/72 Blood Pressure 126/82 If elevated: N/A - Qtc Review If Elevated: Reviewed (QTc on admission was 521 promethazine and ondansetron were discontinued) - IV to PO Switch IV Medications: Reviewed - Home Meds Home Med List reviewed: Reviewed Relevent Home Meds Not ordered & why?: ondansetron (PRN/QT/has other antiemetic ordererd) - Current meds Current Medication Order Review: Intervened (changed ceftriaxone from premix to admix as premixes are on back order.) - Comments Comments/Follow Ups: Watch VS, labs, for culture results and for med changes. Antibiotic Activity - Pharmacy Antibiotic Review Pharmacy Antibiotic Activity: C/S review (Urine culture growing E.coli, gram negative rods and gram positive mariam. Ceftriaxone continues (day 2 starts tonight) for UTI.)
[2020-08-24] MEDS: Normal Saline Flush 10 ML SYR IVP (17:18)
[2020-08-24] MEDS: Metoclopramide 10 MG/2 ML VIAL IVP (17:18)
[2020-08-24 20:21] VITALS: BP 94/69; PULSE 88; RESP 18; TEMP 37.2; O2SAT 97
[2020-08-25 00:17] VITALS: BP 96/68; PULSE 86; RESP 18; TEMP 36.6; O2SAT 97
[2020-08-25] MEDS: POTASSIUM CHLORIDE/D5-0.45NACL 1,000 ML 100 MEQ IV ×2 (00:28→10:27)
[2020-08-25] MEDS: Heparin 5,000 UNITS/ML VIAL 5000 UNITS SC (06:38)
[2020-08-25 06:55] LABS: HCT 42.6 % (36.0-46.0); HGB 14.4 g/dL (11.2-15.7); MCH 30.7 pg (27.0-33.0); MCHC 33.8 % (32.0-36.0); MCV 90.8 fL (80-95); MPV 9.4 fL (8.0-11.0); Platelet Count 298 10^3/uL (130-400); RBC 4.69 10^6/uL (3.93-5.22); RDW-SD 39.8 fL; WBC 6.54 10^3/uL (4.4-10.8)
[2020-08-25 07:06] LABS: Anion Gap 11.9 mmol/L (3-11); BUN 3 mg/dL (7-18); CO2 25.1 mmol/L (21.0-32.0); CREATININE 0.7 mg/dL (0.55-1.02); Calcium 9.6 mg/dL (8.5-10.1); Chloride 98 mmol/L (98-107); Glucose 107 mg/dL (74-106); Potassium 3.2 mmol/L (3.5-5.1); Sodium 135 mmol/L (136-145)
[2020-08-25 07:23] VITALS: BP 111/72; PULSE 76; RESP 16; TEMP 36.6; O2SAT 98
[2020-08-25] MEDS: Pantoprazole 40 MG VIAL IVP (09:52)
[2020-08-25] MEDS: Sertraline 50 MG TAB PO (09:54)
[2020-08-25] MEDS: Normal Saline 50 ML 200 ML (09:55)
[2020-08-25 11:11] VITALS: BP 117/75; PULSE 92; RESP 20; TEMP 36.9; O2SAT 100
--- NOTE | 2020-08-25 13:58 | DSE_ITS ---
Date of service: 08/25/20 Time of Service: 13:58 DS: Diagnosis Discharge Diagnosis (1) Stricture esophagus: Status: Chronic (2) UTI (urinary tract infection): Status: Acute (3) Hypokalemia: Status: Resolved Discharge Plan Disposition Patient Disposition: HOME Condition: Good Discharge Details Reason For Visit: DYSPHAGIA, HYPOKALEMIA Admit Date/Time: 08/25/20 08:04 Admit Provider: Patel Oden Attending Provider: Patel Oden Primary Care Provider: Karri Ceballos [facility] Course: This is a 44-year-old female who has had a history of problems swallowing since she was a teenager and child who presented to the ED after esophageal dilatation for stricture August 04, 2020. 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 She did have a myotomy of paraesophageal sphincter when she was in her 20s and since then has had multiple procedures for her GI motility. These include Niesen fundoplication/Heller myotomy in 2003 and multiple esophageal dilatations. After this most recent dilatation the patient did have black tarry stools which were evaluated in the ED and found not to have blood. She has not had ability to swallow food with only minimal amount of food over the last couple of days. She presented to the ED with the symptoms and also was found to have a UTI. She states that she often has flashes of chills and then sweats but no fever which she is presently having. She was found to have a UTI was given a dose of Rocephin. She also was put on bowel rest with clear fluids as tolerated and will be observed overnight with [facility] to be called in the morning if she is not improving. Since this was a recent procedure they may want to reevaluate her. There is no evidence of esophageal perforation and she was dilated up to 30 mm without difficulty. She does have a history of also joint hypermobility and rolling her joints with sprains frequently as she was growing up. This has prompted the thought process for EDS evaluation in the near future. There is no specific treatment for this problem but management may be more focused. Patient denies hematemesis though she did have melena. She denies any diarrhea or dysuria. She has had decreased intake and decreased output. She denies fever. She was found to have hypomagnesemia and hypokalemia in the ED with these being replaced with IV fluids. With GI rest and then the addition of Reglan prn, she was then able to tolerate intake of clear liquids, then full liquids. She felt she had returned to her baseline. She will resume her usual diet; she avoids most meats, bread and other items that tend to be difficult to swallow. She also drinks significant amounts of fluids with meals. Her urine grew leyva-sensitive E.Coli. She will d/c with a 3 day course of Bactrim DS. F/U with PCP in 1-2 weeks. Home Meds and New Rx's Prescriptions: New metoclopramide HCl [Reglan] 5 mg tablet 5 mg PO Q6H PRN PRNQty: 30 RF: 0 sulfamethoxazole-trimethoprim [Bactrim DS] 800-160 mg tablet 1 tab PO BID Qty: 6 RF: 0 Continued sertraline 50 mg tablet 50 mg PO DAILY RF: 0 ondansetron HCl 4 mg tablet 4 mg PO .Q4-6 HRS PRNRF: 0 potassium chloride [Klor-Con M10] 10 mEq tablet,ER particles/crystals 10 meq PO DAILY RF: 0 pantoprazole 40 mg tablet,delayed release (DR/EC) 40 mg PO DAILY RF: 0 lorazepam 1 mg tablet 1 mg PO TID PRNQty: 10 RF: 0 Discharge Instructions Instructions: Connective Tissue Disorders (GEN) Activity:: Activity as Tolerated Equipment/Supplies:: No Equipment Needed Diet:: As Tolerated Discharge Orders Discharge Orders: Discharge Order (Routine); Ordered 08/25/20 Ordered By: Julio Jean DS: Summary Time Spent with Patient providing and/or coordinating discharge services: Greater than 30 minutes Status at Discharge Functional status at discharge: independent ambulation Overall status at discharge: patient is back to baseline Mental Status: mental status grossly normal Speech and Movement: speech and movement normal Mood: congruent mood Affect: normal affect Exam Const General: cooperative and no acute distress Nutritional Appearance: thin Orientation: alert and oriented x3 Resp Effort & Inspection: normal respiratory effort Auscultation: clear to auscultation bilaterally Cardio Rate: regular rate Rhythm: regular rhythm Heart Sounds: S1 normal and S2 normal GI Palpation: soft and nontender Skin General skin exam: no rashes or lesions noted Extrem General: no pedal edema Psych Mental Status: mental status grossly normal Speech and Movement: speech and movement normal Mood: congruent mood Affect: normal affect DS: Data Vitals/I&O Vitals and I&O: Vital Signs Temperature 36.9 C 08/25/20 11:11 Temperature Source Tympanic 08/25/20 11:11 Pulse 92 H 08/25/20 11:11 Pulse Rhythm Regular 08/25/20 10:23 Respiratory Rate 20 08/25/20 11:11 Respiratory Effort Non-Labored 08/25/20 10:23 Respiratory Depth Normal 08/25/20 10:23 Respiratory Pattern Normal 08/25/20 10:23 Blood Pressure 117/75 08/25/20 11:11 Blood Pressure Position Sitting 08/22/20 18:34 Pulse Oximetry 100 08/25/20 11:11 Oxygen Delivery Method Room Air 08/25/20 11:11 Oxygen Flow Rate 0 08/25/20 11:11 Pain Level 0 08/25/20 11:11 Intake & Output 08/24/20 08/25/20 08/25/20 23:59 11:59 23:59 Intake Total 2896.667 / 5129.167 1885.000 / 2005.000 120 / 2005.000 Output Total 950 / 2500 700 / 700 Balance 1946.667 / 2629.167 1185.000 / 1305.000 120 / 1305.000 Weight 58.8 kg Intake: IV 2036.667 / 3909.167 1245.000 / 1245.000 Oral 860 / 1220 640 / 760 120 / 760 Output: Urine 950 / 2500 700 / 700 Other: Urine Color Yellow Light Leatha Light Leatha Urine Appearance Clear Clear Urine Odor Normal Comment mixed with stool, color unknown Stool Size Small Moderate Stool Characteristics Liquid Liquid Voiding Methods Bedside Commode Toilet Data Completed and Pending Labs on day of discharge: Labs from last 24 hours 08/25/20 08/25/20 06:31 06:31 WBC 6.54 RBC 4.69 Hgb 14.4 D Hct 42.6 D MCV 90.8 MCH 30.7 MCHC 33.8 RDW 12.0 Plt Count 298 MPV 9.4 Sodium 135 L Potassium 3.2 L Chloride 98 Carbon Dioxide 25.1 Anion Gap 11.9 H BUN 3 L Creatinine 0.7 Estimated GFR/1.73 m2 >= 60.00 Glucose 107 H Calcium 9.6 PFSH Medical History Achalasia of esophagus Complication of surgery Gastroesophageal reflux disease GERD without esophagitis history of reentrant SVT Pacemaker Smoker unmotivated to quit Surgical History section x3 Esophageal Myotomy Fundoplication Hx of esophagogastroduodenoscopy Ligation of fallopian tube Pacemaker Biventricular pacemaker Family History Aunt Personal history of malignant neoplasm Breast cancer Social History Smoking/Tobacco Use Status: Current every day Tobacco Type: cigarettes Smoking risk assessment performed?: Yes Alcohol Intake: current Alcohol Intake frequency: holidays/special occasions only Drug use: Daily Substance use type: marijuana 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
--- NOTE | 2020-08-25 15:46 | PDOC.CMDIS ---
- If Service Date Differs Date of service: 08/25/20 Time of Service: 15:46 LACE Index Scoring Tool - Questions: Length of Stay (in days): 4 - 6 Acuity (Admit via E.D.?): Yes E.D. Visits: 5 - Answers: Total Score: 11 Risk of Readmission: High Risk Care Management Discharge Reason for Hospitalization: Dysphagia, Hypokalemia Discharge Plan: Marcella will return home with no additional services at this time. She will be driven home via private vehicle by family. She will follow up with her PCP and discharge plan of care. She is happy to be going home. Patient/Family Education Needs: Review discharge instructions regarding activity and medications, discussion of self care needs including ask me three.
== END 2020-08-25 15:40 | disposition home or self-care (01) | DRG 392 ==
LOC: ER 21:18 → MS 22:09
PROVIDERS: Family Medicine; Admitting Provider Family Medicine; Emergency Provider Emergency Medicine; PCP Family Medicine; Visit Provider Family Medicine
DX: K22.0 Achalasia of cardia (principal); N39.0 Urinary tract infection, site not specified; E87.6 Hypokalemia; K21.9 Gastro-esophageal reflux disease without esophagitis; F17.210 Nicotine dependence, cigarettes, uncomplicated; Z95.0 Presence of cardiac pacemaker; R11.15 Cyclical vomiting syndrome unrelated to migraine; B96.20 Unspecified Escherichia coli [E. coli] as the cause of diseases classified elsewhere
CPT/HCPCS: 36415; 80048; 80053; 83690; 85027; 87077; 90686; 93005; 96361; 96365; 96375; 99220; 99232; 99239; 99285; U0003; 74022; 81003; 81015; 83735; 85025; 87086; 87186; 93010; J0696; J1644; J2060; J2405; J2765; J3475

== ENCOUNTER 2020-10-18 09:06 | Observation (INO) | payer MEDICAID, SELFPAY ==
[2020-10-18] VITALS (43 sets, daily range): BP systolic 98–136; BP diastolic 56–90; PULSE 73–109; RESP 8–23; TEMP 36.3–37.1; O2SAT 95–100
[2020-10-18] MEDS: Normal Saline Flush 10 ML SYR IVP ×5 (09:20→21:23)
--- NOTE | 2020-10-18 09:45 | DI.RAD_ITS ---
EXAM: XR CHEST 2V PA LATERAL CLINICAL HISTORY: epigastric pain. TECHNIQUE: 2D digital imaging was performed. COMPARISON: CR,XR XR ABD FLAT UPRIGHT PA CHEST from 08/22/2020 FINDINGS: There is a bipolar left subclavian pacemaker lead tips in are in RV, unchanged. Heart size is unchan ged. The mediastinum is not widened. Pectus excavatum is again noted. Lungs are clear. No infiltrates nor pleural effusions. No evidence of pulmonary edema. IMPRESSION: No acute pulmonary findings.Cardiac pacemaker again noted. No pulmonary edema. No pleural effusions . Sign rib DATA REPOSITORY: RADIATION DOSE DELIVERED:
[2020-10-18 10:00] LABS: Abs Immature Grans 0.05 10^3/uL (0.0-0.06); Absolute Basophil Count 0.02 10^3/uL (0.0-0.2); Absolute Eosinophil Count 0.01 10^3/uL (0.0-0.7); Absolute Lymphocyte Count 2.31 10^3/uL (1.2-3.4); Absolute Monocyte Count 0.92 10^3/uL (0.1-0.8); Absolute Neutrophil Count 7.06 10^3/uL (1.2-6.7); Basophils % 0.2; Eosinophils % 0.1; HCT 40.2 % (36.0-46.0); HGB 13.4 g/dL (11.2-15.7); Immature Grans % 0.5; Lymphocytes % 22.3; MCH 30.5 pg (27.0-33.0); MCHC 33.3 % (32.0-36.0); MCV 91.6 fL (80-95); MPV 9.9 fL (8.0-11.0); Monocytes % 8.9; Nucleated RBC 0 %; Platelet Count 341 10^3/uL (130-400); RBC 4.39 10^6/uL (3.93-5.22); RDW 13.2 % (11.7-14.6); RDW-SD 45.1 fL; WBC 10.37 10^3/uL (4.4-10.8)
[2020-10-18] MEDS: Normal Saline 1,000 ML 1000 ML IV ×2 (10:00→13:02)
--- NOTE | 2020-10-18 10:02 | W.ED.GENAD ---
Discharge Plan Discharge Details Chief Complaint: Nausea/Vomit/Diar Primary Care Provider: Karri Ceballos ED Provider: Maggy Benoit Home Meds and New Rx's Prescriptions: No Action sertraline 50 mg tablet 50 mg PO DAILY RF: 0 ondansetron HCl 4 mg tablet 4 mg PO .Q4-6 HRS PRNRF: 0 potassium chloride [Klor-Con M10] 10 mEq tablet,ER particles/crystals 10 meq PO DAILY RF: 0 fluoxetine 10 mg capsule 10 mg PO DAILY RF: 0 mirtazapine 7.5 mg tablet 7.5 mg PO HS RF: 0 pantoprazole 40 mg tablet,delayed release (DR/EC) 40 mg PO DAILY RF: 0 metoclopramide HCl [Reglan] 5 mg tablet 5 mg PO Q6H PRN PRNQty: 30 RF: 0 Medical Decision Making Patient is alert, oriented, of decisional capacity She is hypokalemic, 2.6 and persistently nauseous She is unable to tolerate p.o. and I feel uncomfortable sending her home with some concern regarding potassium supplementation EKG does not show acute pathology -Telemetry monitoring Mild anion gap elevation Magnesium stable Chest x-ray does not show evidence of free air Abdomen mildly tender in the epigastrium, no indication for additional CT imaging at this time Unable to tolerate p.o. potassium, given 10 mEq in the emergency room and 20 additional ordered pending admission, given Pepcid 1 L of normal saline Magnesium stable Case discussed with Dr. Dutta, agreeable to admitting patient Differential Diagnosis Differential Diagnosis: Electrolyte abnormality, esophagitis, perforated ulcer, dehydration Medical Records Medical records reviewed: Yes I reviewed the patient's medical records. HPI 45-year-old female with history of esophageal stricture with history of Iftikhar fundoplication, atypical chest pain, hyperkalemia, pacemaker, history of reentrant SVT, GERD who presents for reevaluation of epigastric discomfort with nausea and vomiting. Patient states she had a beer on and on Sunday developed heartburn which precipitated nausea and vomiting. She denies any diarrhea. She denies any current chest pain or shortness of breath. She denies any fever or chills. Denies any chance of . Denies any blood in vomitus. Denies any known sick contacts. States this presentation is similar to her prior. General Date/Time Provider Initiated Documentation: 10/18/20 09:20. Related Data Home Medications Medication Instructions Recorded Confirmed ondansetron HCl 4 mg PO .Q4-6 HRS PRN 08/03/20 10/18/20 potassium chloride [Klor-Con M10] 10 meq PO DAILY 08/03/20 10/18/20 sertraline 50 mg PO DAILY 08/03/20 10/18/20 pantoprazole 40 mg PO DAILY 08/09/20 10/18/20 metoclopramide HCl [Reglan] 5 mg PO Q6H PRN PRN #30 tab 08/25/20 10/18/20 fluoxetine 10 mg PO DAILY 10/18/20 10/18/20 mirtazapine 7.5 mg PO HS 10/18/20 10/18/20 Previous Rx's Medication Instructions Recorded metoclopramide HCl [Reglan] 5 mg PO Q6H PRN PRN #30 tab 08/25/20 Allergies Allergy/AdvReac Type Severity Reaction Status Date / Time adhesive tape Allergy Skin Rash Unverified 10/18/20 09:13 prochlorperazine Allergy Unverified 10/18/20 09:13 [From Compazine] General Stated Complaint: Nausea/Vomit/Diar CARL: 3 Review of Systems Narrative: Review of systems obtained x7 aside from where indicated in HPI PFSH Medical History Achalasia of esophagus Complication of surgery Gastroesophageal reflux disease GERD without esophagitis history of reentrant SVT Pacemaker Smoker unmotivated to quit Surgical History section x3 Esophageal Myotomy Fundoplication Hx of esophagogastroduodenoscopy Ligation of fallopian tube Pacemaker Biventricular pacemaker Family History Aunt Personal history of malignant neoplasm Breast cancer Social History Smoking/Tobacco Use Status: Current every day Tobacco Type: cigarettes Smoking risk assessment performed?: Yes Alcohol Intake: current Alcohol Intake frequency: holidays/special occasions only Drug use: Daily Substance use type: marijuana 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 Current gender identity: female Do you feel safe at home: Yes Do you feel safe in your relationship?: Yes Exam Const General: cooperative, well developed and not in acute distress [facility] Face and sinus: No dry mucous membranes Chest Chest: normal inspection of the chest Resp Effort & Inspection: normal respiratory effort Auscultation: clear to auscultation bilaterally Cardio Rate: regular rate Rhythm: regular rhythm GI Inspection: normal to inspection Other: No palpable abdominal tenderness Skin General skin exam: no rashes or lesions noted Neuro General: patient alert and patient oriented x3 Course Vital Signs Vital signs: Vital Signs Temperature 36.6 C 10/18/20 09:10 Pulse 109 H 10/18/20 09:10 Respiratory Rate 16 10/18/20 09:10 Blood Pressure 108/82 10/18/20 09:10 Pulse Oximetry 100 10/18/20 09:10 Temperature 36.6 C 10/18/20 09:10 Temperature Source Skin 10/18/20 09:10 Pulse 109 H 10/18/20 09:10 Respiratory Rate 16 10/18/20 09:10 Respiratory Effort 10/18/20 09:15 Blood Pressure 108/82 10/18/20 09:10 Blood Pressure Position Sitting 10/18/20 09:10 Pulse Oximetry 100 10/18/20 09:10 Oxygen Delivery Method Room Air 10/18/20 09:10 Oxygen Flow Rate 0 10/18/20 09:10 Pain Level 3 10/18/20 09:10 Lab/Test Results Lab/Test Results: Laboratory Tests Range/Units 10/18/20 09:20 WBC (4.4-10.8) 10^3/uL 10.37 RBC (3.93-5.22) 10^6/uL 4.39 Hgb (11.2-15.7) g/dL 13.4 Hct (36.0-46.0) % 40.2 MCV (80-95) fL 91.6 MCH (27.0-33.0) pg 30.5 MCHC (32.0-36.0) % 33.3 RDW (11.7-14.6) % 13.2 Plt Count (130-400) 10^3/uL 341 MPV (8.0-11.0) fL 9.9 Immature Gran % 0.5 Neutrophils % 68.0 Lymphocytes % 22.3 Monocytes % 8.9 Eosinophils % 0.1 Basophils % 0.2 Nucleated RBC % % 0 Absolute Neutrophils (1.2-6.7) 10^3/uL 7.06 H Absolute Lymphocytes (1.2-3.4) 10^3/uL 2.31 Absolute Monocytes (0.1-0.8) 10^3/uL 0.92 H Absolute Eosinophils (0.0-0.7) 10^3/uL 0.01 Absolute Basophils (0.0-0.2) 10^3/uL 0.02 Critical Care Time Critical Care Time Critical Care Time: Yes Total Critical Care Time: 35 Attestation: -Telemetry monitoring, IV potassium, 10 mEq supplementation, admission, and hospitalist consultation
[2020-10-18] MEDS: Ondansetron 4 MG/2 ML VIAL IVP ×3 (10:04→21:22)
[2020-10-18] MEDS: FAMOTIDINE 20 MG/50 ML BAG 200 MG IVPB (10:04)
[2020-10-18 10:09] LABS: Lipase 104 U/L (73-393)
--- NOTE | 2020-10-18 10:15 | RT.EKG_ITS ---
APPROVED REPORT Exam: Resting ECG Patient Location: E HR:79 bpm ECG Measurements Heart Rate 79 AXIS TN 163 P 0 QRSd 142 QRS 263 QT 421 T 131 QTc 484 Conclusion Atrial-sensed ventricular-paced rhythm...ventricular pacing tracks p-waves does not meet sgarbossa criteria, non-diagnostic EKG I have reviewed and interpreted ECG and agree with software generated interpretation.
[2020-10-18 10:16] LABS: ALT 33 U/L (14-59); AST 19 U/L (15-37); Albumin 4.3 g/dL (3.4-5.0); Alkaline Phosphatase 77 U/L (46-116); Anion Gap 14.1 mmol/L (3-11); BUN 11 mg/dL (7-18); Bilirubin, Total 0.6 mg/dL (0.2-1.0); CO2 26.9 mmol/L (21.0-32.0); CREATININE 0.9 mg/dL (0.55-1.02); Calcium 9.7 mg/dL (8.5-10.1); Chloride 96 mmol/L (98-107); Glucose 111 mg/dL (74-106); Magnesium 1.8 mg/dL (1.8-2.4); Sodium 137 mmol/L (136-145); Total Protein 8.6 g/dL (6.4-8.2)
[2020-10-18 10:17] LABS: Potassium 2.6 mmol/L (3.5-5.1); Troponin I < 0.05 ng/mL (<0.06)
[2020-10-18] MEDS: POTASSIUM CHLORIDE 10 MEQ/100 ML BAG 100 MEQ IVPB (10:25)
[2020-10-18] MEDS: diphenhydrAMINE 50 MG/ML VIAL 25 MG IVP ×2 (11:57→16:11)
[2020-10-18] MEDS: Metoclopramide 10 MG/2 ML VIAL IVP (12:02)
--- NOTE | 2020-10-18 12:44 | W.PM.HP.N ---
Date of service: 10/18/20 Time of Service: 12:44 Assessment and Plan Assessment and plan (1) Emesis, persistent: Status: Acute Assessment and plan: I suspect this is hyperemesis secondary to cannabis use. However she has known history of GERD with esophagitis and esophageal strictures requiring periodic dilatation. I will increase her Protonix to 40 mg twice a day and add Carafate. We will keep her n.p.o. until her nausea and vomiting resolved. Reglan was ordered but given her history of esophageal strictures think this would be a contraindication. We will use Zofran and Phenergan as needed for nausea along with Benadryl. She may benefit from Haldol as well. As her hypokalemia is been corrected I will take her off telemetry and she can have hot baths which may help with her nausea as well. (2) GERD without esophagitis: Status: Acute Assessment and plan: Increase Protonix to 40 mg IV every 12 hours and add Carafate. We will keep n.p.o. except for meds with sips of water and ice chips. For nausea and vomiting resolved overnight we can try her on clear liquids and advance as tolerated. (3) Hypokalemia: Status: Resolved Assessment and plan: resolved w/ replacement. History of Present Illness History of Present Illness Chief Complaint: nausea and vomiting Narrative: 5-year-old female chronic marijuana smoker has a history of Dina-Danlos syndrome and GERD who has had previous Iftikhar's fundoplication as well as prior Heller myotomy. She presented emergency department with complaints of protracted nausea vomiting and diarrhea. Symptoms began on Sunday which was 2 days ago. There is been no hematochezia no melena and no hematemesis. Vomiting has been bilious. She tried treating this with Protonix in the antiacids Zofran. She feels that she had excess acid in her stomach and she was belching up waterbrash beginning on Sunday and then went into protracted episodes of vomiting. She estimates she has vomited about 4-5 times each day. She was evaluated emergency department with routine labs including a CBC that was normal as well as a CMP and lipase. Lipase was normal troponin was normal LFTs were normal BUN and creatinine were normal but her potassium was low at 2.6. Nasopharyngeal swab is been obtained for SARS-CoV-2 and is pending. Patient does not feel that her hyperemesis is secondary to her marijuana use although she admits to regular use of marijuana on a daily basis. Last episode of protracted nausea and vomiting was in July. Back in July she saw her clinical nursing assistant Dr. Toribio who performed the EGD and esophageal dilatation for esophageal stenosis. She was treated the emergency department with IV Reglan, Benadryl, Zofran and Pepcid and given a bolus of saline. Patient is now admitted for observation for treatment of protracted nausea and vomiting. Review of Systems All systems reviewed & are unremarkable except as noted in HPI and below Constitutional Constitutional: Denies chills and Denies fever(s) Cardiovascular Cardiovascular: Reports system reviewed and no additional complaints, except as documented Respiratory Respiratory: Reports system reviewed and no additional complaints, except as documented Gastrointestinal Gastrointestinal: Reports as per HPI PFSH Medical History Achalasia of esophagus Complication of surgery Gastroesophageal reflux disease GERD without esophagitis history of reentrant SVT Pacemaker Smoker unmotivated to quit Surgical History section x3 Esophageal Myotomy Fundoplication Hx of esophagogastroduodenoscopy Ligation of fallopian tube Pacemaker Biventricular pacemaker Family History Aunt Personal history of malignant neoplasm Breast cancer Social History Smoking/Tobacco Use Status: Current every day Tobacco Type: cigarettes Smoking risk assessment performed?: Yes Alcohol Intake: current Alcohol Intake frequency: holidays/special occasions only Drug use: Daily Substance use type: marijuana 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 Current gender identity: female Do you feel safe at home: Yes Do you feel safe in your relationship?: Yes Meds Home Medications and Allergies Allergies Allergy/AdvReac Type Severity Reaction Status Date / Time adhesive tape Allergy Skin Rash Unverified 10/18/20 09:13 prochlorperazine Allergy Unverified 10/18/20 09:13 [From Compazine] Home Medications Medication Instructions Recorded Confirmed Type ondansetron HCl 4 mg PO .Q4-6 HRS PRN 08/03/20 10/18/20 History potassium chloride [Klor-Con M10] 10 meq PO DAILY 08/03/20 10/18/20 History sertraline 50 mg PO DAILY 08/03/20 10/18/20 History pantoprazole 40 mg PO DAILY 08/09/20 10/18/20 History metoclopramide HCl [Reglan] 5 mg PO Q6H PRN PRN #30 tab 08/25/20 10/18/20 Rx fluoxetine 10 mg PO DAILY 10/18/20 10/18/20 History mirtazapine 7.5 mg PO HS 10/18/20 10/18/20 History Exam Narrative Exam Narrative: Middle-age right-handed female who appears ill and dehydrated. She has dry mucous membranes. Neck is supple nontender lungs are clear to auscultation heart regular rate and rhythm abdomen soft with some mild epigastric tenderness but no guarding or rebound tenderness and no organomegaly no bruits. Extremities without peripheral edema. Neuro exam grossly intact no focal deficits. Results Labs Result diagrams: 10/18/20 09:20 10/18/20 16:10 Labs: Laboratory Results - last 24 hr 10/18/20 10/18/20 10/18/20 09:20 09:20 09:20 WBC 10.37 RBC 4.39 Hgb 13.4 Hct 40.2 MCV 91.6 MCH 30.5 MCHC 33.3 RDW 13.2 Plt Count 341 MPV 9.9 Immature Gran % 0.5 Neutrophils % 68.0 Lymphocytes % 22.3 Monocytes % 8.9 Eosinophils % 0.1 Basophils % 0.2 Nucleated RBC % 0 Absolute Neutrophils 7.06 H Absolute Lymphocytes 2.31 Absolute Monocytes 0.92 H Absolute Eosinophils 0.01 Absolute Basophils 0.02 Sodium 137 Potassium 2.6 L* Chloride 96 L Carbon Dioxide 26.9 Anion Gap 14.1 H BUN 11 Creatinine 0.9 Estimated GFR/1.73 m2 >= 60.00 Glucose 111 H Calcium 9.7 Magnesium 1.8 Total Bilirubin 0.6 AST 19 ALT 33 Alkaline Phosphatase 77 Troponin I < 0.05 Total Protein 8.6 H Albumin 4.3 Lipase 104 10/18/20 09:20 WBC RBC Hgb Hct MCV MCH MCHC RDW Plt Count MPV Immature Gran % Neutrophils % Lymphocytes % Monocytes % Eosinophils % Basophils % Nucleated RBC % Absolute Neutrophils Absolute Lymphocytes Absolute Monocytes Absolute Eosinophils Absolute Basophils Sodium Potassium Chloride Carbon Dioxide Anion Gap BUN Creatinine Estimated GFR/1.73 m2 Glucose Calcium Magnesium Total Bilirubin AST ALT Alkaline Phosphatase Troponin I Cancelled Total Protein Albumin Lipase Last Vital Signs Temp 36.6 C 10/18/20 09:10 Pulse 84 10/18/20 11:30 Resp 18 10/18/20 11:31 BP 102/73 10/18/20 11:30 Pulse Ox 100 10/18/20 11:31 COVID-19 Screening Have you, or household traveled for leisure in last 14 days?: No Had IN PERSON contact w/suspected or confirmed C-19 person: No
[2020-10-18] MEDS: POTASSIUM CHLORIDE 20 MEQ/100 ML BAG 50 MEQ IVPB ×2 (13:06→14:54)
[2020-10-18] MEDS: Dexamethasone 4 MG/ML VIAL IVP (13:48)
[2020-10-18] MEDS: Pantoprazole 40 MG VIAL IVP (16:11)
[2020-10-18] MEDS: Enoxaparin 40 MG/0.4 ML SYR SC (16:11)
[2020-10-18 16:36] LABS: Potassium 3.7 mmol/L (3.5-5.1)
[2020-10-18] MEDS: POTASSIUM CHLORIDE/0.9% NACL 1,000 ML 150 MEQ IV (17:59)
[2020-10-18] MEDS: Sucralfate 1 GM TAB PO (20:14)
[2020-10-18 21:57] LABS: COVID-19 PCR Negative (Negative)
[2020-10-19] MEDS: diphenhydrAMINE 50 MG/ML VIAL 25 MG IVP ×3 (00:06→12:40)
[2020-10-19] MEDS: POTASSIUM CHLORIDE/0.9% NACL 1,000 ML 150 MEQ IV ×3 (00:06→17:49)
[2020-10-19] MEDS: Ondansetron 4 MG/2 ML VIAL IVP ×2 (01:41→06:39)
[2020-10-19] MEDS: Normal Saline Flush 10 ML SYR IVP ×4 (01:42→12:41)
[2020-10-19 03:20] VITALS: BP 149/94; PULSE 92; RESP 20; TEMP 37.1; O2SAT 99
[2020-10-19 06:53] LABS: Anion Gap 11.7 mmol/L (3-11); BUN 7 mg/dL (7-18); CO2 23.3 mmol/L (21.0-32.0); CREATININE 0.8 mg/dL (0.55-1.02); Calcium 8.5 mg/dL (8.5-10.1); Chloride 104 mmol/L (98-107); Glucose 116 mg/dL (74-106); Magnesium 1.6 mg/dL (1.8-2.4); Potassium 3.3 mmol/L (3.5-5.1); Sodium 139 mmol/L (136-145)
[2020-10-19 07:15] VITALS: BP 133/86; PULSE 90; RESP 13; TEMP 37; O2SAT 98
[2020-10-19] MEDS: Pantoprazole 40 MG VIAL IVP ×2 (08:42→20:29)
--- NOTE | 2020-10-19 09:13 | PDOC.CMIN ---
- If Service Date Differs Date of service: 10/19/20 Time of Service: 09:13 Care Management Initial Assess REASON FOR HOSPITALIZATION:: persistent emesis PAST MEDICAL HISTORY/PAST SURGICAL HISTORY:: Medical History. Achalasia of esophagus. Complication of surgery. Gastroesophageal reflux disease. GERD without esophagitis. history of reentrant SVT. Pacemaker. Smoker unmotivated to quit. Surgical History . section. x3. Esophageal Myotomy. Fundoplication. Hx of esophagogastroduodenoscopy. Ligation of fallopian tube. Pacemaker. Biventricular pacemaker PREVIOUS FUNCTIONAL STATUS/SOCIAL/FAMILY SUPPORTS:: Marcella lives in [place] with her fiance and her twin sixteen year old girls. 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 Marcella has many friends who are also supportive. She is independent at baseline. CURRENT FUNCTIONAL STATUS:: Marcella was sitting up in bed when CM met with her. Initially she seemed reluctant to engage in conversation but after a couple of minutes began discussing her medical issues and history at length and explored the possibility of getting on disability with CM. Appropriate referrals will be made to assist with this process. ADVANCE DIRECTIVES:: None on file Has patient been provided with info about the portal/API?: Yes Did the patient sign up for the portal?: No CODE STATUS:: Full Code INSURANCE COVERAGE / FINANCIAL ISSUES:: Medicaid CURRENT HOME/COMMUNITY SERVICES/EQUIPMENT:: none PRIMARY CARE PHYSICIAN:: Karri Ceballos POTENTIAL DISCHARGE NEEDS:: Follow up with PCP and discharge plan of care PATIENT/FAMILY EDUCATION NEEDS:: Review of discharge instructions and follow up plan, limitations, Ask Me Three TRANSPORTATION:: via private vehicle with tyrone PLAN:: Marcella will likely be discharged home with no new services. She will follow up with her PCP and discharge plan of care and transport with family. Appropriate referrals will be made to help her explore the possibility of disability. CM will continue to support Marcella and her discharge planning needs.
[2020-10-19] MEDS: Mylanta Suspension 30 ML CUP PO ×3 (10:03→22:16)
[2020-10-19] MEDS: Sucralfate 1 GM TAB PO ×3 (10:03→20:30)
[2020-10-19] MEDS: POTASSIUM CHLORIDE 10 MEQ/100 ML BAG 100 MEQ IVPB ×3 (11:08→14:11)
[2020-10-19 11:44] VITALS: BP 109/69; PULSE 81; RESP 15; TEMP 37.2; O2SAT 98
[2020-10-19] MEDS: MAGNESIUM SULFATE 2 GM/50 ML BAG IVPB (14:11)
[2020-10-19] MEDS: Haloperidol 1 MG TAB PO ×2 (14:12→20:29)
[2020-10-19 15:38] VITALS: BP 116/77; PULSE 80; RESP 18; TEMP 36.5; O2SAT 99
--- NOTE | 2020-10-19 16:51 | W.PM.PROGNOT ---
Date of Service Date of service: 10/19/20 Time of Service: 16:51 Assessment and Plan Assessment and plan (1) Emesis, persistent: Status: Acute Assessment and plan: hyperemesis secondary to cannabis use. continue increase Protonix to 40 mg twice a day and added Carafate. advance diet as tolerated. continue Zofran and Phenergan as needed for nausea along with Benadryl. (2) GERD without esophagitis: Status: Acute Assessment and plan: Increase Protonix to 40 mg IV every 12 hours and add Carafate. (3) Hypokalemia: Status: Resolved Assessment and plan: replete and follow. mag replaced also repeat labs in am discussed with Dr Humphrye Subjective Subjective Patient reports: no new complaints, feels better, tolerating liquids well, voiding w/o difficulty and afebrile Exam Const General: cooperative, comfortable, no acute distress and ill appearing chronically Nutritional Appearance: thin Orientation: alert, awake and oriented x3 HENMT Head: normal to inspection and normocephalic Mouth: mucous membranes dry (slightly dry mucosa, no exudate, fair denition) Resp Effort & Inspection: normal respiratory effort Cardio Rate: regular rate Rhythm: regular rhythm GI Inspection: normal to inspection Palpation: soft, no guarding, no masses and tender in the epigastrum Auscultation: normal bowel sounds Skin General skin exam: no rashes or lesions noted Neuro General: patient alert, patient awake and patient oriented x3 Extrem General: normal to inspection and full ROM Objective Last Vital Signs Temp 36.5 C 10/19/20 15:38 Pulse 80 10/19/20 15:38 Resp 18 10/19/20 15:38 BP 116/77 10/19/20 15:38 Pulse Ox 99 10/19/20 15:38 Laboratory Results - last 24 hr 10/18/20 10/19/20 13:15 06:30 Sodium 139 Potassium 3.3 L Chloride 104 Carbon Dioxide 23.3 Anion Gap 11.7 H BUN 7 Creatinine 0.8 Estimated GFR/1.73 m2 >= 60.00 Glucose 116 H Calcium 8.5 Magnesium 1.6 L SARS-CoV-2 (PCR) Negative
[2020-10-19] MEDS: Enoxaparin 40 MG/0.4 ML SYR SC (17:09)
[2020-10-19 19:42] VITALS: BP 115/75; PULSE 80; RESP 18; TEMP 36.2; O2SAT 99
[2020-10-19 23:29] VITALS: BP 125/81; PULSE 89; RESP 18; TEMP 36.7; O2SAT 99
[2020-10-20] MEDS: POTASSIUM CHLORIDE/0.9% NACL 1,000 ML 150 MEQ IV ×2 (00:02→05:58)
[2020-10-20] MEDS: Acetaminophen 325 MG TAB PO (01:24)
[2020-10-20 03:13] VITALS: BP 105/67; PULSE 77; RESP 18; TEMP 37.2; O2SAT 100
[2020-10-20] MEDS: Ondansetron 4 MG/2 ML VIAL IVP (06:43)
[2020-10-20 06:56] LABS: Anion Gap 6.4 mmol/L (3-11); BUN 5 mg/dL (7-18); CO2 27.6 mmol/L (21.0-32.0); CREATININE 0.8 mg/dL (0.55-1.02); Calcium 8.3 mg/dL (8.5-10.1); Chloride 105 mmol/L (98-107); Glucose 81 mg/dL (74-106); Sodium 139 mmol/L (136-145)
[2020-10-20 06:57] LABS: Magnesium 2.2 mg/dL (1.8-2.4)
[2020-10-20 07:25] VITALS: BP 116/79; PULSE 73; RESP 16; TEMP 36.7; O2SAT 96
[2020-10-20] MEDS: Pantoprazole 40 MG VIAL IVP (08:45)
[2020-10-20] MEDS: Normal Saline Flush 10 ML SYR IVP (08:45)
[2020-10-20] MEDS: Sucralfate 1 GM TAB PO (08:47)
[2020-10-20] MEDS: Haloperidol 1 MG TAB PO (08:47)
--- NOTE | 2020-10-20 10:09 | DSE_ITS ---
Date of service: 10/20/20 Time of Service: 10:09 DS: Diagnosis Discharge Diagnosis (1) Emesis, persistent: Status: Acute (2) GERD without esophagitis: Status: Acute (3) Hypokalemia: Status: Resolved Discharge Plan Disposition Patient Disposition: HOME Condition: Stable Discharge Details Reason For Visit: NAUSEA AND VOMITING, HYPOKALEMIA Admit Date/Time: 10/18/20 12:33 Admit Provider: Doron Humphrey Attending Provider: Doron Humphrey [facility]: This is a 45-year-old female chronic marijuana smoker has a history of Dina-Danlos syndrome and GERD who has had previous Iftikhar's fundoplication as well as prior Heller myotomy who presented emergency department with complaints of protracted nausea vomiting and diarrhea. Symptoms began 2 days prior. There is been no hematochezia no melena and no hematemesis. Work up in the emergency department with routine labs including a CBC that was normal as well as a CMP and lipase. Lipase was normal troponin was normal LFTs were normal BUN and creatinine were normal but her potassium was low at 2.6. Nasopharyngeal swab is been obtained for SARS-CoV-2 was negative. Patient does not feel that her hyperemesis is secondary to her marijuana use although she admits to regular use of marijuana on a daily basis. Last episode of protracted nausea and vomiting was in July. Back in July she saw her project management instructor Dr. Toribio who performed the EGD and esophageal dilatation for esophageal stenosis. She was treated the emergency department with IV Reglan, Benadryl, Zofran and Pepcid and given a bolus of saline. Patient was admitted for observation for treatment of protracted nausea and vomiting. Her reglan was discontinued d/t her history of esophageal stricture requiring dilation. Her symptoms resolved with treatment. electrolytes normalized and she began tolerating clear liquids. she is now stable and ready for discharge to home. no services. she will f/u with pcp outpatient. discussed with DR Humphrey. Home Meds and New Rx's Prescriptions: Continued sertraline 50 mg tablet 50 mg PO DAILY RF: 0 ondansetron HCl 4 mg tablet 4 mg PO .Q4-6 HRS PRNRF: 0 potassium chloride [Klor-Con M10] 10 mEq tablet,ER particles/crystals 10 meq PO DAILY RF: 0 fluoxetine 10 mg capsule 10 mg PO DAILY RF: 0 mirtazapine 7.5 mg tablet 7.5 mg PO HS RF: 0 pantoprazole 40 mg tablet,delayed release (DR/EC) 40 mg PO DAILY RF: 0 metoclopramide HCl [Reglan] 5 mg tablet 5 mg PO Q6H PRN PRNQty: 30 RF: 0 Discharge Instructions Instructions: Acute Nausea and Vomiting (DC) Additional Instructions: push fluids to stay well hydrated. take medication as prescribed Stand Alone Forms: Nursing Discharge Form Referrals: Karri Ceballos [Primary Care Provider] - 10/25/20 11:00 am Activity:: Activity as Tolerated Equipment/Supplies:: No Equipment Needed Diet:: As Tolerated Discharge Orders Discharge Orders: Discharge Order (Routine); Ordered 10/20/20 Ordered By: Mariana Pendleton Discharge Data Discharge Date/Time-TO BE ENTERED AT DEPARTURE: 10/20/20 11:07 DS: Summary Time Spent with Patient providing and/or coordinating discharge services: Less than 30 minutes Status at Discharge Functional status at discharge: independent ambulation Overall status at discharge: patient is back to baseline Mental Status: mental status grossly normal Speech and Movement: speech and movement normal Mood: congruent mood Affect: normal affect Exam Const General: cooperative, comfortable, no acute distress and ill appearing chronically Nutritional Appearance: thin Orientation: alert, awake and oriented x3 HENMT Head: normal to inspection and normocephalic Mouth: mucous membranes dry (slightly dry mucosa, no exudate, fair denition) Resp Effort & Inspection: normal respiratory effort Cardio Rate: regular rate Rhythm: regular rhythm GI Inspection: normal to inspection Palpation: soft, no guarding, no masses and tender in the epigastrum Auscultation: normal bowel sounds Skin General skin exam: no rashes or lesions noted Neuro General: patient alert, patient awake and patient oriented x3 Extrem General: normal to inspection and full ROM Psych Mental Status: mental status grossly normal Speech and Movement: speech and movement normal Mood: congruent mood Affect: normal affect DS: Data Vitals/I&O Vitals and I&O: Vital Signs Temperature 36.7 C 10/20/20 07:25 Temperature Source Tympanic 10/20/20 07:25 Pulse 73 10/20/20 07:25 Pulse Rhythm Regular 10/20/20 07:46 Pulse 73 10/18/20 13:01 Respiratory Rate 16 10/20/20 07:25 Respiratory Effort 10/20/20 07:46 Respiratory Depth Normal 10/20/20 07:46 Respiratory Pattern Normal 10/20/20 07:46 Blood Pressure 116/79 10/20/20 07:25 Blood Pressure Mean 73 10/18/20 13:00 Blood Pressure Position Sitting 10/18/20 09:10 Pulse Oximetry 96 10/20/20 07:25 Oxygen Delivery Method Room Air 10/20/20 07:25 Oxygen Flow Rate 0 10/20/20 07:25 Pain Level 0 10/20/20 07:25 Intake & Output 10/19/20 10/19/20 10/20/20 11:59 23:59 11:59 Intake Total 2436.0 / 3636.0 1200 / 3636.0 2272.5 / 2272.5 Output Total 250 / 250 300 / 300 Balance 2186.0 / 3386.0 1200 / 3386.0 1972.5 / 1972.5 Weight 65.487 kg 64 kg Intake: IV 1968.0 / 3168.0 1200 / 3168.0 1822.5 / 1822.5 Oral 468 / 468 450 / 450 Output: Urine 200 / 200 300 / 300 Emesis 50 / 50 Other: Urine Color Straw Urine Appearance Cloudy Clear Urine Odor Strong Comment voiding in toielt w/o difficulty bloody urine output d/t menstruation Voiding Methods Toilet Toilet Data Completed and Pending Labs on day of discharge: Labs from last 24 hours 10/20/20 10/20/20 06:00 06:00 Sodium 139 Potassium 4.0 D Chloride 105 Carbon Dioxide 27.6 Anion Gap 6.4 BUN 5 L Creatinine 0.8 Estimated GFR/1.73 m2 >= 60.00 Glucose 81 Calcium 8.3 L Magnesium 2.2 PFSH Medical History Achalasia of esophagus Complication of surgery Gastroesophageal reflux disease GERD without esophagitis history of reentrant SVT Pacemaker Smoker unmotivated to quit Surgical History section x3 Esophageal Myotomy Fundoplication Hx of esophagogastroduodenoscopy Ligation of fallopian tube Pacemaker Biventricular pacemaker Family History Aunt Personal history of malignant neoplasm Breast cancer Social History Smoking/Tobacco Use Status: Current every day Tobacco Type: cigarettes Smoking risk assessment performed?: Yes Alcohol Intake: current Alcohol Intake frequency: holidays/special occasions only Drug use: Daily Substance use type: marijuana 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
--- NOTE | 2020-10-20 13:46 | PDOC.CMDIS ---
- If Service Date Differs Date of service: 10/20/20 Time of Service: 13:46 LACE Index Scoring Tool - Questions: Length of Stay (in days): 2 Acuity (Admit via E.D.?): Yes E.D. Visits: 4 - Answers: Total Score: 9 Risk of Readmission: Low Risk Care Management Discharge Reason for Hospitalization: persistent emesis Discharge Plan: Marcella will be discharged home with no new services. She will follow up with her PCP and discharge plan of care and transport with family. Patient/Family Education Needs: Review of discharge instructions and follow up plan, limitations, Ask Me Three
== END 2020-10-20 11:07 | disposition home or self-care (01) ==
LOC: ER 13:32 → MS 18:43
PROVIDERS: Admitting Provider Internal Medicine; Emergency Provider Physician Assistant; PCP Family Medicine; Visit Provider Internal Medicine
DX: E87.6 Hypokalemia (principal); R11.2 Nausea with vomiting, unspecified; Z95.0 Presence of cardiac pacemaker; I47.1 Supraventricular tachycardia; K21.9 Gastro-esophageal reflux disease without esophagitis; K22.2 Esophageal obstruction; Q79.60 Ehlers-Danlos syndrome, unspecified; F12.90 Cannabis use, unspecified, uncomplicated; Z20.822 Contact with and (suspected) exposure to COVID-19; F17.210 Nicotine dependence, cigarettes, uncomplicated
CPT/HCPCS: 36415; 80048; 80053; 81025; 83690; 87635; 93005; 96361; 96365; 96367; 96375; 99217; 99219; 99232; 99291; J1650; 71046; 83735; 84132; 84484; 85025; 93010; G0378; J1100; J1200; J2405; J2765; J3480

== ENCOUNTER 2021-01-31 12:18 | Observation (INO) | payer MEDICAID, SELFPAY ==
[2021-01-31 12:25] VITALS: BP 141/85; PULSE 85; RESP 20; TEMP 36.7; O2SAT 99
--- NOTE | 2021-01-31 12:45 | RT.EKG_ITS ---
APPROVED REPORT Exam: Resting ECG Reason for Exam: vomiting Patient Location: E HR:83 bpm ECG Measurements Heart Rate 83 AXIS LA 197 P 40 QRSd 139 QRS 261 QT 444 T 88 QTc 523 Conclusion Atrial-sensed ventricular-paced rhythm...ventricular pacing tracks p-waves
[2021-01-31 12:51] LABS: Bilirubin Negative (Negative); Blood Large (Negative); Clarity Cloudy (Clear); Glucose Negative (Negative); Ketones Trace mg/dL (Negative); Leukocyte Esterase Negative (Negative); Nitrite Negative (Negative); Specific Gravity >= 1.030 (1.005-1.025); Urobilinogen 0.2 EU/dL (Up TO 0.2); pH 5.5 (5-8)
[2021-01-31 13:02] LABS: Bacteria Few HPF (Negative); C & S Indicated? Yes; Casts Negative LPF (Negative); Crystals Negative HPF (Negative); Epithelial Cells Few HPF (Negative); Mucus Negative (Negative); RBC 20-50 HPF (0-2); WBC 0-2 HPF (0-5)
[2021-01-31 13:11] LABS: Absolute Eosinophil Count 0.06 10^3/uL (0.0-0.7); Absolute Lymphocyte Count 1.81 10^3/uL (1.2-3.4); Absolute Monocyte Count 0.87 10^3/uL (0.1-0.8); Absolute Neutrophil Count 12.06 10^3/uL (1.2-6.7); Basophils % 0.5; Eosinophils % 0.4; HCT 42.7 % (36.0-46.0); HGB 14.3 g/dL (11.2-15.7); Immature Grans % 0.7; Lymphocytes % 12.1; MCH 30.2 pg (27.0-33.0); MCHC 33.5 % (32.0-36.0); MCV 90.1 fL (80-95); MPV 9.7 fL (8.0-11.0); Monocytes % 5.8; Neutrophils % 80.5; Nucleated RBC 0 %; Platelet Count 382 10^3/uL (130-400); RBC 4.74 10^6/uL (3.93-5.22); RDW 13.4 % (11.7-14.6); RDW-SD 44.7 fL; WBC 14.98 10^3/uL (4.4-10.8)
[2021-01-31] MEDS: Ondansetron 4 MG/2 ML VIAL IVP (13:14)
[2021-01-31 13:15] LABS: Absolute Basophil Count 0.07 10^3/uL (0.0-0.2)
[2021-01-31 13:26] LABS: ALT 30 U/L (14-59); AST 26 U/L (15-37); Albumin 4.5 g/dL (3.4-5.0); Alkaline Phosphatase 85 U/L (46-116); Anion Gap 13.7 mmol/L (3-11); BUN 16 mg/dL (7-18); Bilirubin, Total 0.3 mg/dL (0.2-1.0); CO2 24.3 mmol/L (21.0-32.0); CREATININE 1.2 mg/dL (0.55-1.02); Calcium 10.4 mg/dL (8.5-10.1); Chloride 108 mmol/L (98-107); Estimated GFR 49.03 (mL/min/1.73m2); Glucose 150 mg/dL (74-106); Potassium 3.8 mmol/L (3.5-5.1); Sodium 146 mmol/L (136-145); Total Protein 8.7 g/dL (6.4-8.2)
[2021-01-31 13:27] LABS: Troponin I < 0.05 ng/mL (<0.06)
[2021-01-31] MEDS: Normal Saline 50 ML (13:49)
[2021-01-31] MEDS: Metoclopramide 10 MG/2 ML VIAL IVP ×2 (13:49→17:29)
--- NOTE | 2021-01-31 14:00 | DI.CT_ITS ---
Exam(s) CT ABDOMEN PELVIS W EXAM: CT ABDOMEN PELVIS W CLINICAL HISTORY: vomiting, diarrhea, abd pain. TECHNIQUE: Imaging Protocol: Axial computed tomography images with coronal and sagittal reformatted images were created and reviewed CONTRAST MATERIAL: Intravenous: Omnipaque 100cc Oral: None COMPARISON: CT CT THORAX ABD/PEL CTA from 08/09/2020 FINDINGS: VISUALIZED LUNG BASES: No nodules nor pleural effusions evident. ABDOMEN: There is no ascites. LIVER: There is a 12 x 12 millimeter benign cyst in the right hepatic lobe again noted, unchanged. T here is also a 2 millimeter tiny cyst more superiorly in the right hepatic lobe, unchanged. There ar e no new significant focal hepatic lesions. No dilatation of intrahepatic ducts. GALLBLADDER/BILIARY: Not seen and presumed to be surgically absent. No surgical clips evident. CBD is not dilated. PANCREAS: No evidence of pancreatic mass. Pancreatic duct diameter is upper normal. SPLEEN: Spleen is not enlarged. No obvious intrasplenic lesions. Splenic and portal veins are paten t. ADRENALS: There are no significant adrenal masses. KIDNEYS:No cysts evident. No solid renal masses. However, there is a calculus again noted in the low er pole region of the left kidney which measures 8 x 6 millimeters, unchanged. No hydronephrosis nor hydroureter.. No calculi in the nondistended urinary bladder.. ABDOMINAL AORTA: Abdominal aorta is not enlarged. LYMPH NODES:There is no retroperitineal nor paraaortic adenopathy. ABDOMINAL WALL: No evidence of significant anterior abdominal wall hernia. GI: There is no evidence of bowel obstruction, free air, nor abscess. PELVIS: GI: No evidence of appendicitis.No evidence of sigmoid diverticulitis. LYMPH NODES: There is no intrapelvic nor inguinal adenopathy. REPRODUCTIVE: There are prominent veins in the left adnexa which drain into prominent left gonadal ve in which itself drains into the left renal vein. These veins are more evident on the prior study. U terus size is normal. No abnormal adnexal masses evident. No free fluid in the pelvis. URINARY BLADDER: No calculi nor obvious masses evident OSSEOUS: No significant osseous lesions. Bilateral pars defects again noted L5. Anterolisthesis L5 upon S1 noted, similar to previous. Also advanced disc space narrowing L5-S1 level IMPRESSION: 1. Stable small benign cyst in the liver. No new significant focal hepatic findings. 2. Stable size the position of a nonobstructive 8 x 6 millimeter calculus in left kidney. No hydrone phrosis. 3. Prominent left adnexal veins which drain into prominent left gonadal vein which itself drains into the left renal vein. 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 4. Pars defects L5 level with anterolisthesis L5 upon S1 noted. RADIATION DOSE DELIVERED: 838.13mGy.cm Total DLP DATA REPOSITORY: All CT scans at this facility are submitted to the National Radiology Data Registry (NRDR) Dose Index Registry (DIR) with the [employer] (ACR). RADIATION OPTIMIZATION: All CT scans at this facility use at least one of these dose optimization te chniques: automated exposure control; mA and/or kV adjustment per patient size (includes targeted exa ms where dose is matched to clinical indication); or iterative reconstruction.
[2021-01-31] MEDS: Omnipaque 350 MG/ML 100 ML BTL IV (14:13)
[2021-01-31] MEDS: Normal Saline - Diluent 50 ML VIAL IV (14:14)
[2021-01-31 14:31] LABS: C Diff PCR Negative (Negative)
[2021-01-31 15:11] VITALS: BP 114/78; PULSE 83; RESP 18; TEMP 36.7; O2SAT 95
[2021-01-31] MEDS: FAMOTIDINE 20 MG/50 ML BAG 200 MG IVPB (15:29)
--- NOTE | 2021-01-31 15:54 | HPE_ITS ---
Date of service: 01/31/21 Time of Service: 15:55 Assessment and Plan Assessment and plan (1) Emesis, persistent: Status: Acute Assessment and plan: NPO except ice chips and sips of water; aggressive hydration w/ iv fluids; give antiemetics (Zofran) and promotility drugs (Reglan) and give iv protonix. If nausea and emesis calm down then will try clear liquids in the a.m. Will start on carafate for her GERD in addition to her protonix. If this is not helping then I will [place] [facility] [place] and try to discuss w/ Dr. Toribio. Patient may need EGD w/ esophageal dilatation (she has had this in the past). (2) Esophagitis with gastritis: Status: Chronic Assessment and plan: as above. History of Present Illness History of Present Illness Chief Complaint: nausea and vomiting and diarrhea Narrative: Note much of hx obtained from phone call w/ ER attending, review of chart. Patient was uncooperative w/ interview and exam. Patient kept rolling over away from me in bed pulling cover over her head and giving limited answers to my questions. 45 yr white female w/ PMH severe GERD, s/p Iftikhar's fundiplication and esophageal myotomy [place] [facility] [place]Dr. Ej Toribio) who presents to the ER w/ c/o of protracted nausea and vomiting onset today along w/ diarrhea. Patient denies hematemesis, hematochezia or melena. Patient states that she has had similar symptoms multiple times in the past but could not give any specifics about how this has been treated in the past other than waiting until it passes. Patient reports 7 to 8 loose stools per day. Per the ER she had green mucous like stools which were sent for stool bacterial pathogens. C. diff toxin PCR was negative. Routine workup included labs including CBC that demonstrated WBC of 14,980 but no anemia and no thrombocytopenia. CMP demonstrated elevated sodium to 146 w/ slight anion gap of 13.7 but normal CO2 of 24. BUN and creatinine are elevated over her baseline at 16 and 1.2 (baseline BUN is 5 and creatinine is 0.8). LFT including transaminases, bilirubin and albumin are normal and her lipase is normal. SARS- Cov2 nasal PCR is pending. CT abdomen and pelvis were done w/ iv contrast and demonstrates no acute pathology (stable benign hepatic cysts, 8 mm x 6 mm nonobstructing left inferior pole stone. Normal spleen, pancreas, and adrenals. No biliary ductal dilatation. Absent gall bladder. Prominent left adnexal veins draining into prominent left gonadal vein draining into the left renal vein. No adenopathy or masses. Patient was treated w/ iv fluids and antiemetics (zofran, reglan) and given pepcid. Note: patient continues to smoke a couple cigarettes per day and occasionally has a drink of alcohol despite her severe GERD. She is not on carafate at home. She is suppose to be on protonix once a day but states she has been fighting her insurance to get her medication doseage/frequency increased. 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 Review of Systems Unobtainable due to (not obtainable d/t patient not cooperating w/ interview) PFSH Medical History Achalasia of esophagus Complication of surgery Gastroesophageal reflux disease GERD without esophagitis history of reentrant SVT Pacemaker Smoker unmotivated to quit Surgical History section x3 Esophageal Myotomy Fundoplication Hx of esophagogastroduodenoscopy Ligation of fallopian tube Pacemaker Biventricular pacemaker Family History Aunt Personal history of malignant neoplasm Breast cancer Social History Smoking/Tobacco Use Status: Current every day Tobacco Type: cigarettes Smoking risk assessment performed?: Yes Alcohol Intake: current Alcohol Intake frequency: holidays/special occasions only Drug use: Daily Substance use type: marijuana 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 Current gender identity: female Do you feel safe at home: Yes Do you feel safe in your relationship?: Yes Meds Allergies and Home Medications Allergies Allergy/AdvReac Type Severity Reaction Status Date / Time adhesive tape Allergy Skin Rash Unverified 01/31/21 12:34 prochlorperazine Allergy Unverified 01/31/21 12:34 [From Compazine] capsaicin AdvReac Intermediate sunburn Verified 01/31/21 12:34 type rash, burning, no blisters Home Medications Medication Instructions Recorded Confirmed Type potassium chloride [Klor-Con M10] 10 meq PO DAILY 08/03/20 01/31/21 History pantoprazole 40 mg PO DAILY 08/09/20 01/31/21 History fluoxetine 10 mg PO DAILY 10/18/20 01/31/21 History mirtazapine 7.5 mg PO HS 10/18/20 01/31/21 History Exam Narrative Exam Narrative: Limited exam d/t poor cooperation by patient Middle age white, blond haired female w/ covers pulled up around her face. She avert her eyes when I talk w/ her. Mucous membranes appear somewhat dry lips and nose Neck veins are flat; carotid pulses are normal. No cervical adenopathy Lungs are clear Heart is regular w/out murmur or rub or gallops Chest wall w/ pacemaker under left clavicular space in anterior chest wall. No erythema or tenderness Abdominal exam: normal bowel sounds, soft, no guarding or rebound tenderness, no distension; no organomegaly Extremities w/ out edema or cyanosis Neuro: grossly intact as much as she would allow me to exmine her. Speech is clear and coherent; no facial asymmetry, no focal motor deficits Rectal exam deferred and reported done in the ER. Results Imaging Abdomen CT scan report/results: report reviewed Labs Result diagrams: 01/31/21 12:58 01/31/21 12:58 Labs: Laboratory Results - last 24 hr 01/31/21 01/31/21 01/31/21 12:30 12:30 12:58 WBC RBC Hgb Hct MCV MCH MCHC RDW Plt Count MPV Immature Gran % Neutrophils % Lymphocytes % Monocytes % Eosinophils % Basophils % Nucleated RBC % Absolute Neutrophils Absolute Lymphocytes Absolute Monocytes Absolute Eosinophils Absolute Basophils Sodium 146 H Potassium 3.8 Chloride 108 H Carbon Dioxide 24.3 Anion Gap 13.7 H BUN 16 Creatinine 1.2 H Estimated GFR/1.73 m2 49.03 Glucose 150 H Calcium 10.4 H Total Bilirubin 0.3 AST 26 ALT 30 Alkaline Phosphatase 85 Troponin I < 0.05 Total Protein 8.7 H Albumin 4.5 Urine Color Yellow Urine Clarity Cloudy Urine pH 5.5 Ur Specific [place] >= 1.030 H Urine Protein 100 H Urine Ketones Trace H Urine Blood Large H Urine Nitrite Negative Urine Bilirubin Negative Urine Urobilinogen 0.2 Ur Leukocyte Esterase Negative Urine RBC 20-50 H Urine WBC 0-2 Ur Epithelial Cells Few Urine Crystals Negative Urine Bacteria Few Urine Casts Negative Urine Mucus Negative Ur Culture Indicated? Yes Urine Glucose Negative Stl C.difficile Tox PCR Negative 01/31/21 12:58 WBC 14.98 H RBC 4.74 Hgb 14.3 Hct 42.7 MCV 90.1 MCH 30.2 MCHC 33.5 RDW 13.4 Plt Count 382 MPV 9.7 Immature Gran % 0.7 Neutrophils % 80.5 Lymphocytes % 12.1 Monocytes % 5.8 Eosinophils % 0.4 Basophils % 0.5 Nucleated RBC % 0 Absolute Neutrophils 12.06 H Absolute Lymphocytes 1.81 Absolute Monocytes 0.87 H Absolute Eosinophils 0.06 Absolute Basophils 0.07 Sodium Potassium Chloride Carbon Dioxide Anion Gap BUN Creatinine Estimated GFR/1.73 m2 Glucose Calcium Total Bilirubin AST ALT Alkaline Phosphatase Troponin I Total Protein Albumin Urine Color Urine Clarity Urine pH Ur Specific [place] Urine Protein Urine Ketones Urine Blood Urine Nitrite Urine Bilirubin Urine Urobilinogen Ur Leukocyte Esterase Urine RBC Urine WBC Ur Epithelial Cells Urine Crystals Urine Bacteria Urine Casts Urine Mucus Ur Culture Indicated? Urine Glucose Stl C.difficile Tox PCR Last Vital Signs Temp 36.7 C 01/31/21 15:11 Pulse 83 01/31/21 15:11 Resp 18 01/31/21 15:11 BP 114/78 01/31/21 15:11 Pulse Ox 95 01/31/21 15:11
[2021-01-31 16:31] LABS: Source Nasal/Nares
[2021-01-31 16:47] LABS: Lipase 51 U/L (73-393)
--- NOTE | 2021-01-31 16:58 | ED.GENADUL_ITS ---
Discharge Plan Disposition Condition: Improving Discharge Details Chief Complaint: Nausea/Vomit/Diar Admit Date/Time: 01/31/21 15:43 Admit Provider: Doron Humphrey Attending Provider: Doron Humphrey Primary Care Provider: Karri Ceballos ED Provider: Kaycee Baldwin Discharge Instructions Activity:: Activity as Tolerated Equipment/Supplies:: No Equipment Needed Diet:: low fiber, soft foods, small bites; no alcohol or tobacco or acid foods Discharge Orders Discharge Orders: Discharge Order (Routine); Ordered 02/02/21 Ordered By: Doron Humphrey Discharge Data Discharge Date/Time-TO BE ENTERED AT DEPARTURE: 01/31/21 16:51 Medical Decision Making Marcella Yee is a 45-year-old woman who presented to emergency department with nausea, vomiting, diarrhea that began early this morning, similar to many prior recurrent episodes. On exam patient is nontoxic-appearing. She has epigastric and bilateral lower abdominal tenderness to palpation without peritoneal signs. Concern for GI symptoms as sequelae of chronic gastrointestinal problems, dehydration, metabolic/lyte derangement, diverticulitis, C. difficile, other. Exam/history at this time is not consistent with sepsis, acute emergent intracranial process, acute coronary syndrome, acute aortic pathology, mesenteric ischemia. Plan for IV placement, IV fluid hydration, IV Zofran, screening labs, UA, urine test. Will monitor and reassess. Labs reviewed, leukocytosis present. Patient reports no relief with IV Zofran, plan for IV Reglan. CT per radiology is nondiagnostic. Patient reports that vomiting has improved, however she remains quite nauseous and feels that she cannot p.o. Plan for admission for further evaluation and treatment. Clinical impression: Vomiting, diarrhea Disposition: [facility] inpatient Medical Records Medical records reviewed: Yes I reviewed the patient's medical records. Imaging Data Radiologic Study: Attestation: I personally reviewed and interpreted this imaging study as follows: Radiologist's impression: CT ABDOMEN PELVIS W EXAM: CT ABDOMEN PELVIS W CLINICAL HISTORY: vomiting, diarrhea, abd pain. TECHNIQUE: Imaging Protocol: Axial computed tomography images with coronal and sagittal reformatted images were created and reviewed CONTRAST MATERIAL: Intravenous: Omnipaque 100cc Oral: None COMPARISON: CT CT THORAX ABD/PEL CTA from 08/09/2020 FINDINGS: VISUALIZED LUNG BASES: No nodules nor pleural effusions evident. ABDOMEN: There is no ascites. LIVER: There is a 12 x 12 millimeter benign cyst in the right hepatic lobe again noted, unchanged. There is also a 2 millimeter tiny cyst more superiorly in the right hepatic lobe, unchanged. There are no new significant focal hepatic lesions. No dilatation of intrahepatic ducts. GALLBLADDER/BILIARY: Not seen and presumed to be surgically absent. No surgical clips evident. CBD is not dilated. PANCREAS: No evidence of pancreatic mass. Pancreatic duct diameter is upper normal. SPLEEN: Spleen is not enlarged. No obvious intrasplenic lesions. Splenic and portal veins are patent. ADRENALS: There are no significant adrenal masses. KIDNEYS:No cysts evident. No solid renal masses. However, there is a calculus again noted in the lower pole region of the left kidney which measures 8 x 6 millimeters, unchanged. No hydronephrosis nor hydroureter.. No calculi in the nondistended urinary bladder.. ABDOMINAL AORTA: Abdominal aorta is not enlarged. LYMPH NODES:There is no retroperitineal nor paraaortic adenopathy. ABDOMINAL WALL: No evidence of significant anterior abdominal wall hernia. GI: There is no evidence of bowel obstruction, free air, nor abscess. PELVIS: GI: No evidence of appendicitis.No evidence of sigmoid diverticulitis. LYMPH NODES: There is no intrapelvic nor inguinal adenopathy. REPRODUCTIVE: There are prominent veins in the left adnexa which drain into prominent left gonadal vein which itself drains into the left renal vein. These veins are more evident on the prior study. Uterus size is normal. No abnormal adnexal masses evident. No free fluid in the pelvis. URINARY BLADDER: No calculi nor obvious masses evident OSSEOUS: No significant osseous lesions. Bilateral pars defects again noted L5. Anterolisthesis L5 upon S1 noted, similar to previous. Also advanced disc space narrowing L5-S1 level IMPRESSION: 1. Stable small benign cyst in the liver. No new significant focal hepatic findings. 2. Stable size the position of a nonobstructive 8 x 6 millimeter calculus in left kidney. No hydronephrosis. 3. Prominent left adnexal veins which drain into prominent left gonadal vein which itself drains into the left renal vein. 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 4. Pars defects L5 level with anterolisthesis L5 upon S1 noted. Lab Data Lab results reviewed: Yes I reviewed the patient's lab results. HPI General Mode of arrival: ambulatory . Date/Time Provider Initiated Documentation: 01/31/21 12:58 . Limitations to Documentation: no limitations . Information obtained by: patient, RN notes reviewed and old records reviewed . HPI Narrative: Marcella Yee is a 5-year-old woman 45-year-old woman with a history as esophageal stricture, status post Iftikhar fundoplication, GERD, Dina-Danlos syndrome presenting to the emergency department with vomiting and diarrhea. Patient reports that symptoms began earlier this morning. Patient reports that she episodically has similar symptoms to this, reports last episode 1 to 2 months ago. Patient is unsure how frequently this occurs. Patient reports that she has epigastric and lower abdominal pain that is typical for her episodes of vomiting and diarrhea. She denies any other pain, fever, shortness of breath, cough, numbness, weakness, rash, dysuria. Patient reports that prior to this morning she has been eating and drinking as usual. No unusual symptoms over the past few days. Patient reports that she has oral Phenergan at home that she tried to take this morning with no relief. Patient reports that she uses marijuana and smokes cigarettes daily, reports rare alcohol use. Related Data Home Medications Medication Instructions Recorded Confirmed potassium chloride [Klor-Con M10] 10 meq PO DAILY 08/03/20 01/31/21 fluoxetine 10 mg PO DAILY 10/18/20 01/31/21 mirtazapine 7.5 mg PO HS 10/18/20 01/31/21 pantoprazole 40 mg PO BID #0 tab 02/02/21 01/31/21 sucralfate 1 g PO AC & HS #120 tab 02/02/21 Previous Rx's Medication Instructions Recorded pantoprazole 40 mg PO BID #0 tab 02/02/21 sucralfate 1 g PO AC & HS #120 tab 02/02/21 Allergies Allergy/AdvReac Type Severity Reaction Status Date / Time adhesive tape Allergy Skin Rash Unverified 01/31/21 12:34 prochlorperazine Allergy Unverified 01/31/21 12:34 [From Compazine] capsaicin AdvReac Intermediate sunburn Verified 01/31/21 12:34 type rash, burning, no blisters General Stated Complaint: Nausea/Vomit/Diar CARL: 3 Review of Systems Narrative: Constitutional: denies fevers Eyes: denies eye pain ENT: denies ear pain, dental pain, sore throat Cardiovascular: denies chest pain Respiratory: denies SOB, cough GI: Reports abdominal pain, vomiting, diarrhea : denies flank pain MSK: denies back pain, neck pain, arthralgias, myalgias Skin: denies rash Neuro: denies headaches, numbness, weakness PFSH Medical History Achalasia of esophagus Complication of surgery Gastroesophageal reflux disease GERD without esophagitis history of reentrant SVT Pacemaker Smoker unmotivated to quit Surgical History section x3 Esophageal Myotomy Fundoplication Hx of esophagogastroduodenoscopy Ligation of fallopian tube Pacemaker Biventricular pacemaker Family History Aunt Personal history of malignant neoplasm Breast cancer Social History Smoking/Tobacco Use Status: Current every day Tobacco Type: cigarettes Smoking risk assessment performed?: Yes Alcohol Intake: current Alcohol Intake frequency: holidays/special occasions only Drug use: Daily Substance use type: marijuana 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 Current gender identity: female Do you feel safe at home: Yes Do you feel safe in your relationship?: Yes Exam Narrative Exam Narrative: Constitutional: well and [id number], pleasant, conversing normally HENT: head atraumatic/normocephalic/normal inspection, mucous membranes moist Eyes: conjunctiva normal, sclera normal, pupils 3mm b/l Neck: no stridor, normal ROM, trachea midline Resp: normal work of breathing, speaking in full sentences Cardio: normal rate, normal rhythm GI: abdomen soft, tender to palpation in the epigastrium and across the lower abdomen without focality, no rebound, no guarding, non-distended Skin: warm, dry, normal color, no rash Neuro: alert, not altered, grossly non-focal, normal tone Ext: no edema, no posterior calf tenderness to palpation Psych: normal mood, normal affect, normal behavior Course Vital Signs Vital signs: Vital Signs Temperature 36.7 C 01/31/21 12:25 Pulse 85 01/31/21 12:25 Respiratory Rate 20 01/31/21 12:25 Blood Pressure 141/85 H 01/31/21 12:25 Pulse Oximetry 99 01/31/21 12:25 Temperature 36.7 C 01/31/21 15:11 Temperature Source Skin 01/31/21 15:11 Pulse 83 01/31/21 15:11 Respiratory Rate 18 01/31/21 15:11 Respiratory Effort 01/31/21 15:39 Blood Pressure 114/78 01/31/21 15:11 Blood Pressure Position Sitting 01/31/21 12:25 Pulse Oximetry 95 01/31/21 15:11 Oxygen Delivery Method Room Air 01/31/21 15:11 Oxygen Flow Rate 0 01/31/21 15:11 Lab/Test Results Lab/Test Results: 01/31/21 12:30 Urine - Reflex from Ua Urine Culture - Pending Laboratory Tests Range/Units 01/31/21 01/31/21 01/31/21 12:30 12:30 12:58 WBC (4.4-10.8) 10^3/uL RBC (3.93-5.22) 10^6/uL Hgb (11.2-15.7) g/dL Hct (36.0-46.0) % MCV (80-95) fL MCH (27.0-33.0) pg MCHC (32.0-36.0) % RDW (11.7-14.6) % Plt Count (130-400) 10^3/uL MPV (8.0-11.0) fL Immature Gran % Neutrophils % Lymphocytes % Monocytes % Eosinophils % Basophils % Nucleated RBC % % Absolute Neutrophils (1.2-6.7) 10^3/uL Absolute Lymphocytes (1.2-3.4) 10^3/uL Absolute Monocytes (0.1-0.8) 10^3/uL Absolute Eosinophils (0.0-0.7) 10^3/uL Absolute Basophils (0.0-0.2) 10^3/uL Sodium (136-145) mmol/L 146 H Potassium (3.5-5.1) mmol/L 3.8 Chloride (98-107) mmol/L 108 H Carbon Dioxide (21.0-32.0) mmol/L 24.3 Anion Gap (3-11) mmol/L 13.7 H BUN (7-18) mg/dL 16 Creatinine (0.55-1.02) mg/dL 1.2 H Estimated GFR/1.73 m2 (mL/min/1.73m2) 49.03 Glucose (74-106) mg/dL 150 H Calcium (8.5-10.1) mg/dL 10.4 H Total Bilirubin (0.2-1.0) mg/dL 0.3 AST (15-37) U/L 26 ALT (14-59) U/L 30 Alkaline Phosphatase (46-116) U/L 85 Troponin I (<0.06) ng/mL < 0.05 Total Protein (6.4-8.2) g/dL 8.7 H Albumin (3.4-5.0) g/dL 4.5 Lipase (73-393) U/L Urine Color (Yellow) Yellow Urine Clarity (Clear) Cloudy Urine pH (5-8) 5.5 Ur Specific [place] (1.005-1.025) >= 1.030 H Urine Protein (Negative) mg/dL 100 H Urine Ketones (Negative) mg/dL Trace H Urine Blood (Negative) Large H Urine Nitrite (Negative) Negative Urine Bilirubin (Negative) Negative Urine Urobilinogen (Up TO 0.2) EU/dL 0.2 Ur Leukocyte Esterase (Negative) Negative Urine RBC (0-2) HPF 20-50 H Urine WBC (0-5) HPF 0-2 Ur Epithelial Cells (Negative) HPF Few Urine Crystals (Negative) HPF Negative Urine Bacteria (Negative) HPF Few Urine Casts (Negative) LPF Negative Urine Mucus (Negative) Negative Ur Culture Indicated? Yes Urine Glucose (Negative) mg/dL Negative Stl C.difficile Tox PCR (Negative) Negative Range/Units 01/31/21 01/31/21 12:58 12:58 WBC (4.4-10.8) 10^3/uL 14.98 H RBC (3.93-5.22) 10^6/uL 4.74 Hgb (11.2-15.7) g/dL 14.3 Hct (36.0-46.0) % 42.7 MCV (80-95) fL 90.1 MCH (27.0-33.0) pg 30.2 MCHC (32.0-36.0) % 33.5 RDW (11.7-14.6) % 13.4 Plt Count (130-400) 10^3/uL 382 MPV (8.0-11.0) fL 9.7 Immature Gran % 0.7 Neutrophils % 80.5 Lymphocytes % 12.1 Monocytes % 5.8 Eosinophils % 0.4 Basophils % 0.5 Nucleated RBC % % 0 Absolute Neutrophils (1.2-6.7) 10^3/uL 12.06 H Absolute Lymphocytes (1.2-3.4) 10^3/uL 1.81 Absolute Monocytes (0.1-0.8) 10^3/uL 0.87 H Absolute Eosinophils (0.0-0.7) 10^3/uL 0.06 Absolute Basophils (0.0-0.2) 10^3/uL 0.07 Sodium (136-145) mmol/L Potassium (3.5-5.1) mmol/L Chloride (98-107) mmol/L Carbon Dioxide (21.0-32.0) mmol/L Anion Gap (3-11) mmol/L BUN (7-18) mg/dL Creatinine (0.55-1.02) mg/dL Estimated GFR/1.73 m2 (mL/min/1.73m2) Glucose (74-106) mg/dL Calcium (8.5-10.1) mg/dL Total Bilirubin (0.2-1.0) mg/dL AST (15-37) U/L ALT (14-59) U/L Alkaline Phosphatase (46-116) U/L Troponin I (<0.06) ng/mL Total Protein (6.4-8.2) g/dL Albumin (3.4-5.0) g/dL Lipase (73-393) U/L 51 Urine Color (Yellow) Urine Clarity (Clear) Urine pH (5-8) Ur Specific [place] (1.005-1.025) Urine Protein (Negative) mg/dL Urine Ketones (Negative) mg/dL Urine Blood (Negative) Urine Nitrite (Negative) Urine Bilirubin (Negative) Urine Urobilinogen (Up TO 0.2) EU/dL Ur Leukocyte Esterase (Negative) Urine RBC (0-2) HPF Urine WBC (0-5) HPF Ur Epithelial Cells (Negative) HPF Urine Crystals (Negative) HPF Urine Bacteria (Negative) HPF Urine Casts (Negative) LPF Urine Mucus (Negative) Ur Culture Indicated? Urine Glucose (Negative) mg/dL Stl C.difficile Tox PCR (Negative)
[2021-01-31 17:18] VITALS: PULSE 85
[2021-01-31] MEDS: Enoxaparin 40 MG/0.4 ML SYR SC (17:28)
[2021-01-31] MEDS: Pantoprazole 40 MG VIAL IVP (17:29)
[2021-01-31 17:38] VITALS: BP 139/79; PULSE 82; RESP 13; TEMP 37; O2SAT 98
[2021-01-31 19:02] LABS: Troponin I < 0.05 ng/mL (<0.06)
[2021-01-31 19:49] VITALS: BP 130/81; PULSE 83; RESP 20; TEMP 36.6; O2SAT 97
[2021-01-31 20:13] LABS: Lactate 2.4 mmol/L (0.6-1.4)
[2021-01-31 21:20] LABS: COVID-19 PCR Negative (Negative)
[2021-02-01] VITALS (7 sets, daily range): BP systolic 103–138; BP diastolic 59–89; PULSE 72–89; RESP 14–20; TEMP 36.5–37.1; O2SAT 96–98
[2021-02-01] MEDS: Normal Saline Flush 10 ML SYR IVP ×6 (00:21→19:26)
[2021-02-01] MEDS: Metoclopramide 10 MG/2 ML VIAL IVP ×4 (00:21→19:26)
[2021-02-01] MEDS: Pantoprazole 40 MG VIAL IVP ×2 (05:41→17:47)
[2021-02-01 07:21] LABS: Abs Immature Grans 0.04 10^3/uL (0.0-0.06); Absolute Basophil Count 0.02 10^3/uL (0.0-0.2); Absolute Eosinophil Count 0.02 10^3/uL (0.0-0.7); Absolute Lymphocyte Count 2.85 10^3/uL (1.2-3.4); Absolute Monocyte Count 1.16 10^3/uL (0.1-0.8); Basophils % 0.2; Eosinophils % 0.2; HCT 33.5 % (36.0-46.0); HGB 11.3 g/dL (11.2-15.7); Immature Grans % 0.4; Lymphocytes % 25.1; MCH 30.1 pg (27.0-33.0); MCHC 33.7 % (32.0-36.0); MCV 89.1 fL (80-95); MPV 9.8 fL (8.0-11.0); Monocytes % 10.2; Neutrophils % 63.9; Nucleated RBC 0 %; Platelet Count 284 10^3/uL (130-400); RBC 3.76 10^6/uL (3.93-5.22); RDW 13.8 % (11.7-14.6); RDW-SD 45.5 fL; WBC 11.36 10^3/uL (4.4-10.8)
[2021-02-01 07:24] LABS: Absolute Neutrophil Count 7.26 10^3/uL (1.2-6.7)
[2021-02-01] MEDS: Lactated Ringers 1,000 ML 200 ML IV ×2 (07:34→11:59)
[2021-02-01 07:52] LABS: ALT 26 U/L (14-59); AST 21 U/L (15-37); Albumin 3.5 g/dL (3.4-5.0); Alkaline Phosphatase 66 U/L (46-116); Anion Gap 11.4 mmol/L (3-11); BUN 14 mg/dL (7-18); Bilirubin, Total 0.6 mg/dL (0.2-1.0); CO2 23.6 mmol/L (21.0-32.0); CREATININE 0.7 mg/dL (0.55-1.02); Calcium 8.9 mg/dL (8.5-10.1); Chloride 108 mmol/L (98-107); Glucose 97 mg/dL (74-106); Magnesium 2.1 mg/dL (1.8-2.4); Potassium 3.4 mmol/L (3.5-5.1); Sodium 143 mmol/L (136-145)
[2021-02-01 11:50] LABS: Campylobacter PCR Negative (Negative); Salmonella PCR Negative (Negative); Shiga Toxin PCR Negative (Negative); Shigella/Enteroinvasive Ecoli Negative (Negative)
[2021-02-01 12:01] LABS: Bilirubin Small (Negative); Blood Trace-intact (Negative); Clarity Cloudy (Clear); Glucose Negative (Negative); Ketones Negative (Negative); Leukocyte Esterase Small (Negative); Nitrite Positive (Negative); Specific Gravity >= 1.030 (1.005-1.025); Urobilinogen 0.2 EU/dL (Up TO 0.2)
[2021-02-01 12:09] LABS: Bacteria Many HPF (Negative); C & S Indicated? Yes; Casts 0-2 Hyaline LPF (Negative); Crystals Many Amorphous HPF (Negative); Epithelial Cells Few HPF (Negative); Mucus Negative (Negative); RBC 0-2 HPF (0-2)
--- NOTE | 2021-02-01 15:18 | PGE_ITS ---
Date of Service Date of service: 02/01/21 Time of Service: 15:18 Assessment and Plan Assessment and plan (1) Emesis, persistent: Status: Acute Assessment and plan: Emesis appears to have resolved with use of antiemetics and Reglan. Should be kept on Carafate and twice a day dosing of Protonix. Diet will be advanced tonight if she has no further emesis she will be discharged home in the morning. (2) GERD without esophagitis: Status: Acute Assessment and plan: Treat her GERD with twice a day dosing of Protonix along with oral Carafate before meals and at bedtime. Advance diet to low fiber diet. She tolerates solid foods tonight should be discharged home in the morning. At this point since she is tolerating liquids she does not require further IV fluids. Subjective Subjective Interval history since last seen: Patient is feeling markedly better today. No abdominal pain no nausea or vomiting. She was put on clear liquids this morning and tolerated this at breakfast and lunch. I will advance her diet to a low fiber regular solid diet tonight and if she tolerates this tonight she will be discharged home in the morning. She is not passing any flatus or any bowel movement yet but she says that is not unusual. Exam Narrative Exam Narrative: Middle-age white female alert and oriented person place time circumstance no discomfort. Sitting up in bed. She is pleasant and cooperative with exam and history. She has no acute complaints. Lungs are clear to auscultation Heart is regular rate and rhythm Abdomen soft nondistended normal active bowel sounds nontender no guarding. Objective Last Vital Signs Temp 36.9 C 02/01/21 11:38 Pulse 83 02/01/21 11:38 Resp 16 02/01/21 11:38 BP 112/68 02/01/21 11:38 Pulse Ox 98 02/01/21 11:38 Laboratory Results - last 24 hr 01/31/21 01/31/21 01/31/21 12:30 12:58 16:00 WBC RBC Hgb Hct MCV MCH MCHC RDW Plt Count MPV Immature Gran % Neutrophils % Lymphocytes % Monocytes % Eosinophils % Basophils % Nucleated RBC % Absolute Neutrophils Absolute Lymphocytes Absolute Monocytes Absolute Eosinophils Absolute Basophils VBG Lactate Sodium Potassium Chloride Carbon Dioxide Anion Gap BUN Creatinine Estimated GFR/1.73 m2 Glucose Calcium Magnesium Total Bilirubin AST ALT Alkaline Phosphatase Troponin I < 0.05 Total Protein Albumin Lipase 51 Urine Color Urine Clarity Urine pH Ur Specific [place] Urine Protein Urine Ketones Urine Blood Urine Nitrite Urine Bilirubin Urine Urobilinogen Ur Leukocyte Esterase Urine RBC Urine WBC Ur Epithelial Cells Urine Crystals Urine Bacteria Urine Casts Urine Mucus Ur Culture Indicated? Urine Glucose Stool Campylobacter PCR Negative Stool Salmonella PCR Negative Stool Shigella PCR Negative COVID-19 Source SARS-CoV-2 (PCR) Shiga Toxin (PCR) Negative 01/31/21 01/31/21 02/01/21 16:20 20:00 06:45 WBC RBC Hgb Hct MCV MCH MCHC RDW Plt Count MPV Immature Gran % Neutrophils % Lymphocytes % Monocytes % Eosinophils % Basophils % Nucleated RBC % Absolute Neutrophils Absolute Lymphocytes Absolute Monocytes Absolute Eosinophils Absolute Basophils VBG Lactate 2.4 H* Sodium 143 Potassium 3.4 L Chloride 108 H Carbon Dioxide 23.6 Anion Gap 11.4 H BUN 14 Creatinine 0.7 D Estimated GFR/1.73 m2 >= 60.00 Glucose 97 D Calcium 8.9 Magnesium 2.1 Total Bilirubin 0.6 AST 21 ALT 26 Alkaline Phosphatase 66 Troponin I Total Protein 7.0 Albumin 3.5 Lipase Urine Color Urine Clarity Urine pH Ur Specific [place] Urine Protein Urine Ketones Urine Blood Urine Nitrite Urine Bilirubin Urine Urobilinogen Ur Leukocyte Esterase Urine RBC Urine WBC Ur Epithelial Cells Urine Crystals Urine Bacteria Urine Casts Urine Mucus Ur Culture Indicated? Urine Glucose Stool Campylobacter PCR Stool Salmonella PCR Stool Shigella PCR COVID-19 Source Nasal/Nares SARS-CoV-2 (PCR) Negative Shiga Toxin (PCR) 02/01/21 02/01/21 06:45 10:30 WBC 11.36 H RBC 3.76 L Hgb 11.3 D Hct 33.5 L D MCV 89.1 MCH 30.1 MCHC 33.7 RDW 13.8 Plt Count 284 MPV 9.8 Immature Gran % 0.4 Neutrophils % 63.9 Lymphocytes % 25.1 Monocytes % 10.2 Eosinophils % 0.2 Basophils % 0.2 Nucleated RBC % 0 Absolute Neutrophils 7.26 H Absolute Lymphocytes 2.85 Absolute Monocytes 1.16 H Absolute Eosinophils 0.02 Absolute Basophils 0.02 VBG Lactate Sodium Potassium Chloride Carbon Dioxide Anion Gap BUN Creatinine Estimated GFR/1.73 m2 Glucose Calcium Magnesium Total Bilirubin AST ALT Alkaline Phosphatase Troponin I Total Protein Albumin Lipase Urine Color Yellow Urine Clarity Cloudy Urine pH 6.0 Ur Specific [place] >= 1.030 H Urine Protein 30 H Urine Ketones Negative Urine Blood Trace-intact H Urine Nitrite Positive H Urine Bilirubin Small H Urine Urobilinogen 0.2 Ur Leukocyte Esterase Small H Urine RBC 0-2 Urine WBC 10-20 H Ur Epithelial Cells Few Urine Crystals Many Amorphous Urine Bacteria Many Urine Casts 0-2 Hyaline Urine Mucus Negative Ur Culture Indicated? Yes Urine Glucose Negative Stool Campylobacter PCR Stool Salmonella PCR Stool Shigella PCR COVID-19 Source SARS-CoV-2 (PCR) Shiga Toxin (PCR)
[2021-02-01] MEDS: Potassium Chloride Liquid 20 MEQ PKT PO (16:51)
[2021-02-01] MEDS: Sucralfate 1 GM TAB PO ×2 (16:51→22:00)
[2021-02-01] MEDS: Enoxaparin 40 MG/0.4 ML SYR SC (16:52)
[2021-02-01] MEDS: Ondansetron 4 MG/2 ML VIAL IVP (17:46)
--- NOTE | 2021-02-01 20:04 | PDOC.CMIN ---
- If Service Date Differs Date of service: 02/01/21 Time of Service: 20:04 Care Management Initial Assess REASON FOR HOSPITALIZATION:: intractable vomiting, dehydration PAST MEDICAL HISTORY/PAST SURGICAL HISTORY:: Medical History. Achalasia of esophagus. Complication of surgery. Gastroesophageal reflux disease. GERD without esophagitis. history of reentrant SVT. Pacemaker. Smoker unmotivated to quit. Surgical History. section. x3. Esophageal Myotomy. Fundoplication. Hx of esophagogastroduodenoscopy. Ligation of fallopian tube. Pacemaker. Biventricular pacemaker PREVIOUS FUNCTIONAL STATUS/SOCIAL/FAMILY SUPPORTS:: Marcella lives in [place] with her fiance and her twin seventeen year children, her eight year old, and his 14 year old. 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 Marcella has many friends who are also supportive. She is independent at baseline. CURRENT FUNCTIONAL STATUS:: Marcella was sitting up in bed when CM met with her. She reported that she is feeling better today, and per MD, she may be ready for discharge tomorrow, if she is able to tolerate her advanced diet at that time. She reported that she is very independent and doesn't expect that she will require any additional services or support upon discharge. CM will continue to follow. ADVANCE DIRECTIVES:: None on file. Has patient been provided with info about the portal/API?: Yes Did the patient sign up for the portal?: No CODE STATUS:: Full Code INSURANCE COVERAGE / FINANCIAL ISSUES:: [employer] CURRENT HOME/COMMUNITY SERVICES/EQUIPMENT:: none PRIMARY CARE PHYSICIAN:: Dr. Ceballos POTENTIAL DISCHARGE NEEDS:: follow up appointments PATIENT/FAMILY EDUCATION NEEDS:: Review of discharge instructions and follow up plan, limitations, Ask Me Three ANTICIPATED BARRIERS TO DISCHARGE:: None identified. TRANSPORTATION:: Via private vehicle by her fiance. PLAN:: Marcella will likely be discharged home with no new services. She will follow up with her PCP and discharge plan of care and transport with family. CM will continue to support Marcella and her discharge planning needs.
[2021-02-02] MEDS: Ondansetron 4 MG/2 ML VIAL IVP ×2 (00:05→07:31)
[2021-02-02] MEDS: Normal Saline Flush 10 ML SYR IVP ×4 (00:06→16:47)
[2021-02-02] MEDS: Pantoprazole 40 MG VIAL IVP (06:19)
[2021-02-02] MEDS: Sucralfate 1 GM TAB PO ×3 (07:26→16:46)
[2021-02-02 07:36] LABS: Abs Immature Grans 0.02 10^3/uL (0.0-0.06); Absolute Basophil Count 0.03 10^3/uL (0.0-0.2); Absolute Eosinophil Count 0.01 10^3/uL (0.0-0.7); Absolute Lymphocyte Count 2.31 10^3/uL (1.2-3.4); Absolute Monocyte Count 0.65 10^3/uL (0.1-0.8); Absolute Neutrophil Count 4.69 10^3/uL (1.2-6.7); Basophils % 0.4; Eosinophils % 0.1; HCT 33.8 % (36.0-46.0); HGB 11.4 g/dL (11.2-15.7); Immature Grans % 0.3; MCHC 33.7 % (32.0-36.0); MCV 88.9 fL (80-95); MPV 9.2 fL (8.0-11.0); Monocytes % 8.4; Neutrophils % 60.8; Nucleated RBC 0 %; Platelet Count 258 10^3/uL (130-400); RDW 13.3 % (11.7-14.6); RDW-SD 43.6 fL; WBC 7.71 10^3/uL (4.4-10.8)
[2021-02-02 07:42] LABS: Anion Gap 11.8 mmol/L (3-11); BUN 10 mg/dL (7-18); CO2 25.2 mmol/L (21.0-32.0); CREATININE 0.8 mg/dL (0.55-1.02); Calcium 8.9 mg/dL (8.5-10.1); Chloride 104 mmol/L (98-107); Glucose 108 mg/dL (74-106); Sodium 141 mmol/L (136-145)
[2021-02-02 07:53] VITALS: BP 142/89; PULSE 78; RESP 18; TEMP 36.9; O2SAT 98
--- NOTE | 2021-02-02 09:48 | PGE_ITS ---
Date of Service Date of service: 02/02/21 Time of Service: 09:48 Assessment and Plan Assessment and plan (1) Emesis, persistent: Status: Acute Assessment and plan: patient had been tolerating advancement of her diet to full liquids yesterday at lunch but relapsed last night after supper. Nursing has raised concerns for cannabis withdrawal which may compound her symptoms from her GERD/esophagitis. She has prn orders for zofran, reglan for her nausea however, I have added Marinol to her prn anti-emetics. This will help w/ nausea especially if she is indeed withdrawing from marijiuana use. (2) GERD without esophagitis: Status: Acute Assessment and plan: cont. carafate and protonix. hopefully if she tolerates solids this afternoon she can be discharged later today Subjective Subjective Interval history since last seen: patient had nausea and vomiting after dinner last night. She says that she had a turkey sandwich which did not go down well. She says that her GI doctor at [facility] had been discussing performing another EGD and possible Heller myotomy for her severe esophageal stenosis. She was put back on clear liquids last night by the auto damage estimator. I told her that we would try to advance to solid foods but choose soft, small bite sized foods and low fiber diet. If she tolerates solids at lunch then I think that she can be discharged home to follow up w/ her GI doctor, Dr. Laurent. She is also a marijiuana user and per nursing she has been taking hot showers since last night. So she may be going through marijiuana withdrawal. Exam Narrative Exam Narrative: Middle age female who is alert/oriented x 3 Abdomen: soft, nondistended, normal bowel sounds, no tenderness or rebound tenderness. Objective Last Vital Signs Temp 36.9 C 02/02/21 07:53 Pulse 78 02/02/21 07:53 Resp 18 02/02/21 07:53 BP 142/89 H 02/02/21 07:53 Pulse Ox 98 02/02/21 07:53 Laboratory Results - last 24 hr 01/31/21 02/01/21 02/02/21 12:30 10:30 07:20 WBC RBC Hgb Hct MCV MCH MCHC RDW Plt Count MPV Immature Gran % Neutrophils % Lymphocytes % Monocytes % Eosinophils % Basophils % Nucleated RBC % Absolute Neutrophils Absolute Lymphocytes Absolute Monocytes Absolute Eosinophils Absolute Basophils Sodium 141 Potassium 3.0 L Chloride 104 Carbon Dioxide 25.2 Anion Gap 11.8 H BUN 10 Creatinine 0.8 Estimated GFR/1.73 m2 >= 60.00 Glucose 108 H Calcium 8.9 Urine Color Yellow Urine Clarity Cloudy Urine pH 6.0 Ur Specific [place] >= 1.030 H Urine Protein 30 H Urine Ketones Negative Urine Blood Trace-intact H Urine Nitrite Positive H Urine Bilirubin Small H Urine Urobilinogen 0.2 Ur Leukocyte Esterase Small H Urine RBC 0-2 Urine WBC 10-20 H Ur Epithelial Cells Few Urine Crystals Many Amorphous Urine Bacteria Many Urine Casts 0-2 Hyaline Urine Mucus Negative Ur Culture Indicated? Yes Urine Glucose Negative Stool Campylobacter PCR Negative Stool Salmonella PCR Negative Stool Shigella PCR Negative Shiga Toxin (PCR) Negative 02/02/21 07:20 WBC 7.71 D RBC 3.80 L Hgb 11.4 Hct 33.8 L MCV 88.9 MCH 30.0 MCHC 33.7 RDW 13.3 Plt Count 258 MPV 9.2 Immature Gran % 0.3 Neutrophils % 60.8 Lymphocytes % 30.0 Monocytes % 8.4 Eosinophils % 0.1 Basophils % 0.4 Nucleated RBC % 0 Absolute Neutrophils 4.69 Absolute Lymphocytes 2.31 Absolute Monocytes 0.65 Absolute Eosinophils 0.01 Absolute Basophils 0.03 Sodium Potassium Chloride Carbon Dioxide Anion Gap BUN Creatinine Estimated GFR/1.73 m2 Glucose Calcium Urine Color Urine Clarity Urine pH Ur Specific [place] Urine Protein Urine Ketones Urine Blood Urine Nitrite Urine Bilirubin Urine Urobilinogen Ur Leukocyte Esterase Urine RBC Urine WBC Ur Epithelial Cells Urine Crystals Urine Bacteria Urine Casts Urine Mucus Ur Culture Indicated? Urine Glucose Stool Campylobacter PCR Stool Salmonella PCR Stool Shigella PCR Shiga Toxin (PCR)
[2021-02-02] MEDS: Dronabinol 2.5 MG CAP 10 MG PO (13:43)
[2021-02-02 13:48] VITALS: BP 145/87; PULSE 96; O2SAT 97
[2021-02-02 15:47] VITALS: BP 111/70; PULSE 89; RESP 18; TEMP 36.8; O2SAT 98
[2021-02-02] MEDS: Enoxaparin 40 MG/0.4 ML SYR SC (16:46)
--- NOTE | 2021-02-02 18:01 | CMPROGNOTE_ITS ---
- If Service Date Differs Date of service: 02/02/21 Time of Service: 18:01 Care Management Progress Note S/O: Marcella was resting when CM attempted to visit with her. Per report, her diet was advanced last night, but she did not tolerate it. MD made some medication adjustments for her nausea. She will continue to be monitored, and she will be ready for discharge once she is able to tolerate an advanced diet. CM will continue to follow. A: Marcella is a 45 year old female admitted to [facility] on 01/31/21 for intractable vomiting. P: Marcella will likely be discharged home with no new services. She will follow up with her PCP and discharge plan of care and transport with family. CM will continue to support Marcella and her discharge planning needs.
--- NOTE | 2021-02-02 18:03 | DSE_ITS ---
Date of service: 02/02/21 Time of Service: 18:03 DS: Diagnosis Discharge Diagnosis (1) Emesis, persistent: Status: Acute (2) GERD without esophagitis: Status: Acute Discharge Plan Disposition Patient Disposition: HOME Condition: Improving Discharge Details Reason For Visit: Intractable Vomiting, Dehydration Admit Date/Time: 01/31/21 15:43 Admit Provider: Doron Humphrey Attending Provider: Doron Humphrey Primary Care Provider: Karri Ceballos [facility] Hospital Course: Patient is a 45-year-old female with past medical history of severe GERD status post Iftikhar's fundoplication and esophageal myotomy currently followed at [facility] by Dr. Ej Toribio who presented to the emergency department on January 31 with protracted nausea and vomiting that began on the day of admission. Please see the admission history and physical exam for details. She had failed home treatment with her antiemetics and was brought in the hospital for IV fluid rehydration and control of her protracted nausea and vomiting. Routine work-up included labs including a CBC that showed a white count of 14,980 CMP showed elevated sodium of 146 with slightly elevated anion gap of 13 but with a normal CO2 of 24. BUN and creatinine are elevated over baseline at 16 and 1.2 (baseline BUN is 5 baseline creatinine 0.8), lipase was normal. SARS-CoV-[address] nasal PCR was negative. CT of the abdomen pelvis with IV contrast showed no acute pathology. She has stable hepatic cysts. Patient was treated IV fluids and antiemetics including Zofran and Reglan and given IV Pepcid. She was admitted to the hospital where she continued to receive antiemetics and placed on scheduled dose of Reglan her PPI was increased to twice a day she was given Protonix 40 mg twice daily and put on Carafate 1 g before meals and at bedtime. Her diet was advanced to clear liquids on the morning of February 01 and by the evening she was placed on a low fiber diet but did not tolerate that. Overnight on February 01 she was put back on clear liquids and IV fluids were continued. On the morning of February 02 she was feeling better her diet was again advanced and she tolerated low fiber small portions with soft foods. Because she is a regular marijuana user was felt that some of her emesis may been secondary to withdrawal from her marijuana. She was given Marinol in the hospital. She will be discharged home to follow-up with her primary care provider and her GI doctor at [facility]. A new prescription was given for Carafate 1 g before meals and at bedtime. Her Protonix was increased to 40 mg twice a day. She was given information regarding a diet for stomach ulcers and gastritis as well as information regarding GERD and esophageal spasm. Home Meds and New Rx's Prescriptions: New sucralfate 1 gram Tablet 1 g PO AC & HS Qty: 120 RF: 0 Continued potassium chloride [Klor-Con M10] 10 mEq tablet,ER particles/crystals 10 meq PO DAILY RF: 0 fluoxetine 10 mg capsule 10 mg PO DAILY RF: 0 mirtazapine 7.5 mg tablet 7.5 mg PO HS RF: 0 Changed pantoprazole 40 mg tablet,delayed release (DR/EC) 40 mg PO BID Qty: 0 RF: 0 Discharge Instructions Instructions: Diet for Stomach Ulcers and Gastritis (ED), GERD (Gastroesophageal Reflux Disease) (DC), Esophageal Spasm (GEN) Stand Alone Forms: Nursing Discharge Form Referrals: [facility] [Outside] - 02/22/21 5:15 pm (Bulker-Marissa Carson [facility] virtual [phone] ) Karri Ceballos [Primary Care Provider] - (call your PCP for follow up appointment in the next week) Activity:: Activity as Tolerated Equipment/Supplies:: No Equipment Needed Diet:: low fiber, soft foods, small bites; no alcohol or tobacco or acid foods Discharge Orders Discharge Orders: Discharge Order (Routine); Ordered 02/02/21 Ordered By: Doron Humphrey Discharge Data Discharge Date/Time-TO BE ENTERED AT DEPARTURE: 02/02/21 19:11 DS: Summary Time Spent with Patient providing and/or coordinating discharge services: Less than 30 minutes Status at Discharge Functional status at discharge: independent ambulation Overall status at discharge: patient is back to baseline Mental Status: mental status grossly normal Speech and Movement: speech and movement normal Mood: congruent mood Affect: normal affect Exam Narrative Exam Narrative: Middle age female who is alert/oriented x 3 Abdomen: soft, nondistended, normal bowel sounds, no tenderness or rebound tenderness. Psych Mental Status: mental status grossly normal Speech and Movement: speech and movement normal Mood: congruent mood Affect: normal affect DS: Data Vitals/I&O Vitals and I&O: Vital Signs Temperature 36.8 C 02/02/21 15:47 Temperature Source Temporal Artery Scan 02/02/21 15:47 Pulse 89 02/02/21 15:47 Pulse Rhythm Regular 02/02/21 17:18 Respiratory Rate 18 02/02/21 15:47 Respiratory Effort Non-Labored 02/02/21 17:18 Respiratory Depth Normal 02/02/21 17:18 Respiratory Pattern Normal 02/02/21 17:18 Blood Pressure 111/70 02/02/21 15:47 Blood Pressure Position Sitting 01/31/21 12:25 Pulse Oximetry 98 02/02/21 15:47 Oxygen Delivery Method Room Air 02/02/21 15:47 Oxygen Flow Rate 0 02/02/21 15:47 Pain Level 0 02/02/21 15:47 Comment 02/02/21 07:53 Intake & Output 02/01/21 02/02/21 02/02/21 23:59 11:59 23:59 Intake Total 856.667 / 1840.000 10 1110 1101 / 1111 Output Total 300 / 300 Balance 856.667 / 1840.000 -290 / 811 1101 / 811 Intake: IV 856.667 / 1740.000 Oral 1100 / 1100 Output: Urine 300 / 300 Other: Urine Color Yellow Straw Urine Appearance Clear Cloudy Urine Odor Normal Comment pt independent with voiding Voiding Methods Toilet Toilet Data Completed and Pending Labs on day of discharge: Labs from last 24 hours 02/02/21 02/02/21 07:20 07:20 WBC 7.71 D RBC 3.80 L Hgb 11.4 Hct 33.8 L MCV 88.9 MCH 30.0 MCHC 33.7 RDW 13.3 Plt Count 258 MPV 9.2 Immature Gran % 0.3 Neutrophils % 60.8 Lymphocytes % 30.0 Monocytes % 8.4 Eosinophils % 0.1 Basophils % 0.4 Nucleated RBC % 0 Absolute Neutrophils 4.69 Absolute Lymphocytes 2.31 Absolute Monocytes 0.65 Absolute Eosinophils 0.01 Absolute Basophils 0.03 Sodium 141 Potassium 3.0 L Chloride 104 Carbon Dioxide 25.2 Anion Gap 11.8 H BUN 10 Creatinine 0.8 Estimated GFR/1.73 m2 >= 60.00 Glucose 108 H Calcium 8.9 Preliminary micro results at discharge 02/01/21 10:30 Urine Culture - Preliminary Urine - Reflex from Ua Escherichia coli PFSH Medical History Achalasia of esophagus Complication of surgery Gastroesophageal reflux disease GERD without esophagitis history of reentrant SVT Pacemaker Smoker unmotivated to quit Surgical History section x3 Esophageal Myotomy Fundoplication Hx of esophagogastroduodenoscopy Ligation of fallopian tube Pacemaker Biventricular pacemaker Family History Aunt Personal history of malignant neoplasm Breast cancer Social History Smoking/Tobacco Use Status: Current every day Tobacco Type: cigarettes Smoking risk assessment performed?: Yes Alcohol Intake: current Alcohol Intake frequency: holidays/special occasions only Drug use: Daily Substance use type: marijuana 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
== END 2021-02-02 19:11 | disposition home or self-care (01) ==
LOC: ER 12:46 → MS 16:55
PROVIDERS: Admitting Provider Internal Medicine; Emergency Provider Student in an Organized Health Care Education/Training Program; PCP Family Medicine; Visit Provider Internal Medicine
DX: R11.10 Vomiting, unspecified (principal); K29.70 Gastritis, unspecified, without bleeding; K21.00 Gastro-esophageal reflux disease with esophagitis, without bleeding; R19.7 Diarrhea, unspecified; F17.210 Nicotine dependence, cigarettes, uncomplicated; I47.1 Supraventricular tachycardia; I44.2 Atrioventricular block, complete; Z95.0 Presence of cardiac pacemaker; K22.0 Achalasia of cardia; Z20.822 Contact with and (suspected) exposure to COVID-19
CPT/HCPCS: 36415; 80048; 80053; 83690; 87077; 87493; 87505; 87635; 93005; 96365; 96375; 99285; J1650; 74177; 81003; 81015; 83605; 83735; 84484; 85025; 87086; 87186; 93010; 99219; 99224; 99231; G0378; J2405; J2765; J3490

== ENCOUNTER 2021-03-14 20:35 | Outpatient (REF) | payer MEDICAID, SELFPAY ==
[2021-03-14 21:44] LABS: Anion Gap 10.2 mmol/L (3-11); BUN 10 mg/dL (7-18); CO2 25.8 mmol/L (21.0-32.0); CREATININE 0.8 mg/dL (0.55-1.02); Calcium 9.2 mg/dL (8.5-10.1); Chloride 104 mmol/L (98-107); Ferritin 15 ng/mL (8-252); Glucose 98 mg/dL (74-106); Potassium 3.9 mmol/L (3.5-5.1); Sodium 140 mmol/L (136-145)
== END 2021-03-14 20:36 | disposition home or self-care (01) ==
LOC: NCHCN 20:35
PROVIDERS: PCP Family Medicine; Visit Provider Family Medicine
DX: D64.9 Anemia, unspecified (principal); G25.81 Restless legs syndrome; E87.6 Hypokalemia
CPT/HCPCS: 80048; 82728

== ENCOUNTER 2021-05-29 22:35 | Observation (INO) | payer MEDICAID, SELFPAY ==
[2021-05-29 22:40] VITALS: BP 142/72; PULSE 97; RESP 18; TEMP 36; O2SAT 98
--- NOTE | 2021-05-29 22:45 | RT.EKG_ITS ---
APPROVED REPORT Exam: Resting ECG Reason for Exam: vomiting, nausea Patient Location: E HR:92 bpm ECG Measurements Heart Rate 92 AXIS [place] 206 P 269 QRSd 137 QRS -90 QT 443 T 88 QTc 548 Conclusion Atrial-sensed ventricular-paced rhythm...ventricular pacing tracks p-waves Physician: negative for LINDA
--- NOTE | 2021-05-29 22:47 | W.ED.GENAD ---
Discharge Plan Disposition [facility] Condition: Improving Discharge Details Clinical Impression: Vomiting, Acute dehydration, Acidosis, lactic Primary Care Provider: Karri Ceballos ED Provider: Anand Thomas Home Meds and New Rx's Prescriptions: No Action potassium chloride [Klor-Con M10] 10 mEq tablet,ER particles/crystals 10 meq PO DAILY RF: 0 fluoxetine 10 mg capsule 10 mg PO DAILY RF: 0 mirtazapine 7.5 mg tablet 7.5 mg PO HS RF: 0 sucralfate 1 gram Tablet 1 g PO AC & HS Qty: 120 RF: 0 pantoprazole 40 mg tablet,delayed release (DR/EC) 40 mg PO BID Qty: 0 RF: 0 ondansetron 4 mg tablet,disintegrating 4 mg PO 4-6XD PRNRF: 0 Medical Decision Making This is a 45-year-old female with a past medical history of Dina-Danlos syndrome, achalasia of the esophagus, chronic GERD, history of reentrant SVT, currently with pacemaker, , fallopian tube ligation, and a recent laparoscopic Heller myotomy with toupee fundoplication performed at [facility] on 05/20/2021. She presents today for vomiting. After the procedure she had an unremarkable stay. She was transitioned to a liquid diet, was discharged on 05/22/2021 with no complications. Since being home she has been doing well and sticking with a liquid diet until today when she is started her first solid food which were canned peaches. Immediately after eating these 12 hours prior to arrival here [facility] she had vomiting with nausea and epigastric abdominal pain which has been persistent for the last 12 hours. She has taken Zofran and other antiemetics with no improvement. She denies hematemesis. She does admit to mild brown diarrhea. She denies any chest pain or shortness of breath. She denies any trauma to her abdomen. She has not been able to keep down any liquids since the start of her vomiting 12 hours ago. Patient denies any other complaints at this time. No other modifying factors. Physical exam demonstrates mild tenderness in the epigastric region. No guarding or rebound. Postoperative sites are clean, dry, and intact. No redness or drainage. At this time differential includes postoperative complication secondary to transitioning to solid foods, ileus, obstruction, or enteritis. We will treat the patient's pain, give antiemetics, rehydrate, get a CT scan of the abdomen, monitor closely and reassess. 1:23 Patient's laboratory work-up has returned, minimal white count, minimal left shift, initial lactate is notably elevated at 5.4. Electrolytes stable, anion gap elevated at 21. Urinalysis unremarkable. CT scan shows no evidence of mesenteric ischemia on CTA, no active bleeding, no evidence of obstruction, there is evidence of mild enteritis. No other acute process per virtual radiology. Patient's vomiting is now controlled, however she does still feel notably nauseous. Vital signs stable. I did contact [facility] and discussed the case with Dr. Betancourt, he agrees with the plan of continued hydration, admission and gradual transition to a liquid diet. He was able to review the images that were sent to [facility]. Patient and case was discussed with hospitalist , he agrees with the assessment and plan and I will place admission orders on his behalf. We will get a repeat lactate after rehydration with normal saline. I have extensively reviewed the treatment plan with the patient. I have addressed all patient concerns at this time. I have also discussed the plan with the admitting physician and they agree with the current assessment and plan and have agreed to assume responsibility for the patient. All parties demonstrate verbal understanding and agreement with our assessment and plan at this time. The documentation in this chart was dictated using [employer] dictation software. Please excuse any dictation errors. Repeat lactate has returned and is 1.1. This demonstrates notable improvement which corresponds well with her clinical improvement. FINDINGS: Aorta: No aortic aneurysm. No aortic dissection. Celiac trunk and mesenteric arteries: No occlusion or significant stenosis. Renal arteries: No occlusion or significant stenosis. Right iliac arteries: No occlusion or significant stenosis. Left iliac arteries: No occlusion or significant stenosis. Liver: Simple cyst noted Gallbladder and bile ducts: Unremarkable. No calcified stones. No ductal dilation. Pancreas: Unremarkable. No mass. No ductal dilation. Spleen: Unremarkable. No splenomegaly. Adrenal glands: Unremarkable. No mass. Kidneys and ureters: Left renal calcifications versus calculi in the lower pole measuring up to 5-6 mm. No solid mass. No hydronephrosis. Stomach and bowel: Prior fundoplication No obstruction. Question mild mucosal thickening. Appendix: No evidence of appendicitis. Intraperitoneal space: Unremarkable. No free air. No significant fluid collection. Lymph nodes: Unremarkable. No enlarged lymph nodes. Urinary bladder: Unremarkable. No mass. Reproductive: Unremarkable as visualized. Bones/joints: No acute fracture. No dislocation. Degenerative changes at L5-S1 with anterolisthesis noted. Question chronic right-sided spondylolysis Soft tissues: Unremarkable. IMPRESSION: No hemodynamically significant stenosis. No active bleeding detected Nonspecific nonobstructed bowel gas pattern. Correlate for mild enteritis Status post Iftikhar fundoplication Nonobstructing left renal calculi versus renal calcifications Thank you for allowing us to participate in the care of your patient. Dictated and Authenticated by: Irvin Landin MD 05/30/2021 12:29 AM Eastern Time ([place] & [place]) HPI General Date/Time Provider Initiated Documentation: 05/29/21 22:36. HPI Narrative: This is a 45-year-old female with a past medical history of Dina-Danlos syndrome, achalasia of the esophagus, chronic GERD, history of reentrant SVT, currently with pacemaker, , fallopian tube ligation, and a recent laparoscopic Heller myotomy with toupee fundoplication performed at [facility] on 05/20/2021. She presents today for vomiting. After the procedure she had an unremarkable stay. She was transitioned to a liquid diet, was discharged on 05/22/2021 with no complications. Since being home she has been doing well and sticking with a liquid diet until today when she is started her first solid food which were canned peaches. Immediately after eating these 12 hours prior to arrival here [facility] she had vomiting with nausea and epigastric abdominal pain which has been persistent for the last 12 hours. She has taken Zofran and other antiemetics with no improvement. She denies hematemesis. She does admit to mild brown diarrhea. She denies any chest pain or shortness of breath. She denies any trauma to her abdomen. She has not been able to keep down any liquids since the start of her vomiting 12 hours ago. Patient denies any other complaints at this time. No other modifying factors. Related Data Home Medications Medication Instructions Recorded Confirmed potassium chloride [Klor-Con M10] 10 meq PO DAILY 08/03/20 05/29/21 fluoxetine 10 mg PO DAILY 10/18/20 05/29/21 mirtazapine 7.5 mg PO HS 10/18/20 02/16/21 pantoprazole 40 mg PO BID #0 tab 02/02/21 05/29/21 sucralfate 1 g PO AC & HS #120 tab 02/02/21 02/16/21 ondansetron 4 mg PO 4-6XD PRN 05/29/21 05/29/21 Previous Rx's Medication Instructions Recorded pantoprazole 40 mg PO BID #0 tab 02/02/21 sucralfate 1 g PO AC & HS #120 tab 02/02/21 Allergies Allergy/AdvReac Type Severity Reaction Status Date / Time adhesive tape Allergy Skin Rash Unverified 05/29/21 22:44 prochlorperazine Allergy Unverified 05/29/21 22:44 [From Compazine] capsaicin AdvReac Intermediate sunburn Verified 05/29/21 22:44 type rash, burning, no blisters General Stated Complaint: Abd Prob CARL: 3 Review of Systems All systems reviewed & are unremarkable except as noted in HPI and below PFSH Medical History Achalasia of esophagus Complication of surgery Gastroesophageal reflux disease GERD without esophagitis history of reentrant SVT Pacemaker Smoker unmotivated to quit Surgical History section x3 Esophageal Myotomy Fundoplication Hx of esophagogastroduodenoscopy Ligation of fallopian tube Pacemaker Biventricular pacemaker Family History Aunt Personal history of malignant neoplasm Breast cancer Social History Smoking/Tobacco Use Status: Current every day Tobacco Type: cigarettes Smoking risk assessment performed?: Yes Alcohol Intake: current Alcohol Intake frequency: holidays/special occasions only Drug use: Daily Substance use type: marijuana 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 3.ENT: Atraumatic external nose and ears. Moist MM. Neck: Symmetric, trachea midline, No thyromegaly. 4.CVS: +S1/S2, No murmurs or gallops. Peripheral pulses 2+ and equal in all extremities. Brisk capillary refill in all extremities. 5.RESP: Unlabored respiratory effort. Clear to auscultation bilaterally. No wheezes rales or rhonchi 6.GI: Soft, nondistended, mild tenderness in the epigastric region. Bowel sounds present. Postoperative sites are clean, dry, intact with no redness or drainage. 7.MSK: Normocephalic/Atraumatic, Extremities w/o deformity or ttp No cyanosis or clubbing, Normal movement of all extremities 8.Skin: Warm, Dry. No rashes or lesions. 9.Neuro: video effects editor II-XII grossly intact. Sensation grossly intact, no focal neurologic deficits. 10.Psych: (AAO) x3. Appropriate mood and affect Course Vital Signs Vital signs: Vital Signs Temperature 36.0 C L 05/29/21 22:40 Pulse 97 H 05/29/21 22:40 Respiratory Rate 18 05/29/21 22:40 Blood Pressure 142/72 H 05/29/21 22:40 Pulse Oximetry 98 05/29/21 22:40 Temperature 36.0 C L 05/29/21 22:40 Temperature Source Skin 05/29/21 22:40 Pulse 97 H 05/29/21 22:40 Respiratory Rate 18 05/29/21 22:40 Blood Pressure 142/72 H 05/29/21 22:40 Pulse Oximetry 98 05/29/21 22:40 Pain Level 6 05/29/21 22:40
[2021-05-29] MEDS: Normal Saline 1,000 ML 1000 ML IV (22:50)
[2021-05-29 22:57] LABS: Abs Immature Grans 0.04 10^3/uL (0.0-0.06); Absolute Basophil Count 0.11 10^3/uL (0.0-0.2); Absolute Eosinophil Count 0.37 10^3/uL (0.0-0.7); Absolute Lymphocyte Count 2.79 10^3/uL (1.2-3.4); Absolute Monocyte Count 0.88 10^3/uL (0.1-0.8); Eosinophils % 3.3; HCT 38.5 % (36.0-46.0); HGB 12.6 g/dL (11.2-15.7); Immature Grans % 0.4; Lymphocytes % 24.7; MCH 29.2 pg (27.0-33.0); MCHC 32.7 % (32.0-36.0); MCV 89.3 fL (80-95); MPV 9.7 fL (8.0-11.0); Monocytes % 7.8; Neutrophils % 62.8; Nucleated RBC 0 %; Platelet Count 421 10^3/uL (130-400); RBC 4.31 10^6/uL (3.93-5.22); RDW 13.9 % (11.7-14.6); RDW-SD 45.8 fL; WBC 11.31 10^3/uL (4.4-10.8)
[2021-05-29] MEDS: Ondansetron 4 MG/2 ML VIAL IVP ×2 (22:57→23:41)
[2021-05-29 23:00] LABS: Lactate 5.4 mmol/L (0.6-1.4)
--- NOTE | 2021-05-29 23:00 | DI.CT_ITS ---
Exam(s) CT ABDOMEN PELVIS CTA EXAM: CT ABDOMEN PELVIS CTA CLINICAL HISTORY: recent abd surger, pain, vomiting. TECHNIQUE: Imaging Protocol: Axial CT angiography was performed with multi-slice acquisition and m ulti-planar and/or 3D reconstructions. CONTRAST MATERIAL: Intravenous: Omnipaque 350 Contrast volume:100 mL Oral: No COMPARISON: CT CT ABDOMEN PELVIS W from 01/31/2021 FINDINGS: ABDOMEN AND PELVIS: Abdomen: Celiac axis/mesenteric arteries: No evidence of occlusion or significant stenosis. Renal Arteries: No evidence of occlusion or significant stenosis. There is a single renal artery perf using each kidney. Aorta: No evidence of occlusion or significant stenosis. No aneurysm or dissection. Pelvis: Iliac Arteries: No evidence of occlusion or significant stenosis. Common Femoral Arteries: No evidence of occlusion or significant stenosis. ABDOMEN: Lung bases: There is a small hiatal hernia. There is a stable 3 mm nodule in the left lung base post eriorly. Liver: Normal density. There is again seen a stable hepatic cyst. No follow-up is recommended. Portal, Superior Mesenteric, and Splenic Veins: Unremarkable. Gallbladder and Biliary Tract: The gallbladder is absent and may be surgically removed. No biliary d uctal dilatation. Pancreas: Normal density, no abnormal calcifications or inflammatory process. Spleen: Unremarkable given the arterial imaging phase. Adrenals: No masses seen. Kidneys: Normal size, contour and axis. There is a stable nonobstructing stone in the lower pole of t he left kidney. No right nephrolithiasis. No hydronephrosis. No masses seen. Bowel: No obstruction or bowel wall thickening. No evidence of appendicitis. Peritoneal Cavity: No ascites, collection or mesenteric inflammatory response. No free air. Lymph Nodes: Within normal limits. Bones: There is L5 spondylolysis and grade 1 spondylolisthesis of L5 on S1. Degenerative changes are seen at L5-S1. Soft Tissues: There is a nonspecific 1 cm soft tissue round nodule in the right anterior abdominal wa ll. This may represent a lymph node or injection site. Small traumatic injury cannot be excluded. Please correlate clinically. PELVIS: Bladder: Symmetric distention, no gross wall thickening. Reproductive Organs: Unremarkable as visualized. There is again seen mild prominence of the parametri al vessels which may represent pelvic congestion syndrome. Lymph Nodes: Within normal limits. Bones: Within normal limits. IMPRESSION: 1. No evidence of arterial injury or active bleeding. No significant arterial stenosis. Normal appe arance of the superior mesenteric artery and vein. 2. No acute abdominal or pelvic process. RADIATION DOSE DELIVERED: 902.12mGy.cm Total DLP DATA REPOSITORY: All CT scans at this facility are submitted to the National Radiology Data Registry (NRDR) Dose Index Registry (DIR) with the [employer] (A[employer]). RADIATION OPTIMIZATION: All CT scans at this facility use at least one of these dose optimization te chniques: automated exposure control; mA and/or kV adjustment per patient size (includes targeted exa ms where dose is matched to clinical indication); or iterative reconstruction.
[2021-05-29 23:15] LABS: ALT 23 U/L (14-59); AST 14 U/L (15-37); Albumin 4.3 g/dL (3.4-5.0); Alkaline Phosphatase 83 U/L (46-116); Anion Gap 21.2 mmol/L (3-11); BUN 12 mg/dL (7-18); Bilirubin, Total 0.5 mg/dL (0.2-1.0); CO2 19.8 mmol/L (21.0-32.0); Calcium 9.8 mg/dL (8.5-10.1); Chloride 105 mmol/L (98-107); Glucose 182 mg/dL (74-106); Lipase 68 U/L (73-393); Potassium 3.6 mmol/L (3.5-5.1); Sodium 146 mmol/L (136-145); Total Protein 8.4 g/dL (6.4-8.2)
[2021-05-29 23:16] LABS: Troponin I < 0.05 ng/mL (<0.06)
[2021-05-29] MEDS: Omnipaque 350 MG/ML 100 ML BTL IJ (23:26)
[2021-05-29] MEDS: Normal Saline Flush 10 ML SYR IVP (23:27)
[2021-05-29] MEDS: Normal Saline - Diluent 50 ML VIAL IV (23:27)
[2021-05-29] MEDS: Metoclopramide 10 MG/2 ML VIAL IVP (23:41)
[2021-05-29 23:42] VITALS: BP 133/73
[2021-05-30 00:22] LABS: Bilirubin Negative (Negative); Blood Trace-intact (Negative); Clarity Clear (Clear); Glucose Negative (Negative); Ketones 15 mg/dL (Negative); Leukocyte Esterase Negative (Negative); Nitrite Negative (Negative); Specific Gravity 1.025 (1.005-1.025); Urobilinogen 0.2 EU/dL (Up TO 0.2)
[2021-05-30 00:28] LABS: Bacteria Rare HPF (Negative); C & S Indicated? No; Casts Negative LPF (Negative); Crystals Negative HPF (Negative); Epithelial Cells Rare HPF (Negative); Mucus Negative (Negative); WBC Negative HPF (0-5)
--- NOTE | 2021-05-30 00:29 | DI.VRAD_ITS ---
PROCEDURE INFORMATION: Exam: CTA Abdomen and Pelvis With Contrast Exam date and time: 05/29/2021 11:01 PM Age: 45 years old Clinical indication: Abdominal pain; Generalized; Prior surgery; Surgery date: <1 month; Surgery type: Surgery myotomy9 days ago; Patient HX: HX of sean procedure, myotomy, c-sections; Additional info: Recent abd surgery, pain, vomiting TECHNIQUE: Imaging protocol: Computed tomographic angiography of the abdomen and pelvis with contrast material. 3D rendering (Not supervised by radiologist): MIP and/or 3D reconstructed images were created by the technologist. Radiation optimization: All CT scans at this facility use at least one of these dose optimization techniques: automated exposure control; mA and/or kV adjustment per patient size (includes targeted exams where dose is matched to clinical indication); or iterative reconstruction. Contrast material: OMNIPAQUE 350; Contrast volume: 100 ml; Contrast route: INTRAVENOUS (IV); COMPARISON: CT THORAX ABD/PEL CTA 08/09/2020 3:26 AM FINDINGS: Aorta: No aortic aneurysm. No aortic dissection. Celiac trunk and mesenteric arteries: No occlusion or significant stenosis. Renal arteries: No occlusion or significant stenosis. Right iliac arteries: No occlusion or significant stenosis. Left iliac arteries: No occlusion or significant stenosis. Liver: Simple cyst noted Gallbladder and bile ducts: Unremarkable. No calcified stones. No ductal dilation. Pancreas: Unremarkable. No mass. No ductal dilation. Spleen: Unremarkable. No splenomegaly. Adrenal glands: Unremarkable. No mass. Kidneys and ureters: Left renal calcifications versus calculi in the lower pole measuring up to 5-6 mm. No solid mass. No hydronephrosis. Stomach and bowel: Prior fundoplication No obstruction. Question mild mucosal thickening. Appendix: No evidence of appendicitis. Intraperitoneal space: Unremarkable. No free air. No significant fluid collection. Lymph nodes: Unremarkable. No enlarged lymph nodes. Urinary bladder: Unremarkable. No mass. Reproductive: Unremarkable as visualized. Bones/joints: No acute fracture. No dislocation. Degenerative changes at L5-S1 with anterolisthesis noted. Question chronic right-sided spondylolysis Soft tissues: Unremarkable. IMPRESSION: No hemodynamically significant stenosis. No active bleeding detected Nonspecific nonobstructed bowel gas pattern. Correlate for mild enteritis Status post Sean fundoplication Nonobstructing left renal calculi versus renal calcifications Dictated and Authenticated by: Irvin Landin MD. Ordering:DEIDRA Michel MD
[2021-05-30] MEDS: Normal Saline 1,000 ML 1000 ML IV (00:39)
[2021-05-30 01:16] VITALS: BP 115/74; PULSE 72; RESP 16; O2SAT 98
[2021-05-30 01:41] LABS: Lactate 1.1 mmol/L (0.6-1.4)
[2021-05-30 01:41] LABS: Source Nasal/Nares
[2021-05-30 02:49] VITALS: BP 125/86; PULSE 77; RESP 22; TEMP 36; O2SAT 99
[2021-05-30] MEDS: Normal Saline 1,000 ML 150 ML IV (03:39)
[2021-05-30] MEDS: MORPHine 4 MG/ML SYR IVP ×2 (03:40→17:23)
[2021-05-30] MEDS: Ondansetron 4 MG/2 ML VIAL IVP ×2 (03:40→09:17)
[2021-05-30 07:17] VITALS: BP 136/79; PULSE 83; RESP 18; TEMP 36.9; O2SAT 96
--- NOTE | 2021-05-30 07:18 | W.PM.HP.N ---
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 She will be tried on clear fluids then along with resumption of sucralfate and she will be started on liquid esomeprazole. We will try intravenous promethazine as needed. If she does not improve she may need a repeat EGD from her treatment team at [facility]. (2) Acute dehydration: Status: Acute Assessment and plan: This seems to be resolved with the intravenous fluids. If she is able to maintain oral hydration the IV fluids can be stopped. (3) Acidosis, lactic: Status: Acute Assessment and plan: Her initial lactate was over five but resolved with intravenous fluids. History of Present Illness History of Present Illness Chief Complaint: vomiting, Abd pain Narrative: This 45-year-old patient has a long history of chronic medical problems including gastroesophageal reflux. She had a Iftikhar fundoplication done 17 years ago. She has had recurrent dysphagia and has had multiple esophageal dilations. Because the dilations were not helping her she had a laparoscopic myotomy of the esophagus on May 20. She was taken care of at [facility] for this. She said she had a follow-up EGD which showed no recurrent stenosis. She was discharged May 22 and was told to be on liquid diet for a week and then advance her diet as tolerated. Yesterday she had some canned pears and started vomiting and could not stop the the emesis with ondansetron and promethazine. She came to the hospital to be evaluated. She had an evaluation in the emergency department which showed a lactic acidosis which resolved after intravenous fluids. She also got intravenous Reglan which helped some. She feels a bit thirsty this morning and is anxious to try some oral fluids. She has not been around anyone else has been ill. She has had her coronavirus vaccine. She has not had any hemoptysis or hematochezia. She has chronic diarrhea that has been unchanged. She has had no known fever but has felt hot and cold at home. She has had no urinary symptoms. Review of Systems Constitutional Constitutional: Reports chills and Denies fever(s) ENT Ears, Nose, Mouth, and Throat: Reports dysphagia Cardiovascular Cardiovascular: Denies chest pain, Denies rapid heart rate, Denies palpitations and Reports dyspnea Respiratory Respiratory: Denies cough and Reports dyspnea Gastrointestinal Gastrointestinal: Reports dysphagia Genitourinary Genitourinary: Denies difficulty voiding, Denies nocturia and Denies urinary urgency Endocrine Endocrine: Denies palpitations PFSH Medical History Achalasia of esophagus Complication of surgery Gastroesophageal reflux disease GERD without esophagitis history of reentrant SVT Pacemaker Smoker unmotivated to quit Surgical History section x3 Esophageal Myotomy Fundoplication Hx of esophagogastroduodenoscopy Ligation of fallopian tube Pacemaker Biventricular pacemaker Family History Aunt Personal history of malignant neoplasm Breast cancer Social History Smoking/Tobacco Use Status: Current every day Tobacco Type: cigarettes Smoking risk assessment performed?: Yes Alcohol Intake: current Alcohol Intake frequency: holidays/special occasions only Drug use: Daily Substance use type: marijuana 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 Current gender identity: female Do you feel safe at home: Yes Do you feel safe in your relationship?: Yes Meds Allergies and Home Medications Allergies Allergy/AdvReac Type Severity Reaction Status Date / Time adhesive tape Allergy Skin Rash Unverified 05/29/21 22:44 prochlorperazine Allergy Unverified 05/29/21 22:44 [From Compazine] capsaicin AdvReac Intermediate sunburn Verified 05/29/21 22:44 type rash, burning, no blisters Home Medications Medication Instructions Recorded Confirmed Type potassium chloride [Klor-Con M10] 10 meq PO DAILY 08/03/20 05/29/21 History fluoxetine 10 mg PO DAILY 10/18/20 05/29/21 History mirtazapine 7.5 mg PO HS 10/18/20 02/16/21 History pantoprazole 40 mg PO BID #0 tab 02/02/21 05/29/21 Rx sucralfate 1 g PO AC & HS #120 tab 02/02/21 02/16/21 Rx ondansetron 4 mg PO 4-6XD PRN 05/29/21 05/29/21 History Exam Const General: cooperative, comfortable, no acute distress, well developed and not ill appearing Orientation: alert and awake Neck Neck: normal visual inspection and no lymphadenopathy Resp Effort & Inspection: normal respiratory effort and able to speak in complete sentences Auscultation: no bronchovesicular breath sounds, no crackles, no rales, no rhonchi and no wheezes Cardio Jugular venous pressure: no JVD Rhythm: regular rhythm Heart Sounds: S1 normal, no gallops and no murmurs GI Inspection: normal to inspection and non-distended Palpation: no hepatosplenomegaly and nontender Extrem General: no edema Results Labs Result diagrams: 05/29/21 22:48 05/29/21 22:48 Labs: Laboratory Results - last 24 hr 05/29/21 05/29/21 05/29/21 22:48 22:48 22:48 WBC 11.31 H RBC 4.31 Hgb 12.6 Hct 38.5 MCV 89.3 MCH 29.2 MCHC 32.7 RDW 13.9 Plt Count 421 H MPV 9.7 Immature Gran % 0.4 Neutrophils % 62.8 Lymphocytes % 24.7 Monocytes % 7.8 Eosinophils % 3.3 Basophils % 1.0 Nucleated RBC % 0 Absolute Neutrophils 7.10 H Absolute Lymphocytes 2.79 Absolute Monocytes 0.88 H Absolute Eosinophils 0.37 Absolute Basophils 0.11 VBG Lactate 5.4 H* Sodium 146 H Potassium 3.6 Chloride 105 Carbon Dioxide 19.8 L Anion Gap 21.2 H BUN 12 Creatinine 1.0 Estimated GFR/1.73 m2 >= 60.00 Glucose 182 H Calcium 9.8 Total Bilirubin 0.5 AST 14 L ALT 23 Alkaline Phosphatase 83 Troponin I < 0.05 Total Protein 8.4 H Albumin 4.3 Lipase 68 Urine Color Urine Clarity Urine pH Ur Specific [place] Urine Protein Urine Ketones Urine Blood Urine Nitrite Urine Bilirubin Urine Urobilinogen Ur Leukocyte Esterase Urine RBC Urine WBC Ur Epithelial Cells Urine Crystals Urine Bacteria Urine Casts Urine Mucus Ur Culture Indicated? Urine Glucose COVID-19 Source 05/30/21 05/30/21 05/30/21 00:15 01:30 01:35 WBC RBC Hgb Hct MCV MCH MCHC RDW Plt Count MPV Immature Gran % Neutrophils % Lymphocytes % Monocytes % Eosinophils % Basophils % Nucleated RBC % Absolute Neutrophils Absolute Lymphocytes Absolute Monocytes Absolute Eosinophils Absolute Basophils VBG Lactate 1.1 Sodium Potassium Chloride Carbon Dioxide Anion Gap BUN Creatinine Estimated GFR/1.73 m2 Glucose Calcium Total Bilirubin AST ALT Alkaline Phosphatase Troponin I Total Protein Albumin Lipase Urine Color Yellow Urine Clarity Clear Urine pH 6.0 Ur Specific [place] 1.025 Urine Protein Trace H Urine Ketones 15 H Urine Blood Trace-intact H Urine Nitrite Negative Urine Bilirubin Negative Urine Urobilinogen 0.2 Ur Leukocyte Esterase Negative Urine RBC 3-5 H Urine WBC Negative Ur Epithelial Cells Rare Urine Crystals Negative Urine Bacteria Rare Urine Casts Negative Urine Mucus Negative Ur Culture Indicated? No Urine Glucose Negative COVID-19 Source Nasal/Nares Last Vital Signs Temp 36.0 C L 05/30/21 02:49 Pulse 77 05/30/21 02:49 Resp 22 05/30/21 02:49 BP 125/86 05/30/21 02:49 Pulse Ox 99 05/30/21 02:49 PAWSS Have you Been Recently Intoxicated or Drunk Within the Last 30 days?: No Have you Ever Experienced Previous Episodes of Alcohol Withdrawal?: No Have you ever Experienced Withdrawal Seizures?: No Have you ever Experienced Delirium Tremens(DT)s?: No Have you ever undergone Alcohol Rehabilitation Treatment (i.e, inpt ot outpatient treatment programs)?: No Have you ever Experienced Blackouts?: No Have you ever Combined Alcohol with other Downers within the last 90 days?: No Have you ever Combined Alcohol with any other Substance of Abuse during the last 90 days?: No Positive Blood Alcohol level on Presentation? [PCS.BAL]: No Evidence of Increased Autonomic Activity (i.e. HR>120, tremor, sweating, agitation, nausea)?: No Result: 0
[2021-05-30 07:25] LABS: Abs Immature Grans 0.04 10^3/uL (0.0-0.06); Absolute Basophil Count 0.05 10^3/uL (0.0-0.2); Absolute Lymphocyte Count 1.14 10^3/uL (1.2-3.4); Absolute Monocyte Count 0.25 10^3/uL (0.1-0.8); Absolute Neutrophil Count 8.12 10^3/uL (1.2-6.7); Basophils % 0.5; HCT 32.9 % (36.0-46.0); HGB 10.6 g/dL (11.2-15.7); Immature Grans % 0.4; Lymphocytes % 11.9; MCH 28.5 pg (27.0-33.0); MCHC 32.2 % (32.0-36.0); MCV 88.4 fL (80-95); MPV 9.9 fL (8.0-11.0); Monocytes % 2.6; Neutrophils % 84.6; Nucleated RBC 0 %; Platelet Count 326 10^3/uL (130-400); RBC 3.72 10^6/uL (3.93-5.22); RDW 14.1 % (11.7-14.6); RDW-SD 45.5 fL
[2021-05-30 07:38] LABS: Anion Gap 12.4 mmol/L (3-11); BUN 8 mg/dL (7-18); CO2 23.6 mmol/L (21.0-32.0); CREATININE 0.6 mg/dL (0.55-1.02); Calcium 8.4 mg/dL (8.5-10.1); Chloride 110 mmol/L (98-107); Glucose 132 mg/dL (74-106); Potassium 3.6 mmol/L (3.5-5.1); Sodium 146 mmol/L (136-145)
[2021-05-30] MEDS: Lactated Ringers 1,000 ML 125 ML IV ×2 (08:52→17:11)
[2021-05-30] MEDS: Normal Saline Flush 10 ML SYR IVP ×3 (09:18→17:26)
[2021-05-30 09:31] LABS: *AMPHETAMINES SCREEN URINE Negative (Negative); *BARBITURATES SCREEN URINE Negative (Negative); *BENZODIAZEPINES SCREEN URINE Negative (Negative); Cannabinoids THC Positive (Negative); Cocaine Screen,Urine Negative (Negative); METHADONE URINE SCREEN Negative (Negative); OPIATES URINE SCREEN Positive (Negative); Tricyclic Antidepressants Negative (Negative)
--- NOTE | 2021-05-30 10:19 | PDOC.CMIN ---
- If Service Date Differs Date of service: 05/30/21 Time of Service: 10:19 Care Management Initial Assess REASON FOR HOSPITALIZATION:: dehydration and vomiting PAST MEDICAL HISTORY/PAST SURGICAL HISTORY:: Medical History. Achalasia of esophagus. Complication of surgery. Gastroesophageal reflux disease. GERD without esophagitis. history of reentrant SVT. Pacemaker. Smoker unmotivated to quit. Surgical History . section. x3. Esophageal Myotomy. Fundoplication. Hx of esophagogastroduodenoscopy. Ligation of fallopian tube. Pacemaker. Biventricular pacemaker PREVIOUS FUNCTIONAL STATUS/SOCIAL/FAMILY SUPPORTS:: Marcella lives in [place] with her fiance and one of her twin seventeen year old daughters and 8 year old son and her filindy's 14 year old son. Marcella has 2 other adult children living outside the home. She informed that she is in the process of breaking up with her filindy and anticipates moving into her bother's home in [place] within a month. 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 She has applied for disability but was denied on her initial request. 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 CURRENT FUNCTIONAL STATUS:: Marcella was sitting up in bed when CM met with her. She was pleasant and engaged easily with CM. 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 While this is not listed in her medical history, the symptoms Marcella reported are consistent with that diagnosis. Marcella stated that it is the symptoms associated with that diagnosis that has caused her to seek disability. Marcella also shared with that when her disability is approved and she receives her retroactive payment, her plan is to buy a camper and travel the country with her children, home-schooling her son. ADVANCE DIRECTIVES:: none on file Has patient been provided with info about the portal/API?: Yes Did the patient sign up for the portal?: No CODE STATUS:: Full Code INSURANCE COVERAGE / FINANCIAL ISSUES:: Medicaid CURRENT HOME/COMMUNITY SERVICES/EQUIPMENT:: none PRIMARY CARE PHYSICIAN:: Dr. Ceballos POTENTIAL DISCHARGE NEEDS:: Follow up with PCP and discharge plan of care PATIENT/FAMILY EDUCATION NEEDS:: Review of discharge instructions and follow up plan, limitations, Ask Me Three TRANSPORTATION:: via private vehicle with family PLAN:: Marcella will likely be discharged home with no new services. She will follow up with her PCP and discharge plan of care and transport with family. CM will continue to support Marcella and her discharge planning needs.
[2021-05-30] MEDS: Sucralfate 1 GM TAB PO ×4 (11:26→20:48)
[2021-05-30 12:13] LABS: HCT 31.5 % (36.0-46.0); HGB 10.4 g/dL (11.2-15.7)
[2021-05-30 13:26] LABS: COVID-19 PCR Negative (Negative)
[2021-05-30 16:10] VITALS: BP 109/67; PULSE 74; RESP 18; TEMP 37.6; O2SAT 95
--- NOTE | 2021-05-30 16:35 | W.PM.PROGNOT ---
Date of Service Date of service: 05/30/21 Time of Service: 16:35 Subjective Subjective Interval history since last seen: Ms Yee states that she is feeling a little better today, but still nauseated and having epigastric pain. Does endorse using pot, but she is certain that this is not what her nausea is from, though it has been suggested to her in the past. She states she tried cutting down on it and it made no difference. She did tolerate sips of water today. Did have vomiting today. Showers and phenergan do help the nausea. Will try ativan for nausea. I encouraged the showers. If still feeling nauseated tomorrow and not taking in significant PO, will trial transfer to [facility]. Objective Last Vital Signs Temp 37.6 C H 05/30/21 16:10 Pulse 74 05/30/21 16:10 Resp 18 05/30/21 16:10 BP 109/67 05/30/21 16:10 Pulse Ox 95 05/30/21 16:10 Laboratory Results - last 24 hr 05/29/21 05/29/21 05/29/21 22:48 22:48 22:48 WBC 11.31 H RBC 4.31 Hgb 12.6 Hct 38.5 MCV 89.3 MCH 29.2 MCHC 32.7 RDW 13.9 Plt Count 421 H MPV 9.7 Immature Gran % 0.4 Neutrophils % 62.8 Lymphocytes % 24.7 Monocytes % 7.8 Eosinophils % 3.3 Basophils % 1.0 Nucleated RBC % 0 Absolute Neutrophils 7.10 H Absolute Lymphocytes 2.79 Absolute Monocytes 0.88 H Absolute Eosinophils 0.37 Absolute Basophils 0.11 VBG Lactate 5.4 H* Sodium 146 H Potassium 3.6 Chloride 105 Carbon Dioxide 19.8 L Anion Gap 21.2 H BUN 12 Creatinine 1.0 Estimated GFR/1.73 m2 >= 60.00 Glucose 182 H Calcium 9.8 Magnesium Total Bilirubin 0.5 AST 14 L ALT 23 Alkaline Phosphatase 83 Troponin I < 0.05 Total Protein 8.4 H Albumin 4.3 Lipase 68 Urine Color Urine Clarity Urine pH Ur Specific [place] Urine Protein Urine Ketones Urine Blood Urine Nitrite Urine Bilirubin Urine Urobilinogen Ur Leukocyte Esterase Urine RBC Urine WBC Ur Epithelial Cells Urine Crystals Urine Bacteria Urine Casts Urine Mucus Ur Culture Indicated? Urine Glucose Urine Opiates Screen Urine Methadone Screen Ur Barbiturates Screen Ur Tricyclics Screen Ur Amphetamines Screen U Benzodiazepines Scrn Urine Cocaine Screen Ur THC Screen COVID-19 Source SARS-CoV-2 (PCR) 05/30/21 05/30/21 05/30/21 00:15 01:30 01:35 WBC RBC Hgb Hct MCV MCH MCHC RDW Plt Count MPV Immature Gran % Neutrophils % Lymphocytes % Monocytes % Eosinophils % Basophils % Nucleated RBC % Absolute Neutrophils Absolute Lymphocytes Absolute Monocytes Absolute Eosinophils Absolute Basophils VBG Lactate 1.1 Sodium Potassium Chloride Carbon Dioxide Anion Gap BUN Creatinine Estimated GFR/1.73 m2 Glucose Calcium Magnesium Total Bilirubin AST ALT Alkaline Phosphatase Troponin I Total Protein Albumin Lipase Urine Color Yellow Urine Clarity Clear Urine pH 6.0 Ur Specific [place] 1.025 Urine Protein Trace H Urine Ketones 15 H Urine Blood Trace-intact H Urine Nitrite Negative Urine Bilirubin Negative Urine Urobilinogen 0.2 Ur Leukocyte Esterase Negative Urine RBC 3-5 H Urine WBC Negative Ur Epithelial Cells Rare Urine Crystals Negative Urine Bacteria Rare Urine Casts Negative Urine Mucus Negative Ur Culture Indicated? No Urine Glucose Negative Urine Opiates Screen Urine Methadone Screen Ur Barbiturates Screen Ur Tricyclics Screen Ur Amphetamines Screen U Benzodiazepines Scrn Urine Cocaine Screen Ur THC Screen COVID-19 Source Nasal/Nares SARS-CoV-2 (PCR) Negative 05/30/21 05/30/21 05/30/21 07:05 07:05 07:05 WBC 9.60 RBC 3.72 L Hgb 10.6 L Hct 32.9 L MCV 88.4 MCH 28.5 MCHC 32.2 RDW 14.1 Plt Count 326 MPV 9.9 Immature Gran % 0.4 Neutrophils % 84.6 Lymphocytes % 11.9 Monocytes % 2.6 Eosinophils % 0.0 Basophils % 0.5 Nucleated RBC % 0 Absolute Neutrophils 8.12 H Absolute Lymphocytes 1.14 L Absolute Monocytes 0.25 Absolute Eosinophils 0.00 Absolute Basophils 0.05 VBG Lactate Sodium 146 H Potassium 3.6 Chloride 110 H Carbon Dioxide 23.6 Anion Gap 12.4 H BUN 8 Creatinine 0.6 D Estimated GFR/1.73 m2 >= 60.00 Glucose 132 H Calcium 8.4 L Magnesium 2.0 Total Bilirubin AST ALT Alkaline Phosphatase Troponin I Total Protein Albumin Lipase Urine Color Urine Clarity Urine pH Ur Specific [place] Urine Protein Urine Ketones Urine Blood Urine Nitrite Urine Bilirubin Urine Urobilinogen Ur Leukocyte Esterase Urine RBC Urine WBC Ur Epithelial Cells Urine Crystals Urine Bacteria Urine Casts Urine Mucus Ur Culture Indicated? Urine Glucose Urine Opiates Screen Urine Methadone Screen Ur Barbiturates Screen Ur Tricyclics Screen Ur Amphetamines Screen U Benzodiazepines Scrn Urine Cocaine Screen Ur THC Screen COVID-19 Source SARS-CoV-2 (PCR) 05/30/21 05/30/21 08:50 12:00 WBC RBC Hgb 10.4 L Hct 31.5 L MCV MCH MCHC RDW Plt Count MPV Immature Gran % Neutrophils % Lymphocytes % Monocytes % Eosinophils % Basophils % Nucleated RBC % Absolute Neutrophils Absolute Lymphocytes Absolute Monocytes Absolute Eosinophils Absolute Basophils VBG Lactate Sodium Potassium Chloride Carbon Dioxide Anion Gap BUN Creatinine Estimated GFR/1.73 m2 Glucose Calcium Magnesium Total Bilirubin AST ALT Alkaline Phosphatase Troponin I Total Protein Albumin Lipase Urine Color Urine Clarity Urine pH Ur Specific [place] Urine Protein Urine Ketones Urine Blood Urine Nitrite Urine Bilirubin Urine Urobilinogen Ur Leukocyte Esterase Urine RBC Urine WBC Ur Epithelial Cells Urine Crystals Urine Bacteria Urine Casts Urine Mucus Ur Culture Indicated? Urine Glucose Urine Opiates Screen Positive A Urine Methadone Screen Negative Ur Barbiturates Screen Negative Ur Tricyclics Screen Negative Ur Amphetamines Screen Negative U Benzodiazepines Scrn Negative Urine Cocaine Screen Negative Ur THC Screen Positive A COVID-19 Source SARS-CoV-2 (PCR) PAWSS Have you Been Recently Intoxicated or Drunk Within the Last 30 days?: No Have you Ever Experienced Previous Episodes of Alcohol Withdrawal?: No Have you ever Experienced Withdrawal Seizures?: No Have you ever Experienced Delirium Tremens(DT)s?: No Have you ever undergone Alcohol Rehabilitation Treatment (i.e, inpt ot outpatient treatment programs)?: No Have you ever Experienced Blackouts?: No Have you ever Combined Alcohol with other Downers within the last 90 days?: No Have you ever Combined Alcohol with any other Substance of Abuse during the last 90 days?: No Positive Blood Alcohol level on Presentation? [PCS.BAL]: No Evidence of Increased Autonomic Activity (i.e. HR>120, tremor, sweating, agitation, nausea)?: No Result: 0
[2021-05-30] MEDS: LORazepam 2 MG/ML VIAL 0.5 MG IVP (16:42)
[2021-05-30 19:18] VITALS: BP 112/67; PULSE 71; RESP 18; TEMP 37.2; O2SAT 96
[2021-05-30 23:19] VITALS: BP 112/65; PULSE 70; RESP 18; TEMP 36.8; O2SAT 93
--- NOTE | 2021-05-31 | DI.RAD_ITS ---
Exam(s) XR ABDOMEN FLAT UPRIGHT EXAM: 2D digital imaging was performed. CLINICAL HISTORY: ileus vs SBO. COMPARISON: CT CT ABDOMEN PELVIS CTA from 05/30/[address] ABDOMEN PELVIS CTA from 05/30/2021 TECHNIQUE: Supine and upright views of the abdomen was performed. FINDINGS: LUNG BASES: The distal aspect of a pacemaker lead is seen overlying the heart. BOWEL GAS PATTERN: Nondistended. FREE AIR: None. CALCIFICATIONS: There calcifications in the left abdomen consistent with the patient's known left low er pole calculi. OSSEOUS STRUCTURES: Normal for age. OTHER FINDINGS: None. IMPRESSION: 1. No evidence of bowel obstruction. 2. Left nephrolithiasis. DATA REPOSITORY: RADIATION DOSE DELIVERED:
[2021-05-31] MEDS: Lactated Ringers 1,000 ML 125 ML IV ×3 (00:36→20:47)
[2021-05-31 03:05] VITALS: BP 124/72; PULSE 75; RESP 18; TEMP 37; O2SAT 97
[2021-05-31] MEDS: Sucralfate 1 GM TAB PO ×2 (06:31→10:56)
[2021-05-31 06:56] LABS: Abs Immature Grans 0.04 10^3/uL (0.0-0.06); Absolute Basophil Count 0.08 10^3/uL (0.0-0.2); Absolute Eosinophil Count 0.07 10^3/uL (0.0-0.7); Absolute Lymphocyte Count 1.74 10^3/uL (1.2-3.4); Absolute Monocyte Count 0.64 10^3/uL (0.1-0.8); Absolute Neutrophil Count 6.75 10^3/uL (1.2-6.7); Basophils % 0.9; Eosinophils % 0.8; HCT 33.2 % (36.0-46.0); HGB 10.7 g/dL (11.2-15.7); Immature Grans % 0.4; Lymphocytes % 18.7; MCH 29.1 pg (27.0-33.0); MCHC 32.2 % (32.0-36.0); MCV 90.2 fL (80-95); MPV 9.7 fL (8.0-11.0); Monocytes % 6.9; Neutrophils % 72.3; Nucleated RBC 0 %; Platelet Count 312 10^3/uL (130-400); RBC 3.68 10^6/uL (3.93-5.22); RDW 13.8 % (11.7-14.6); RDW-SD 46.2 fL; WBC 9.32 10^3/uL (4.4-10.8)
[2021-05-31 07:49] VITALS: BP 127/80; PULSE 79; RESP 16; TEMP 37; O2SAT 97
[2021-05-31 08:01] LABS: BUN 6 mg/dL (7-18); CREATININE 0.6 mg/dL (0.55-1.02); Calcium 8.3 mg/dL (8.5-10.1); Glucose 104 mg/dL (74-106); Sodium 140 mmol/L (136-145)
[2021-05-31 08:02] LABS: Chloride 103 mmol/L (98-107); Magnesium 1.7 mg/dL (1.8-2.4)
[2021-05-31 08:05] LABS: Potassium 2.8 mmol/L (3.5-5.1)
[2021-05-31] MEDS: MORPHine 4 MG/ML SYR IVP (08:53)
[2021-05-31] MEDS: POTASSIUM CHLORIDE 20 MEQ/100 ML BAG 50 MEQ IVPB ×4 (09:08→15:33)
[2021-05-31] MEDS: MAGNESIUM SULFATE 2 GM/50 ML BAG IVPB (09:09)
[2021-05-31] MEDS: LORazepam 2 MG/ML VIAL 0.5 MG IVP (11:52)
[2021-05-31] MEDS: Normal Saline Flush 10 ML SYR IVP (11:53)
--- NOTE | 2021-05-31 14:03 | W.NUTCONSULT ---
Date of service: 05/31/21 Time of Service: 14:03 Nutritional Consult ASSESSMENT: 45yo female admitted with lactic acidosis, vomiting, acute dehydration. PMH significant for esophagitis with gastritis, hypomagnesemia and hypokalemia, GERD, s/p Iftikhar fundoplication, tobacco and marijuana use. Meds: Esomepazole, lactated ringers, lorazepam, mag/pot, carafate and Phenergan/morphine/nicotine cartridge prn. Unable to meet with Mracella this morning. Current BMI of 22.1 wnl. Weight history stable x 1 year. Clear liquid diet ordered at breakfast yesterday and poor/fair intake per nursing. Estimated daily nutrition needs: 1860kcals (30kcals/kg), 62g protein (1g/kg), and 1860mL fluid (1mL/kcal) Diagnosis: Increased nutrition needs r/t increased vitamin C/E beta carotene and selenium needs AEB current smoking status. Intervention: Recommend advancing diet as medically appropriate and tolerated. Will approach Marcella as diet advances to offer nutrition education for her history of GERD and related symptoms. Monitoring/evaluation: will monitor pt for po intake as diet order advances. Will monitor for need for supplemental nutrition. Jacinto Lojax NDTR ? Eeg Technician Time Spent in Nutritional Counseling and Treatment: 10
[2021-05-31 15:40] VITALS: BP 100/61; PULSE 72; RESP 16; TEMP 36.9; O2SAT 99
--- NOTE | 2021-05-31 16:32 | PGE_ITS ---
Date of Service Date of service: 05/31/21 Time of Service: 16:32 Assessment and Plan Assessment and plan (1) Vomiting: Status: Acute Assessment and plan: Unclear if this is dysphagia for liquids or true nausea/vomiting. The patient is s/p partial reversal of fundoplication/myotomy/EGD/dilation at [facility] on 05/20. Her case was discussed with Dr Lynch of [facility] general surgery a nd the patient is accepted in transfer for tomorrow at [facility] under the service of Dr Katz. Make NPO for now. Continue prn phenergan that seems to work best. (2) Ileus: Status: Acute Assessment and plan: I suspect that n/v are due to post-op ileus that she appears to have clinically. As above (3) Acute dehydration: Status: Acute Assessment and plan: Continue IVF (4) Acidosis, lactic: Status: Resolved Assessment and plan: Due to dehydration, resolved. Subjective Subjective Interval history since last seen: Continues to have n/v and is unable to tolerate clears. Additionally, she has not had any flatus today and no BMs. COntiues to report epigastric pain. Denies dizziness/chest pain/shortness of breath. Exam Narrative Exam Narrative: General: Pleasant middle-aged female who is visibly uncomfortable HEENT: EOMI, MMM Heart: RRR, no m/r/g Lungs: CTAB Abdomen: soft, tender in epigastrium, no bowel sounds, trochar sites are dressed - c/d/i Extremities: no edema BLE's Objective Last Vital Signs Temp 36.9 C 05/31/21 15:40 Pulse 72 05/31/21 15:40 Resp 16 05/31/21 15:40 BP 100/61 05/31/21 15:40 Pulse Ox 99 05/31/21 15:40 Laboratory Results - last 24 hr 05/31/21 05/31/21 06:20 06:20 WBC 9.32 RBC 3.68 L Hgb 10.7 L Hct 33.2 L MCV 90.2 MCH 29.1 MCHC 32.2 RDW 13.8 Plt Count 312 MPV 9.7 Immature Gran % 0.4 Neutrophils % 72.3 Lymphocytes % 18.7 Monocytes % 6.9 Eosinophils % 0.8 Basophils % 0.9 Nucleated RBC % 0 Absolute Neutrophils 6.75 H Absolute Lymphocytes 1.74 Absolute Monocytes 0.64 Absolute Eosinophils 0.07 Absolute Basophils 0.08 Sodium 140 Potassium 2.8 L* Chloride 103 Carbon Dioxide 26.0 Anion Gap 11.0 BUN 6 L Creatinine 0.6 Estimated GFR/1.73 m2 >= 60.00 Glucose 104 Calcium 8.3 L Magnesium 1.7 L PAWSS Have you Been Recently Intoxicated or Drunk Within the Last 30 days?: No Have you Ever Experienced Previous Episodes of Alcohol Withdrawal?: No Have you ever Experienced Withdrawal Seizures?: No Have you ever Experienced Delirium Tremens(DT)s?: No Have you ever undergone Alcohol Rehabilitation Treatment (i.e, inpt ot out patient treatment programs)?: No Have you ever Experienced Blackouts?: No Have you ever Combined Alcohol with other Downers within the last 90 days?: No Have you ever Combined Alcohol with any other Substance of Abuse during the last 90 days?: No Positive Blood Alcohol level on Presentation? [PCS.BAL]: No Evidence of Increased Autonomic Activity (i.e. HR>120, tremor, sweating, agitation, nausea)?: No Result: 0
--- NOTE | 2021-05-31 18:14 | PDOC.CMPRO ---
- If Service Date Differs Date of service: 05/31/21 Time of Service: 18:14 Care Management Progress Note S/O: Marcella was lying in bed when CM met with her. Her blinds were closed and light was off, but she woke up for a conversation, and was pleasant and engaged. She stated that she has not been sleeping well while at the hospital, so she is sleeping when she can. She stated that she remembers someone telling her that she may be transferred to [facility], but she wasn't sure if it was a dream, because she has been in and out of sleep. Per report, consulted [facility], who accepted her in transfer, tentatively for tomorrow, as she clinically appears to have a post operative ileus. CM will continue to follow. A: Marcella is a 45 year old female admitted to [facility] on 05/30/21 with dehydration, vomiting. P: Marcella will likely transfer to [facility] tomorrow for treatment of her post op ileus. She will transport via ambulance, coordinated by RN supervisor stage carpentry, as this is an acute transfer. She will follow up with her PCP and discharge plan of care. CM will continue to follow.
[2021-05-31] MEDS: Heparin 5,000 UNITS/ML VIAL 5000 UNITS SC (18:16)
[2021-05-31 19:20] VITALS: BP 129/67; PULSE 72; RESP 16; TEMP 36.8; O2SAT 99
[2021-05-31 23:39] VITALS: BP 129/67; PULSE 79; RESP 16; TEMP 36.6; O2SAT 99
--- NOTE | 2021-06-01 00:20 | NUR.NOTE ---
Nursing Note: assisted pt in the shower as she showered. she was sitting on the shower chair leaning against the wall alert and talking. She expressed she felt a little nauseous as she was getting out. I had her sit on the folding chair in the shower room to dry off. then wheelchaired her to her room and sat on recliner. .
[2021-06-01] MEDS: Heparin 5,000 UNITS/ML VIAL 5000 UNITS SC ×3 (02:26→18:15)
[2021-06-01 03:21] VITALS: BP 120/78; PULSE 75; RESP 16; TEMP 37.3; O2SAT 98
[2021-06-01] MEDS: Lactated Ringers 1,000 ML 125 ML IV ×2 (03:59→13:08)
[2021-06-01 07:22] LABS: Anion Gap 9.5 mmol/L (3-11); BUN 7 mg/dL (7-18); CO2 26.5 mmol/L (21.0-32.0); CREATININE 0.6 mg/dL (0.55-1.02); Calcium 8.4 mg/dL (8.5-10.1); Chloride 103 mmol/L (98-107); Glucose 79 mg/dL (74-106); Magnesium 2.1 mg/dL (1.8-2.4); Potassium 3.4 mmol/L (3.5-5.1); Sodium 139 mmol/L (136-145)
[2021-06-01 07:30] VITALS: BP 116/62; PULSE 72; RESP 18; TEMP 36.8; O2SAT 97
[2021-06-01] MEDS: LORazepam 2 MG/ML VIAL 0.5 MG IVP ×2 (09:40→16:22)
[2021-06-01 11:58] VITALS: BP 110/74; PULSE 81; RESP 18; TEMP 36.7; O2SAT 99
[2021-06-01] MEDS: Normal Saline Flush 10 ML SYR IVP (13:35)
[2021-06-01] MEDS: Pantoprazole 40 MG VIAL IVP (13:36)
[2021-06-01 14:59] VITALS: BP 127/76; PULSE 77; RESP 18; TEMP 37.4; O2SAT 99
--- NOTE | 2021-06-01 16:27 | PGE_ITS ---
Date of Service Date of service: 06/01/21 Time of Service: 16:29 Assessment and Plan Assessment and plan (1) Vomiting: Status: Acute Assessment and plan: Unclear if this is dysphagia for liquids or true nausea/vomiting. The patient is s/p partial reversal of fundoplication/myotomy/EGD/dilation at [facility] on 05/20. Her case was discussed with Dr Lynch of [facility] general surgery a nd the patient is accepted in transfer to [facility] under the service of Dr Katz. This was projected to occur today, but d/t lack of discharges from [facility], likely not going to discharge from [facility] to [facility] until tomorrow. Allow clear liquids tonight, then NPO Continue prn phenergan that seems to work best. (2) Ileus: Status: Acute Assessment and plan: I suspect that n/v are due to post-op ileus that she appears to have clinically. As above (3) Acute dehydration: Status: Acute Assessment and plan: Continue IVF (4) Acidosis, lactic: Status: Resolved Assessment and plan: Due to dehydration, resolved. Subjective Subjective Patient reports: afebrile; denies shortness of breath Interval history since last seen: Conts to have acid reflux. Had right llower abd crampy pain at time of my evaluation. Exam Narrative Exam Narrative: General: Pleasant middle-aged female who is visibly uncomfortable HEENT: EOMI, MMM Heart: RRR, no m/r/g Lungs: CTAB Abdomen: soft, tender in epigastrium, no bowel sounds, trochar sites are dressed - c/d/i Extremities: no edema BLE's Const General: cooperative, comfortable, no acute distress, well developed and not ill appearing Orientation: alert and awake Neck Neck: normal visual inspection and no lymphadenopathy Resp Effort & Inspection: normal respiratory effort and able to speak in complete sentences Auscultation: no bronchovesicular breath sounds, no crackles, no rales, no rhonchi and no wheezes Cardio Jugular venous pressure: no JVD Rhythm: regular rhythm Heart Sounds: S1 normal, no gallops and no murmurs GI Inspection: normal to inspection and non-distended Palpation: no hepatosplenomegaly and tender in the RLQ (mild w/o guarding/rebound) Extrem General: no edema Psych Affect: anxious affect Attitude: cooperative Thought Process: normal Objective Last Vital Signs Temp 37.4 C 06/01/21 14:59 Pulse 77 06/01/21 14:59 Resp 18 06/01/21 14:59 BP 127/76 06/01/21 14:59 Pulse Ox 99 06/01/21 14:59 Laboratory Results - last 24 hr 06/01/21 06:25 Sodium 139 Potassium 3.4 L Chloride 103 Carbon Dioxide 26.5 Anion Gap 9.5 BUN 7 Creatinine 0.6 Estimated GFR/1.73 m2 >= 60.00 Glucose 79 Calcium 8.4 L Magnesium 2.1 PAWSS Have you Been Recently Intoxicated or Drunk Within the Last 30 days?: No Have you Ever Experienced Previous Episodes of Alcohol Withdrawal?: No Have you ever Experienced Withdrawal Seizures?: No Have you ever Experienced Delirium Tremens(DT)s?: No Have you ever undergone Alcohol Rehabilitation Treatment (i.e, inpt ot outpatient treatment programs)?: No Have you ever Experienced Blackouts?: No Have you ever Combined Alcohol with other Downers within the last 90 days?: No Have you ever Combined Alcohol with any other Substance of Abuse during the last 90 days?: No Positive Blood Alcohol level on Presentation? [PCS.BAL]: No Evidence of Increased Autonomic Activity (i.e. HR>120, tremor, sweating, agitation, nausea)?: No Result: 0
--- NOTE | 2021-06-01 17:15 | PDOC.CMPRO ---
- If Service Date Differs Date of service: 06/01/21 Time of Service: 17:15 Care Management Progress Note S/O: Marcella was sitting up in bed when CM met with her. She reported that she has been very stressed lately because she is leaving her fiance and moving out of his house. She described the relationship between her and her fiance, and how it is complicated by their children, as she doesn't get along with his daughter. She stated that her plan is to stay with her brother for a while until she can find somewhere to live. She reported that she is in the process of obtaining disability due to her medical issues, and has a director of family service center helping her, but she is overwhelmed with finding assistance in the community until she is more stable. CM suggested that she have a social media community manager who can help her navigate the resources. CM sent a referral to [facility]. Per provider, Marcella has been accepted at [facility] for [place], but they do not have capacity to take her today. CM will continue to follow. A: Marcella is a 45 year old female admitted to [facility] on 05/30/21 with dehydration, vomiting. P: Marcella will likely transfer to [facility] tomorrow for treatment of her post op ileus. She will transport via ambulance, coordinated by RN supervisor cigarette making department, as this is an acute transfer. She will follow up with her PCP and discharge plan of care. CM will continue to follow.
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
--- NOTE | 2021-06-01 19:56 | NUR.NOTE ---
report given to Zoie NEWSOME at [facility] on 3westNursing Note:
== END 2021-06-01 19:47 | disposition short-term general hospital (02) ==
LOC: ER 05-30 01:26 → MS 05-30 02:43
PROVIDERS: Internal Medicine; Admitting Provider Family Medicine; Emergency Provider Student in an Organized Health Care Education/Training Program; PCP Family Medicine; Visit Provider Family Medicine
DX: K56.7 Ileus, unspecified (principal); R11.10 Vomiting, unspecified; E86.0 Dehydration; E87.2 Acidosis; F17.210 Nicotine dependence, cigarettes, uncomplicated; Z95.0 Presence of cardiac pacemaker; R10.13 Epigastric pain; Z20.822 Contact with and (suspected) exposure to COVID-19
CPT/HCPCS: 36415; 80048; 80053; 80307; 83690; 87635; 93005; 96361; 96374; 96375; 96376; 99285; 74019; 74174; 81003; 81015; 83605; 83735; 84484; 85014; 85018; 85025; 93010; 99217; 99222; 99233; G0378; J1644; J2060; J2270; J2405; J2765; J3480; J3490

== ENCOUNTER 2021-06-10 17:51 | Emergency (ER) | payer MEDICAID, SELFPAY ==
[2021-06-10 17:59] VITALS: BP 127/75; PULSE 96; RESP 18; TEMP 36.6; O2SAT 100
[2021-06-10 18:31] LABS: Abs Immature Grans 0.02 10^3/uL (0.0-0.06); Absolute Basophil Count 0.03 10^3/uL (0.0-0.2); Absolute Eosinophil Count 0.06 10^3/uL (0.0-0.7); Absolute Monocyte Count 0.79 10^3/uL (0.1-0.8); Absolute Neutrophil Count 4.95 10^3/uL (1.2-6.7); Basophils % 0.4; Eosinophils % 0.7; Immature Grans % 0.2; Lymphocytes % 29.1; MCH 29.3 pg (27.0-33.0); MCHC 33.3 % (32.0-36.0); MPV 10.1 fL (8.0-11.0); Monocytes % 9.6; Nucleated RBC 0 %; Platelet Count 373 10^3/uL (130-400); RBC 4.43 10^6/uL (3.93-5.22); RDW 13.8 % (11.7-14.6); RDW-SD 44.7 fL; WBC 8.25 10^3/uL (4.4-10.8)
--- NOTE | 2021-06-10 18:39 | ED.GENADUL_ITS ---
Discharge Plan Disposition Patient Disposition: [facility] Condition: Stable Discharge Details Clinical Impression: Vomiting Primary Care Provider: Karri Ceballos ED Provider: Georgie Louis Home Meds and New Rx's Prescriptions: No Action potassium chloride [Klor-Con M10] 10 mEq tablet,ER particles/crystals 10 meq PO DAILY RF: 0 fluoxetine 10 mg capsule 10 mg PO DAILY RF: 0 mirtazapine 7.5 mg tablet 7.5 mg PO HS RF: 0 sucralfate 1 gram Tablet 1 g PO AC & HS Qty: 120 RF: 0 pantoprazole 40 mg tablet,delayed release (DR/EC) 40 mg PO BID Qty: 0 RF: 0 ondansetron 4 mg tablet,disintegrating 4 mg PO 4-6XD PRNRF: 0 lorazepam 0.5 mg tablet 0.5 mg PO PRN PRNRF: 0 Medical Decision Making 45-year-old female presents to the ER with chief complaint of nausea vomiting and some midepigastric abdominal pain which began Sunday morning. Patient recently discharged from [facility] on Sunday. She reports that Sunday she was able to keep some liquids down however Sunday morning she began vomiting again. She reports abdominal pain began with the vomiting. She did take Phenergan suppository this morning and lorazepam this morning. She reports that she was speaking with [facility] regarding possible TPN. Denies hematochezia or hematic emesis. Denies any shortness of breath, fever. She does endorse chills. Denies any other associated symptoms. Patient has a past medical history of achalasia of esophagus, GERD, has an pacemaker. She reports that while at [facility] she had a barium swallow and a scope with dilation. Work-up ordered including CBC, CMP, normal saline 1 L bolus, Phenergan 12.5 mg IV. CBC shows no leukocytosis, CMP shows chloride 97 sodium is 136 potassium 4.0 glucose 108, initial troponin within normal limits. CXR ordered to rule out Free air for possible esophageal perforation from recent dilation. 1914: Spoke with Dr. Ceballos who is on for hospitalist regarding patient case and details he is familiar with patient. He does agree to accept patient for admission for IV fluids and intractable nausea and vomiting, he does request speaking with [facility] as she just left the facility on Sunday for any further recommendations. [facility] contacted for surgical consult for further treatment recommendations. 193: Spoke with Dr. Katz with [facility] who recommends transfer to [facility] tonight. Imaging protocol: XR of the chest. Views: 2 views. COMPARISON: CR XR CHEST 2V PA LATERAL 10/18/2020 10:48 AM FINDINGS: Lungs: Unremarkable. No consolidation. Pleural spaces: Unremarkable. No pleural effusion. No pneumothorax. Heart/Mediastinum: Unremarkable. No cardiomegaly. Bones/joints: Unremarkable. IMPRESSION: No acute findings. Thank you for allowing us to participate in the care of your patient. Dictated and Authenticated by: Viet Hendrix MD Patient informed of request for transfer from [facility] surgeon she verbalizes understanding and is in agreement with plan. EMS being arranged for transport. At the time of this dictation patient is hemodynamically stable and awaiting for transport and bed confirmation to [facility]. HPI General Mode of arrival: wheelchair . Date/Time Provider Initiated Documentation: 06/10/21 18:13 . Limitations to Documentation: no limitations . Information obtained by: patient, RN notes reviewed and old records reviewed . HPI Narrative: 45-year-old female presents to the ER with chief complaint of midepigastric abdominal pain and recurrent nausea vomiting since being released from [facility] on Sunday. Patient status post fundoplication of the esophagus on May 20 this year with revision and a recent esophageal dilation during her recent admission at [facility]. Patient reports after being released from the hospital she was able to hold fluids down and then nausea vomiting began on Sunday morning. She reports that the epigastric pain began Sunday morning in association with the nausea and vomiting. She denies any diarrhea, no black tarry stools or daily a, denies any shortness of breath or chest pain. She reports that she did take Phenergan suppository this morning and did vomit at ap proximately 10 AM this morning prior to arrival. 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 Related Data Home Medications Medication Instructions Recorded Confirmed potassium chloride [Klor-Con M10] 10 meq PO DAILY 08/03/20 06/10/21 fluoxetine 10 mg PO DAILY 10/18/20 06/10/21 mirtazapine 7.5 mg PO HS 10/18/20 06/10/21 pantoprazole 40 mg PO BID #0 tab 02/02/21 06/10/21 sucralfate 1 g PO AC & HS #120 tab 02/02/21 02/16/21 ondansetron 4 mg PO 4-6XD PRN 05/29/21 06/10/21 lorazepam 0.5 mg PO PRN PRN 06/10/21 06/10/21 Previous Rx's Medication Instructions Recorded pantoprazole 40 mg PO BID #0 tab 02/02/21 sucralfate 1 g PO AC & HS #120 tab 02/02/21 Allergies Allergy/AdvReac Type Severity Reaction Status Date / Time adhesive tape Allergy Skin Rash Unverified 06/10/21 18:02 prochlorperazine Allergy Unverified 06/10/21 18:02 [From Compazine] capsaicin AdvReac Intermediate sunburn Verified 06/10/21 18:02 type rash, burning, no blisters General Stated Complaint: Nausea/Vomit/Diar CARL: 3 Review of Systems Narrative: Constitutional: Alert and oriented, well groomed, normal body habitus, appears uncomfortable. HEENT: Denies trauma, headaches, blurry vision, nasal discharge, sore throat, trouble swallowing. Chest: Denies palpitations, irregular rhythm, hypertension. Respiratory: Denies Shortness of breath, cough, hemoptysis. GI: Denies diarrhea, constipation. : Denies dysuria, hematuria, flank pain, rectal bleeding. Neuro: Denies dizziness, blurry vision, weakness, syncope, headache or facial numbness. Hematologic: Denies easy bruising, intolerance to heat or cold, hair loss. PFSH Medical History Achalasia of esophagus Complication of surgery Gastroesophageal reflux disease GERD without esophagitis history of reentrant SVT Pacemaker Smoker unmotivated to quit Surgical History section x3 Esophageal Myotomy Fundoplication Hx of esophagogastroduodenoscopy Ligation of fallopian tube Pacemaker Biventricular pacemaker Family History Aunt Personal history of malignant neoplasm Breast cancer Social History Smoking/Tobacco Use Status: Current every day Tobacco Type: cigarettes Smoking risk assessment performed?: Yes Alcohol Intake: current Alcohol Intake frequency: holidays/special occasions only Drug use: Occasionally Substance use type: marijuana 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 Appears stated age. Normal body habitus. Head: Normocephalic, no trauma. Eyes: Pupils PERRL, Red reflex noted, EOM's intact. Eyelids symmetrical without lesions, discharge, or swelling. ENT: Bilateral TM's WNL, External ear normal to inspection, no mastoid TTP, swelling, or erythema, Nasal turbinates WNL, no nasal discharge. Normal dentition, Posterior pharynx WNL, no exudate. Chest: RRR, Normal S1, S2, distal pulses intact. Resp: Lungs clear to auscultation bilaterally, no wheezes, rales, or rhonchi. Abdomen: Soft, non-distended, hypoactive BS, tenderness noted to the midepigastrium with palpation. Musculoskeletal: Unable to assess gait, 5/5 strength to all four extremities. Skin: No suspicious rashes or lesions. Capillary refill less than 2 sec. Neurologic: Cranial nerves II-XII intact. Alert and oriented x 3. Motor: No deficits noted. Sensory: Intact bilaterally all 4 extremities. Reflexes: DTR's intact bilaterally.. Hematologic/Lymphatic: No ecchymosis, no lymphadenopathy. Course Vital Signs Vital signs: Vital Signs Temperature 36.6 C 06/10/21 17:59 Pulse 96 H 06/10/21 17:59 Respiratory Rate 18 06/10/21 17:59 Blood Pressure 127/75 06/10/21 17:59 Pulse Oximetry 100 06/10/21 17:59 Temperature 36.6 C 06/10/21 17:59 Temperature Source Skin 06/10/21 17:59 Pulse 96 H 06/10/21 17:59 Respiratory Rate 18 06/10/21 17:59 Respiratory Effort Non-Labored 06/10/21 18:04 Blood Pressure 127/75 06/10/21 17:59 Pulse Oximetry 100 06/10/21 17:59 Oxygen Delivery Method Room Air 06/10/21 17:59 Oxygen Flow Rate 0 06/10/21 17:59 Pain Level 5 06/10/21 17:59 Lab/Test Results Lab/Test Results: Laboratory Tests Range/Units 06/10/21 18:23 WBC (4.4-10.8) 10^3/uL 8.25 RBC (3.93-5.22) 10^6/uL 4.43 Hgb (11.2-15.7) g/dL 13.0 Hct (36.0-46.0) % 39.0 MCV (80-95) fL 88.0 MCH (27.0-33.0) pg 29.3 MCHC (32.0-36.0) % 33.3 RDW (11.7-14.6) % 13.8 Plt Count (130-400) 10^3/uL 373 MPV (8.0-11.0) fL 10.1 Immature Gran % 0.2 Neutrophils % 60.0 Lymphocytes % 29.1 Monocytes % 9.6 Eosinophils % 0.7 Basophils % 0.4 Nucleated RBC % % 0 Absolute Neutrophils (1.2-6.7) 10^3/uL 4.95 Absolute Lymphocytes (1.2-3.4) 10^3/uL 2.40 Absolute Monocytes (0.1-0.8) 10^3/uL 0.79 Absolute Eosinophils (0.0-0.7) 10^3/uL 0.06 Absolute Basophils (0.0-0.2) 10^3/uL 0.03
--- NOTE | 2021-06-10 18:45 | DI.RAD_ITS ---
Exam(s) XR CHEST 2V PA LATERAL EXAM: XR CHEST 2V PA LATERAL CLINICAL HISTORY: R/O Free air, N/V/D, Hx of esophageal dilation, TECHNIQUE: 2D digital imaging was performed. COMPARISON: CR XR CHEST 2V PA LATERAL from 10/18/2020 FINDINGS: The heart is not enlarged. The lungs are clear and well expanded. No pleural effusion seen. Mediastin al contours appear intact. Note is made of transvenous cardiac pacemaker in position. IMPRESSION: No evidence of acute process. No evidence of pneumomediastinum or pneumoperitoneum. RADIATION DOSE DELIVERED: Total DLP
[2021-06-10 18:47] LABS: ALT 38 U/L (14-59); AST 19 U/L (15-37); Albumin 4.2 g/dL (3.4-5.0); Alkaline Phosphatase 76 U/L (46-116); Anion Gap 10.7 mmol/L (3-11); BUN 10 mg/dL (7-18); Bilirubin, Total 0.5 mg/dL (0.2-1.0); CO2 28.3 mmol/L (21.0-32.0); CREATININE 0.7 mg/dL (0.55-1.02); Calcium 9.8 mg/dL (8.5-10.1); Chloride 97 mmol/L (98-107); Glucose 108 mg/dL (74-106); Magnesium 2.1 mg/dL (1.8-2.4); Sodium 136 mmol/L (136-145)
[2021-06-10 18:49] LABS: Troponin I < 0.05 ng/mL (<0.06)
[2021-06-10] MEDS: Normal Saline 1,000 ML 1000 ML IV (19:11)
[2021-06-10] MEDS: FAMOTIDINE 20 MG/50 ML BAG 200 MG IVPB (19:25)
[2021-06-10 19:39] LABS: Source Nasal/Nares
[2021-06-10 19:40] VITALS: BP 128/74; PULSE 78; RESP 18; O2SAT 98
[2021-06-10 20:13] VITALS: BP 107/67; PULSE 69; RESP 18; O2SAT 99
--- NOTE | 2021-06-10 20:15 | DI.VRAD_ITS ---
PROCEDURE INFORMATION: Exam: XR Chest Exam date and time: 06/10/2021 6:50 PM Age: 45 years old Clinical indication: Other: R/O free air, n/v/d, HX of esophageal dilation TECHNIQUE: Imaging protocol: XR of the chest. Views: 2 views. COMPARISON: CR XR CHEST 2V PA LATERAL 10/18/2020 10:48 AM FINDINGS: Lungs: Unremarkable. No consolidation. Pleural spaces: Unremarkable. No pleural effusion. No pneumothorax. Heart/Mediastinum: Unremarkable. No cardiomegaly. Bones/joints: Unremarkable. IMPRESSION: No acute findings. Dictated and Authenticated by: Viet Hendrix MD. Ordering:COURTNEY Jacques MD
[2021-06-10] MEDS: Normal Saline 1,000 ML 150 ML IV (20:34)
[2021-06-10 21:33] LABS: COVID-19 PCR Negative (Negative)
== END 2021-06-10 21:03 | disposition short-term general hospital (02) ==
PROVIDERS: Emergency Provider Registered Nurse Emergency; PCP Family Medicine
DX: R11.2 Nausea with vomiting, unspecified (principal); R10.13 Epigastric pain; Z98.890 Other specified postprocedural states; Y84.8 Other medical procedures as the cause of abnormal reaction of the patient, or of later complication, without mention of misadventure at the time of the procedure; Z20.822 Contact with and (suspected) exposure to COVID-19; Z03.818 Encounter for observation for suspected exposure to other biological agents ruled out
CPT/HCPCS: 36415; 80053; 87635; 96361; 96365; 96375; 99285; 71046; 83735; 84484; 85025

== ENCOUNTER 2021-11-17 11:20 | Outpatient (REF) | payer MEDICAID, SELFPAY | END 2021-11-17 11:21 | disposition home or self-care (01) | LOC: NCHCN 11:20 | PROVIDERS: PCP Family Medicine; Visit Provider Physician Assistant Medical | DX: N89.8 Other specified noninflammatory disorders of vagina (principal); L29.8 Other pruritus; L01.09 Other impetigo | CPT/HCPCS: 87070; 87186; 87205; 87480; 87510; 87660 ==

== ENCOUNTER 2021-11-19 22:40 | Emergency (ER) | payer MEDICAID, SELFPAY ==
[2021-11-19 22:45] VITALS: BP 125/83; PULSE 105; RESP 18; TEMP 36.5; O2SAT 99
--- NOTE | 2021-11-19 23:13 | W.ED.GENAD ---
Discharge Plan Disposition Patient Disposition: HOME Condition: Stable Discharge Details Clinical Impression: Rash, Bacterial vaginosis Primary Care Provider: Karri Ceballos ED Provider: Ej Rinaldi Home Meds and New Rx's Prescriptions: New prednisone 20 mg tablet 60 mg PO DAILY 4 Days Qty: 12 0RF metronidazole 0.75 % gel 1 appful vaginal DAILY 5 Days Qty: 70 0RF Continued potassium chloride [Klor-Con M10] 10 mEq tablet,ER particles/crystals 10 meq PO DAILY 0RF Label Comments: TAKE ONE TABLET BY MOUTH EVERY DAY fluoxetine 10 mg capsule 10 mg PO DAILY 0RF Label Comments: TAKE ONE CAPSULE BY MOUTH EVERY DAY. STOP SERTRALINE mirtazapine 7.5 mg tablet 7.5 mg PO HS 0RF Label Comments: TAKE ONE TABLET BY MOUTH AT BEDTIME sucralfate 1 gram Tablet 1 g PO AC & HS Qty: 120 0RF pantoprazole 40 mg tablet,delayed release (DR/EC) 40 mg PO BID Qty: 0 0RF Label Comments: TAKE ONE TABLET BY MOUTH EVERY DAY BEFORE BREAKFAST ondansetron 4 mg tablet,disintegrating 4 mg PO 4-6XD PRN0RF Label Comments: DISSOLVE ONE TABLET ON TONGUE EVERY 8 HOURS NEEDED FOR NAUSEA metronidazole 500 mg tablet 500 mg PO BID 0RF Label Comments: TAKE ONE TABLET BY MOUTH TWICE A DAY metoprolol tartrate 25 mg tablet 25 mg PO BID 0RF Label Comments: TAKE ONE TABLET BY MOUTH TWICE A DAY lorazepam 0.5 mg tablet 0.5 mg PO PRN PRN0RF Label Comments: TAKE 1 TABLET BY MOUTH EVERY 6 HOURS NEEDED FOR ANXIETY MAXIMUM DAILY DOSE 4 Discontinued clindamycin HCl 150 mg capsule 150 mg PO TID 0RF Label Comments: TAKE 3 CAPSULES BY MOUTH 3 TIMES A DAY cephalexin 500 mg capsule 500 mg PO QID 0RF Label Comments: TAKE 1 CAPSULE BY MOUTH FOUR TIMES DAILY FOR 7 DAYS Discharge Instructions Additional Instructions: continue the mupirocin and use the prednisone for the itching rash. You can also take benadryl as needed follow dosing on packaging follow up this week with your primary care provider or express care, if rash continues you may want to see dermatology if you feel more ill, have worsening trouble breathing or pain return to the emergency department Medical Decision Making 46 yo female with hx of gerd, svt, who comes in with rash. She has had over a week of what she was diagnosed with impetigo as she had a crusting rash under the eyes and on the nose. Was seen at [facility], placed on cephalexin and it did improve her symptoms but she still had redness on the nose and around the mouth. She states the oozing decreased with the cephalexin. Went back to urgent care and was placed on mupirocin and also started clindamycin on 11/17. She developed vaginal itching and odor, seen at [facility] and had a swab she said showed yeast and BV. She was placed on oral flagyl and fluconazole. She developed itching of her leg the day she started clindamycin and developed itching rash on her arms so came here tonight for an eval. She has no dyspnea, stable vitals. SHe does have redness with crusting aroud the mouth and on the nose, no oral mucosa lesions. She has various sized erythematous patches on her arms she says are itchy and are not warm to touch or painful. IT seems like urticaria, unclear if it is due to the clindamycin or not. She does feel that the rash on her face is improving. No signs or symptoms to suggest anaphylaxis. Will treat with prednisone and observe. Given the different meds she has been on and thinks her facial rash is improving will have her continue the mupirocin and stop clindamycin. She also would prefer intravaginal flagyl rather than oral flagyl. Discussed if rash on face isn't improving to seem derm. pt still having itching despite prednisone, was given benadryl and famotidine but still had diffuse itching and hives seemed to be worsening on arms, lungs still clear but given worsening symptoms will treat with IM epi pt feels mildly better, still has itching of arms but no dyspnea, chest pain or gi symptoms so seems unlikely anaphylaxis. She is requesting d/c and doesn't want to stay any longer. Given she never had any dyspnea or gi symptoms feel this is reasonable. WIll provide her at home epi pen and advised to follow up with her pcp and return precautions given Differential Diagnosis Differential Diagnosis: allergic reaction, dermatitis, impetigo Medical Records Medical records reviewed: Yes I reviewed the patient's medical records. HPI General Mode of arrival: ambulatory. Date/Time Provider Initiated Documentation: 11/19/21 22:45. Limitations to Documentation: no limitations. Information obtained by: patient. History of Present Illness 46 year old F presents to the emergency department with the chief complaint of rash, Patient started experiencing this week(s) (1) and it has been constant. improves with No relieving factors improve symptom(s), No exacerbating factors reported . Patient notes denies shortness of breath. Related Data Home Medications Medication Instructions Recorded Confirmed potassium chloride 10 mEq 10 meq PO DAILY 08/03/20 06/10/21 tablet,extended release(part/cryst) (Klor-Con M) fluoxetine 10 mg capsule 10 mg PO DAILY 10/18/20 11/19/21 mirtazapine 7.5 mg tablet 7.5 mg PO HS 10/18/20 11/19/21 pantoprazole 40 mg tablet,delayed 40 mg PO BID #0 tab 02/02/21 11/19/21 release sucralfate 1 gram tablet 1 g PO AC & HS #120 tab 02/02/21 02/16/21 ondansetron 4 mg disintegrating 4 mg PO 4-6XD PRN 05/29/21 06/10/21 tablet lorazepam 0.5 mg tablet 0.5 mg PO PRN PRN 06/10/21 11/19/21 metoprolol tartrate 25 mg tablet 25 mg PO BID 11/19/21 11/19/21 metronidazole 0.75 % vaginal gel 1 appful VAGINAL DAILY 5 Days #70 g 11/19/21 metronidazole 500 mg tablet 500 mg PO BID 11/19/21 11/19/21 prednisone 20 mg tablet 60 mg PO DAILY 4 Days #12 tab 11/19/21 Previous Rx's Medication Instructions Recorded pantoprazole 40 mg tablet,delayed 40 mg PO BID #0 tab 02/02/21 release sucralfate 1 gram tablet 1 g PO AC & HS #120 tab 02/02/21 metronidazole 0.75 % vaginal gel 1 appful VAGINAL DAILY 5 Days #70 g 11/19/21 prednisone 20 mg tablet 60 mg PO DAILY 4 Days #12 tab 11/19/21 Allergies Allergy/AdvReac Type Severity Reaction Status Date / Time adhesive tape Allergy Skin Rash Unverified 11/19/21 22:50 prochlorperazine Allergy Unverified 11/19/21 22:50 [From Compazine] capsaicin AdvReac Intermediate sunburn Verified 11/19/21 22:50 type rash, burning, no blisters General Stated Complaint: Allergic CARL: 4 Review of Systems All systems reviewed & are unremarkable except as noted in HPI and below Constitutional Constitutional: Denies chills, Denies fever(s) and Denies weakness Eyes Eyes: Denies loss of vision Cardiovascular Cardiovascular: Denies chest pain and Denies dyspnea Respiratory Respiratory: Denies cough and Denies dyspnea Gastrointestinal Gastrointestinal: Denies abdominal pain, Denies nausea and Denies vomiting Genitourinary Genitourinary: Denies dysuria Musculoskeletal Musculoskeletal: Denies joint swelling Neurologic Neurologic: Denies loss of vision and Denies weakness PFSH All Active Problems (Updated 11/19/21 @ 23:23 by Ej Rinaldi MD) Rash (Acute) Bacterial vaginosis (Acute) Ileus (Acute) Vomiting (Acute) Acute dehydration (Acute) Cervicalgia (Acute) Numbness in both hands (Acute) Bursitis of right shoulder (Acute) Hypermobility syndrome (Acute) Tendonitis of long head of biceps brachii of right shoulder (Acute) Bronchial spasms (Acute) Stricture esophagus (Chronic) Due to prior Jesus/post OP scarring Status post Iftikhar fundoplication (Acute) Emesis, persistent (Acute) Atypical chest pain (Acute) UTI (urinary tract infection) (Acute) Esophagitis with gastritis (Chronic) S/P placement of cardiac pacemaker (Acute) Discharge planning issues (Acute) DVT prophylaxis (Acute) Anemia (Chronic) Complication of surgery (Acute) Pacemaker (Chronic) Smoker unmotivated to quit (Acute) GERD without esophagitis (Acute) Medical History Achalasia of esophagus Complication of surgery Gastroesophageal reflux disease GERD without esophagitis history of reentrant SVT Pacemaker Smoker unmotivated to quit Surgical History section x3 Esophageal Myotomy Fundoplication Hx of esophagogastroduodenoscopy Ligation of fallopian tube Pacemaker Biventricular pacemaker Family History Aunt Personal history of malignant neoplasm Breast cancer Social History Smoking/Tobacco Use Status: Current every day Tobacco Type: cigarettes Smoking risk assessment performed?: Yes Alcohol Intake: current Alcohol Intake frequency: holidays/special occasions only Drug use: Occasionally Substance use type: marijuana 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 Current gender identity: female Do you feel safe at home: Yes Do you feel safe in your relationship?: Yes Exam Const General: no acute distress Orientation: alert HENMT Head: normal to inspection Ears: external ears normal General nose exam: external nose normal Mouth: moist mucous membranes Eyes General: appearance normal, both eyes and all related structures Neck Neck: normal visual inspection Resp Effort & Inspection: normal respiratory effort and able to speak in complete sentences Cardio Rate: regular rate Skin General skin exam: no mottling Neuro General: patient alert and patient oriented x3 Extrem General: normal to inspection Psych Mental Status: mental status grossly normal Course Vital Signs Vital signs: Vital Signs Temperature 36.5 C 11/19/21 22:45 Pulse 105 H 11/19/21 22:45 Respiratory Rate 18 11/19/21 22:45 Blood Pressure 125/83 11/19/21 22:45 Pulse Oximetry 99 11/19/21 22:45 Temperature 36.5 C 11/19/21 22:45 Temperature Source Oral 11/19/21 22:45 Pulse 105 H 11/19/21 22:45 Respiratory Rate 18 11/19/21 22:45 Respiratory Effort Non-Labored 11/19/21 23:03 Respiratory Pattern Normal 11/19/21 23:03 Blood Pressure 125/83 11/19/21 22:45 Pulse Oximetry 99 11/19/21 22:45 Pain Level 8 11/19/21 22:45 PAWSS Have you Been Recently Intoxicated or Drunk Within the Last 30 days?: No Have you Ever Experienced Previous Episodes of Alcohol Withdrawal?: No Have you ever Experienced Withdrawal Seizures?: No Have you ever Experienced Delirium Tremens(DT)s?: No Have you ever undergone Alcohol Rehabilitation Treatment (i.e, inpt ot outpatient treatment programs)?: No Have you ever Experienced Blackouts?: No Have you ever Combined Alcohol with other Downers within the last 90 days?: No Have you ever Combined Alcohol with any other Substance of Abuse during the last 90 days?: No Positive Blood Alcohol level on Presentation? [PCS.BAL]: No Evidence of Increased Autonomic Activity (i.e. HR>120, tremor, sweating, agitation, nausea)?: No Result: 0
[2021-11-19] MEDS: predniSONE 20 MG TAB 60 MG PO (23:23)
[2021-11-20] MEDS: Famotidine 20 MG/2 ML VIAL IVP (00:20)
[2021-11-20] MEDS: diphenhydrAMINE 50 MG/ML VIAL 25 MG IVP (00:20)
[2021-11-20] MEDS: EPINEPHrine 1 MG/ML AMP pres-free 0.5 MG IM (01:14)
[2021-11-20] MEDS: EPINEPHrine 0.3 MG KIT IM (02:15)
== END 2021-11-20 02:10 | disposition home or self-care (01) ==
PROVIDERS: Emergency Provider Emergency Medicine; PCP Family Medicine
DX: R21 Rash and other nonspecific skin eruption (principal); N76.0 Acute vaginitis; L50.9 Urticaria, unspecified
CPT/HCPCS: 96372; 96374; 96375; 99284; 99283; J0171; J1200; J7512

== ENCOUNTER 2021-11-23 12:52 | Outpatient (REF) | payer MEDICAID, SELFPAY ==
[2021-11-23 15:07] LABS: Ferritin 8 ng/mL (8-252)
[2021-11-24 11:09] LABS: Hepatitis C Ab w Rflx HCV PCR Negative (Negative)
== END 2021-11-23 12:53 | disposition home or self-care (01) ==
LOC: NCHCN 12:52
PROVIDERS: PCP Family Medicine; Visit Provider Family Medicine
DX: G25.81 Restless legs syndrome (principal); Z11.59 Encounter for screening for other viral diseases; Z00.00 Encounter for general adult medical examination without abnormal findings; D64.9 Anemia, unspecified
CPT/HCPCS: 86803; 82728

== ENCOUNTER 2021-12-27 00:50 | Inpatient (IN) | payer MEDICAID, SELFPAY ==
[2021-12-27] VITALS (46 sets, daily range): BP systolic 91–153; BP diastolic 50–102; PULSE 79–96; RESP 9–29; TEMP 36.9–37.4; O2SAT 92–98
--- NOTE | 2021-12-27 00:57 | ED.GENADUL_ITS ---
Discharge Plan Disposition Patient Disposition: [facility] INPATIENT Condition: Stable Discharge Details Clinical Impression: Intractable nausea and vomiting, Diarrhea, History of Iftikhar fundoplication, UTI (urinary tract infection) Admit Date/Time: 12/27/21 06:18 Admit Provider: Patel Wilkerson Attending Provider: Patel Wilkerson Primary Care Provider: Karri Ceballos ED Provider: Olivia Eli Discharge Data Discharge Date/Time-TO BE ENTERED AT DEPARTURE: 12/27/21 08:22 Medical Decision Making 0100 -- 46-year-old female with a history of GERD, achalasia, esophageal stricture, with history of J-tube, esophageal balloon dilation, Iftikhar fundoplication, chronic nausea with history of third-degree AV block status post pacemaker presents with nausea, vomiting and diarrhea for the past few days. She feels that her symptoms started after eating pasta salad. She states she mainly eats a diet of soft foods with nutritional supplementation through her J- tube at night. Vitals are within normal limits. Patient appears somewhat uncomfortable nontoxic. Her abdomen is soft without rigidity or guarding. We will place an IV, bolus IV fluids, IV Phenergan and she request IV Ativan. Ordered a CT abdomen pelvis with oral contrast but she is declining to drink oral contrast. This patient was evaluated during a time of global shortage of iodinated contrast media. Based on guidance from the [employer], best practices, and local institutional approaches, an alternative path for evaluating and managing the patient may have been employed in order to provide optimal care during this shortage. The current situation has been discussed with the patient. 0130 -- labs reviewed. Potassium 2.6, will order p.o. and IV. Urinalysis notes 20-50 WBCs, positive nitrite, many bacteria but with moderate epithelial cells a nd negative leukocyte esterase reported likely contaminated. Discussed with laboratory and will send a urine culture. 0400 -- Imaging reviewed and notes: IMPRESSION: 1. Dilated fluid-filled structure just above the diaphragmatic hiatus measuring 4.2 cm x 3.1 cm maximum axial dimension. Fluid-filled dilatation of the distal esophagus, a fluid-filled hiatal hernia, or an unusual appearance created by a fluid-filled Iftikhar fundoplication wrap herniated above the diaphragm could have this appearance. Clinical correlation is recommended. Of note, the Iftikhar wrap is not otherwise identified. 2. Hyperdense material layering within the lumen of the finding described in impression 1, presumably ingested hyperdense material or a small amount of oral contrast. 3. Colon largely well evacuated of fecal material and collapsed. Fluid throughout much of the colon suggesting diarrhea, cause not demonstrated. No evidence of diverticulitis or colitis. 4. 4 mm x 6 mm nonobstructing left renal calculus. Patient reports that she vomited the oral potassium immediately after. She states her nausea and vomiting is not improved. She is requesting Reglan. Will order additional Ativan. [facility] general surgery paged to discuss presentation and CT results. 0430 -- discussed with [facility] general surgery on-call Dr. Trotter --appears likely that the 360 degree wrap of the Iftikhar has slid upward, potentially due to retching and vomiting. Will likely need repair at some point but not emergently. If patient able to tolerate p.o., can be discharged home and follow-up with general surgery tomorrow. If unable to tolerate p.o., admit for control of nausea and contact general surgery team for continued recommendations. If patient develops bloating, consider NG tube. 0550 -- evaluated patient at bedside and she states she feels better but does not feel she can tolerate p.o. Will admit for intractable nausea and potassium replacement. Plan will be for follow-up with [facility] general surgery for further evaluation of her Iftikhar this week. If patient's symptoms do not improve or worsen, she may need urgent transfer to [facility] for evaluation by general surgery and possible intervention with her Iftikhar. 0610 -- Case discussed with hospitalist who accepts patient for admission. Additional oral potassium held due to n.p.o. status. Antibiotics ordered for possible UTI. Medical Records Medical records reviewed: Yes I reviewed the patient's medical records. Imaging Data Radiologic Study: Radiologist's impression: CT Abdomen And Pelvis Without Contrast Exam date and time: 12/27/2021 2:02 AM Age: 46 years old Clinical indication: Nausea and vomiting and other: Diarrhea; Prior surgery; Surgery date: 6+ months; Surgery type: Feeding tube in may 2021, cholecystectomy, c-sections, iftikhar, tubal ligation, pace maker, and esophageal myotomy; Patient HX: Abd pain, nausea, diarrhea. R/O colitis, sbo TECHNIQUE: Imaging protocol: Computed tomography of the abdomen and pelvis without contrast. Radiation optimization: All CT scans at this facility use at least one of these dose optimization techniques: automated exposure control; mA and/or kV adjustment per patient size (includes targeted exams where dose is matched to clinical indication); or iterative reconstruction. COMPARISON: CT ABDOMEN PELVIS W 01/31/2021 2:23 PM FINDINGS: Tubes, catheters and devices: Percutaneous jejunostomy catheter in the left lower quadrant. Lungs: Lung bases clear. Heart: Heart only partially visualized. Cardiac pacemaker lead partially seen in the right ventricle. Mediastinal space: Dilated fluid-filled structure just above the diaphragmatic hiatus measuring 4.2 cm x 3.1 cm on image 11 of series 2 containing posteriorly layering hyperdense material. Fluid-filled dilatation of the distal esophagus? Fluid-filled hiatal hernia? Unusual appearance of a herniated Iftikhar wrap? Iftikhar wrap not otherwise identified. Stomach below the diaphragm largely decompressed. No small bowel dilatation to suggest obstruction. Liver: Small indeterminate hypoattenuating hepatic lesion, incompletely characterized but most likely a small cyst or hemangioma. Gallbladder and bile ducts: Gallbladder not identified. Prior cholecystectomy by report. No biliary dilatation. Pancreas: Grossly unremarkable unenhanced pancreas. Spleen: Grossly unremarkable unenhanced spleen. Adrenal glands: Normal appearing adrenal glands. Kidneys and ureters: 4 mm x 6 mm nonobstructing left renal calculus. Cortical scarring in the lower pole of the left kidney. Otherwise normal-appearing kidneys. No hydronephrosis. No obstructing ureteral stones. Stomach and bowel: Colon largely well evacuated of formed fecal material and collapsed. Fluid throughout much of the colon suggesting probable diarrhea. No evidence of diverticulitis or colitis. Appendix: Appendix partially obscured but normal in caliber and appearance through its visualized portion. Intraperitoneal space: No gross ascites or free air. Vasculature: Normal caliber abdominal aorta. Lymph nodes: No pathologically enlarged mesenteric, retroperitoneal, or pelvic sidewall lymph nodes. Urinary bladder: Urinary bladder partially collapsed but grossly unremarkable, as seen. Reproductive: Anteverted uterus, normal in size. Ovaries partially obscured but normal in size. Bones/joints: No acute fracture seen among the bones of the abdomen or pelvis. Discogenic degeneration and endplate irregularities in the lower thoracic spine. Prominent bilateral facet arthrosis at L4-L5 with minimal anterolisthesis of L4 on L5. Bilateral spondylolysis at L5 with grade 1 anterolisthesis of L5 on S1, severe degeneration of the L5-S1 disc, and moderate bilateral foraminal narrowing. Soft tissues: No significant ventral or inguinal hernia. IMPRESSION: 1. Dilated fluid-filled structure just above the diaphragmatic hiatus measuring 4.2 cm x 3.1 cm maximum axial dimension. Fluid-filled dilatation of the distal esophagus, a fluid-filled hiatal hernia, or an unusual appearance created by a fluid-filled Iftikhar fundoplication wrap herniated above the diaphragm could have this appearance. Clinical correlation is recommended. Of note, the Iftikhar wrap is not otherwise identified. 2. Hyperdense material layering within the lumen of the finding described in impression 1, presumably ingested hyperdense material or a small amount of oral contrast. 3. Colon largely well evacuated of fecal material and collapsed. Fluid throughout much of the colon suggesting diarrhea, cause not demonstrated. No evidence of diverticulitis or colitis. 4. 4 mm x 6 mm nonobstructing left renal calculus. Lab Data Lab results reviewed: Yes I reviewed the patient's lab results. Labs: 12/27/21 03:17 Urine - Clean Catch Urine Culture - Pending Laboratory Tests Range/Units 12/27/21 12/27/21 12/27/21 01:05 01:05 03:17 WBC (4.4-10.8) 10^3/uL 9.81 RBC (3.93-5.22) 10^6/uL 4.49 Hgb (11.2-15.7) g/dL 12.5 Hct (36.0-46.0) % 37.8 MCV (80-95) fL 84 MCH (27.0-33.0) pg 27.8 MCHC (32.0-36.0) % 33.1 RDW (11.7-14.6) % 15.1 H Plt Count (130-400) 10^3/uL 383 MPV (8.0-11.0) fL 9.6 Immature Gran % 0.4 Neutrophils % 60.6 Lymphocytes % 27.1 Monocytes % 10.8 Eosinophils % 0.7 Basophils % 0.4 Nucleated RBC % (0.0-0.3) % 0.0 Absolute Neutrophils (1.2-6.7) 10^3/uL 5.94 Absolute Lymphocytes (1.2-3.4) 10^3/uL 2.66 Absolute Monocytes (0.1-0.8) 10^3/uL 1.06 H Absolute Eosinophils (0.0-0.7) 10^3/uL 0.07 Absolute Basophils (0.0-0.2) 10^3/uL 0.04 Sodium (136-145) mmol/L 134 L Potassium (3.5-5.1) mmol/L 2.6 L* Chloride (98-107) mmol/L 98 Carbon Dioxide (21.0-32.0) mmol/L 22.8 Anion Gap (3-11) mmol/L 13.2 H BUN (7-18) mg/dL 9 Creatinine (0.55-1.02) mg/dL 1.1 H Estimated GFR/1.73 m2 (mL/min/1.73m2) 53.96 Glucose (74-106) mg/dL 149 H Calcium (8.5-10.1) mg/dL 9.8 Total Bilirubin (0.2-1.0) mg/dL 0.4 AST (15-37) U/L 16 ALT (14-59) U/L 20 Alkaline Phosphatase (46-116) U/L 65 Total Protein (6.4-8.2) g/dL 8.0 Albumin (3.4-5.0) g/dL 4.2 Urine Color (Yellow) Yellow Urine Clarity (Clear) Sl Cloudy Urine pH (5-8) 5.5 Ur Specific [place] (1.005-1.025) >= 1.030 H Urine Protein (Negative) mg/dL 30 H Urine Ketones (Negative) mg/dL Negative Urine Blood (Negative) Small H Urine Nitrite (Negative) Positive H Urine Bilirubin (Negative) Negative Urine Urobilinogen (Up TO 0.2) EU/dL 0.2 Ur Leukocyte Esterase (Negative) Negative Urine RBC (0-2) HPF 3-5 H Urine WBC (0-5) HPF 20-50 H Ur Epithelial Cells (Negative) HPF Moderate Urine Crystals (Negative) HPF Negative Urine Bacteria (Negative) HPF Many Urine Casts (Negative) LPF Negative Urine Mucus (Negative) Trace Ur Culture Indicated? No/Sq. Contamination Urine Glucose (Negative) mg/dL Negative HPI General Mode of arrival: ambulatory . Date/Time Provider Initiated Documentation: 12/27/21 00:51 . Limitations to Documentation: no limitations . Information obtained by: patient . HPI Narrative: Patient is a 46-year-old female with a history of GERD, achalasia with history of fundoplication, esophageal balloon dilation, and J tube with history of third-degree AV block status post pacemaker with history of chronic nausea presents with nausea, vomiting and diarrhea for the past 3 days. She does admit to upper abdominal pain that occurs prior to her nausea and vomiting. She denies any chest pain or difficulty breathing. States she can mainly only eat soft foods and supplements with additional nutrition through her J-tube at night. She states she ate Pasta salad a few days ago and feels that this may have caused her nausea, vomiting and diarrhea. She states her vomiting has been intermittent and mainly bile. She states her diarrhea has been watery and brown but denies any rectal bleeding or hematemesis. She denies any known fever or urinary symptoms. Related Data Home Medications Medication Instructions Recorded Confirmed fluoxetine 10 mg capsule 10 mg PO HS 10/18/20 12/27/21 mirtazapine 7.5 mg tablet 7.5 mg PO HS 10/18/20 12/27/21 ondansetron 4 mg disintegrating 4 mg PO Q8H PRN PRN 05/29/21 12/27/21 tablet metoprolol tartrate 25 mg tablet 25 mg PO BID 11/19/21 12/27/21 epinephrine 0.3 mg/0.3 mL 0.3 mg IM PRN PRN 12/27/21 12/27/21 injection, auto-injector pantoprazole 40 mg tablet,delayed 40 mg PO HS 12/27/21 12/27/21 release Allergies Allergy/AdvReac Type Severity Reaction Status Date / Time adhesive tape Allergy Skin Rash Unverified 12/27/21 01:00 prochlorperazine Allergy Unverified 12/27/21 01:00 [From Compazine] capsaicin AdvReac Intermediate sunburn Verified 12/27/21 01:00 type rash, burning, no blisters horse flies Allergy Severe Hives Uncoded 12/27/21 08:11 General Stated Complaint: Nausea/Vomit/Diar CARL: 4 Review of Systems All systems reviewed & are unremarkable except as noted in HPI and below Constitutional Constitutional: Denies chills, Denies excessive sweating, Denies fatigue, Denies fever(s), Denies weakness and Denies weight loss Eyes Eyes: Reports system reviewed and no additional complaints, except as documented and Denies blurry vision ENT Ears, Nose, Mouth, and Throat: Denies vertigo, Denies dizziness, Denies otalgia, Denies nasal congestion, Denies sore throat and Denies throat swelling Cardiovascular Cardiovascular: Denies chest pain, Denies syncope, Denies rapid heart rate and Denies dyspnea Respiratory Respiratory: Denies chest congestion, Denies cough, Denies pain on inspiration and Denies dyspnea Gastrointestinal Gastrointestinal: Reports abdominal pain, Reports diarrhea, Reports nausea and Reports vomiting Genitourinary Genitourinary: Denies hematuria, Denies dysuria and Denies flank pain Musculoskeletal Musculoskeletal: Denies back pain and Denies joint swelling Integumentary/Breasts Skin/Breast: Denies lesions and Denies rash Neurologic Neurologic: Denies behavioral changes, Denies confusion, Denies vertigo, Denies dizziness, Denies syncope, Denies localized weakness and Denies weakness Psychiatric Psychiatric: Denies behavioral changes, Denies confusion and Denies depression Endocrine Endocrine: Denies excessive sweating and Denies fatigue Hematologic/Lymphatic Hematologic/Lymphatic: Denies easy bruising and Denies lymphadenopathy Allergic/Immunologic Allergic/Immunologic: Denies throat swelling PFSH All Active Problems (Updated 12/28/21 @ 16:16 by Suzi Mercer MD) Discharge planning issues (Acute) DVT prophylaxis (Acute) UTI (urinary tract infection) (Acute) Gastroenteritis (Acute) Intractable nausea and vomiting (Acute) History of Iftikhar fundoplication (Chronic) Ileus (Acute) Vomiting (Acute) Acute dehydration (Acute) Cervicalgia (Acute) Numbness in both hands (Acute) Bursitis of right shoulder (Acute) Hypermobility syndrome (Acute) Tendonitis of long head of biceps brachii of right shoulder (Acute) Bronchial spasms (Acute) Stricture esophagus (Chronic) Due to prior Jesus/post OP scarring Status post Iftikhar fundoplication (Acute) Emesis, persistent (Acute) Atypical chest pain (Acute) UTI (urinary tract infection) (Acute) Esophagitis with gastritis (Chronic) S/P placement of cardiac pacemaker (Acute) Discharge planning issues (Acute) DVT prophylaxis (Acute) Anemia (Chronic) Complication of surgery (Acute) Pacemaker (Chronic) Smoker unmotivated to quit (Acute) GERD without esophagitis (Acute) Medical History Achalasia of esophagus Gastroesophageal reflux disease Surgical History section x3 Esophageal Myotomy Hx of esophagogastroduodenoscopy Ligation of fallopian tube Pacemaker Biventricular pacemaker Family History Aunt Personal history of malignant neoplasm Breast cancer Social History Smoking/Tobacco Use Status: Current every day Tobacco Type: cigarettes Smoking risk assessment performed?: Yes Alcohol Intake: current Alcohol Intake frequency: holidays/special occasions only Drug use: Daily Substance use type: marijuana 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 Current gender identity: female Do you feel safe at home: Yes Do you feel safe in your relationship?: Yes Exam Const General: cooperative and uncomfortable Orientation: alert, awake and oriented x3 HENMT Head: normal to inspection Ears: hearing grossly normal bilaterally, external ears normal and TM's normal bilaterally General nose exam: external nose normal Face and sinus: normal facial exam Mouth: oral mucosae normal Teeth and gingiva: dentition normal Throat: posterior oropharynx normal Eyes General: appearance normal, both eyes and all related structures Eyelids: eyelids normal Pupils: PERRL EOM: EOM intact bilaterally Neck Neck: normal visual inspection Lymphatic: no lymphadenopathy noted Chest Chest: normal inspection of the chest Resp Effort & Inspection: normal respiratory effort and able to speak in complete sentences Auscultation: clear to auscultation bilaterally Cardio Rate: regular rate Rhythm: regular rhythm GI Inspection: normal to inspection Palpation: soft, not firm, no guarding, no hepatosplenomegaly, no masses and nontender Auscultation: hypoactive bowel sounds Back/Spine/Pelvis Back: no CVA tenderness Skin General skin exam: no rashes or lesions noted Neuro General: patient alert and patient awake Cognition: normal cognition Speech: speech normal Gait: normal gait Motor: muscle tone normal throughout Sensory Exam: no sensory deficits noted Extrem General: normal to inspection, full ROM and capillary refill normal Psych Appearance: grossly normal Mental Status: mental status grossly normal Speech and Movement: speech and movement normal Affect: normal affect Thought Process: normal
[2021-12-27 01:10] LABS: Abs Immature Grans 0.04 10^3/uL (0.0-0.06); Absolute Basophil Count 0.04 10^3/uL (0.0-0.2); Absolute Eosinophil Count 0.07 10^3/uL (0.0-0.7); Absolute Lymphocyte Count 2.66 10^3/uL (1.2-3.4); Absolute Monocyte Count 1.06 10^3/uL (0.1-0.8); Absolute Neutrophil Count 5.94 10^3/uL (1.2-6.7); Basophils % 0.4; Eosinophils % 0.7; HCT 37.8 % (36.0-46.0); HGB 12.5 g/dL (11.2-15.7); Immature Grans % 0.4; Lymphocytes % 27.1; MCH 27.8 pg (27.0-33.0); MCHC 33.1 % (32.0-36.0); MCV 84 fL (80-95); MPV 9.6 fL (8.0-11.0); Monocytes % 10.8; Neutrophils % 60.6; Platelet Count 383 10^3/uL (130-400); RBC 4.49 10^6/uL (3.93-5.22); RDW 15.1 % (11.7-14.6); RDW-SD 45.9 fL; WBC 9.81 10^3/uL (4.4-10.8)
--- NOTE | 2021-12-27 01:15 | DI.CT_ITS ---
Exam(s) CT ABDOMEN PELVIS WO EXAM: CT ABDOMEN PELVIS WO CLINICAL HISTORY: abd pain, nausea, diarrhea. TECHNIQUE: Imaging Protocol: Axial computed tomography images with coronal and sagittal reformatted images were created and reviewed. Oral: no. Patient refused to drink contrast. COMPARISON: CT CT ABDOMEN PELVIS CTA from 05/30/2021 FINDINGS: ABDOMEN: Lung Bases: Pacemaker leads. Small hiatal hernia and/or dilated distal esophagus with high-density m aterial, presumably ingested material. Liver: Normal density. No measurable mass. Gallbladder and biliary tract: Status post cholecystectomy. No radiodense calculus or dilation. Pancreas: Normal density, no abnormal calcifications or inflammatory process. Stomach and small bowel : Stomach is nearly empty. A left-sided jejunostomy tube is noted. There is no abnormal surrounding stranding in the fat or adjacent collection. Spleen: Normal. Kidneys: Normal size, contour and axis. 6 millimeter nonobstructing stone lower pole left kidney. M ild scarring at the lower pole of the left kidney. No obstructive uropathy. No masses seen. Adrenal glands: No masses seen. Lymph nodes: Within normal limits. Abdominal Aorta: Abdominal portion non-dilated. PELVIS: Bladder: Nearly empty. No gross wall thickening. Colon: Mainly empty, small amount of fluid.. No obstruction or bowel wall thickening. Appendix nor mal. Peritoneal cavity: No ascites, collection or mesenteric inflammatory response. Reproductive organs: Within normal limits. Bones: L5 spondylolysis and grade 1 L5-S1 spondylolisthesis. Degenerative changes. IMPRESSION: Jejunostomy tube appears intact. No evidence of bowel obstruction or inflammation. Dilated distal esophagus and or hiatal hernia with some high density material. RADIATION DOSE DELIVERED: 697.67mGy.cm Total DLP DATA REPOSITORY: All CT scans at this facility are submitted to the National Radiology Data Registry (NRDR) Dose Index Registry (DIR) with the [employer] ([employer]). RADIATION OPTIMIZATION: All CT scans at this facility use at least one of these dose optimization te chniques: automated exposure control; mA and/or kV adjustment per patient size (includes targeted exa ms where dose is matched to clinical indication); or iterative reconstruction.
[2021-12-27 01:23] LABS: ALT 20 U/L (14-59); AST 16 U/L (15-37); Albumin 4.2 g/dL (3.4-5.0); Alkaline Phosphatase 65 U/L (46-116); Anion Gap 13.2 mmol/L (3-11); BUN 9 mg/dL (7-18); Bilirubin, Total 0.4 mg/dL (0.2-1.0); CO2 22.8 mmol/L (21.0-32.0); CREATININE 1.1 mg/dL (0.55-1.02); Calcium 9.8 mg/dL (8.5-10.1); Chloride 98 mmol/L (98-107); Estimated GFR 53.96 (mL/min/1.73m2); Glucose 149 mg/dL (74-106); Sodium 134 mmol/L (136-145)
[2021-12-27] MEDS: LORazepam 2 MG/ML VIAL 1 MG IVP (01:24)
[2021-12-27] MEDS: Normal Saline 1,000 ML 1000 ML IV (01:24)
[2021-12-27 01:28] LABS: Potassium 2.6 mmol/L (3.5-5.1)
[2021-12-27] MEDS: POTASSIUM CHLORIDE 20 MEQ/100 ML BAG 50 MEQ IVPB ×2 (01:43→04:30)
[2021-12-27] MEDS: Potassium Chloride 20 MEQ TABCR 40 MEQ PO (01:43)
--- NOTE | 2021-12-27 03:13 | DI.VRAD_ITS ---
PROCEDURE INFORMATION: Exam: CT Abdomen And Pelvis Without Contrast Exam date and time: 12/27/2021 2:02 AM Age: 46 years old Clinical indication: Nausea and vomiting and other: Diarrhea; Prior surgery; Surgery date: 6+ months; Surgery type: Feeding tube in may 2021, cholecystectomy, c-sections, sean, tubal ligation, pace maker, and esophageal myotomy; Patient HX: Abd pain, nausea, diarrhea. R/O colitis, sbo TECHNIQUE: Imaging protocol: Computed tomography of the abdomen and pelvis without contrast. Radiation optimization: All CT scans at this facility use at least one of these dose optimization techniques: automated exposure control; mA and/or kV adjustment per patient size (includes targeted exams where dose is matched to clinical indication); or iterative reconstruction. COMPARISON: CT ABDOMEN PELVIS W 01/31/2021 2:23 PM FINDINGS: Tubes, catheters and devices: Percutaneous jejunostomy catheter in the left lower quadrant. Lungs: Lung bases clear. Heart: Heart only partially visualized. Cardiac pacemaker lead partially seen in the right ventricle. Mediastinal space: Dilated fluid-filled structure just above the diaphragmatic hiatus measuring 4.2 cm x 3.1 cm on image 11 of series 2 containing posteriorly layering hyperdense material. Fluid-filled dilatation of the distal esophagus? Fluid-filled hiatal hernia? Unusual appearance of a herniated Sean wrap? Sean wrap not otherwise identified. Stomach below the diaphragm largely decompressed. No small bowel dilatation to suggest obstruction. Liver: Small indeterminate hypoattenuating hepatic lesion, incompletely characterized but most likely a small cyst or hemangioma. Gallbladder and bile ducts: Gallbladder not identified. Prior cholecystectomy by report. No biliary dilatation. Pancreas: Grossly unremarkable unenhanced pancreas. Spleen: Grossly unremarkable unenhanced spleen. Adrenal glands: Normal appearing adrenal glands. Kidneys and ureters: 4 mm x 6 mm nonobstructing left renal calculus. Cortical scarring in the lower pole of the left kidney. Otherwise normal-appearing kidneys. No hydronephrosis. No obstructing ureteral stones. Stomach and bowel: Colon largely well evacuated of formed fecal material and collapsed. Fluid throughout much of the colon suggesting probable diarrhea. No evidence of diverticulitis or colitis. Appendix: Appendix partially obscured but normal in caliber and appearance through its visualized portion. Intraperitoneal space: No gross ascites or free air. Vasculature: Normal caliber abdominal aorta. Lymph nodes: No pathologically enlarged mesenteric, retroperitoneal, or pelvic sidewall lymph nodes. Urinary bladder: Urinary bladder partially collapsed but grossly unremarkable, as seen. Reproductive: Anteverted uterus, normal in size. Ovaries partially obscured but normal in size. Bones/joints: No acute fracture seen among the bones of the abdomen or pelvis. Discogenic degeneration and endplate irregularities in the lower thoracic spine. Prominent bilateral facet arthrosis at L4-L5 with minimal anterolisthesis of L4 on L5. Bilateral spondylolysis at L5 with grade 1 anterolisthesis of L5 on S1, severe degeneration of the L5-S1 disc, and moderate bilateral foraminal narrowing. Soft tissues: No significant ventral or inguinal hernia. IMPRESSION: 1. Dilated fluid-filled structure just above the diaphragmatic hiatus measuring 4.2 cm x 3.1 cm maximum axial dimension. Fluid-filled dilatation of the distal esophagus, a fluid-filled hiatal hernia, or an unusual appearance created by a fluid-filled Sean fundoplication wrap herniated above the diaphragm could have this appearance. Clinical correlation is recommended. Of note, the Sean wrap is not otherwise identified. 2. Hyperdense material layering within the lumen of the finding described in impression 1, presumably ingested hyperdense material or a small amount of oral contrast. 3. Colon largely well evacuated of fecal material and collapsed. Fluid throughout much of the colon suggesting diarrhea, cause not demonstrated. No evidence of diverticulitis or colitis. 4. 4 mm x 6 mm nonobstructing left renal calculus. Dictated and Authenticated by: Rickey Salazar MD. Ordering:RITU Baker MD
[2021-12-27 03:51] LABS: Bilirubin Negative (Negative); Blood Small (Negative); Clarity Sl Cloudy (Clear); Glucose Negative (Negative); Ketones Negative (Negative); Leukocyte Esterase Negative (Negative); Nitrite Positive (Negative); Specific Gravity >= 1.030 (1.005-1.025); Urobilinogen 0.2 EU/dL (Up TO 0.2); pH 5.5 (5-8)
[2021-12-27 04:03] LABS: Bacteria Many HPF (Negative); C & S Indicated? No/Sq. Contamination; Casts Negative LPF (Negative); Crystals Negative HPF (Negative); Epithelial Cells Moderate HPF (Negative); Mucus Trace (Negative); WBC 20-50 HPF (0-5)
[2021-12-27] MEDS: LORazepam 2 MG/ML VIAL 0.5 MG IVP ×3 (04:33→16:43)
[2021-12-27] MEDS: Metoclopramide 10 MG/2 ML VIAL IVP (04:34)
--- NOTE | 2021-12-27 06:05 | W.PM.HP.N ---
Date of service: 12/27/21 Time of Service: 06:05 Assessment and Plan Assessment and plan (1) Gastroenteritis: Status: Acute Assessment and plan: Probable gastroenteritis, non-specific. There may be some complication related to possible motion of the Iftikhar, possible obstructive physiology, as well. Will manage conservatively at this point with NPO and IVF, along with potassium replacement, and will have team f/u with surgical group at [facility] for further recommendations. As to probable UTI will begin empiric Rocephin pending cultures. History of Present Illness History of Present Illness Chief Complaint: vomitingand diarrhea Narrative: 46 female with h/o GERD, achalasia, s/p dilatation, s/p Iftikhar fundoplication, s/p J-tube by which she has nocturnal feedings, supplemented with soft food diet -- here with three days of vomiting and watery diarrhea, came on after eating a pasta salad. Here in ER findings of note for K 2.6 and non-contrast CT demonstrating fluid filled structure just proximal to diaphragm, esophagus vs HH vs Iftikhar. Surgery consulkted, did not feel any need for emergent intervention, advised trial PO and f/u as outpatient for possible revision of Iftikhar. Patient unable to take PO here and is admitted for further managemenbt. States she feels somewhat imp[roved, and no diarrhea while here in ER. Review of Systems Narrative: per HPI PFSH All Active Problems (Updated 12/27/21 @ 06:13 by Patel Wilkerson MD) Gastroenteritis (Acute) Intractable nausea and vomiting (Acute) Diarrhea (Acute) History of Iftikhar fundoplication (Chronic) Ileus (Acute) Vomiting (Acute) Acute dehydration (Acute) Cervicalgia (Acute) Numbness in both hands (Acute) Bursitis of right shoulder (Acute) Hypermobility syndrome (Acute) Tendonitis of long head of biceps brachii of right shoulder (Acute) Bronchial spasms (Acute) Stricture esophagus (Chronic) Due to prior Jesus/post OP scarring Status post Iftikhar fundoplication (Acute) Emesis, persistent (Acute) Atypical chest pain (Acute) UTI (urinary tract infection) (Acute) Esophagitis with gastritis (Chronic) S/P placement of cardiac pacemaker (Acute) Discharge planning issues (Acute) DVT prophylaxis (Acute) Anemia (Chronic) Complication of surgery (Acute) Pacemaker (Chronic) Smoker unmotivated to quit (Acute) GERD without esophagitis (Acute) Medical History Achalasia of esophagus Gastroesophageal reflux disease Surgical History section x3 Esophageal Myotomy Hx of esophagogastroduodenoscopy Ligation of fallopian tube Pacemaker Biventricular pacemaker Family History Aunt Personal history of malignant neoplasm Breast cancer Social History Smoking/Tobacco Use Status: Current every day Tobacco Type: cigarettes Smoking risk assessment performed?: Yes Alcohol Intake: current Alcohol Intake frequency: holidays/special occasions only Drug use: Daily Substance use type: marijuana 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 Current gender identity: female Do you feel safe at home: Yes Do you feel safe in your relationship?: Yes Meds Allergies and Home Medications Allergies Allergy/AdvReac Type Severity Reaction Status Date / Time adhesive tape Allergy Skin Rash Unverified 12/27/21 01:00 prochlorperazine Allergy Unverified 12/27/21 01:00 [From Compazine] capsaicin AdvReac Intermediate sunburn Verified 12/27/21 01:00 type rash, burning, no blisters Home Medications Medication Instructions Recorded Confirmed Type potassium chloride 10 mEq 10 meq PO DAILY 08/03/20 06/10/21 History tablet,extended release(part/cryst) (Klor-Con M) fluoxetine 10 mg capsule 10 mg PO DAILY 10/18/20 11/19/21 History mirtazapine 7.5 mg tablet 7.5 mg PO HS 10/18/20 11/19/21 History pantoprazole 40 mg tablet,delayed 40 mg PO BID #0 tabs 02/02/21 11/19/21 Rx release sucralfate 1 gram tablet 1 g PO AC & HS #120 tabs 02/02/21 02/16/21 Rx ondansetron 4 mg disintegrating 4 mg PO 4-6XD PRN 05/29/21 06/10/21 History tablet lorazepam 0.5 mg tablet 0.5 mg PO PRN PRN 06/10/21 11/19/21 History metoprolol tartrate 25 mg tablet 25 mg PO BID 11/19/21 11/19/21 History metronidazole 500 mg tablet 500 mg PO BID 11/19/21 11/19/21 History Exam Narrative Exam Narrative: 128/76, 89, 36.9, 18, 95% RA. HEENT atraumatic; neck supple; lungs clear; heart RRR; abdomen soft and NT, J-tube in place; extremities w/o edema; neuro Ox3, moves all 4s Results Labs Result diagrams: 12/27/21 01:05 12/27/21 01:05 Labs: Laboratory Results - last 24 hr 12/27/21 12/27/21 12/27/21 01:05 01:05 03:17 WBC 9.81 RBC 4.49 Hgb 12.5 Hct 37.8 MCV 84 MCH 27.8 MCHC 33.1 RDW 15.1 H Plt Count 383 MPV 9.6 Immature Gran % 0.4 Neutrophils % 60.6 Lymphocytes % 27.1 Monocytes % 10.8 Eosinophils % 0.7 Basophils % 0.4 Nucleated RBC % 0.0 Absolute Neutrophils 5.94 Absolute Lymphocytes 2.66 Absolute Monocytes 1.06 H Absolute Eosinophils 0.07 Absolute Basophils 0.04 Sodium 134 L Potassium 2.6 L* Chloride 98 Carbon Dioxide 22.8 Anion Gap 13.2 H BUN 9 Creatinine 1.1 H Estimated GFR/1.73 m2 53.96 Glucose 149 H Calcium 9.8 Total Bilirubin 0.4 AST 16 ALT 20 Alkaline Phosphatase 65 Total Protein 8.0 Albumin 4.2 Urine Color Yellow Urine Clarity Sl Cloudy Urine pH 5.5 Ur Specific [place] >= 1.030 H Urine Protein 30 H Urine Ketones Negative Urine Blood Small H Urine Nitrite Positive H Urine Bilirubin Negative Urine Urobilinogen 0.2 Ur Leukocyte Esterase Negative Urine RBC 3-5 H Urine WBC 20-50 H Ur Epithelial Cells Moderate Urine Crystals Negative Urine Bacteria Many Urine Casts Negative Urine Mucus Trace Ur Culture Indicated? No/Sq. Contamination Urine Glucose Negative Last Vital Signs Temp 36.9 C 12/27/21 00:54 Pulse 89 12/27/21 04:46 Resp 18 12/27/21 00:54 BP 128/76 12/27/21 04:46 Pulse Ox 95 12/27/21 04:46
[2021-12-27 06:39] LABS: Source Nasal/Nares
[2021-12-27 07:29] LABS: COVID-19 PCR Negative (Negative)
[2021-12-27] MEDS: POTASSIUM CHLORIDE/0.9% NACL 1,000 ML 125 MEQ IV (10:33)
[2021-12-27] MEDS: Ondansetron 4 MG/2 ML VIAL IVP ×2 (10:34→14:06)
[2021-12-27] MEDS: Ketorolac 15 MG/ML VIAL IVP ×2 (10:34→16:43)
--- NOTE | 2021-12-27 12:07 | PHA.REVIEW ---
Pharmacy Admission Review - Admission Clinical Review (Last Reviewed 12/27/21 @ 06:11 by Patel Wilkerson MD) UTI (urinary tract infection) (Acute) Gastroenteritis (Acute) Intractable nausea and vomiting (Acute) Diarrhea (Acute) adhesive tape Allergy (Unverified 12/27/21 01:00) Skin Rash prochlorperazine [From Compazine] Allergy (Unverified 12/27/21 01:00) capsaicin Adverse Reaction (Intermediate, Verified 12/27/21 01:00) sunburn type rash, burning, no blisters horse flies Allergy (Severe, Uncoded 12/27/21 08:11) Hives Resuscitation Status Full Code Height 5 ft 6 in Weight 68.039 kg - Renal Dosing Renal Dosing: BUN 9 mg/dL (7-18) 12/27/21 01:05 Creatinine 1.1 mg/dL (0.55-1.02) H 12/27/21 01:05 Medications needing adjustments: Reviewed (Crcl ~61 mL/min current meds okay) - Anticoagulation Anticoagulation: Hgb 12.5 g/dL (11.2-15.7) 12/27/21 01:05 Hct 37.8 % (36.0-46.0) 12/27/21 01:05 Plt Count 383 10^3/uL (130-400) 12/27/21 01:05 Creatinine 1.1 mg/dL (0.55-1.02) H 12/27/21 01:05 DVT Prophylaxis: Intervened (Nothing currently ordered or noted in H&P. Mentioned to provider who will review.) Therapeutic Anticoagulation: N/A - Opiate Usage Evaluate Pain Scale/Pains Meds: N/A - Relevant Labs Sodium 134 mmol/L (136-145) L 12/27/21 01:05 Potassium 2.6 mmol/L (3.5-5.1) L* 12/27/21 01:05 Chloride 98 mmol/L (98-107) 12/27/21 01:05 Electrolytes, C-Reactive P, ESR: Intervened (K+ low, IV and PO replacement ordered. No magnesium level checked, will mention to provider.) - DM Control DM Control: Glucose 149 mg/dL (74-106) H 12/27/21 01:05 Insulin Dosing: N/A (No DM noted in medical history, no A1c on file.) - Heart Failure/NV EF%, KOSTAS's, B-Blockers, Diuretics: N/A - BP Control BP Control: Blood Pressure 103/62 Blood Pressure 143/83 Blood Pressure 131/83 Blood Pressure 132/93 Blood Pressure 95/62 Blood Pressure 97/52 Blood Pressure 100/56 Blood Pressure 109/64 Blood Pressure 99/53 If elevated: Reviewed List meds needing interventions: BP has been up and down since admission. - Qtc Review If Elevated: N/A - IV to PO Switch IV Medications: Reviewed (pt is currently NPO) - Home Meds Home Med List reviewed: Reviewed Relevent Home Meds Not ordered & why?: epinephrine (PRN), fluoxetine, metoprolol, mirtazapine, pantoprazole - Current meds Current Medication Order Review: Reviewed - Comments Comments/Follow Ups: Watch BP, K+, SCr, labs, for culture results and for med changes (possible renal dose adjusments, home med orders). Antibiotic Activity - Pharmacy Antibiotic Review Pharmacy Antibiotic Activity: Reviewed, no change (Ceftriaxone ordered empirically for UTI. Urine culture pending.)
[2021-12-27 13:00] LABS: Lab Add On Test DONE
[2021-12-27 13:07] LABS: Anion Gap 9.3 mmol/L (3-11); BUN 8 mg/dL (7-18); CO2 24.7 mmol/L (21.0-32.0); CREATININE 0.7 mg/dL (0.55-1.02); Calcium 8.2 mg/dL (8.5-10.1); Chloride 107 mmol/L (98-107); Glucose 97 mg/dL (74-106); Sodium 141 mmol/L (136-145)
[2021-12-27 13:11] LABS: Magnesium 1.6 mg/dL (1.8-2.4)
[2021-12-27] MEDS: Enoxaparin 40 MG/0.4 ML SYR SC (15:56)
[2021-12-27] MEDS: MAGNESIUM SULFATE 2 GM/50 ML BAG IVPB (15:56)
[2021-12-27] MEDS: Lactated Ringers 1,000 ML 125 ML IV (15:57)
--- NOTE | 2021-12-27 16:40 | W.PM.PROGNOT ---
Date of Service Date of service: 12/27/21 Time of Service: 16:41 Subjective Subjective Interval history since last seen: Patient is seen in brief follow up. Ms Yee continues to feel nauseated. She continues to have epigastric pain. She states that usually these episodes last 2-3 days and then get better. She notices relatively less relief from zofran than from phenergan or reglan. She wants to try some apple juice. I have repleted her magnesium and adjusted her IVF. Will add tigan to regimen and d/c zofran, replacing it with phenergan. Prn IV ativan also ordered. Clear liquids. Objective Last Vital Signs Temp 37.1 C 12/27/21 14:34 Pulse 95 H 12/27/21 15:25 Resp 18 12/27/21 14:34 BP 149/88 H 12/27/21 14:34 Pulse Ox 96 12/27/21 14:34 Laboratory Results - last 24 hr 12/27/21 12/27/21 12/27/21 01:05 01:05 03:17 WBC 9.81 RBC 4.49 Hgb 12.5 Hct 37.8 MCV 84 MCH 27.8 MCHC 33.1 RDW 15.1 H Plt Count 383 MPV 9.6 Immature Gran % 0.4 Neutrophils % 60.6 Lymphocytes % 27.1 Monocytes % 10.8 Eosinophils % 0.7 Basophils % 0.4 Nucleated RBC % 0.0 Absolute Neutrophils 5.94 Absolute Lymphocytes 2.66 Absolute Monocytes 1.06 H Absolute Eosinophils 0.07 Absolute Basophils 0.04 Sodium 134 L Potassium 2.6 L* Chloride 98 Carbon Dioxide 22.8 Anion Gap 13.2 H BUN 9 Creatinine 1.1 H Estimated GFR/1.73 m2 53.96 Glucose 149 H Calcium 9.8 Magnesium Total Bilirubin 0.4 AST 16 ALT 20 Alkaline Phosphatase 65 Total Protein 8.0 Albumin 4.2 Urine Color Yellow Urine Clarity Sl Cloudy Urine pH 5.5 Ur Specific [place] >= 1.030 H Urine Protein 30 H Urine Ketones Negative Urine Blood Small H Urine Nitrite Positive H Urine Bilirubin Negative Urine Urobilinogen 0.2 Ur Leukocyte Esterase Negative Urine RBC 3-5 H Urine WBC 20-50 H Ur Epithelial Cells Moderate Urine Crystals Negative Urine Bacteria Many Urine Casts Negative Urine Mucus Trace Ur Culture Indicated? No/Sq. Contamination Urine Glucose Negative COVID-19 Source SARS-CoV-2 (PCR) Add-On Test Request 12/27/21 12/27/21 12/27/21 06:17 12:42 12:42 WBC RBC Hgb Hct MCV MCH MCHC RDW Plt Count MPV Immature Gran % Neutrophils % Lymphocytes % Monocytes % Eosinophils % Basophils % Nucleated RBC % Absolute Neutrophils Absolute Lymphocytes Absolute Monocytes Absolute Eosinophils Absolute Basophils Sodium 141 Potassium 4.0 D Chloride 107 Carbon Dioxide 24.7 Anion Gap 9.3 BUN 8 Creatinine 0.7 Estimated GFR/1.73 m2 >= 60.00 Glucose 97 Calcium 8.2 L Magnesium Total Bilirubin AST ALT Alkaline Phosphatase Total Protein Albumin Urine Color Urine Clarity Urine pH Ur Specific [place] Urine Protein Urine Ketones Urine Blood Urine Nitrite Urine Bilirubin Urine Urobilinogen Ur Leukocyte Esterase Urine RBC Urine WBC Ur Epithelial Cells Urine Crystals Urine Bacteria Urine Casts Urine Mucus Ur Culture Indicated? Urine Glucose COVID-19 Source Nasal/Nares SARS-CoV-2 (PCR) Negative Add-On Test Request DONE 12/27/21 12:42 WBC RBC Hgb Hct MCV MCH MCHC RDW Plt Count MPV Immature Gran % Neutrophils % Lymphocytes % Monocytes % Eosinophils % Basophils % Nucleated RBC % Absolute Neutrophils Absolute Lymphocytes Absolute Monocytes Absolute Eosinophils Absolute Basophils Sodium Potassium Chloride Carbon Dioxide Anion Gap BUN Creatinine Estimated GFR/1.73 m2 Glucose Calcium Magnesium 1.6 L Total Bilirubin AST ALT Alkaline Phosphatase Total Protein Albumin Urine Color Urine Clarity Urine pH Ur Specific [place] Urine Protein Urine Ketones Urine Blood Urine Nitrite Urine Bilirubin Urine Urobilinogen Ur Leukocyte Esterase Urine RBC Urine WBC Ur Epithelial Cells Urine Crystals Urine Bacteria Urine Casts Urine Mucus Ur Culture Indicated? Urine Glucose COVID-19 Source SARS-CoV-2 (PCR) Add-On Test Request
[2021-12-27] MEDS: Normal Saline Flush 10 ML SYR IVP (16:43)
[2021-12-27] MEDS: Pantoprazole 40 MG VIAL IVP (19:35)
[2021-12-27] MEDS: Mirtazapine 15 MG TAB 7.5 MG PO (21:24)
[2021-12-28] VITALS (10 sets, daily range): BP systolic 97–156; BP diastolic 62–93; PULSE 79–116; RESP 16–18; TEMP 36–37.3; O2SAT 95–98
[2021-12-28] MEDS: Lactated Ringers 1,000 ML 125 ML IV ×3 (00:37→20:21)
[2021-12-28] MEDS: LORazepam 2 MG/ML VIAL 0.5 MG IVP ×3 (03:51→20:15)
[2021-12-28] MEDS: Normal Saline Flush 10 ML SYR IVP ×2 (08:03→13:46)
[2021-12-28] MEDS: MAGNESIUM SULFATE 2 GM/50 ML BAG IVPB (08:03)
[2021-12-28] MEDS: Pantoprazole 40 MG VIAL IVP ×2 (08:03→20:16)
--- NOTE | 2021-12-28 10:53 | PDOC.CMIN ---
- If Service Date Differs Date of service: 12/28/21 Time of Service: 10:53 Care Management Initial Assess REASON FOR HOSPITALIZATION:: gastroenteritis PAST MEDICAL HISTORY/PAST SURGICAL HISTORY:: All Active Problems (Updated 12/27/21 @ 06:13 by Patel Wilkerson MD). Gastroenteritis (Acute). Intractable nausea and vomiting (Acute). Diarrhea (Acute). History of Iftikhar fundoplication (Chronic). Ileus (Acute). Vomiting (Acute). Acute dehydration (Acute). Cervicalgia (Acute). Numbness in both hands (Acute). Bursitis of right shoulder (Acute). Hypermobility syndrome (Acute). Tendonitis of long head of biceps brachii of right shoulder (Acute). Bronchial spasms (Acute). Stricture esophagus (Chronic). Due to prior Jesus/post OP scarring. Status post Iftikhar fundoplication (Acute). Emesis, persistent (Acute). Atypical chest pain (Acute). UTI (urinary tract infection) (Acute). Esophagitis with gastritis (Chronic). S/P placement of cardiac pacemaker (Acute). Discharge planning issues (Acute). DVT prophylaxis (Acute). Anemia (Chronic). Complication of surgery (Acute). Pacemaker (Chronic). Smoker unmotivated to quit (Acute). GERD without esophagitis (Acute). Medical History . Achalasia of esophagus. Gastroesophageal reflux disease. Surgical History . section. x3. Esophageal Myotomy. Hx of esophagogastroduodenoscopy. Ligation of fallopian tube. Pacemaker. Biventricular pacemaker PREVIOUS FUNCTIONAL STATUS/SOCIAL/FAMILY SUPPORTS:: Marcella lives in [place] with her jeremyance and one of her twin eighteen year old daughters and 9 year old son and her tyrone's 14 year old son. Marcella has 2 other adult children living outside the home. She informed that she is in the process of breaking up with her tyrone and anticipates moving soon. 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 She has applied for disability but was denied on her initial request. She has since hired a preparation room manager and is hopeful that the outcome will be more favorable this time. Her hearing is scheduled for 01/11/22. 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 CURRENT FUNCTIONAL STATUS:: Marcella was lying in bed when CM met with her. She was agreeable to conversation and engaged easily with CM, known to her from a previous hospital stay. Marcella shared that she did leave her fiancee after her last hospitalization in May, but ended up going back to him when the arrangement with her brother failed to work out. She informed CM that she plans to leave for good as soon as she receives her income tax check. Her plan is to buy an RV and travel for a [place] She plans to stay year round in a campground as it is quite inexpensive. Her disability hearing is on 01/11/22. She has hired an defense attorney and expects a favorable outcome. She anticipates getting a large settlement (2 years worth of disability payments) and then buying land and building a tiny house. She realizes that she will likely not receive any disability payment for several months. ADVANCE DIRECTIVES:: none on file Has patient been provided with info about the portal/API?: Yes Did the patient sign up for the portal?: No CODE STATUS:: Full Code INSURANCE COVERAGE / FINANCIAL ISSUES:: Medicaid CURRENT HOME/COMMUNITY SERVICES/EQUIPMENT:: none PRIMARY CARE PHYSICIAN:: Karri Ceballos POTENTIAL DISCHARGE NEEDS:: follow up with PCP and plan of care PATIENT/FAMILY EDUCATION NEEDS:: Review of discharge instructions, limitations, activity, follow up plan; discuss [employer] TRANSPORTATION:: via ptrivate vehicle with family PLAN:: Marcella will be discharged home with no new services. She will follow up with her PCP and plan of care and transport with family. CM will support Marcella and her discharge needs.
[2021-12-28] MEDS: Enoxaparin 40 MG/0.4 ML SYR SC (15:10)
--- NOTE | 2021-12-28 16:08 | W.PM.PROGNOT ---
Date of Service Date of service: 12/28/21 Time of Service: 16:09 Assessment and Plan Assessment and plan (1) Intractable nausea and vomiting: Status: Acute Assessment and plan: In setting of known achalasia, h/o Iftikhar's fundoplication. ?Canabinoid hyperemesis (the patient feels that this could not be the diagnosis since eliminating canabis did not resolve her sx in the past). Continue prn antiemetics, IVF, PPI. Viral gastroenteritis is a possibility. Will need GI follow up as outpatient. (2) Diarrhea: Status: Resolved Assessment and plan: Likely related to #1. (3) UTI (urinary tract infection): Status: Acute Assessment and plan: Due to GNR, present on admission. Await speciation. Continue empiric ceftriaxone. (4) Acute dehydration: Status: Acute Assessment and plan: Continue IVF while not tolerating a full diet. Consult nutrition for tube feeding recommendations for tomorrow. Rechecking lytes now. (5) DVT prophylaxis: Status: Acute Assessment and plan: SC enoxaparin (6) Discharge planning issues: Status: Acute Assessment and plan: Full code Continues to require hospitalization. Subjective Subjective Interval history since last seen: Ms Yee feels better but states that she was still nauseated early this afternoon. We agreed that we would see how the night goes and try re-introducing tube feeding tomorrow to see how she felt then. She agreed. Denies dizziness, chest pain, shortness of breath. Abdominal pain is gone. No diarrhea. We had a long discussion about the possibility of canabinoid hyperemesis - the patient states she does not think it's that because she had done trials of not smoking before and it actually made her feel worse. We discussed how smoking could be triggering the cycle, however. The patient verbalized that she strongly disagreed and that multiple doctors had suggested this before. Exam Narrative Exam Narrative: General: Pleasant middle-aged female who is resting in a dark room, wakes up easily, A&Ox3, appears more comfortable today than yesterday HEENT: EOMI, MMM Heart: RRR, no m/r/g Lungs: CTAB Abdomen: soft, nontender, nondistended Extremities: no edema Objective Last Vital Signs Temp 37.3 C 12/28/21 14:55 Pulse 93 H 12/28/21 14:55 Resp 18 06/08/22 14:55 BP 136/86 12/28/21 14:55 Pulse Ox 96 12/28/21 14:55
[2021-12-28 17:40] LABS: Anion Gap 8.5 mmol/L (3-11); BUN 3 mg/dL (7-18); CO2 27.5 mmol/L (21.0-32.0); CREATININE 0.6 mg/dL (0.55-1.02); Calcium 8.7 mg/dL (8.5-10.1); Chloride 100 mmol/L (98-107); Glucose 90 mg/dL (74-106); Magnesium 2.3 mg/dL (1.8-2.4); Potassium 3.2 mmol/L (3.5-5.1); Sodium 136 mmol/L (136-145)
[2021-12-28] MEDS: Mirtazapine 15 MG TAB 7.5 MG PO (20:16)
[2021-12-29] VITALS (9 sets, daily range): BP systolic 106–150; BP diastolic 63–95; PULSE 76–141; RESP 16–18; TEMP 36.3–37.8; O2SAT 90–100
[2021-12-29] MEDS: Lactated Ringers 1,000 ML 125 ML IV ×3 (03:30→19:45)
[2021-12-29 06:29] LABS: Platelet Count 321 10^3/uL (130-400)
[2021-12-29 06:43] LABS: Anion Gap 8.2 mmol/L (3-11); BUN 7 mg/dL (7-18); CO2 28.8 mmol/L (21.0-32.0); CREATININE 0.8 mg/dL (0.55-1.02); Calcium 8.6 mg/dL (8.5-10.1); Chloride 101 mmol/L (98-107); Glucose 94 mg/dL (74-106); Magnesium 2.1 mg/dL (1.8-2.4); Potassium 3.4 mmol/L (3.5-5.1); Sodium 138 mmol/L (136-145)
[2021-12-29] MEDS: Pantoprazole 40 MG VIAL IVP ×2 (07:40→20:46)
[2021-12-29] MEDS: LORazepam 2 MG/ML VIAL 0.5 MG IVP ×3 (07:40→20:47)
[2021-12-29] MEDS: Normal Saline Flush 10 ML SYR IVP ×3 (07:41→15:19)
[2021-12-29] MEDS: POTASSIUM CHLORIDE 20 MEQ/100 ML BAG 50 MEQ IVPB ×2 (08:35→10:55)
--- NOTE | 2021-12-29 09:12 | PDOC.CMPRO ---
- If Service Date Differs Date of service: 12/29/21 Time of Service: 09:12 Care Management Progress Note S/O:Marcella was lying in bed in a darkened room when CM met with her. She complained of a headache and stated that she still has some nausea. She was disinclined to have further conversation as she was not feeling well. She did state that she had been to [facility] [place] last week to have an ECHO and to have her pacemaker interrogated. She has been told that her battery will last about a month. She has an appointment with her senior it auditor at the end of December. A: Marcella is a 46 year old woman admitted on 12/27/21 with gastroenteritis P:Marcella will be discharged home with no new services. She will follow up with her PCP and plan of care and transport with family. CM will support Marcella and her discharge needs.
[2021-12-29] MEDS: Trimethobenzamide 200 MG/2 ML VIAL IM ×3 (10:06→23:31)
--- NOTE | 2021-12-29 11:40 | NS.NUTBLAN_ITS ---
Date of service: 12/29/21 Time of Service: 11:40 Nutritional Consult ASSESSMENT: Met marek Naranjo today. She is well nourished and has had stable weight > 2 years, BMI on high end of normal. She is ordered a clear liquid diet- able to take some sips. She states she had a J tube placed last year and has been using nocturnal tube feeding to meet >50% of nutrient needs. Prior to admit was tolerating soft foods. Has been using Nutren 1.5 with infusion of 72 cc/hour for 10 hours providing total of 1080 kcal, 45 g protein, 540 ml fluid. Nursing reports [facility] does not have compatable tubing needed to use the J tube. Estimated Needs: 0011-3892 kcal (25-30 kcal/kg), 68-81 g protein (1.0-1/2 g pro/kg), 2040 ml fluid NUTRITIONAL DIAGNOSIS: inadequate macronutrient intake due to n/v INTERVENTION: Restart nocturnal tube feeding once compatable tubing aquired. [facility] does not have Nutrin 1.5 - however, Osmolite 1.5 is a good substitute. Recommend Osmolite 1.5 72 cc/hour x 10 hours (8 p to 6 a) equivalent to 3 cartons providing total of 1080 kcal, 45 g protein, 540 ml fluid. when IV fluids d/c, recommend flush of 250 q 4 hours. MONITORING AND EVALUATION: weight, po intake, labs Time Spent in Nutritional Counseling and Treatment: 10
--- NOTE | 2021-12-29 11:48 | CHAPLAIN ---
Marcella was in bed when I visited, covered up with a blanket. The room was dark. I explained my role and offered support. Marcella said she is fine, and was not interested in further conversation. After visiting, and reading Soo Broussard's Leacher's note, I remember visiting with Marcella the last time she was here for similar health issues. At that time she was planning to leave her boyfriend, with whom she lived along with some of her children and his daughter. According to Soo's notes, Marcella did move out, and then later went back. She plans to move and is waiting to received disability money after her disability hearing on later this month. She's been turned down for disability once, but has since hired a obiee architect and is confident she'll be approved this time, according to Soo's notes.
[2021-12-29] MEDS: Ketorolac 15 MG/ML VIAL IVP ×2 (14:37→23:31)
--- NOTE | 2021-12-29 15:00 | RT.EKG_ITS ---
APPROVED REPORT Exam: Resting ECG Reason for Exam: chest discomfort/arrythmia Patient Location: I HR:86 bpm ECG Measurements Heart Rate 86 AXIS VT 214 P 6 QRSd 132 QRS -78 QT 383 T 84 QTc 458 Conclusion Atrial-sensed ventricular-paced rhythm...ventricular pacing tracks p-waves No further analysis attempted due to paced rhythm
[2021-12-29] MEDS: Enoxaparin 40 MG/0.4 ML SYR SC (15:19)
[2021-12-29 15:52] LABS: Troponin I < 50 ng/L (<or=60)
--- NOTE | 2021-12-29 17:33 | NUR.NOTE ---
Today patient has continued to struggle with nausea, requiring multiple PRN medications to manage pain, anxiety, nausea, etc. She spent most of the day in the dark lying in bed. Her daughter came to visit and nursing observed the patient sitting up in bed, cheerful and talkative. At this time it was also observed that she was eating caramel hard candies. Her diet order is clear liquids. She continued to be cheerful, animated, and eating until her daughter ended the visit, shortly after she became nauseous and stated it was because she had eaten a few bites of a popsicle. After this episode she required more PRN nausea medication. Nursing is continuing to monitor.
--- NOTE | 2021-12-29 17:55 | PGE_ITS ---
Date of Service Date of service: 12/29/21 Time of Service: 17:00 Assessment and Plan Assessment and plan (1) Intractable nausea and vomiting: Status: Acute Assessment and plan: In setting of known achalasia, h/o Iftikhar's fundoplication. ?Canabinoid hyperemesis (the patient feels that this could not be the diagnosis since eliminating canabis did not resolve her sx in the past). Continue prn antiemetics, IVF, PPI. Monitor and replace lytes. Viral gastroenteritis is a possibility, but seems less likely. Will need GI follow up as outpatient. Will try TF tomorrow when family brings appropriate tubing for TF. (2) Diarrhea: Status: Resolved Assessment and plan: Likely related to #1. (3) Chest pain: Status: Acute Assessment and plan: R/o ACS. [place] [facility] [place] 50% and normal segmental wall motion (global hypokinesis). (4) UTI (urinary tract infection): Status: Acute Assessment and plan: Due to 2 different strains of E. Coli, present on admission. Await sensitivities. Continue empiric ceftriaxone. (5) Acute dehydration: Status: Acute Assessment and plan: Continue IVF while not tolerating a full diet. Nutrition provided recommendations for TF - will trial once we have tubing. (6) Pacemaker at end of battery life: Status: Acute Assessment and plan: [facility] [place] battery this mornth. (7) DVT prophylaxis: Status: Acute Assessment and plan: SC enoxaparin (8) Discharge planning issues: Status: Acute Assessment and plan: Full code Continues to require hospitalization. Subjective Subjective Interval history since last seen: Feels a little better this afternoon. The hospital does not have the tubing to start her TF today - her daughter will bring it tomorrow. Vomited this afternoon. After vomiting developed a L-sided CP lasting 2 minutes. Did not feel like having lunch. Will try dinner. The patient has had several episodes of telemetry where her HR speeds up to 100s. Her pacemaker senses atrially and paces ventricularly. Interrogation obtained - the patient's battery is at the end of its life and needs to be replaced. Discussed with [facility] [place]: they are aware and were planning on doing it this month. They stated that they have up to 3 months from the [place] date to replace it. They reviewed her strips and feel that she might be having episodes of nonsustained Vtach or Afib - hard to tell. Because it is non-sustained, no additional intervention was recommended. No immediate transfer was felt necessary. Exam Narrative Exam Narrative: General: Pleasant middle-aged female, looks better today, A&Ox3, in better spirits HEENT: EOMI, MMM Heart: RRR, no m/r/g Lungs: CTAB Abdomen: soft, nontender, nondistended Extremities: no edema Objective Last Vital Signs Temp 37.3 C 12/29/21 16:26 Pulse 109 H 12/29/21 16:26 Resp 18 12/29/21 16:26 BP 106/63 12/29/21 16:26 Pulse Ox 90 L 12/29/21 16:26 Laboratory Results - last 24 hr 12/29/21 12/29/21 12/29/21 06:00 06:00 15:28 Plt Count 321 Sodium 138 Potassium 3.4 L Chloride 101 Carbon Dioxide 28.8 Anion Gap 8.2 BUN 7 Creatinine 0.8 Estimated GFR/1.73 m2 >= 60.00 Glucose 94 Calcium 8.6 Magnesium 2.1 Troponin I < 50
[2021-12-29 19:33] LABS: Troponin I < 50 ng/L (<or=60)
[2021-12-29] MEDS: Mirtazapine 15 MG TAB 7.5 MG PO (20:44)
[2021-12-30] VITALS (9 sets, daily range): BP systolic 101–144; BP diastolic 64–95; PULSE 76–120; RESP 16–18; TEMP 36.9–37.6; O2SAT 97–100
[2021-12-30] MEDS: Lactated Ringers 1,000 ML 125 ML IV (03:01)
[2021-12-30 07:40] LABS: Anion Gap 12.4 mmol/L (3-11); BUN 5 mg/dL (7-18); CO2 23.6 mmol/L (21.0-32.0); CREATININE 0.7 mg/dL (0.55-1.02); Calcium 9.1 mg/dL (8.5-10.1); Chloride 100 mmol/L (98-107); Glucose 121 mg/dL (74-106); Magnesium 1.7 mg/dL (1.8-2.4); Potassium 3.3 mmol/L (3.5-5.1); Sodium 136 mmol/L (136-145)
[2021-12-30] MEDS: Pantoprazole 40 MG VIAL IVP ×2 (08:10→20:13)
[2021-12-30] MEDS: Normal Saline Flush 10 ML SYR IVP ×3 (08:10→20:13)
[2021-12-30] MEDS: LORazepam 2 MG/ML VIAL 0.5 MG IVP (08:37)
[2021-12-30] MEDS: Normal Saline 500 ML 30 ML IV (08:37)
[2021-12-30] MEDS: MAGNESIUM SULFATE 2 GM/50 ML BAG IVPB (08:37)
[2021-12-30] MEDS: POTASSIUM CHLORIDE/0.9% NACL 1,000 ML 125 MEQ IV ×2 (08:38→20:33)
[2021-12-30] MEDS: POTASSIUM CHLORIDE 20 MEQ/100 ML BAG 50 MEQ IVPB ×2 (08:38→11:25)
--- NOTE | 2021-12-30 10:40 | PDOC.CMPRO ---
- If Service Date Differs Date of service: 12/30/21 Time of Service: 10:40 Care Management Progress Note S/O:Marcella was sitting up in bed when CM met with her. The shades were partially raised and the room was light. Marcella stated that she is feeling much better..not 100% but there is definitely an improvement. Her diet has been increased to full liquids and her headache has improved. Anticipate Marcella will discharge in the next day or so. Her electrolytes still require repletion, but her vital signs are stable and she no longer has diarrhea. A: Marcella is a 46 year old woman admitted on 12/27/21 with gastroenteritis P:Marcella will be discharged home with no new services. She will follow up with her PCP and plan of care and transport with family. CM will support Marcella and her discharge needs. cc:
[2021-12-30] MEDS: Trimethobenzamide 200 MG/2 ML VIAL IM ×2 (12:18→17:17)
--- NOTE | 2021-12-30 13:48 | W.PM.PROGNOT ---
Date of Service Date of service: 12/30/21 Time of Service: 13:49 Assessment and Plan Assessment and plan (1) Intractable nausea and vomiting: Status: Acute Assessment and plan: In setting of known achalasia, h/o Iftikhar's fundoplication. Improved. The patient states this could not be Canabinoid hyperemesis since eliminating canabis did not resolve her sx in the past. Continue prn antiemetics, IVF, PPI. Recheck H/H. Check hemoccult. Hold chemical DVT ppx and NSAIDs. Monitor and replace lytes. Viral gastroenteritis is a possibility, but seems less likely. Assuming H/H is stable, trialing full liquids and TFs today. (2) Diarrhea: Status: Resolved Assessment and plan: Likely related to #1. (3) Chest pain: Status: Resolved Assessment and plan: No ACS. Had an echo less than 1 week ago [place] [facility] [place] w/ LVEF of 50% and normal segmental wall motion (global hypokinesis). D/c Tele. (4) UTI (urinary tract infection): Status: Acute Assessment and plan: Due to 2 different strains of E. Coli, present on admission. Both sensitive to ceftriaxone. Continue empiric ceftriaxone (day 4). (5) Acute dehydration: Status: Acute Assessment and plan: Continue IVF While awaiting to see how the patient does with a full liquid diet and TFs tonight. Tubing has been brought to the hospital. (6) Pacemaker at end of battery life: Status: Acute Assessment and plan: [facility] [place] battery this month. D/c tele. (7) DVT prophylaxis: Status: Acute Assessment and plan: SC enoxaparin d/c'ed due to suspected GI bleeding. SCDs. (8) Discharge planning issues: Status: Acute Assessment and plan: Full code Possible discharge home tomorrow Subjective Subjective Interval history since last seen: Feels better - well enough to try a full liquid diet and tube feeding tonight. Denies dizziness, chest pain, shortness of breath, abdominal pain, endorses a little bit of nausea. States the stools have been coffee ground in color. Exam Narrative Exam Narrative: General: Pleasant middle-aged female, looks better, A&Ox3 HEENT: EOMI, MMM Heart: RRR, no m/r/g Lungs: CTAB Abdomen: soft, nontender, nondistended, J tube site intact Extremities: no edema Objective Last Vital Signs Temp 37 C 12/30/21 11:23 Pulse 76 12/30/21 11:45 Resp 18 12/30/21 11:23 BP 112/76 12/30/21 11:23 Pulse Ox 100 12/30/21 11:23 Laboratory Results - last 24 hr 12/29/21 12/29/21 12/30/21 15:28 18:55 06:49 Sodium 136 Potassium 3.3 L Chloride 100 Carbon Dioxide 23.6 Anion Gap 12.4 H BUN 5 L Creatinine 0.7 Estimated GFR/1.73 m2 >= 60.00 Glucose 121 H Calcium 9.1 Magnesium 1.7 L Troponin I < 50 < 50
[2021-12-30 15:56] LABS: HCT 36.1 % (36.0-46.0); HGB 12.4 g/dL (11.2-15.7)
[2021-12-30] MEDS: LORazepam 0.5 MG TAB PO ×2 (17:23→23:52)
[2021-12-30] MEDS: Mirtazapine 15 MG TAB 7.5 MG PO (20:13)
[2021-12-31 03:15] VITALS: BP 92/57; PULSE 78; RESP 18; TEMP 36.4; O2SAT 97
[2021-12-31 03:24] VITALS: BP 103/73
[2021-12-31] MEDS: Trimethobenzamide 200 MG/2 ML VIAL IM ×2 (04:42→10:15)
[2021-12-31] MEDS: LORazepam 0.5 MG TAB PO ×2 (06:02→13:23)
[2021-12-31] MEDS: POTASSIUM CHLORIDE/0.9% NACL 1,000 ML 125 MEQ IV (06:04)
[2021-12-31 07:55] LABS: BUN 9 mg/dL (7-18); CREATININE 0.7 mg/dL (0.55-1.02); Calcium 8.8 mg/dL (8.5-10.1); Chloride 104 mmol/L (98-107); Glucose 108 mg/dL (74-106); Magnesium 1.8 mg/dL (1.8-2.4); Potassium 4.5 mmol/L (3.5-5.1); Sodium 138 mmol/L (136-145)
[2021-12-31 09:09] VITALS: BP 96/54; PULSE 73; RESP 16; TEMP 35.5; O2SAT 97
[2021-12-31] MEDS: Pantoprazole 40 MG VIAL IVP ×2 (09:11→21:55)
[2021-12-31] MEDS: Normal Saline Flush 10 ML SYR IVP ×2 (09:12→20:54)
[2021-12-31 09:28] LABS: HCT 35.1 % (36.0-46.0); HGB 11.8 g/dL (11.2-15.7)
[2021-12-31] MEDS: Sucralfate 1 GM TAB PO ×3 (11:59→23:25)
[2021-12-31] MEDS: Lactated Ringers 1,000 ML 100 ML IV (16:03)
--- NOTE | 2021-12-31 17:21 | PGE_ITS ---
Date of Service Date of service: 12/31/21 Time of Service: 17:21 Assessment and Plan Assessment and plan (1) Intractable nausea and vomiting: Status: Acute Assessment and plan: In setting of known achalasia, h/o Iftikhar's fundoplication/Heller's procedure. Worse today. Discussed with [facility] [place] GI: Dr Werner feels the patient might benefit from a repeat EGD to look for an esophageal stricture. The patient was being previously considered for esophagectomy, so if she still does not improve, thoracic surgery might be indicated. Make NPO. Ok to continue TFs, per GI. Trial haldol for nausea. Continue prn phenergan/tigan/ativan, IVF, PPI, carafate. H/H stable. Canabinoid hyperemesis is on differential given the fact that hot showers help. Plan for EGD early next week at [facility] [place] [id number] transfer; the patient is on the list, however the hospitalist is asked to contact [facility] transfer center at 8 am to reiterate our need for the EGD. (2) Diarrhea: Status: Resolved Assessment and plan: Likely related to #1. (3) Chest pain: Status: Resolved Assessment and plan: No ACS. Had an echo less than 1 week ago at [facility] [place] w/ LVEF of 50% and normal segmental wall motion (global hypokinesis). No further ischemic workup at this time. (4) UTI (urinary tract infection): Status: Acute Assessment and plan: Due to 2 different strains of E. Coli, present on admission. Both sensitive to ceftriaxone. Continue empiric ceftriaxone (day 5). (5) Acute dehydration: Status: Acute Assessment and plan: Continue IVF. (6) Pacemaker at end of battery life: Status: Acute Assessment and plan: [facility] plans to replace battery this month. Pacemaker is still working, tele d/c'ed. (7) DVT prophylaxis: Status: Acute Assessment and plan: SC enoxaparin d/c'ed due to suspected GI bleeding. SCDs. (8) Discharge planning issues: Status: Acute Assessment and plan: Full code Continue to require hospitalization. EGD planned as down and back for early next week - hospitalist will have to call [facility] transfer center at 8 am on Sunday to ensure that GI is aware we still want this - she is on the list. Subjective Subjective Interval history since last seen: Continues to have nausea with several episodes of emesis overnight and today. Abdominal pain happens with nausea/vomiting. Denies dizziness, chest pain, shortness of breath. Exam Narrative Exam Narrative: General: Pleasant middle-aged female, looks tired, A&Ox3 HEENT: EOMI, MMM Heart: RRR, no m/r/g Lungs: CTAB Abdomen: soft, nontender, nondistended, J tube site intact Extremities: no edema Objective Last Vital Signs Temp 35.5 C L 12/31/21 09:09 Pulse 73 12/31/21 09:09 Resp 16 12/31/21 09:09 BP 96/54 L 12/31/21 09:09 Pulse Ox 97 12/31/21 09:09 Laboratory Results - last 24 hr 12/31/21 12/31/21 06:58 09:20 Hgb 11.8 Hct 35.1 L Sodium 138 Potassium 4.5 D Chloride 104 Carbon Dioxide 25.0 Anion Gap 9.0 BUN 9 Creatinine 0.7 Estimated GFR/1.73 m2 >= 60.00 Glucose 108 H Calcium 8.8 Magnesium 1.8
[2021-12-31] MEDS: Haloperidol 5 MG/ML VIAL 2 MG IM (17:33)
[2021-12-31 21:14] VITALS: BP 113/76; PULSE 89; RESP 16; TEMP 36.2; O2SAT 100
[2021-12-31] MEDS: Mirtazapine 15 MG TAB 7.5 MG PO (23:25)
[2022-01-01 03:48] VITALS: BP 100/63; PULSE 79; RESP 16; TEMP 36.7; O2SAT 98
[2022-01-01] MEDS: Lactated Ringers 1,000 ML 100 ML IV ×2 (06:02→19:26)
[2022-01-01 06:41] LABS: HCT 35.4 % (36.0-46.0); HGB 11.5 g/dL (11.2-15.7)
[2022-01-01 07:01] LABS: Anion Gap 6.6 mmol/L (3-11); BUN 9 mg/dL (7-18); CO2 30.4 mmol/L (21.0-32.0); CREATININE 0.8 mg/dL (0.55-1.02); Calcium 9.1 mg/dL (8.5-10.1); Chloride 101 mmol/L (98-107); Glucose 75 mg/dL (74-106); Magnesium 1.7 mg/dL (1.8-2.4); Potassium 3.9 mmol/L (3.5-5.1); Sodium 138 mmol/L (136-145)
[2022-01-01 07:15] VITALS: BP 104/66; PULSE 71; RESP 16; TEMP 37.1; O2SAT 99
[2022-01-01] MEDS: Pantoprazole 40 MG VIAL IVP ×2 (09:02→19:25)
[2022-01-01] MEDS: Sucralfate 1 GM TAB PO ×4 (09:02→22:31)
[2022-01-01] MEDS: Normal Saline Flush 10 ML SYR IVP ×2 (09:02→19:25)
[2022-01-01] MEDS: MAGNESIUM SULFATE 2 GM/50 ML BAG IVPB (09:03)
--- NOTE | 2022-01-01 10:56 | PGE_ITS ---
Date of Service Date of service: 01/01/22 Time of Service: 10:56 Assessment and Plan Assessment and plan (1) Intractable nausea and vomiting: Status: Acute Assessment and plan: In setting of known achalasia, h/o Iftikhar's fundoplication/Heller's procedure. none today since NPO previously discussed with [facility]: Dr Werner feels the patient might benefit from a repeat EGD to look for an esophageal stricture. The patient was being previously considered for esophagectomy, so if she still does not improve, thoracic surgery might be indicated. Continue NPO. Ok to continue TFs, per GI but will place on hold at midnight for possible procedure tomorrow Trial haldol for nausea. Continue prn phenergan/tigan/ativan, IVF, PPI, carafate. H/H stable. Canabinoid hyperemesis is on differential given the fact that hot showers help. Plan for EGD early this week [place] [facility] [place] [id number] [place]; the patient is on the list, however the hospitalist is asked to contact [facility] [place] at 8 am to reiterate our need for the EGD. (2) Diarrhea: Status: Resolved Assessment and plan: Likely related to #1. (3) Chest pain: Status: Resolved Assessment and plan: No ACS. Had an [place] less than 1 [place] ago [place] [facility] [place]/ LVEF of 50% and normal segmental wall motion (global hypokinesis). No further ischemic workup at this time. (4) UTI (urinary tract infection): Status: Acute Assessment and plan: Due to 2 different strains of E. Coli, present on admission. Both sensitive to ceftriaxone. Ceftriaxone (day 6). will repeat UA and stop antibiotics (5) Acute dehydration: Status: Acute Assessment and plan: Continue IVF. (6) Pacemaker at end of battery life: Status: Acute Assessment and plan: [facility] [place] this month. Pacemaker is still working, tele d/c'ed. (7) DVT prophylaxis: Status: Acute Assessment and plan: SC enoxaparin d/c'ed due to suspected GI bleeding. SCDs. (8) Discharge planning issues: Status: Acute Assessment and plan: Full code Continue to require hospitalization. EGD planned as down and back for early next week - hospitalist will have to call [facility] [place] 8 am on Sunday to ensure that GI is aware we still want this - she is on the list. discussed with DR Mercer Subjective Subjective Patient reports: no new complaints, feels better, voiding w/o difficulty and afebrile; denies nausea or shortness of breath Exam Const General: cooperative, no acute distress, frail appearing and ill appearing chron ically Nutritional Appearance: average body habitus Orientation: alert, awake and oriented x3 HENMT Head: normal to inspection, normocephalic and atraumatic Mouth: oral mucosae normal Chest Chest: normal inspection of the chest Resp Effort & Inspection: normal respiratory effort Auscultation: clear to auscultation bilaterally Cardio Rate: regular rate Rhythm: regular rhythm GI Inspection: other (j tube intact, infusing without difficulty) Palpation: soft Auscultation: normal bowel sounds Neuro General: patient alert, patient awake, patient oriented x3 and no focal motor deficits Cognition: normal cognition Extrem General: normal to inspection and no pedal edema Psych Appearance: grossly normal Mental Status: mental status grossly normal Speech and Movement: speech and movement normal Mood: anxious mood Affect: anxious affect Attitude: cooperative Insight: limited Judgment: limited Objective Last Vital Signs Temp 36.7 C 01/01/22 03:48 Pulse 79 01/01/22 03:48 Resp 16 01/01/22 03:48 BP 100/63 01/01/22 03:48 Pulse Ox 98 01/01/22 03:48 Laboratory Results - last 24 hr 01/01/22 01/01/22 06:04 06:04 Hgb 11.5 Hct 35.4 L Sodium 138 Potassium 3.9 Chloride 101 Carbon Dioxide 30.4 Anion Gap 6.6 BUN 9 Creatinine 0.8 Estimated GFR/1.73 m2 >= 60.00 Glucose 75 Calcium 9.1 Magnesium 1.7 L
[2022-01-01] MEDS: LORazepam 0.5 MG TAB PO ×2 (16:28→22:32)
[2022-01-01 16:32] VITALS: BP 188/90; PULSE 132; RESP 27; TEMP 35.9; O2SAT 100
[2022-01-01 17:21] VITALS: BP 122/84; PULSE 99; RESP 18; O2SAT 100
[2022-01-01] MEDS: Mirtazapine 15 MG TAB 7.5 MG PO (22:31)
[2022-01-01 22:37] VITALS: BP 116/80; PULSE 90; RESP 16; TEMP 36.6; O2SAT 97
[2022-01-01 23:12] LABS: Bilirubin Negative (Negative); Blood Negative (Negative); Clarity Cloudy (Clear); Glucose Negative (Negative); Ketones Negative (Negative); Leukocyte Esterase Negative (Negative); Nitrite Negative (Negative); Urobilinogen 0.2 EU/dL (Up TO 0.2); pH 8.5 (5-8)
[2022-01-02] MEDS: Lactated Ringers 1,000 ML 100 ML IV (05:06)
[2022-01-02 07:00] LABS: Abs Immature Grans 0.06 10^3/uL (0.0-0.06); Absolute Basophil Count 0.04 10^3/uL (0.0-0.2); Absolute Eosinophil Count 0.16 10^3/uL (0.0-0.7); Absolute Lymphocyte Count 2.03 10^3/uL (1.2-3.4); Absolute Monocyte Count 0.76 10^3/uL (0.1-0.8); Absolute Neutrophil Count 3.08 10^3/uL (1.2-6.7); Basophils % 0.7; Eosinophils % 2.6; Lymphocytes % 33.1; MCH 27.6 pg (27.0-33.0); MCHC 32.4 % (32.0-36.0); MCV 85 fL (80-95); Monocytes % 12.4; Neutrophils % 50.2; Platelet Count 279 10^3/uL (130-400); RBC 3.98 10^6/uL (3.93-5.22); RDW 15.9 % (11.7-14.6); RDW-SD 49.2 fL; WBC 6.13 10^3/uL (4.4-10.8)
[2022-01-02 07:22] VITALS: BP 99/56; PULSE 78; RESP 18; TEMP 36.4; O2SAT 97
[2022-01-02 07:36] LABS: BUN 8 mg/dL (7-18); CREATININE 0.7 mg/dL (0.55-1.02); Chloride 102 mmol/L (98-107); Glucose 83 mg/dL (74-106); Magnesium 2.1 mg/dL (1.8-2.4); Potassium 4.2 mmol/L (3.5-5.1); Sodium 137 mmol/L (136-145)
[2022-01-02] MEDS: Sucralfate 1 GM TAB PO ×2 (09:11→11:59)
[2022-01-02] MEDS: Normal Saline Flush 10 ML SYR IVP (09:12)
[2022-01-02] MEDS: Pantoprazole 40 MG VIAL IVP (09:12)
--- NOTE | 2022-01-02 09:18 | PDOC.CMPRO ---
- If Service Date Differs Date of service: 01/02/22 Time of Service: 09:18 Care Management Progress Note S/O: Marcella is being closely monitored and treated. She is on IV abx. Marcella will need an outpatient EGD at [facility] [place], and will call [facility] in the morning to schedule. A: Marcella is a 46 year old woman admitted on 12/27/21 with gastroenteritis P:Marcella will be discharged home with no new services. She will follow up with her PCP and plan of care and transport with family. CM will support Marcella and her discharge needs.
[2022-01-02] MEDS: LORazepam 0.5 MG TAB PO (12:00)
[2022-01-02 14:41] VITALS: BP 100/66; PULSE 84; RESP 18; TEMP 36.8; O2SAT 100
--- NOTE | 2022-01-02 14:59 | W.PM.DS.N ---
Date of service: 01/02/22 Time of Service: 14:59 DS: Diagnosis Discharge Diagnosis (1) Intractable nausea and vomiting: Status: Acute (2) Diarrhea: Status: Resolved (3) Chest pain: Status: Resolved (4) UTI (urinary tract infection): Status: Acute (5) Acute dehydration: Status: Acute (6) Pacemaker at end of battery life: Status: Acute Discharge Plan Disposition Patient Disposition: HOME Condition: Stable Discharge Details Reason For Visit: Gastroenteritis Admit Date/Time: 12/30/21 11:40 Admit Provider: Patel Wilkerson Attending Provider: Patel Wilkerson [facility] Course: This is a 46 female with extensive GI history including GERD, achalasia, s/p dilatation, s/p Iftikhar fundoplication, s/p J-tube by which she has nocturnal feedings, supplemented with soft food diet who presesnted to the ED with three days of vomiting and watery diarrhea, came on after eating a pasta salad. She was found to have a K 2.6 and non-contrast CT demonstrating fluid filled structure just proximal to diaphragm, esophagus vs HH vs Iftikhar. Surgery consulted, did not feel any need for emergent intervention, they advised trial PO and f/u as outpatient for possible revision of Iftikhar. She was unable to take PO and was admitted for further management. While on medsurg she remained hemodynamically stable but unable to tolerate PO. She had no fevers or other symptoms. Because her symptoms continued her case was discussed with GI at [facility] [place] and it was thought she would be transported down there for an EGD, down and back. we called today and because she is tolerating her feeds by tube well, it was advised she remain NPO and do tube feedings only. She should follow up outpatient with GI for further testing/recommendations. She is being discharged to home with no services. discussed with Dr Jean Home Meds and New Rx's Prescriptions: New sucralfate 1 gram Tablet 1 g PO AC & HS Qty: 56 0RF Continued fluoxetine 10 mg capsule 10 mg PO HS Label Comments: TAKE ONE CAPSULE BY MOUTH EVERY DAY. STOP SERTRALINE mirtazapine 7.5 mg tablet 7.5 mg PO HS Label Comments: TAKE ONE TABLET BY MOUTH AT BEDTIME ondansetron 4 mg tablet,disintegrating 4 mg PO Q8H PRN PRN Label Comments: DISSOLVE ONE TABLET ON TONGUE EVERY 8 HOURS NEEDED FOR NAUSEA metoprolol tartrate 25 mg tablet 25 mg PO BID Label Comments: TAKE ONE TABLET BY MOUTH TWICE A DAY Pt hasn't taken in 2 weeks 12/27/21 CJ epinephrine 0.3 mg/0.3 mL Auto-Injector 0.3 mg IM PRN PRN pantoprazole 40 mg tablet,delayed release (DR/EC) 40 mg PO HS Label Comments: TAKE ONE TABLET BY MOUTH EVERY DAY Discharge Instructions Instructions: Acute Nausea and Vomiting (GEN) Additional Instructions: continue tube feeding as directed Stand Alone Forms: Nursing Discharge Form Referrals: GASTROENTEROLOGY,[facility] [place] [OTHER] - (PLEASE CALL FOR AN APPOINTMENT ) Karri Ceballos [Primary Care Provider] - 01/17/22 10:00 am Activity:: Activity as Tolerated Equipment/Supplies:: No Equipment Needed Diet:: continue tube feeding Discharge Orders Discharge Orders: Discharge Order (Routine); Ordered 01/02/22 Ordered By: Mariana Pendleton DS: Summary Time Spent with Patient providing and/or coordinating discharge services: Greater than 30 minutes Status at Discharge Functional status at discharge: independent ambulation Overall status at discharge: patient is back to baseline Mental Status: mental status grossly normal Speech and Movement: speech and movement normal Mood: anxious mood Affect: anxious affect Exam Const General: cooperative, no acute distress, frail appearing and ill appearing chronically Nutritional Appearance: average body habitus Orientation: alert, awake and oriented x3 HENMT Head: normal to inspection, normocephalic and atraumatic Mouth: oral mucosae normal Chest Chest: normal inspection of the chest Resp Effort & Inspection: normal respiratory effort Auscultation: clear to auscultation bilaterally Cardio Rate: regular rate Rhythm: regular rhythm GI Inspection: other (j tube intact, infusing without difficulty) Palpation: soft Auscultation: normal bowel sounds Neuro General: patient alert, patient awake, patient oriented x3 and no focal motor deficits Cognition: normal cognition Extrem General: normal to inspection and no pedal edema Psych Appearance: grossly normal Mental Status: mental status grossly normal Speech and Movement: speech and movement normal Mood: anxious mood Affect: anxious affect Attitude: cooperative Insight: limited Judgment: limited DS: Data Vitals/I&O Vitals and I&O: Vital Signs Temperature 36.8 C 01/02/22 14:41 Temperature Source Tympanic 01/02/22 14:41 Pulse 84 01/02/22 14:41 Pulse Rhythm Regular 01/02/22 10:22 Pulse 86 12/27/21 08:15 Respiratory Rate 18 01/02/22 14:41 Respiratory Effort Non-Labored 01/02/22 10:22 Respiratory Depth Normal 01/02/22 10:22 Respiratory Pattern Normal 01/02/22 10:22 Blood Pressure 100/66 01/02/22 14:41 Blood Pressure Mean 96 12/27/21 08:15 Blood Pressure Position Sitting 12/27/21 00:54 Pulse Oximetry 100 01/02/22 14:41 Oxygen Delivery Method Room Air 01/02/22 14:41 Oxygen Flow Rate 0 01/02/22 14:41 Pain Level 0 01/02/22 14:41 Comment 01/02/22 07:22 Intake & Output 01/01/22 01/02/22 01/02/22 23:59 11:59 23:59 Intake Total 1100 / 1805 1016.667 / 1016.667 Output Total 333 / 683 400 / 1000 600 / 1000 Balance 767 / 1122 616.667 / 16.667 -600 / 16.667 Intake: IV 1100 / 1805 1016.667 / 1016.667 Output: Urine 333 / 683 400 / 1000 600 / 1000 Other: Urine Color Yellow Yellow Urine Appearance Cloudy Clear Clear Urine Odor Normal Comment urine sample send to lab. pT voids independently. Voiding Methods Urinal Toilet Toilet Data Completed and Pending Labs on day of discharge: Labs from last 24 hours 01/02/22 01/02/22 01/01/22 06:17 06:17 22:55 WBC 6.13 RBC 3.98 Hgb 11.0 L Hct 34.0 L MCV 85 MCH 27.6 MCHC 32.4 RDW 15.9 H Plt Count 279 MPV 10.0 Immature Gran % 1.0 Neutrophils % 50.2 Lymphocytes % 33.1 Monocytes % 12.4 Eosinophils % 2.6 Basophils % 0.7 Nucleated RBC % 0.0 Absolute Neutrophils 3.08 Absolute Lymphocytes 2.03 Absolute Monocytes 0.76 Absolute Eosinophils 0.16 Absolute Basophils 0.04 Sodium 137 Potassium 4.2 Chloride 102 Carbon Dioxide 28.0 Anion Gap 7.0 BUN 8 Creatinine 0.7 Estimated GFR/1.73 m2 >= 60.00 Glucose 83 Calcium 9.0 Magnesium 2.1 Urine Color Yellow Urine Clarity Cloudy Urine pH 8.5 H Ur Specific [place] 1.020 Urine Protein Negative Urine Ketones Negative Urine Blood Negative Urine Nitrite Negative Urine Bilirubin Negative Urine Urobilinogen 0.2 Ur Leukocyte Esterase Negative Urine Glucose Negative PFSH All Active Problems (Updated 12/30/21 @ 13:53 by Suzi Mercer MD) Pacemaker at end of battery life (Acute) Discharge planning issues (Acute) DVT prophylaxis (Acute) UTI (urinary tract infection) (Acute) Gastroenteritis (Acute) Intractable nausea and vomiting (Acute) History of Iftikhar fundoplication (Chronic) Ileus (Acute) Vomiting (Acute) Acute dehydration (Acute) Cervicalgia (Acute) Numbness in both hands (Acute) Bursitis of right shoulder (Acute) Hypermobility syndrome (Acute) Tendonitis of long head of biceps brachii of right shoulder (Acute) Bronchial spasms (Acute) Stricture esophagus (Chronic) Due to prior Jesus/post OP scarring Status post Iftikhar fundoplication (Acute) Emesis, persistent (Acute) Atypical chest pain (Acute) UTI (urinary tract infection) (Acute) Esophagitis with gastritis (Chronic) S/P placement of cardiac pacemaker (Acute) Discharge planning issues (Acute) DVT prophylaxis (Acute) Anemia (Chronic) Complication of surgery (Acute) Pacemaker (Chronic) Smoker unmotivated to quit (Acute) GERD without esophagitis (Acute) Medical History Achalasia of esophagus Gastroesophageal reflux disease Surgical History section x3 Esophageal Myotomy Hx of esophagogastroduodenoscopy Ligation of fallopian tube Pacemaker Biventricular pacemaker Family History Aunt Personal history of malignant neoplasm Breast cancer Social History Smoking/Tobacco Use Status: Current every day Tobacco Type: cigarettes Smoking risk assessment performed?: Yes Alcohol Intake: current Alcohol Intake frequency: holidays/special occasions only Drug use: Daily Substance use type: marijuana 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
--- NOTE | 2022-01-02 15:51 | PDOC.CMDIS ---
- If Service Date Differs Date of service: 01/02/22 Time of Service: 15:51 LACE Index Scoring Tool - Questions: Length of Stay (in days): 3 Acuity (Admit via E.D.?): Yes E.D. Visits: 4 - Answers: Total Score: 10 Risk of Readmission: High Risk Care Management Discharge Reason for Hospitalization: gastroenteritis Discharge Plan: Discharge home via private vehicle with friend. New RX for sucralfate was transmitted to [facility]. Marcella will follow up with her PCP on 01/17/22 at 10:00. Marcella will call [facility] Gastroenterology tomorrow to schedule her appointment with outpatient EGD. Patient/Family Education Needs: Review discharge instructions, limitations, medications and plan to follow up with community providers. ask me three.
== END 2022-01-02 16:40 | disposition home or self-care (01) | DRG 392 ==
LOC: ER 06:53 → MS 08:32
PROVIDERS: Internal Medicine; Nurse Practitioner Acute Care; Admitting Provider General Practice; Emergency Provider Physician Assistant; PCP Family Medicine; Visit Provider General Practice
DX: A08.4 Viral intestinal infection, unspecified (principal); N39.0 Urinary tract infection, site not specified; I44.2 Atrioventricular block, complete; R11.2 Nausea with vomiting, unspecified; E86.0 Dehydration; K21.9 Gastro-esophageal reflux disease without esophagitis; K22.0 Achalasia of cardia; K22.2 Esophageal obstruction; Z95.0 Presence of cardiac pacemaker; Z93.4 Other artificial openings of gastrointestinal tract status; Z98.890 Other specified postprocedural states; R07.89 Other chest pain; K20.80 Other esophagitis without bleeding; K29.50 Unspecified chronic gastritis without bleeding; F17.210 Nicotine dependence, cigarettes, uncomplicated; B96.20 Unspecified Escherichia coli [E. coli] as the cause of diseases classified elsewhere; E87.6 Hypokalemia; F12.90 Cannabis use, unspecified, uncomplicated
CPT/HCPCS: 36410; 36415; 80048; 80053; 81025; 87077; 87635; 96365; 96366; 96368; 96375; 99285; J1650; 74176; 81003; 81015; 83735; 84484; 85014; 85018; 85025; 85049; 87086; 87186; 93005; 93010; 99219; 99225; 99226; 99232; 99233; 99239; G0378; J0696; J1630; J1885; J2060; J2405; J2765; J3480